=== PATIENT | female | born 1950 | race Caucasian/White ===

== ENCOUNTER → 2018-02-28 10:49 | Outpatient (CLI) | payer MEDICARE, OTHER, SELFPAY ==
--- NOTE | 2018-02-28 10:54 | XR_ITS ---
XR XR knee LT 4V, XR knee RT 4V Comparison: Weightbearing Right knee 2014. Right and left nonweightbearing knee from 2010 History: Bilateral knee pain Technique: Weightbearing AP, lateral and [place] views were performed as well as oblique. Both right and left knee === LEFT KNEE Joint spaces fairly well maintained with medial and lateral compartment. No joint effusion. Borderline to perhaps very slight patella kasi on lateral view. . Bones well mineralized Scant early marginal ossified formation about margin of the tibia again noted and stable. Also slight sharpening at margins of patella. These may reflect some very early degenerative changes . The sunrise view patellofemoral joint which shows some subtle irregularity with possibly some very subtle subchondral cystic just be the cortex at the lateral aspect of the femoral trochlear groove question. IMPRESSION: ======= 1. No prominent findings. Joint space well maintained. Scant degenerative changes 2. Only question subtle subchondral irregularity just beneath the cortex at the lateral aspect of the femoral trochlear groove on sunrise view. 3. Question Borderline to possible minor patella kasi on lateral view === RIGHT KNEE: joint spaces fairly well-maintained at medial and lateral compartment. Only negligible - borderline narrowing at the medial compartment. Equivocal. .Only very slight sharpening the joint margins. Minor hypertrophic changes at the tibial spines no joint effusion.. There is some question of some subchondral cystic area at the dorsal aspect superior patella this is less evident on today's lateral film. . [place] view shows satisfactory patellofemoral relationships. A more prominent lateral process of patella on today's study within the 2014 study is curiously noted. Borderline to possible possibly mild patella kasi IMPRESSION: 1. No prominent findings Medial & lateral compartment joint space fairly well maintained Only Scant sharpening [joint margins. 2. Question Borderline patella kasi on a lateral view right knee as well.
== END ==
PROVIDERS: PCP Family Medicine; Visit Provider Orthopaedic Surgery
DX: M17.0 Bilateral primary osteoarthritis of knee (principal)
CPT/HCPCS: 73564

== ENCOUNTER → 2018-03-13 10:36 | Outpatient (CLI) | payer MEDICARE, OTHER, SELFPAY ==
--- NOTE | 2018-03-13 10:42 | XR_ITS ---
EXAM: XR thoracic spine 3V HISTORY: Back pain ITS.REASON: SOB, BACK PAIN, LUMBAGO WITH SCIATICA COMPARISON: FINDINGS: Normal alignment. No fracture or dislocation. No lytic or blastic change. There is mild decrease in the disc spaces in the midthoracic spine with minimal endplate sclerosis and osteophyte formation. There is degenerative disc disease in the cervical spine from C3 to C7. Not well delineated however. IMPRESSION: 1. Thoracic spondylosis. No acute fracture. 2. Degenerative disc disease of the cervical spine
--- NOTE | 2018-03-13 10:42 | XR_ITS ---
EXAM: XR lumbar spine min 4V HISTORY: ITS.REASON: SOB, BACK PAIN, LUMBAGO WITH SCIATICA ORDERING PHYSICIAN: SELVIN Ordonez PATIENT AGE: 68 years COMPARISON: 04/21/2015 FINDINGS: There are postsurgical changes with interpedicular screws at L2 L3 L4 and L5. Prior laminectomy L4 and L5. Disc spacer device is present at L2-L3. There is straightening of the lumbar lordosis. There is severe degenerative disc disease at L5-S1 with osteosclerosis with decreased disc space and vacuum disc at that level. Facet arthritic changes also noted at L5-S1. No fracture or dislocation. IMPRESSION: 1. Postsurgical changes as described above. Prior posterior fusion. 2. Severe degenerative disc disease L5-S1. 3. Overall no change from 04/21/2015
--- NOTE | 2018-03-13 10:42 | XR_ITS ---
XR chest 2V HISTORY: ITS.REASON: SOB, BACK PAIN, LUMBAGO WITH SCIATICA ORDERING PHYSICIAN: SELVIN Ordonez PATIENT AGE: 68 years COMPARISON: 06/01/2014 FINDINGS: The cardiomediastinal silhouette and pulmonary vascularity are within normal limits. The lungs are clear without infiltrates, suspicious nodules, or pleural effusions. No acute bony abnormalities. IMPRESSION: Negative chest, no acute finding
== END ==
PROVIDERS: PCP Family Medicine; Visit Provider Physician Assistant
DX: R06.02 Shortness of breath (principal); M54.41 Lumbago with sciatica, right side; M54.42 Lumbago with sciatica, left side
CPT/HCPCS: 71046; 72072; 72110

== ENCOUNTER → 2018-04-15 09:42 | Outpatient (CLI) | payer MEDICARE, OTHER, SELFPAY ==
[2018-04-15 10:15] VITALS: PULSE 46; PULSE 47
== END ==
PROVIDERS: Family Provider Family Medicine; PCP Family Medicine; Visit Provider Family Medicine
DX: R06.02 Shortness of breath (principal)
CPT/HCPCS: 94060; 94640

== ENCOUNTER → 2018-08-01 10:44 | Outpatient (CLI) | payer MEDICARE, OTHER, SELFPAY ==
--- NOTE | 2018-08-01 10:55 | XR_ITS ---
EXAM: XR cervical spine 3V HISTORY: ITS.REASON: PARESTHESIA OF ARM ORDERING PHYSICIAN: SELVIN Ordonez PATIENT AGE: 68 years COMPARISON: None FINDINGS: There is multilevel degenerative disc disease at C3-C4, C4-C5, C5-C6, and C6-C7. There is minimal anterolisthesis of C2 on C3 of 3 mm.. There is mild retrolisthesis of C5 on C6 of 2 mm. Mild cervical scoliosis convex right. Multilevel facet arthritic changes from C4 to C7. There are mild osteoarthritic changes of the lateral masses of C1 and C2. No acute fracture or dislocation. No lytic or blastic change. IMPRESSION: 1. Multilevel cervical spondylosis with degenerative disc disease and facet arthritic change
== END ==
PROVIDERS: PCP Family Medicine; Visit Provider Physician Assistant
DX: R20.2 Paresthesia of skin (principal)
CPT/HCPCS: 72040

== ENCOUNTER → 2018-08-13 12:38 | Outpatient (POV) | payer MEDICARE, OTHER, SELFPAY | PROVIDERS: Family Provider Family Medicine; PCP Family Medicine; Visit Provider Internal Medicine | DX: Z00.00 Encounter for general adult medical examination without abnormal findings (principal) ==

== ENCOUNTER → 2018-08-21 06:47 | Outpatient (CLI) | payer MEDICARE, OTHER, SELFPAY ==
--- NOTE | 2018-08-21 07:00 | NM_ITS ---
History and Indications: Hypertension, hyperlipidemia, family history, shortness of breath and fatigue Procedure: Patient received a 0.4 mg of intravenous Lexiscan, resting heart rate was 53 bpm resting blood pressure 174/84, with Lexiscan maximum heart rate achieved was 75 bpm which is less than 85% of the maximum predicted heart rate and a blood pressure was 142/72. With Lexiscan patient chest pressure and shortness of breath Electrocardiogram: Resting electrocardiogram showed sinus bradycardia, with Lexiscan there is less than 1.[address] segment depression noted from the baseline EKG. The EKG portion of the Lexiscan Myoview is nondiagnostic. Cardiac stress and resting SPECT images: Cardiac stress and rest SPECT images were obtained using technetium 99 Myoview 2.1 mCi at stress and 10.4 mCi at rest. Gated SPECT further analysis of segmental wall motion and calculation of the ejection fraction also done. Cardiac stress and rest SPECT images show uniform myocardial activity without segmental perfusion abnormality, computer derived ejection fraction is over 65% with no regional wall motion abnormality, right ventricle is normal size and contractility. Conclusion: 1. The EKG portion of the Lexiscan Myoview is nondiagnostic. 2. No scintigraphic evidence of reversible ischemia seen, computer derived ejection fraction is over 65% with no regional wall motion abnormality, right ventricle is normal size and contractility. 3. Normal Lexiscan Myoview study.
--- NOTE | 2018-08-21 07:48 | HMH.ITSHM ---
B12 VITAMIN C BIOTIN METHOTREXATE PROPRANOLOL FOLIC ACID PREDNISONE PAROXETINE OMEPRAZOLE AMLODIPINE PRAVASTATIN ALLERGY RELIEF
== END ==
PROVIDERS: Family Provider Family Medicine; PCP Family Medicine; Visit Provider Internal Medicine
DX: R06.00 Dyspnea, unspecified (principal)
CPT/HCPCS: 78452; 93017; A9502; J2785

== ENCOUNTER → 2018-08-22 09:40 | Outpatient (CLI) | payer MEDICARE, OTHER, SELFPAY ==
[2018-08-22 11:00] VITALS: PULSE 55
== END ==
PROVIDERS: PCP Family Medicine; Visit Provider Internal Medicine
DX: R06.00 Dyspnea, unspecified (principal)
CPT/HCPCS: 94060; 94618; 94640; 94726; 94729

== ENCOUNTER → 2018-09-03 10:48 | Outpatient (POV) | payer MEDICARE, OTHER, SELFPAY | PROVIDERS: Family Provider Family Medicine; PCP Family Medicine; Visit Provider Dermatology | DX: Z00.00 Encounter for general adult medical examination without abnormal findings (principal) ==

== ENCOUNTER 2018-09-25 10:00 | Outpatient (RCR) | payer MEDICARE, OTHER, SELFPAY ==
--- NOTE | 2018-08-12 14:23 | HMH.PTOPEV ---
PT Outpatient Evaluation Rehab PT Outpatient Evaluation Start: 08/12/18 13:02 Freq: Status: Active Protocol: Document 08/12/18 14:02 PRISCILLA (Rec: 08/12/18 14:20 PHORNE [id number]) Electronically Signed By Gagandeep Golden, PT 08/12/18 14:02 Outpatient Therapy Subjective History Subjective History Pt is 68 yowf who presents with c/o right forearm numbness/tingling and pain x ~ 6 mos with insidious onset of symptoms. She reports intermittent symptoms, often worse at night though. She had X-ray of the C-spine performed which shows DDD throughout, 2 levels of mild listhesis, and cervical scoliosis concave left. She reports hx of lumbar spine fusion. Chief Complaint Pain Paresthesia Symptom Type Burning Numbness Tingling Symptoms Relieved By Nothing Prior Functional Limitations None Current Functional Limitations None Symptom Description Intermittent Level of pain today (0-10) 5 Pain scale - at its worst (0-10) 9 Cervical Eval Posture Head/C-Spine Posture Sitting Position Side Bent Left Head/C-Spine Posture Standing Position Side Bent Left Flexibility Deficits Upper Trapezius Muscle Length (R) Moderate Tightness (L) Moderate Tightness Passive Joint Mobility Cervical PIVM Dec: R OA L OA R AA L AA R C2/3 L C2/3 R C3/4 L C3/4 R C4/5 L C4/5 R C5/6 L C5/6 R C6/7 L C6/7 R C7/T1 L C7/T1 AROM Cervical Spine Extension Active Range of 0-55 Motion (degrees) Cervical Spine Flexion Active Range of 0-35 Motion (degrees) Cervical Spine Right Lateral Flexion 0-35 Active Range of Motion (degrees) Cervical Spine Left Lateral Flexion 0-50 Active Range of Motion (degrees) Cervical Spine Right Rotation Active 0-45
== END 2018-09-25 10:05 | disposition home or self-care (01) ==
LOC: PT 10:00
PROVIDERS: Family Provider Family Medicine; PCP Family Medicine; Visit Provider Family Medicine
DX: R20.2 Paresthesia of skin (principal)
CPT/HCPCS: 97010; 97012; 97014; 97035; 97110; 97140; 97163; G0283

== ENCOUNTER → 2018-11-29 10:37 | Outpatient (CLI) | payer MEDICARE, OTHER, SELFPAY ==
--- NOTE | 2018-11-29 10:43 | XR_ITS ---
XR hip RT 2-3V w/pelvis HISTORY: ITS.REASON: right hip pain ORDERING PHYSICIAN: Henry Ramsey MD PATIENT AGE: 68 years COMPARISON: None FINDINGS: No fracture or dislocation is evident. No significant degenerative change. No lytic or blastic change. Unremarkable soft tissues IMPRESSION: Negative hip
--- NOTE | 2018-11-29 10:43 | XR_ITS ---
XR knee RT 4V HISTORY: Right knee pain ITS.REASON: 4 views weightbearing ORDERING PHYSICIAN: Henry Ramsey MD PATIENT AGE: 68 years COMPARISON: 02/28/2018 FINDINGS: No fracture or dislocation. No lytic or blastic change. Normal mineralization. Minimal spurring is noted involving the tibial spines with only slight decrease in the joint space laterally and at the patellofemoral joint. IMPRESSION: Minimal osteoarthritis, no significant change from 45
--- NOTE | 2018-11-29 10:43 | XR_ITS ---
XR knee LT 4V HISTORY: Left knee pain ITS.REASON: 4 views weightbearing ORDERING PHYSICIAN: Henry Ramsey MD PATIENT AGE: 68 years COMPARISON: 02/28/2018 FINDINGS: No fracture or dislocation. No lytic or blastic change. Normal mineralization. There is mild spurring at the tibial spines and along the intercondylar region of the distal femur as well as the posterior patella with slight decrease in the joint space medially. The previously noted subchondral lucency along the medial aspect of the femoral condyle as seen on the sunrise view previous exam is less apparent on today's exam IMPRESSION: Mild osteoarthritis
--- NOTE | 2018-11-29 10:43 | XR_ITS ---
XR hip LT 2-3V w/pelvis HISTORY: ITS.REASON: left hip pain ORDERING PHYSICIAN: Henry Ramsey MD PATIENT AGE: 68 years COMPARISON: None FINDINGS: No fracture or dislocation is evident. No significant degenerative change. No lytic or blastic change. Unremarkable soft tissues. There are multiple rounded calcific densities in pelvis which could represent bladder stones. There is mild sclerosis of left SI joint and there are postoperative changes of the lumbar spine severe degenerative disc disease at L5-S1. IMPRESSION: Negative left hip Other nonacute findings as described above
== END ==
PROVIDERS: PCP Family Medicine; Visit Provider Orthopaedic Surgery
DX: M25.552 Pain in left hip (principal); M25.551 Pain in right hip; M17.12 Unilateral primary osteoarthritis, left knee; M17.11 Unilateral primary osteoarthritis, right knee
CPT/HCPCS: 73502; 73564

== ENCOUNTER 2018-12-17 13:00 | Outpatient (RCR) | payer MEDICARE, OTHER, SELFPAY ==
--- NOTE | 2018-12-04 10:54 | HMH.PTOPEV ---
PT Outpatient Evaluation Rehab PT Outpatient Evaluation Start: 12/04/18 10:35 Freq: Status: Active Protocol: Document 12/04/18 10:35 PRISCILLA (Rec: 12/04/18 10:48 PHORJANAK [id number]) Electronically Signed By Gagandeep Golden, PT 12/04/18 10:35 Outpatient Therapy Subjective History Subjective History Pt is 68 yowf who presents with c/o pain in left hip x ~ 7 mos with gradually worsening symptoms. She also reports hx of jorge a knee pain for about 20 years due to OA. She reports that her hip was causing pain throughout her left LE, but it has significantly decreased since she received left trochanteric cortisone injection. She has significant hx of chronic neck pain, chronic low back pain with lumbar fusionx 3, HTN, HL , and jorge a knee arthroscopy. Chief Complaint Pain Symptom Type Ache Throb Symptoms Relieved By Rest/Positioning Symptoms Aggravated By Sitting Physical Activity Prior Functional Limitations Driving Current Functional Limitations Driving Sitting Symptom Description Intermittent Level of pain today (0-10) 0 Pain scale - at its worst (0-10) 10 Hip/Knee Eval Gait Observation General Gait Pattern Observation No Deviations/Normal Palpation Tenderness left Hip Palpation Findings Tenderness MMT Hip Flexion Strength Grade 4 Good Hip Abduction Strength Grade 4 Good Hip Adduction Strength Grade 5 Normal Hip Extension Strength Grade 5 Normal Hip External Rotation Strength Grade 5 Normal Hip Internal Rotation Strength Grade 5 Normal Knee Extension Strength Grade 5 Normal Knee Flexion Strength Grade 5 Normal DTR bilateral Rt Patellar 2+ Lt Patellar 2+ Rt Ankle 2+ Lt Ankle 2+ Special Tests Hip Bowstring (Cram) Test Positive Left Positive Right Hip Scouring (Quadrant) Test Negative Left Negative Right Outpatient Therapy Assessment Impairments Problems/Impairmments Palpation Tenderness Impaired Strength Impaired Walking Impaired Sitting
== END 2018-12-17 13:05 | disposition home or self-care (01) ==
LOC: PT 13:00
PROVIDERS: Visit Provider Orthopaedic Surgery
DX: M25.552 Pain in left hip; M17.0 Bilateral primary osteoarthritis of knee
CPT/HCPCS: 97010; 97014; 97035; 97110; 97140; 97163; G0283

== ENCOUNTER → 2019-04-08 08:36 | Outpatient (CLI) | payer MEDICARE, OTHER, SELFPAY ==
--- NOTE | 2019-04-08 08:42 | MR_ITS ---
MR lumbar spine wo con, MR 3-d myelogram/MRCP HISTORY: Prior Lumbar surgery X10yrs. LBP. LT hip and leg pain. XYRS. ITS.REASON: ACUTE LEFT SIDED LOW BACK PAIN ORDERING PHYSICIAN: SELVIN Ordonez PATIENT AGE: 69 years Comparison: X-RAY 03-13-18. TECHNIQUE: Standard multiplanar multiecho sequences are performed without contrast. 3-D MIP and myelographic images are also rendered and reviewed FINDINGS: There has been prior laminectomy with posterior fusion from L2 to L5 with considerable artifact. The spinal cord ends at the L1 level. Straightening of the lumbar lordosis. T11-T12: Mild degenerative disc disease with minimal right paracentral disc protrusion without impingement. T12-L1: Unremarkable. L1-L2: There are interpedicular screws at L2 with moderate degree of artifact obscuring the lateral recess and foramina on the axial images. No disc herniation evident at this level. L2-L3: Considerable artifact is present from the interpedicular screws. There is a small left paracentral and lateral disc protrusion with mild foraminal narrowing. L3-L4: Artifact from the interpedicular screws. Facet and ligamentum flavum hypertrophy is present with mild left-sided foraminal narrowing. L4-L5: Artifact from the interpedicular screws with fusion of L4 and L5. L5-S1: Artifact from the interpedicular screws. Degenerative disc disease with bulging disc and facet hypertrophic change with moderate bilateral foraminal narrowing. IMPRESSION: 1. Postsurgical changes are present from prior laminectomy and posterior fusion from L2 to L5 with associated degenerative changes at the disc spaces. Please see above for detailed description at each level. 2. Small right paracentral disc protrusion T11-T12 3. Small left paracentral lateral disc protrusion at L2-L3 with mild foraminal narrowing 4. Degenerative disc disease with bilateral foraminal narrowing and bulging disc at L5-S1
== END ==
PROVIDERS: PCP Physician Assistant; Visit Provider Physician Assistant
DX: M54.42 Lumbago with sciatica, left side (principal)
CPT/HCPCS: 72148; 76376

== ENCOUNTER → 2019-09-02 09:15 | Outpatient (CLI) | payer MEDICARE, OTHER, SELFPAY ==
--- NOTE | 2019-09-02 09:19 | CA_ITS ---
APPROVED REPORT EXAM: Comprehensive 2D, Doppler, and color-flow Echocardiogram [employer] Engineering: Susana Jimenez RVT Ht: 5 ft 5 in Wt: 178lbs BSA: 1.88 BP: 125/68 mmHg Indications: Shortness of Breath, Hyperlipidemia, Hypertension 2D Dimensions LVOT 1.70 cm (M/F) 1.5-2.5 M-Mode Dimensions RVDd 2.90 cm (0.9-2.6) LA Diam 3.40 cm (1.9-4.0) LVDd 3.70 cm (3.5-5.7) Ao Diam 2.40 cm (2.0-3.7) LVDs 1.50 cm (3.5-5.7) AV Cusp 2.10 cm (1.5-2.6) IVSd 1.70 cm (0.6-1.1) PWd 0.90 cm (0.6-1.1) EF (Teich) 89.60% FS 59.50% EDV (Teich) 58.10 mL ESV (Teich) 6.06 mL LV Diastology E/A Ratio 0.8 MED E' 10.60 (< 7 cm/sec) E'/MED E' Ratio 7.80 (>14) LAT E' 9.85 (<10 cm/sec) E/LAT E' Ratio 8.40 (>14) Aortic Valve AoV Peak Yayo. 105.00 (50-130 cm/s) AO Peak GR. 4.00 mmHg Mitral Valve MV E Max Yayo. 82.40 (40-130 cm/s) MV A Velocity 98.20 (40-130 cm/s) E/A Ratio 0.80 Pulmonary Valve PA Accel Time 106.00 (>120 msec) Left Ventricle Left atrium is mildly enlarged, left ventricle is normal size, mild concentric left ventricular hypertrophy, septum is sigmoid configuration, visually estimated ejection fraction 55% with no regional wall motion abnormality, grade 1 diastolic dysfunction seen without tissue Doppler evidence of raise left atrial pressure. Right Ventricle Right atrium and right ventricular normal size and contractility. Aortic Valve Aortic valve is thickened and calcified leaflet continue to display mobility, there is no aortic stenosis or aortic insufficiency. Mitral Valve Mitral valve leaflets are minimally thickened, there is no mitral stenosis, there is mild mitral regurgitation. Tricuspid Valve Tricuspid valve is normal, there is mild tricuspid regurgitation. Pulmonic Valve Pulmonic valve is poorly visualized. Great Vessels Aortic root is normal size. Pericardium No significant pericardial effusion noted. Conclusion 1. Normal left ventricular size, mild concentric left ventricular hypertrophy, visually estimated ejection fraction 55% with no regional wall motion abnormality, septum is sigmoid configuration, grade 1 diastolic dysfunction seen without tissue Doppler evidence of a left atrial pressure. 2. Thickened and calcified aortic valve without aortic stenosis or aortic insufficiency. 3. Mild mitral and tricuspid regurgitation. 4. No significant pericardial effusion noted. Electronically signed by : Chaitanya Fofana, 09/03/2019 07:01:01
== END ==
PROVIDERS: PCP Family Medicine; Visit Provider Physician Assistant
DX: R06.02 Shortness of breath (principal)
CPT/HCPCS: 93306

== ENCOUNTER → 2021-05-02 14:31 | Outpatient (CLI) | payer MEDICARE, SELFPAY ==
--- NOTE | 2021-05-02 14:37 | MM_ITS ---
PROCEDURE INFORMATION: Exam: MG Screening 3D Mammography Exam date and time: 05/02/2021 2:37 PM Age: 71 years old Clinical indication: screening mammogram TECHNIQUE: Imaging protocol: Screening tomosynthesis and 2D mammography including computer-aided detection (CAD) when performed. COMPARISON: 1. MG DMSB DIG MAMM-SCREEN RICHAR W/CAD 09/28/2017 3:44 PM 2. MG DMSB DIG MAMM-SCREEN RICHAR 11/05/2014 8:39 AM FINDINGS: MAMMOGRAPHY: Breast composition: There are scattered areas of fibroglandular density. Mass: None. Architectural distortion: No new or suspicious architectural distortion. Calcifications: No new or suspicious calcifications are present Asymmetric density: No new or suspicious asymmetric density is present Skin thickening: None. Axillary adenopathy: None. IMPRESSION: No mammographic evidence of malignancy. Recommend annual screening mammography unless otherwise clinically indicated. ASSESSMENT: BI-RADS category 1: Negative
== END ==
PROVIDERS: PCP Family Medicine; Visit Provider Physician Assistant
DX: Z12.31 Encounter for screening mammogram for malignant neoplasm of breast (principal)
CPT/HCPCS: 77063; 77067

== ENCOUNTER → 2021-05-24 14:48 | Outpatient (CLI) | payer MEDICARE, SELFPAY ==
--- NOTE | 2021-05-24 14:53 | XR_ITS ---
PROCEDURE: XR KNEE RT 4V CLINICAL INDICATION: right knee pain COMPARISON: CR [id number] XR knee RT 4V from 02/28/2018 CR [id number] XR knee LT 4V from 02/28/2018 CR [id number] XR knee LT 4V from 11/29/2018 CR [id number] XR knee RT 4V from 11/29/2018 FINDINGS: No fracture or dislocation. No lytic or blastic change. There is normal mineralization. Minimal spurring noted involving the tibial spines slightly more prominent. Other findings:None. IMPRESSION: Minimal osteoarthritic change Dictated by: Edgar Patrick MD 05/24/2021 17:36 Edgar Patrick MD in [place] 05/24/2021 17:36
--- NOTE | 2021-05-24 14:53 | XR_ITS ---
PROCEDURE: XR HIP LT 2-3V W/PELVIS CLINICAL INDICATION: left hip pain COMPARISON: CR [id number] XR hip LT 2-3V w/pelvis from 11/29/2018 FINDINGS: No fracture or dislocation. The joint space is well preserved. Incidental note is made of multiple faint calcifications overlying the left pelvic region suspicious for bladder stones. Postsurgical and degenerative changes are present in lumbosacral spine IMPRESSION: Negative left hip. Multiple bladder stones Dictated by: Edgar Patrick MD 05/24/2021 17:34 Edgar Patrick MD in [place] 05/24/2021 17:34
--- NOTE | 2021-05-24 14:53 | XR_ITS ---
PROCEDURE: XR KNEE LT 4V CLINICAL INDICATION: left knee pain COMPARISON: CR [id number] XR knee RT 4V from 02/28/2018 CR [id number] XR knee LT 4V from 02/28/2018 CR [id number] XR knee LT 4V from 11/29/2018 CR [id number] XR knee RT 4V from 11/29/2018 FINDINGS: No fracture or dislocation. No lytic or blastic change. There is normal mineralization. There are mild osteoarthritic changes of the left knee with mild spurring of the tibial spines in the superior patella Other findings:None. IMPRESSION: Mild osteoarthritis not significantly changed Dictated by: Edgar Patrick MD 05/24/2021 17:37 Edgar Patrick MD in [place] 05/24/2021 17:37
--- NOTE | 2021-05-24 14:53 | XR_ITS ---
PROCEDURE: XR HIP RT 2-3V W/PELVIS CLINICAL INDICATION: right hip pain COMPARISON: CR [id number] XR hip LT 2-3V w/pelvis from 11/29/2018 FINDINGS: No fracture or dislocation is evident. No significant degenerative change. No lytic or blastic change. Unremarkable soft tissues. IMPRESSION: Negative right hip Dictated by: Edgar Patrick MD 05/24/2021 17:36 Edgar Patrick MD in [place] 05/24/2021 17:36
== END ==
PROVIDERS: PCP Family Medicine; Visit Provider Orthopaedic Surgery
DX: M17.12 Unilateral primary osteoarthritis, left knee (principal); M70.61 Trochanteric bursitis, right hip; M17.11 Unilateral primary osteoarthritis, right knee; M70.62 Trochanteric bursitis, left hip
CPT/HCPCS: 73502; 73564

== ENCOUNTER → 2021-08-02 11:44 | Outpatient (CLI) | payer MEDICARE, SELFPAY ==
--- NOTE | 2021-08-02 11:51 | XR_ITS ---
PROCEDURE: XR ANKLE RT MIN 3V CLINICAL INDICATION: Unspecified injury of right ankle, initial encounter COMPARISON: No exams were available for comparison FINDINGS: There is a vague transverse lucency involving the distal shaft of the fibula at the distal diaphyseal region suggesting a nondisplaced fracture. Ankle mortise is preserved. No other significant anomalies are evident. Minimal soft tissue calcification noted anterior to the distal tibia. The joint spaces are well-preserved. No significant degenerative/arthritic changes. No erosive changes evident. Other findings:None. IMPRESSION: Nondisplaced transverse fracture distal shaft of the fibula Dictated by: Edgar Patrick MD 08/02/2021 12:23 Edgar Patrick MD in [place] 08/02/2021 12:23
== END ==
PROVIDERS: PCP Family Medicine; Visit Provider Family Medicine
DX: S99.911A Unspecified injury of right ankle, initial encounter (principal)
CPT/HCPCS: 73610

== ENCOUNTER 2021-08-05 15:48 | Outpatient (RCR) | payer MEDICARE, SELFPAY | END 2021-08-05 16:10 | disposition home or self-care (01) | LOC: PT 15:48 | PROVIDERS: Visit Provider Family Medicine | DX: S82.401A Unspecified fracture of shaft of right fibula, initial encounter for closed fracture (principal) ==

== ENCOUNTER → 2021-08-16 15:49 | Outpatient (CLI) | payer MEDICARE, SELFPAY ==
[2021-08-16 18:03] LABS: Blood Urea Nitrogen 14 mg/dl (7-17); Estimated Glomerular Filt Rate 54 ml/min (>60); GFR (African American) 66 ML/MIN (>60)
== END ==
PROVIDERS: Visit Provider Podiatrist
DX: S82.891A Other fracture of right lower leg, initial encounter for closed fracture (principal)
CPT/HCPCS: 36415; 82565; 84520

== ENCOUNTER → 2021-08-17 09:26 | Outpatient (CLI) | payer MEDICARE, SELFPAY ==
--- NOTE | 2021-08-17 09:27 | MR_ITS ---
PROCEDURE INFORMATION: Exam: MR Right Lower Extremity Joint Without and With Contrast; Ankle Exam date and time: 08/17/2021 9:27 AM Age: 71 years old Clinical indication: Pain; Ankle; Right; Additional info: Right ankle injury and pain TECHNIQUE: Imaging protocol: MR of the Right lower extremity without and with contrast. Exam focused on the ankle. Contrast material: PROHANCE; Contrast volume: 16 ml; Contrast route: IV; COMPARISON: CR XR ANKLE RT MIN 3V 08/02/2021 12:11 PM FINDINGS: Bones and cartilage: Healing fracture involving the metadiaphysis of the distal fibula. Joint spaces: Small to moderate posterior tibiotalar joint effusion and subtalar joint effusion. LIGAMENTS: Distal tibiofibular syndesmosis: Unremarkable. No tear. Anterior talofibular ligament: Unremarkable. No tear. Posterior talofibular ligament: Unremarkable. No tear. Calcaneofibular ligament: Unremarkable. No tear. Deltoid ligament complex: Unremarkable. No tear. TENDONS: Flexor tendons of foot: Unremarkable as visualized. Tibialis posterior tendon: Unremarkable as visualized. Peroneal tendons: Unremarkable as visualized. Extensor tendons of foot: Unremarkable as visualized. Tibialis anterior tendon: Unremarkable as visualized. Achilles tendon: Unremarkable as visualized. Tarsal canal (Sinus tarsi): Sinus tarsi is intact. Tarsal tunnel: Unremarkable. Muscles: Unremarkable. Soft tissues: Unremarkable. Plantar fascia: Plantar fascia is unremarkable. IMPRESSION: 1. Healing fracture involving the metadiaphysis of the distal fibula. 2. Ligaments and tendons of the ankle are intact. 3. No other significant internal derangement.
== END ==
PROVIDERS: PCP Family Medicine; Visit Provider Podiatrist
DX: M25.571 Pain in right ankle and joints of right foot (principal); S82.891A Other fracture of right lower leg, initial encounter for closed fracture; T14.8XXA Other injury of unspecified body region, initial encounter
CPT/HCPCS: 73723; A9576

== ENCOUNTER → 2021-09-05 09:17 | Outpatient (CLI) | payer MEDICARE, SELFPAY ==
--- NOTE | 2021-09-05 09:20 | XR_ITS ---
PROCEDURE: XR ANKLE WT BEARING RT MIN 3V CLINICAL INDICATION: fracture evaluation COMPARISON: CR XR ANKLE RT MIN 3V from 08/02/2021 FINDINGS: Bones: There is a healing fracture which is nondisplaced involving the distal shaft of the fibula with some faint callus formation noted. Joints: The joint spaces are well-preserved. No significant degenerative/arthritic changes. No erosive changes evident. Other findings:None. IMPRESSION: Healing nondisplaced distal fibular fracture Dictated by: Edgar Patrick MD 09/05/2021 10:38 Edgar Patrick MD in [place] 09/05/2021 10:38
== END ==
PROVIDERS: PCP Family Medicine; Visit Provider Podiatrist
DX: M25.571 Pain in right ankle and joints of right foot (principal); S82.831A Other fracture of upper and lower end of right fibula, initial encounter for closed fracture; S82.891A Other fracture of right lower leg, initial encounter for closed fracture
CPT/HCPCS: 73610

== ENCOUNTER 2021-09-27 10:00 | Outpatient (RCR) | payer MEDICARE, SELFPAY ==
--- NOTE | 2021-09-20 10:12 | HMH.PTOPEV ---
PT Outpatient Evaluation Rehab PT Outpatient Evaluation Start: 09/20/21 09:59 Freq: Status: Active Protocol: Document 09/20/21 09:59 YOGESH (Rec: 09/20/21 10:12 YOGESH [id number]) Electronically Signed By Luis Arriaza, PT 09/20/21 09:59 Outpatient Therapy Subjective History Subjective History Pt reports falling in hole ~2 months ago, sustained fx to right distal fibula. Pt reports progress since initial injury with pain and function , 'I really think I'm doing quite well, some pain in the back (achilles area), but it feels pretty good to put weight through it'. Chief Complaint Pain,Stiff,Swelling,Weakness Symptom Type Ache,Dull Symptoms Relieved By Rest/Positioning Symptoms Aggravated By Standing,Physical Activity, Walking Prior Functional Limitations Standing,Walking,Stairs Current Functional Limitations Standing,Walking,Stairs Symptom Description Constant but Variable Level of pain today (0-10) 0 Pain scale - at its best (0-10) 0 Pain scale - at its worst (0-10) 5 Ankle/Foot Eval Gait Observation General Gait Pattern Observation Antalgic Gait,Wide Based Gait Palpation Tenderness right Ankle/Foot Palpation Findings Tenderness Ankle/Foot Palpation Overall Comment distal fib., peroneus brevis mm 2-3/4 ROM Ankle/Foot Dorsiflexion w/Knee Extended 0-8 Active Range Motion (degrees) Ankle/Foot Plantar Flexion Active Range 0-45 of Motion (degrees) Ankle/Foot Eversion Active Range of 0-11 Motion (degrees) Ankle/Foot Inversion Active Range of 0-40 Motion (degrees) MMT Ankle Dorsiflexion Strength Grade 4 Good Ankle Plantarflexion Strength Grade 4 Good Foot Eversion Strength Grade 4- Good- Foot Inversion Strength Grade 4 Good Outpatient Therapy Assessment Impairments Problems/Impairmments Palpation Tenderness,Impaired Range of Motion,Impaired Strength,Impaired Gait Pattern ,Impaired Walking,Impaired Standing,Impaired Household Care,Subjective C/O Pain, Impaired Self Care/Self Management Prognosis Rehab Potential Good Clinical Impression Consistent with Diagnosis Yes Short Term Goals Number of Weeks 4 Decreased Palpation Tenderness Yes: 1-2/4 R ANKLE/FOOT Increase Range
== END 2021-09-27 10:05 | disposition home or self-care (01) ==
LOC: PT 10:00
PROVIDERS: PCP Family Medicine; Visit Provider Podiatrist
DX: S82.891D Other fracture of right lower leg, subsequent encounter for closed fracture with routine healing (principal); M25.571 Pain in right ankle and joints of right foot
CPT/HCPCS: 97014; 97016; 97110; 97112; 97163; G0283

== ENCOUNTER → 2021-12-06 13:53 | Outpatient (POV) | payer MEDICARE, SELFPAY | PROVIDERS: Visit Provider Dermatology | DX: Z00.00 Encounter for general adult medical examination without abnormal findings (principal) ==

== ENCOUNTER → 2022-04-05 12:32 | Outpatient (CLI) | payer MEDICARE, SELFPAY ==
--- NOTE | 2022-04-05 12:36 | XR_ITS ---
FINAL REPORT CLINICAL HISTORY: knee pain COMPARISON: May 24, 2021 FINDINGS: RIGHT KNEE: 4 views of the right knee obtained. There is no acute fracture or dislocation. There is mild degenerative change. There is a small joint effusion. There is no soft tissue abnormality. IMPRESSION: Mild degenerative change with small joint effusion. Reviewed, Interpreted and Dictated by Jay Bowling III, MD Transcribed by Mary Gonsalez Authenticated by Jay Bowling III, MD on 04/05/2022 02:17:[address] [facility]
--- NOTE | 2022-04-05 12:36 | XR_ITS ---
FINAL REPORT CLINICAL HISTORY: knee pain FINDINGS: LEFT KNEE: Four views of the left knee obtained. There is no acute fracture or dislocation. There is mild degenerative change. There is a small joint effusion There is no soft tissue abnormality. IMPRESSION: Mild degenerative change with small joint effusion. Reviewed, Interpreted and Dictated by Jay Bowling III, MD Transcribed by Mary Gonsalez Authenticated by Jay Bowling III, MD on 04/05/2022 02:17:18 PM [facility]
[2022-04-05 14:24] LABS: Basophils # 0.1 K/mm3 (0-0.2); Basophils % 1.5 % (0.1-2.0); Eosinophils # 0.1 K/mm3 (0.0-0.4); Eosinophils % 1.7 % (0.1-12.0); Hematocrit 42.8 % (37.0-47.0); Hemoglobin 14.3 g/dL (12.2-16.2); Lymphocytes # 2.4 K/mm3 (0.7-4.5); Lymphocytes % 31.5 % (10-50); Mean Corpuscular HGB Conc 33.4 g/dL (31.8-35.4); Mean Corpuscular Hemoglobin 35.8 pg (27.0-31.2); Mean Corpuscular Volume 107.2 fl (81-99); Mean Platelet Volume 8.1 fl (7.4-10.4); Monocytes # 0.5 K/mm3 (0.1-1.0); Monocytes % 6.6 % (1.7-9.3); Neutrophils # 4.5 K/mm3 (1.8-7.8); Neutrophils % 58.8 % (37.0-80.0); Platelet Count 337 K/mm3 (142-424); Red Cell Distribution Width 14.1 % (11.5-17.5); White Blood Count 7.6 K/mm3 (4.8-10.8)
[2022-04-05 14:59] LABS: Alanine Aminotransferase 42 U/L (12-78); Albumin Level 4.1 g/dl (3.5-5.0); Albumin/Globulin Ratio 1.6 (1.1-1.8); Alkaline Phosphatase 113 U/L (38-126); Anion Gap 10.4 mEq/L (5-15); Aspartate Amino Transferase 34 U/L (14-36); Bilirubin,Total 0.6 mg/dl (0.2-1.3); Blood Urea Nitrogen 18 mg/dl (7-17); Calcium 9.3 mg/dl (8.4-10.2); Carbon Dioxide 30 mmol/L (22.0-30.0); Chloride 98 mmol/L (98-107); Estimated Glomerular Filt Rate 70 ml/min (>60); GFR (African American) 85 ML/MIN (>60); Globulin 2.6 g/dL (1.3-3.2); Glucose 91 mg/dl (74-100); Potassium 4.4 mmoL/L (3.5-5.1); Sodium 134 mmol/L (136-145); Total Protein,Serum 6.7 g/dl (6.3-8.2)
[2022-04-05 15:05] LABS: C-Reactive Protein 1.8 mg/L (0-4)
[2022-04-05 15:21] LABS: Erythrocyte Sedimentation Rate 16 mm/hr (0-30)
== END ==
PROVIDERS: PCP Family Medicine; Referring Provider Nurse Practitioner Family; Visit Provider Orthopaedic Surgery
DX: M06.9 Rheumatoid arthritis, unspecified; Z79.52 Long term (current) use of systemic steroids; Z79.899 Other long term (current) drug therapy; M17.0 Bilateral primary osteoarthritis of knee
CPT/HCPCS: 36415; 73564; 80053; 85025; 85651; 86140

== ENCOUNTER → 2022-06-13 09:19 | Outpatient (CLI) | payer MEDICARE, SELFPAY ==
[2022-06-13 10:01] LABS: Basophils % 0.5 % (0.1-2.0); Eosinophils # 0.1 K/mm3 (0.0-0.4); Eosinophils % 1.6 % (0.1-12.0); Hematocrit 39.5 % (37.0-47.0); Hemoglobin 13.4 g/dL (12.2-16.2); Lymphocytes # 2.5 K/mm3 (0.7-4.5); Mean Corpuscular HGB Conc 33.9 g/dL (31.8-35.4); Mean Corpuscular Hemoglobin 35.5 pg (27.0-31.2); Mean Corpuscular Volume 104.7 fl (81-99); Mean Platelet Volume 7.2 fl (7.4-10.4); Monocytes # 0.4 K/mm3 (0.1-1.0); Monocytes % 6.4 % (1.7-9.3); Neutrophils # 3.3 K/mm3 (1.8-7.8); Neutrophils % 52.5 % (37.0-80.0); Platelet Count 280 K/mm3 (142-424); Red Blood Count 3.78 M/mm3 (4.20-5.40); White Blood Count 6.3 K/mm3 (4.8-10.8)
[2022-06-13 10:23] LABS: Anion Gap 10.1 mEq/L (5-15); Blood Urea Nitrogen 11 mg/dl (7-17); Carbon Dioxide 30 mmol/L (22.0-30.0); Chloride 98 mmol/L (98-107); Estimated Glomerular Filt Rate 70 ml/min (>60); GFR (African American) 85 ML/MIN (>60); Glucose 95 mg/dl (74-100); Potassium 4.1 mmoL/L (3.5-5.1); Sodium 134 mmol/L (136-145)
== END ==
PROVIDERS: PCP Family Medicine; Visit Provider Nurse Practitioner Obstetrics & Gynecology
DX: Z01.812 Encounter for preprocedural laboratory examination (principal); Z20.822 Contact with and (suspected) exposure to COVID-19; N95.0 Postmenopausal bleeding; N84.0 Polyp of corpus uteri
CPT/HCPCS: 36415; 80048; 85025; C9803; U0003; U0005

== ENCOUNTER 2022-06-14 05:43 | Day surgery (SDC) | payer MEDICARE, SELFPAY ==
[2022-06-12 13:51] VITALS: BMI 28.8
[2022-06-14 06:22] VITALS: BP 169/58; PULSE 54; RESP 18; TEMP 36.2; O2SAT 96
--- NOTE | 2022-06-14 07:06 | HMH.ANESCL ---
[facility] Anesthesia Checklist - Patient Identification Patient Identification: Arm Band - Structural Data Admitted From: Home Planned Operative Procedure/s: Hysteroscopy, D&C, Myosure Ablation Consent for Planned Operative Procedure(s) Verified: Yes Verified Documents: Surgical Consent, History and Physical - NPO Status Verified Time NPO: 00:00 - Additional verifications Anesthesia Reactions: No Hx Blood Transfusions: No Blood Transfusion Reaction: No - Airway Assessment C-Spine Mobility Assessed: Yes (mp2) TMJ Mobility Assessed: Yes Dentition: Good Dentition - Neurological Assessment Level of Consciousness: Awake, Alert - Anesthesia Plan Anesthesia Risk discussed: Yes Anesthesia Plan: Verified ASA Class: II Anesthesia Type: General [facility] History I have reviewed the patient's past medical history: Yes Medical History: Reports:: Gastroesophageal Reflux Disease(GERD), Hyperlipidemia, Hypertension Denies:: Cancer, Diabetes Mellitus Type 1, Diabetes Mellitus Type 2, Internal Pacemaker, MRSA, Seizures *Have you ever received a pneumonia vaccine?: Yes *Have you received a flu vaccine this season?: Yes Other Medical History: Reports: Arthritis. Denies: Blood Transfusion Reaction Anesthesia experience/problems:: nac Laterality Cases: Bilateral: Arthroscopy Knee, Cataract, Other Other Surgeries: Yes: Tubal Ligation, Other. No: Pacemaker Amputation: No Fractures: No - *Social History Last grade of school completed: High school graduate Smoking Status: Never smoker Alcohol Intake: current Alcohol Intake Frequency:: 3 or more drinks per day Substance Use Type: denies use *Occupational Status:: retired Housing: house Household Members: family *Travel in the last 8 weeks: None Family Hx:: Diabetes, Heart Attack
--- NOTE | 2022-06-14 07:59 | P.OP_ITS ---
Date of procedure: 06/14/22 Pre-op Diagnosis:: Postmenopausal bleeding, possible polyp Post-op Diagnosis:: Postmenopausal bleeding Procedure performed:: Hysteroscopy, dilation and curettage Surgeon:: Juanito Solis MD LIFE ENRICHMENT ASSISTANT:: Other (Stiven Juarez) Anesthesia: MAC Estimated blood loss (mL): 25 Clinical Note:: She is a 72-year-old lady who complains of postmenopausal bleeding. I did an endometrial biopsy that showed a possible polyp. On examination in my office when I did a saline infusion sonohysterography the endometrium appeared to be irregular and thickened. As result of that she was offered hysteroscopy, D&C and MyoSure. Operative findings:: The endometrial cavity appeared more lush than normal. There were no evidence of polyps. Both tubal ostia were seen and appeared normal. Operative note:: She was taken the operating room where MAC anesthesia was found be adequate. She was prepped draped normal sterile fashion in the lithotomy position. Weighted speculum was placed in the vagina and the anterior lip of the cervix was grasped with a tenaculum. I then used dilators to dilate the cervix to approximately 6 mm. I then inserted the MyoSure device. We had difficulty with the device and as result of that I elected to just use a normal scope. We used saline as a distending media. The findings were grossly dictated. I then performed a gentle curettage with a medium curette. Photographs were taken after the curettage and it seemed that we scraped the entire endometrial cavity. I then injected 30 cc of 0.25% ropivacaine at the 3:00, 5:00, 7:00, and 9:00 positions of the cervix. She tolerated procedure well and was taken to recovery room in excellent condition. All sponge, instrument counts were correct. The estimated blood loss was approximately 25 cc. Condition: stable Disposition: PACU Specimens:: Endometrial curettings Complications:: None
[2022-06-14 08:06] VITALS: BP 103/67; PULSE 62; RESP 18; TEMP 36.2; O2SAT 92
[2022-06-14 08:15] VITALS: BP 127/66; PULSE 64; RESP 18; O2SAT 93
[2022-06-14 08:30] VITALS: BP 122/74; PULSE 66; RESP 18; O2SAT 95
== END 2022-06-14 08:30 ==
LOC: OR 05:45
PROVIDERS: PCP Family Medicine; Visit Provider Nurse Practitioner Obstetrics & Gynecology
DX: N95.0 Postmenopausal bleeding (principal); I10 Essential (primary) hypertension; K21.9 Gastro-esophageal reflux disease without esophagitis; E78.5 Hyperlipidemia, unspecified; Z79.899 Other long term (current) drug therapy
CPT/HCPCS: 58558; 88305; 96374; J2405

== ENCOUNTER 2022-11-11 14:15 | Emergency (ER) | payer MEDICARE, SELFPAY ==
[2022-11-11] VITALS (9 sets, daily range): BP systolic 145–239; BP diastolic 68–124; PULSE 55–74; RESP 16–20; TEMP 36.6–36.8; O2SAT 87–98; BMI 29.2
--- NOTE | 2022-11-11 15:09 | XR_ITS ---
PROCEDURE INFORMATION: Exam: XR Right Shoulder Exam date and time: 11/11/2022 3:28 PM Age: 72 years old Clinical indication: Injury or trauma; Fall; Blunt trauma (contusions or hematomas); Shoulder and wrist; Patient HX: Fell down steps last night. Low back pain and pain in right shoulder and arm. TECHNIQUE: Imaging protocol: Radiologic exam of the Right shoulder. Views: 2 or more views. COMPARISON: DX [id number] XR cervical spine 3V 08/01/2018 10:58 AM FINDINGS: Bones/joints: There is no evidence of acute fracture. There is no evidence of joint malalignment or dislocation. Degenerative changes of the glenohumeral and acromioclavicular joints. Soft tissues: No focal soft tissue swelling. IMPRESSION: 1. No evidence of acute fracture. 2. No evidence of acute dislocation. 3. Degenerative changes of the glenohumeral and acromioclavicular joints.
--- NOTE | 2022-11-11 15:09 | XR_ITS ---
PROCEDURE INFORMATION: Exam: XR Right Wrist Exam date and time: 11/11/2022 3:28 PM Age: 72 years old Clinical indication: Lower or forearm and shoulder and wrist; Patient HX: Fell down steps last night. Low back pain and pain in right shoulder and arm. ; Additional info: Fall TECHNIQUE: Imaging protocol: Radiologic exam of the Right wrist. Views: 3 or more views. COMPARISON: No relevant prior studies available. FINDINGS: Bones/joints: There is no evidence of acute fracture. There is no evidence of joint malalignment or dislocation. Soft tissues: No focal soft tissue swelling. IMPRESSION: 1. No evidence of acute fracture. 2. No evidence of acute dislocation.
--- NOTE | 2022-11-11 15:09 | XR_ITS ---
PROCEDURE INFORMATION: Exam: XR Right Forearm Exam date and time: 11/11/2022 3:28 PM Age: 72 years old Clinical indication: Injury or trauma; Fall; Blunt trauma (contusions or hematomas); Shoulder and wrist; Patient HX: Fell down steps last night. Low back pain and pain in right shoulder and arm. TECHNIQUE: Imaging protocol: Radiologic exam of the Right forearm. Views: 2 views. COMPARISON: No relevant prior studies available. FINDINGS: Bones/joints: There is no evidence of acute fracture. There is no evidence of joint malalignment or dislocation. Soft tissues: No focal soft tissue swelling. IMPRESSION: 1. No evidence of acute fracture. 2. No evidence of acute dislocation.
--- NOTE | 2022-11-11 15:09 | XR_ITS ---
PROCEDURE INFORMATION: Exam: XR Lumbosacral Spine Exam date and time: 11/11/2022 3:18 PM Age: 72 years old Clinical indication: Pain and injury or trauma; Fall; Blunt trauma (contusions or hematomas); Prior surgery; Patient HX: Fell down steps last night. Low back pain and pain in right shoulder and arm. TECHNIQUE: Imaging protocol: Radiologic exam of the lumbosacral spine. Views: 2 or 3 views. COMPARISON: SPLUMBWO MR lumbar spine wo con 04/08/2019 8:56 AM FINDINGS: Bones/joints: Posterior fusion noted L2-L5 without evidence of complication. The lumbar spine demonstrates mild degenerative changes at multiple levels. Soft tissues: Unremarkable. Vasculature: The vasculature demonstrates diffuse mild atherosclerotic calcification. IMPRESSION: 1. Posterior fusion noted L2-L5 without evidence of complication. 2. The lumbar spine demonstrates mild degenerative changes at multiple levels.
--- NOTE | 2022-11-11 15:17 | PC.NURSE ---
PT TO XR
--- NOTE | 2022-11-11 15:31 | PC.NURSE ---
PT RETURNED FROM XR
--- NOTE | 2022-11-11 15:52 | PC.NURSE ---
ROUNDED ON PT, AWAITING XR RESULTS. NO NEEDS AT THIS TIME
--- NOTE | 2022-11-11 16:03 | HMH.EDGENADL ---
Discharge Plan Disposition Patient Disposition: Home, Self-Care Condition: Good Prescriptions Prescriptions: New oxycodone 5 mg capsule 5 mg PO Q6H PRN (Reason: pain) Qty: 10 0RF No Action amlodipine 5 mg tablet 5 mg PO DAILY methotrexate sodium 2.5 mg tablet 2.5 mg PO DAILY pravastatin 80 mg tablet 80 mg PO DAILY propranolol 40 mg tablet 40 mg PO DAILY paroxetine HCl 10 mg tablet 10 mg PO DAILY prednisone 5 mg tablet 5 mg PO DAILY omeprazole 20 mg capsule,delayed release(DR/EC) 20 mg PO DAILY lisinopril 20 mg tablet 20 mg PO DAILY Referrals Follow up/Referrals: Pillo Humphrey MD [Primary Care Provider] - See instructions Activity Restrictions/Add. Instructions Additional Instructions/Restrictions: Oxycodone as needed for pain. Tramadol as needed for less severe pain. Follow-up with primary care provider, call Sunday for appointment. You should not be administered Dilaudid in the future Clinical Impressions Clinical Impression: Fall, Back contusion, Contusion of arm, right, Adverse drug reaction Instructions Patient Instructions: DI for Low Back Pain Discharge ED Provider: Faina Liao General Adult HPI General Chief complaint: Fall Stated complaint: AO [id number] fell and hurt back Time Seen by Provider: 11/11/22 16:06 Mode of Arrival: Wheelchair Source of Information: Patient Limitations: No Limitations Description of Symptoms (Recalled from ER Triage Doc. by RN): FELL DOWN LAST 2 STEPS AT HOME LAST NIGHT. C/O LOW BACK PAIN ON LEFT SIDE. RIGHT WRIST AND SHOULDER PAIN History of Present Illness HPI narrative: Patient states that she was going down the steps to her basement last night and missed the last 2 steps. She fell down bracing her fall with her right arm first but then falling back onto her back and striking her back on the step. She says she laid there for an hour before her son came home and helped her up. Her primary complaint is pain in her lower back and the lower lumbar area at the belt line level. She has a previous history of back surgery. She says that she took a tramadol which she had from a knee replacement 1 month ago and it did not seem to help much. No numbness or weakness or loss of bowel or bladder control. The pain worsens markedly with any sort of movement and even breathing. She also has some pain in her right shoulder, forearm, and wrist, but can move right upper extremity without any difficulty. Denies head, neck, abdomen, or chest injury. Related Data Home Medications Medication Instructions Recorded Confirmed omeprazole 20 mg capsule,delayed 20 mg PO DAILY Reflux/Acid reflux 09/19/18 06/14/22 release lisinopril 20 mg tablet 20 mg PO DAILY HTN 08/03/21 06/14/22 amlodipine 5 mg tablet 5 mg PO DAILY HTN 08/08/21 06/14/22 methotrexate sodium 2.5 mg tablet 2.5 mg PO DAILY Arthritis 08/08/21 06/14/22 paroxetine HCl 10 mg tablet 10 mg PO DAILY Anxiety 08/08/21 06/14/22 pravastatin 80 mg tablet 80 mg PO DAILY Cholesterol 08/08/21 06/14/22 propranolol 40 mg tablet 40 mg PO DAILY Tremors 08/08/21 06/14/22 prednisone 5 mg tablet 5 mg PO DAILY Arthritis 10/11/21 06/14/22 Previous Rx's Medication Instructions Recorded oxycodone 5 mg capsule 5 mg PO Q6H PRN pain #10 caps 11/11/22 Allergies Allergy/AdvReac Type Severity Reaction Status Date / Time No Known Allergies Allergy Verified 05/10/22 10:38 [facility] Disclaimer: The information contained in this section may have been updated after the patient was seen, as this information can be updated by other users. Medical History (Updated 11/11/22 @ 20:13 by Satanm Hopper MD) GERD (gastroesophageal reflux disease) Hypertension Family History (Updated 11/11/22 @ 17:54 by Aracelis Braun RN) Other No significant family history Social History (Updated 11/11/22 @ 17:54 by Aracelis Braun RN) Smoking Status: Never smok
--- NOTE | 2022-11-11 16:09 | PC.NURSE ---
DR. MATHUR AT BEDSIDE TO EVALUATE PT
--- NOTE | 2022-11-11 16:11 | CT_ITS ---
PROCEDURE INFORMATION: Exam: CT Lumbar Spine Without Contrast Exam date and time: 11/11/2022 4:24 PM Age: 72 years old Clinical indication: Injury or trauma; Fall; Blunt trauma (contusions or hematomas); Prior surgery; Surgery date: 6+ months; Additional info: Back injury from fall TECHNIQUE: Imaging protocol: Computed tomography of the lumbar spine without contrast. Radiation optimization: All CT scans at this facility use at least one of these dose optimization techniques: automated exposure control; mA and/or kV adjustment per patient size (includes targeted exams where dose is matched to clinical indication); or iterative reconstruction. COMPARISON: SPLUMBWO MR lumbar spine wo con 04/08/2019 8:56 AM FINDINGS: Bones/joints: Posterior fusion noted L2-L5 without evidence of complication. The lumbar spine demonstrates mild degenerative changes at multiple levels. Disc space narrowing and bilateral neural foraminal narrowing noted at L2-L3, L3-L4, L4-L5 and L5-S1. There is no evidence of acute fracture. Chronic changes of the left iliac crest. Scoliotic curvature of the lumbar spine. Soft tissues: Unremarkable. IMPRESSION: 1. Posterior fusion noted L2-L5 without evidence of complication. 2. The lumbar spine demonstrates mild degenerative changes at multiple levels. 3. No evidence of acute fracture. 4. Scoliotic curvature of the lumbar spine.
--- NOTE | 2022-11-11 16:22 | PC.NURSE ---
PT TO CT SCAN AT THIS TIME
--- NOTE | 2022-11-11 16:50 | PC.NURSE ---
1650 PT WITH MD Jaun NOTIFIED
--- NOTE | 2022-11-11 17:20 | PC.NURSE ---
1720 PT CONTINUES TO HAVE N/V. MD AT BEDSIDE FOR EVALUATION
--- NOTE | 2022-11-11 17:51 | PC.NURSE ---
ROUNDED ON PT, WARM BLANKET PROVIDED. NO NEEDS AT THIS TIME
--- NOTE | 2022-11-11 18:21 | PC.NURSE ---
NOTIFIED OF HIGH BLOOD PRESSURES, NO NEW ORDERS
--- NOTE | 2022-11-11 18:34 | PC.NURSE ---
MANUAL BLOOD PRESSURE CHECK 190/98. REPORTED TO
[2022-11-11 19:08] LABS: Basophils # 0.1 K/mm3 (0-0.2); Basophils % 1.1 % (0.1-2.0); Eosinophils # 0.2 K/mm3 (0.0-0.4); Eosinophils % 2.2 % (0.1-12.0); Hematocrit 43.3 % (37.0-47.0); Hemoglobin 14.2 g/dL (12.2-16.2); Lymphocytes # 2.8 K/mm3 (0.7-4.5); Lymphocytes % 25.5 % (10-50); Mean Corpuscular HGB Conc 32.8 g/dL (31.8-35.4); Mean Corpuscular Hemoglobin 34.4 pg (27.0-31.2); Mean Corpuscular Volume 104.8 fl (81-99); Mean Platelet Volume 8.5 fl (7.4-10.4); Monocytes # 0.8 K/mm3 (0.1-1.0); Monocytes % 7.5 % (1.7-9.3); Neutrophils # 6.9 K/mm3 (1.8-7.8); Neutrophils % 63.9 % (37.0-80.0); Platelet Count 366 K/mm3 (142-424); Red Blood Count 4.13 M/mm3 (4.20-5.40); Red Cell Distribution Width 14.1 % (11.5-17.5); White Blood Count 10.8 K/mm3 (4.8-10.8)
[2022-11-11 19:11] LABS: Chloride 94 mmol/L (98-107); Sodium 135 mmol/L (136-145)
[2022-11-11 19:14] LABS: Blood Urea Nitrogen 17 mg/dl (7-17); Creatinine Clearance Estimated 60 mL/min (50-200); Estimated Glomerular Filt Rate 70 ml/min (>60); GFR (African American) 85 ML/MIN (>60)
[2022-11-11 19:15] LABS: Calcium 9.6 mg/dl (8.4-10.2); Carbon Dioxide 31 mmol/L (22.0-30.0); Glucose 120 mg/dl (74-100)
== END 2022-11-11 20:19 | disposition home or self-care (01) ==
PROVIDERS: Emergency Medicine; Emergency Provider Nurse Practitioner Family; PCP Family Medicine
DX: S30.0XXA Contusion of lower back and pelvis, initial encounter (principal); S40.021A Contusion of right upper arm, initial encounter; M25.511 Pain in right shoulder; M25.531 Pain in right wrist; M79.631 Pain in right forearm; M25.561 Pain in right knee; R11.2 Nausea with vomiting, unspecified; I10 Essential (primary) hypertension; K21.9 Gastro-esophageal reflux disease without esophagitis; L29.9 Pruritus, unspecified; M41.9 Scoliosis, unspecified; Z79.52 Long term (current) use of systemic steroids; Z79.899 Other long term (current) drug therapy; W19.XXXA Unspecified fall, initial encounter
CPT/HCPCS: 72100; 72131; 73030; 73090; 73110; 80048; 85025; 96361; 96372; 96374; 96375; 99285; J2405

== ENCOUNTER 2022-12-21 11:00 | Outpatient (RCR) | payer MEDICARE, SELFPAY | END 2022-12-21 11:05 | disposition home or self-care (01) | LOC: PT 11:00 | PROVIDERS: PCP Family Medicine; Visit Provider Orthopaedic Surgery | DX: M25.562 Pain in left knee (principal); Z96.652 Presence of left artificial knee joint; M17.11 Unilateral primary osteoarthritis, right knee | CPT/HCPCS: 97016; 97110; 97163; 97164 ==

== ENCOUNTER → 2023-03-08 12:25 | Outpatient (CLI) | payer MEDICARE, SELFPAY ==
[2023-03-08 12:58] LABS: Basophils % 0.1 % (0.1-2.0); Eosinophils % 0.1 % (0.1-12.0); Hematocrit 39.6 % (37.0-47.0); Hemoglobin 12.9 g/dL (12.2-16.2); Lymphocytes # 1.4 K/mm3 (0.7-4.5); Lymphocytes % 14.3 % (10-50); Mean Corpuscular HGB Conc 32.5 g/dL (31.8-35.4); Mean Corpuscular Hemoglobin 34.9 pg (27.0-31.2); Mean Corpuscular Volume 107.4 fl (81-99); Mean Platelet Volume 8.3 fl (7.4-10.4); Monocytes # 0.9 K/mm3 (0.1-1.0); Monocytes % 8.9 % (1.7-9.3); Neutrophils # 7.6 K/mm3 (1.8-7.8); Neutrophils % 76.6 % (37.0-80.0); Platelet Count 289 K/mm3 (142-424); Red Blood Count 3.69 M/mm3 (4.20-5.40); Red Cell Distribution Width 14.2 % (11.5-17.5)
[2023-03-08 13:35] LABS: Erythrocyte Sedimentation Rate 15 mm/hr (0-30)
[2023-03-08 14:39] LABS: Alanine Aminotransferase 42 U/L (12-78); Albumin Level 4.2 g/dl (3.5-5.0); Albumin/Globulin Ratio 1.7 (1.1-1.8); Alkaline Phosphatase 53 U/L (38-126); Anion Gap 8.3 mEq/L (5-15); Aspartate Amino Transferase 35 U/L (14-36); Bilirubin,Total 0.6 mg/dl (0.2-1.3); Blood Urea Nitrogen 23 mg/dl (7-17); Carbon Dioxide 27 mmol/L (22.0-30.0); Chloride 101 mmol/L (98-107); Estimated Glomerular Filt Rate 70 ml/min (>60); GFR (African American) 85 ML/MIN (>60); Globulin 2.5 g/dL (1.3-3.2); Glucose 81 mg/dl (74-100); Potassium 4.3 mmoL/L (3.5-5.1); Sodium 132 mmol/L (136-145); Total Protein,Serum 6.7 g/dl (6.3-8.2)
[2023-03-08 14:44] LABS: C-Reactive Protein 3.1 mg/L (0-4)
== END ==
PROVIDERS: PCP Family Medicine; Visit Provider Internal Medicine
DX: D89.9 Disorder involving the immune mechanism, unspecified (principal); M06.9 Rheumatoid arthritis, unspecified; Z79.52 Long term (current) use of systemic steroids; Z79.899 Other long term (current) drug therapy
CPT/HCPCS: 36415; 80053; 85025; 85651; 86140

== ENCOUNTER → 2023-04-27 10:38 | Outpatient (CLI) | payer MEDICARE, SELFPAY ==
[2023-04-27 10:59] LABS: Influenza A, PCR Not Detected (NotDetected); Influenza B, PCR Not Detected (NotDetected)
[2023-04-27 11:31] LABS: Coronavirus 19, PCR Detected (NotDetected)
== END ==
PROVIDERS: PCP Family Medicine; Visit Provider Physician Assistant
DX: U07.1 COVID-19 (principal)
CPT/HCPCS: 87635; 87636; C9803; U0003; U0005

== ENCOUNTER → 2023-05-31 09:37 | Outpatient (CLI) | payer MEDICARE, SELFPAY ==
[2023-05-31 10:04] LABS: Microscopic, Urine URINE MICROSCOPIC (MICROSCOPIC)
[2023-05-31 10:24] LABS: Basophils % 0.3 % (0.1-2.0); Eosinophils # 0.2 K/mm3 (0.0-0.4); Eosinophils % 2.9 % (0.1-12.0); Hematocrit 40.3 % (37.0-47.0); Hemoglobin 12.9 g/dL (12.2-16.2); Lymphocytes # 2.1 K/mm3 (0.7-4.5); Lymphocytes % 32.8 % (10-50); Mean Corpuscular Hemoglobin 33.6 pg (27.0-31.2); Mean Platelet Volume 7.8 fl (7.4-10.4); Monocytes # 0.4 K/mm3 (0.1-1.0); Monocytes % 6.1 % (1.7-9.3); Neutrophils # 3.7 K/mm3 (1.8-7.8); Neutrophils % 57.9 % (37.0-80.0); Platelet Count 280 K/mm3 (142-424); Red Blood Count 3.84 M/mm3 (4.20-5.40); Red Cell Distribution Width 14.3 % (11.5-17.5); White Blood Count 6.3 K/mm3 (4.8-10.8)
[2023-05-31 10:28] LABS: Appearance,Urine CLEAR (Clear); Bilirubin,Urine Negative (Negative); Blood, Urine Negative (Negative); Color,Urine YELLOW (Yellow); Glucose,Urine (UA) Negative (Negative); Ketones,Urine Negative (Negative); Leukocyte Esterase,Urine TRACE (Negative); Nitrate,Urine Negative (Negative); Protein,Urine 1+ (Negative); Urobilinogen,Urine 0.2 EU/dl (0.2)
[2023-05-31 10:30] LABS: WBC,Urine Occasional #/hpf (0-3)
[2023-05-31 10:31] LABS: Bacteria,Urine Trace /lpf; Squamous Epithelial Cell,Urine Occasional #/hpf (0-5)
[2023-05-31 11:08] LABS: Chol/HDL Ratio 4.2 (1-3.5); Cholesterol 267 mg/dl (140-200); HDL Cholesterol 63 mg/dl (40-60); Triglycerides 280 mg/dl (30-150); VLDL Cholesterol 56 mg/dL (0-40)
[2023-05-31 11:08] LABS: Alanine Aminotransferase 52 U/L (12-78); Albumin Level 4.1 g/dl (3.5-5.0); Albumin/Globulin Ratio 1.7 (1.1-1.8); Alkaline Phosphatase 62 U/L (38-126); Anion Gap 13.3 mEq/L (5-15); Aspartate Amino Transferase 46 U/L (14-36); Bilirubin,Total 0.3 mg/dl (0.2-1.3); Blood Urea Nitrogen 12 mg/dl (7-17); Calcium 8.8 mg/dl (8.4-10.2); Carbon Dioxide 28 mmol/L (22.0-30.0); Chloride 102 mmol/L (98-107); Estimated Glomerular Filt Rate 61 ml/min (>60); GFR (African American) 74 ML/MIN (>60); Globulin 2.4 g/dL (1.3-3.2); Glucose 100 mg/dl (74-100); Potassium 4.3 mmoL/L (3.5-5.1); Sodium 139 mmol/L (136-145); Total Protein,Serum 6.5 g/dl (6.3-8.2)
[2023-05-31 11:15] LABS: C-Reactive Protein 14.5 mg/L (0-4)
[2023-05-31 11:19] LABS: Direct LDL Cholesterol 127.49 mg/dL (100-129)
[2023-05-31 11:47] LABS: Erythrocyte Sedimentation Rate 19 mm/hr (0-30)
== END ==
PROVIDERS: PCP Family Medicine; Visit Provider Nurse Practitioner Family
DX: D84.821 Immunodeficiency due to drugs (principal); E78.5 Hyperlipidemia, unspecified; I10 Essential (primary) hypertension; M06.9 Rheumatoid arthritis, unspecified; G25.0 Essential tremor; Z79.899 Other long term (current) drug therapy
CPT/HCPCS: 36415; 80053; 80061; 81001; 85025; 85651; 86140

== ENCOUNTER → 2023-06-25 15:34 | Outpatient (CLI) | payer MEDICARE, SELFPAY ==
--- NOTE | 2023-06-25 15:37 | MM_ITS ---
PROCEDURE INFORMATION: Exam: MG Bilateral Screening 3D Mammography Exam date and time: 06/25/2023 3:36 PM Age: 73 years old Clinical indication: Screening examination TECHNIQUE: Imaging protocol: Bilateral Screening tomosynthesis and 2D mammography including computer-aided detection (CAD) when performed. COMPARISON: 1. MG MM DIG SCREENING MAMM BI W/CAD 05/02/2021 2:45 PM 2. MG DMSB DIG MAMM-SCREEN RICHAR W/CAD 09/28/2017 3:44 PM FINDINGS: MAMMOGRAPHY: Breast composition: There are scattered areas of fibroglandular density. Mass: None. Architectural distortion: None. Calcifications: No suspicious calcifications. Asymmetric density: None. Skin thickening: None. Axillary adenopathy: None. IMPRESSION: No mammographic evidence of malignancy. Annual screening is recommended unless otherwise clinically indicated. ASSESSMENT: BI-RADS Category 1: Negative
== END ==
PROVIDERS: PCP Family Medicine; Visit Provider Family Medicine
DX: Z12.31 Encounter for screening mammogram for malignant neoplasm of breast (principal)
CPT/HCPCS: 77063; 77067

== ENCOUNTER 2024-03-28 14:25 | Outpatient (CLI) | payer MEDICARE, SELFPAY ==
[2024-03-28] MEDS: ALBUTEROL 0.083% 2.5 MG/3 ML NEB IH (15:11)
--- NOTE | 2024-03-28 15:12 | PC.NURSE ---
PFT completed without incident. Albuterol 0.083% given via HHN, per written protocol, pt tolerated tx well.
== END 2024-03-28 23:59 | disposition home or self-care (01) ==
LOC: RT 14:31
PROVIDERS: PCP Family Medicine; Visit Provider Family Medicine
DX: R06.00 Dyspnea, unspecified (principal)
CPT/HCPCS: 94060; 94726; 94729

== ENCOUNTER 2024-04-15 16:10 | Outpatient (POV) | payer MEDICARE, SELFPAY | END 2024-04-15 23:59 | disposition home or self-care (01) | LOC: SC 16:10 | PROVIDERS: PCP Family Medicine; Visit Provider Dermatology | DX: Z00.00 Encounter for general adult medical examination without abnormal findings (principal) ==

== ENCOUNTER → 2024-04-23 07:33 | Outpatient (CLI) | payer MEDICARE, SELFPAY | LOC: SL 07:35 | PROVIDERS: PCP Family Medicine; Visit Provider Family Medicine | DX: G47.33 Obstructive sleep apnea (adult) (pediatric) (principal); G47.36 Sleep related hypoventilation in conditions classified elsewhere; R06.83 Snoring; I10 Essential (primary) hypertension | CPT/HCPCS: 95806 ==

== ENCOUNTER 2024-07-08 11:02 | Outpatient (POV) | payer MEDICARE, SELFPAY | END 2024-07-08 23:59 | disposition home or self-care (01) | LOC: SC 11:02 | PROVIDERS: PCP Family Medicine; Visit Provider Dermatology | DX: Z00.00 Encounter for general adult medical examination without abnormal findings (principal) ==

== ENCOUNTER 2024-09-24 10:20 | Outpatient (CLI) | payer MEDICARE, SELFPAY ==
--- NOTE | 2024-09-24 | CA_ITS ---
APPROVED REPORT EXAM: Comprehensive 2D, Doppler, and color-flow Echocardiogram Pension Administrator: Sivan Spears, RCS, RVS Ht: 5 ft 4 in Wt: 177lbs BSA: 1.86 BP: 132/68 mmHg Indications: NORRIS, Murmur, HTN, HLD 2D Dimensions LVDs 2.07 cm LA Volume 53.00 mL Left Atrium 3.24 cm LA Volume Index 27.90 mL/m2 (M/F) 16-34 M-Mode Dimensions RVDd 3.72 cm (0.9-2.6) LA Diam 3.68 cm (1.9-4.0) LVDd 3.64 cm (3.5-5.7) LVDs 2.09 cm (3.5-5.7) IVSd 1.44 cm (0.6-1.1) PWd 0.99 cm (0.6-1.1) EF (Teich) 74.60% EPSs 0.23 cm FS 42.60% EDV (Teich) 55.90 mL TAPSE 2.14 (<1.7) ESV (Teich) 14.20 mL LV Diastology E Decel Time 223 (160-240 msec) E/A Ratio 0.83 MED A' 10.30 cm/s LAT A' 11.90 cm/s Aortic Valve BETY Index 1.19 cm2/m2 AoV Peak Yayo. 145.0 (50-130 cm/s) AO Peak GR. 8.40 mmHg AO Mean GR. 4.20 (<5 mmHg) AO VTI 36.3 (18-25 cm) BETY (VTI) 2.27 (2.5-4.5 cm2) Mitral Valve MV A Velocity 106.0 (40-130 cm/s) E/A Ratio 0.83 Pulmonary Valve PV Peak Velocity 79.0 (50-150 cm/s) Tricuspid Valve TR P. Velocity 235.00 cm/s RAP Estimate 10.00 mmHg RVSP 32.10 mmHg Left Ventricle The left ventricle is normal size. The left ventricular systolic function is normal. The left ventricular ejection fraction is within the normal range. There is marked increase in LV wall thickness. IVSD is 1.4 cm. There is no LVOT obstruction at rest. Transmitral Doppler flow pattern suggests impaired LV relaxation. Right Ventricle The right ventricle is normal size. The right ventricular systolic function is normal. Atria The left atrium is mildly dilated. The right atrium is mildly dilated. There is no Doppler evidence of interatrial shunt. Aortic Valve The aortic valve is mildly thickened. There is no aortic valvular stenosis. No aortic regurgitation is present. Mitral Valve The mitral valve leaflets are mildly thickened. No evidence of mitral valve stenosis. Trace mitral regurgitation. Tricuspid Valve The tricuspid valve leaflets are thin and pliable. Mild tricuspid regurgitation. RVSP is 20-25 mmHg. Pulmonic Valve The pulmonary valve is normal in structure. Trace pulmonic regurgitation. Great Vessels The aortic root is normal in size. The ascending aorta is not well-visualized. IVC is normal in size and collapses >50% with inspiration. Pericardium There is no pericardial effusion. Other Information Study Quality: Fair Conclusion Normal biventricular systolic function. Marked increase in LV wall thickness. IVSD 1.4 cm. Biatrial dilation. Mild TR. RVSP is 20-25 mmHg. In the setting of presence of symptoms, marked increase in LV wall thickness, and biatrial dilation, further evaluation for infiltrative cardiomyopathy is suggested with cardiac MRI (amyloidosis protocol), PYP nuclear scan, and amyloidosis lab testing. Electronically signed by : Carissa Holland MD 09/29/2024 02:01:31
== END 2024-09-24 23:59 | disposition home or self-care (01) ==
LOC: RT 10:20
PROVIDERS: PCP Family Medicine; Visit Provider Family Medicine
DX: I51.7 Cardiomegaly (principal); R06.09 Other forms of dyspnea; G47.33 Obstructive sleep apnea (adult) (pediatric)
CPT/HCPCS: 93306

== ENCOUNTER 2024-12-23 09:32 | Outpatient (CLI) | payer MEDICARE, SELFPAY ==
[2024-12-23 10:00] LABS: Basophils # 0.1 K/mm3 (0-0.2); Basophils % 0.9 % (0.1-2.0); Eosinophils # 0.2 K/mm3 (0.0-0.4); Eosinophils % 2.8 % (0.1-12.0); Hematocrit 39.6 % (37.0-47.0); Hemoglobin 13.2 g/dL (12.2-16.2); Lymphocytes # 2.6 K/mm3 (0.7-4.5); Lymphocytes % 30.3 % (10-50); Mean Corpuscular HGB Conc 33.3 g/dL (31.8-35.4); Mean Corpuscular Hemoglobin 33.4 pg (27.0-31.2); Mean Corpuscular Volume 100.3 fl (81-99); Mean Platelet Volume 9.6 fl (7.4-10.4); Monocytes # 0.7 K/mm3 (0.1-1.0); Neutrophils % 57.7 % (37.0-80.0); Platelet Count 307 K/mm3 (142-424); Red Blood Count 3.95 M/mm3 (4.20-5.40); Red Cell Distribution Width 12.5 % (11.5-17.5); White Blood Count 8.6 K/mm3 (4.8-10.8)
[2024-12-23 10:10] LABS: Albumin Level 4.6 g/dl (3.5-5.0); Chloride 100 mmol/L (98-107); Sodium 139 mmol/L (136-145)
[2024-12-23 10:11] LABS: Potassium 4.4 mmoL/L (3.5-5.1)
[2024-12-23 10:13] LABS: Alanine Aminotransferase 49 U/L (12-78); Alkaline Phosphatase 84 U/L (38-126); Anion Gap 15.4 mEq/L (5-15); Aspartate Amino Transferase 41 U/L (14-36); Bilirubin,Indirect 0.3 mg/dL (0.0-0.9); Bilirubin,Total 0.3 mg/dl (0.2-1.3); Bilirubin,Unconjugated 0.3 mg/dL (0.0-1.1); Blood Urea Nitrogen 19 mg/dl (7-17); Calcium 9.5 mg/dl (8.4-10.2); Carbon Dioxide 28 mmol/L (22.0-30.0); Cholesterol 218 mg/dl (140-200); Estimated Glomerular Filt Rate 61 ml/min (>60); GFR (African American) 74 ML/MIN (>60); Glucose 100 mg/dl (74-100); Total Protein,Serum 7.2 g/dl (6.3-8.2); Triglycerides 391 mg/dl (30-150); VLDL Cholesterol 78 mg/dL (0-40)
[2024-12-23 10:14] LABS: Chol/HDL Ratio 3.6 (1-3.5); HDL Cholesterol 60 mg/dl (40-60)
[2024-12-23 10:22] LABS: NT Pro Brain Natriuretic Pep. 196 pg/mL (0-450)
[2024-12-23 10:25] LABS: Direct LDL Cholesterol 94.22 mg/dL (100-129)
[2024-12-23 10:43] LABS: Thyroid Stimulating Hormone 2.15 uIU/mL (0.465-4.68)
[2024-12-23 10:55] LABS: Free T4 (Free Thyroxine) 0.82 ng/dl (0.78-2.19)
[2024-12-23] MEDS: GADOTERIDOL INJ 20ML SYRINGE 19 ML IV (12:36)
[2024-12-23] MEDS: SODIUM CHLORIDE 0.9% 10ML SYR (RAD ONLY) 10 ML IV (12:36)
[2024-12-23] MEDS: SODIUM CHLORIDE 0.9% 50ML BAG 20 ML IV (12:36)
[2024-12-24 14:18] LABS: Albumin 4.1 g/dL (2.9-4.4); Alpha-1-Globulin 0.2 g/dL (0.0-0.4); Gamma Globulin 0.8 g/dL (0.4-1.8); Protein, Total 7.1 g/dL (6.0-8.5)
[2024-12-24 17:17] LABS: Free Kappa Lt Chains 18.3 mg/L (3.3-19.4)
[2024-12-25 16:11] LABS: Immunoglobulin A, Qn 131 mg/dL (64-422); Immunoglobulin G, Qn 925 mg/dL (586-1602); Immunoglobulin M, Qn 80 mg/dL (26-217)
[2024-12-25 17:09] LABS: Albumin, U 37.5 % (.); Alpha-1-Globulin, U 9.5 % (.); Alpha-2-Globulin, U 17.5 % (.); Beta Globulin, U 21.8 % (.); Gamma Globulin, U 13.7 % (.); M-Spike, % Not Observed % (Not Observed); Protein,Total,Urine 8.3 mg/dL (Not Estab.)
== END 2024-12-23 23:59 | disposition home or self-care (01) ==
LOC: RAD 09:34
PROVIDERS: PCP Family Medicine; Visit Provider Internal Medicine
DX: R94.30 Abnormal result of cardiovascular function study, unspecified (principal); R93.1 Abnormal findings on diagnostic imaging of heart and coronary circulation; I10 Essential (primary) hypertension; E78.5 Hyperlipidemia, unspecified; R06.09 Other forms of dyspnea
CPT/HCPCS: 36415; 75561; 80048; 80061; 80076; 82565; 82784; 83880; 83883; 84155; 84156; 84165; 84166; 84439; 84443; 84520; 85025; 86334; 86335; A9576

== ENCOUNTER 2024-12-26 12:37 | Outpatient (CLI) | payer MEDICARE, SELFPAY ==
[2024-12-26 13:07] LABS: Total Protein,Serum 6.8 g/dl (6.3-8.2)
[2024-12-30 16:25] LABS: Albumin, U 28.4 % (.); Alpha-1-Globulin, U 5.5 % (.); Alpha-2-Globulin, U 27.6 % (.); Beta Globulin, U 23.2 % (.); Gamma Globulin, U 15.3 % (.); M-Spike, % Not Observed % (Not Observed); Prot,24hr calculated 59 mg/24 hr (30-150); Protein,Total,Urine 6.2 mg/dL (Not Estab.)
[2024-12-31 14:34] LABS: PDF: SCANNED IMAGE
== END 2024-12-26 23:59 | disposition home or self-care (01) ==
LOC: LAB 12:38
PROVIDERS: PCP Family Medicine; Visit Provider Internal Medicine
DX: R93.1 Abnormal findings on diagnostic imaging of heart and coronary circulation (principal); R06.00 Dyspnea, unspecified; I10 Essential (primary) hypertension; E78.5 Hyperlipidemia, unspecified
CPT/HCPCS: 36415; 84155; 84156; 84166

== ENCOUNTER 2025-01-13 12:05 | Outpatient (CLI) | payer MEDICARE, SELFPAY ==
--- NOTE | 2025-01-13 | CA_ITS ---
APPROVED REPORT Exam: Pharmacologic Technologist: Francine Lynn Ht: 5 ft 4 in Wt: 177 lbs BSA: 1.86 m2 HR: 46 bpm BP: 160/82 mmHg Rhythm: Sinus edouard Medical History Cardiac Risk Factors: HTN, Hyperlipidemia, FHX of CAD Stress Test Details HR Resting HR: 46 bpm Max Heart Rate (APMHR): 144 bpm Target HR (85% APMHR): 122 bpm Recovery HR: 64 bpm BP Resting BP: 160.0/82.0 mmHg Recovery BP: 201.0/92.0 mmHg ECG Resting ECG: Sinus edouard Stress ECG Conclusion During lexiscan pt experinced dyspnea and chest pressure. No arrhythmias noted. Less than 1mm ST depression. EKG unremarkable due to lexiscan infusion. Electronically signed by : Carissa Holland MD 01/14/2025 00:16:07
--- NOTE | 2025-01-13 12:05 | NM_ITS ---
APPROVED REPORT Exam: Nuclear Stress Test Indication: soa..fatigue Patient Location: Outpatient Stress Tech: Francine BRASWELL Tech:MARK Hancock RT(R)(N) Ht: 5 ft 5 in Wt: 175 lbs Bra Size: 40c HR: 50 bpm BP: 160/82 mmHg BSA: 1.87 m2 TID: 1.06 BMI: 29.1 History: soa..fatigue Procedure: Patient received 0.4 mg of intravenous Lexiscan, resting heart rate 50 bpm, resting blood pressure 160/82 mmHg, with Lexiscan maximum heart rate achieved was 67 bpm which is 85 % of the maximum predicted heart rate and blood pressure was 198/89 mmHg. With Lexiscan, patient denied any complaint of chest pain. The patient was not able to lay on her abdomen for prone images. Cardiac Stress and Resting SPECT Images: Cardiac Stress and Resting SPECT images were obtained using technetium 99m Myoview 32.0 mCi stress and 9.90 mCi at rest. The patient could not lie on her abdomen. Therefore, prone stress imaging could not be performed. This may affect diagnostic interpretation of the study findings. Images also demonstrate significant soft tissue overlap with the cardiac borders. This may affect the diagnostic interpretation of the study findings. Resting and stress imaging in supine positions demonstrate a medium sized, moderate, predominantly fixed perfusion defect in the anterior LV wall. There is mild reversibility noted towards the LV anteroapical region. Gated imaging demonstrates normal global and regional LV systolic function. LVEF is calculated at 67%. Conclusion: Medium sized, moderate, predominantly fixed perfusion defect in the anterior LV wall. There is mild reversibility noted towards the LV anteroapical region. Gated imaging demonstrates normal global and regional LV systolic function. LVEF is calculated at 67%. Electronically signed by : Carissa Holland MD 01/14/2025 00:14:25
[2025-01-13] MEDS: REGADENOSON 0.4MG/5ML SYRINGE 0.4 MG IV (13:54)
[2025-01-13] MEDS: SODIUM CHLORIDE 0.9% 10ML SYR (RAD ONLY) 10 ML IV ×2 (13:54)
[2025-01-13] MEDS: ISOTOPE MYOVIEW (PER STUDY) 1 DOSE IV (13:54)
== END 2025-01-13 23:59 | disposition home or self-care (01) ==
LOC: RAD 12:05
PROVIDERS: PCP Family Medicine; Visit Provider Internal Medicine
DX: R06.09 Other forms of dyspnea (principal); R93.1 Abnormal findings on diagnostic imaging of heart and coronary circulation; I10 Essential (primary) hypertension
CPT/HCPCS: 78452; 93017; 93018; A9502; J2785

== ENCOUNTER 2025-02-05 08:50 | Day surgery (SDC) | payer MEDICARE, SELFPAY ==
[2025-02-05] VITALS (11 sets, daily range): BP systolic 102–178; BP diastolic 40–80; PULSE 52–87; RESP 16–20; TEMP 36.7; O2SAT 93–98; BMI 30.4
--- NOTE | 2025-02-05 07:20 | IR_ITS ---
APPROVED REPORT Patient Location: Outpatient PROCEDURES Left heart catheterization Left ventriculogram Selective coronary angiogram Drug-eluting stent deployment to the proximal mid dominant right coronary artery in a contiguous manner Drug-eluting stent deployment to the proximal large first diagonal artery INDICATION Coronary artery disease, Angina pectoris, Abnormal Myoview Informed consent was obtained prior to the procedure. COMPLICATIONS NONE Estimated Blood Loss: LESS THAN 10 ML TECHNIQUE One percent lidocaine used to anesthetize the right anterior aspect of the wrist. The right radial artery was accessed via the Seldinger technique. A 6 Monegasque sheath was placed in the right radial artery. 2.5 mg of Verapamil, 800 mcg of nitroglycerin, 1mg Lidocaine and 5000 U Heparin were given through the arterial sheath. The 6 Monegasque JL 3 guide catheter was also used to perform left heart catheterization, left ventriculogram and selective coronary angiogram. At the end of the diagnostic angiogram therapeutic heparin was administered giving a therapeutic ACT and the guide catheters placed in the right coronary artery followed by Choice PT extra-support wire. A 3.5 x 38 mm [place] frontier stent was deployed at 14 hugo in the mid right coronary artery reducing the stenosis. An additional 3.5 x 26 mm Dav frontier stent was placed proximal to the for stent yet still overlapping and deployed at 20 hugo. The balloon was then reinserted and the proximal to midportion of the 26 mm stent deployed at 24 hugo to post dilate. BLANK-3 flow was present before and after the procedure. Following this the apparatus was then placed in the right coronary artery and a Choice PT extra-support wire placed in the diagonal artery. A 2.5 x 15 mm Dav frontier stent was deployed at 18 hugo reducing the severe stenosis to 0% BLANK-3 flow was present before and after the procedure. At the end the procedure the apparatus was removed the sheath was removed hemostasis was achieved using TR banding patient was transferred to the postop putting in stable condition ANGIOGRAPHIC RESULTS The left main artery Normal The left anterior descending artery Is proximally normal and then has a mid vessel 40% stenosis. A large first diagonal artery has a proximal 70 to 80% tubular stenosis The circumflex artery Large nondominant and has a large first obtuse marginal artery with mild 10% luminal regularities with a second obtuse marginal artery has a proximal 20 to 30% smooth stenosis The right coronary artery Large dominant with long proximal to mid vessel concentric 70% stenosis The RICHARD ventriculogram reveals Normal 65% The left ventricular end-diastolic pressure 10 mmHg IMPRESSION Coronary disease as described above Successful stenting of the proximal to mid dominant right coronary artery severe disease reduced to 0% with 2 contiguous drug-eluting stents Successful stenting of the proximal diagonal artery severe disease reduced to 0% with 1 drug-eluting stent Normal ejection fraction Normal LVEDP PLAN 1. Dual antiplatelet therapy 2. Cardiac rehabilitation 3. Avoidance of tobacco products 4. Risk factor modification 5. LDL less than 55 achieved with high intensity statin Electronically signed by : Ever Arvizu MD 02/05/2025 12:10:12
[2025-02-05 09:16] LABS: Basophils % 0.5 % (0.1-2.0); Eosinophils # 0.2 K/mm3 (0.0-0.4); Eosinophils % 2.7 % (0.1-12.0); Hematocrit 39.1 % (37.0-47.0); Hemoglobin 13.2 g/dL (12.2-16.2); Lymphocytes # 2.6 K/mm3 (0.7-4.5); Lymphocytes % 34.4 % (10-50); Mean Corpuscular HGB Conc 33.8 g/dL (31.8-35.4); Mean Corpuscular Volume 100.8 fl (81-99); Mean Platelet Volume 9.9 fl (7.4-10.4); Monocytes # 0.6 K/mm3 (0.1-1.0); Monocytes % 8.6 % (1.7-9.3); Neutrophils % 53.4 % (37.0-80.0); Platelet Count 262 K/mm3 (142-424); Red Blood Count 3.88 M/mm3 (4.20-5.40); Red Cell Distribution Width 13.7 % (11.5-17.5); White Blood Count 7.5 K/mm3 (4.8-10.8)
[2025-02-05 09:27] LABS: Anion Gap 12.3 mEq/L (5-15); Blood Urea Nitrogen 16 mg/dl (7-17); Carbon Dioxide 27 mmol/L (22.0-30.0); Chloride 103 mmol/L (98-107); Creatinine Clearance Estimated 61 mL/min (50-200); Estimated Glomerular Filt Rate 61 ml/min (>60); GFR (African American) 74 ML/MIN (>60); Glucose 117 mg/dl (74-100); Potassium 4.3 mmoL/L (3.5-5.1); Sodium 138 mmol/L (136-145)
[2025-02-05] MEDS: HEPARIN 1,000 UNITS/ML 10ML VIAL (CATH LAB) 10000 UNIT IV (11:11)
[2025-02-05] MEDS: VERAPAMIL 2.5MG/ML 2ML VIAL 2.5 MG IV (11:11)
[2025-02-05] MEDS: diphenhydrAMINE 50MG/ML VIAL 50 MG IV (11:11)
[2025-02-05] MEDS: LIDOCAINE 1% 10ML MDV 20 ML IJ (11:12)
[2025-02-05] MEDS: NITROGLYCERIN 800MCG/8ML SYR (CATH LAB) 800 MCG IA (11:12)
[2025-02-05] MEDS: MIDAZOLAM HCL 1MG/ML 5ML VIAL 1 MG IV (11:13)
[2025-02-05] MEDS: FENTANYL 100MCG/2ML VIAL 50 MCG IV (11:14)
[2025-02-05] MEDS: HEPARIN 1,000 UNITS/500ML NS (CATH LAB) 3000 UNIT IV (11:14)
[2025-02-05] MEDS: 0.9 % SODIUM CHLORIDE 500 ML 25 ML IV (11:15)
[2025-02-05] MEDS: HYDRALAZINE 20MG/ML VIAL 20 MG IV (12:06)
[2025-02-05] MEDS: CLOPIDOGREL 300MG TABLET 600 MG PO (12:08)
[2025-02-05] MEDS: IOPAMIDOL-370 (76%);100ML BOTTLE 140 ML IV (13:12)
[2025-02-05 13:17] LABS: CATHL Activated Clotting Time 237 SEC (74-125)
== END 2025-02-05 15:21 | disposition home or self-care (01) ==
LOC: CATHLAB 08:51
PROVIDERS: PCP Family Medicine; Visit Provider Internal Medicine
DX: I25.118 Atherosclerotic heart disease of native coronary artery with other forms of angina pectoris (principal); R93.1 Abnormal findings on diagnostic imaging of heart and coronary circulation; Z95.5 Presence of coronary angioplasty implant and graft; Z79.899 Other long term (current) drug therapy; I50.30 Unspecified diastolic (congestive) heart failure; E78.5 Hyperlipidemia, unspecified; Z82.49 Family history of ischemic heart disease and other diseases of the circulatory system; I11.0 Hypertensive heart disease with heart failure
CPT/HCPCS: 80048; 85025; 85347; 92928; 92929; 93458; 99152; 99153; C1725; C1769; C1874; C9600; C9601; J0360; J1200; J1644; J3010; Q9967

== ENCOUNTER 2025-02-12 13:38 | Outpatient (CLI) | payer MEDICARE, SELFPAY ==
[2025-02-12 14:30] LABS: Basophils % 0.6 % (0.1-2.0); Eosinophils # 0.1 K/mm3 (0.0-0.4); Eosinophils % 1.5 % (0.1-12.0); Hematocrit 41.5 % (37.0-47.0); Lymphocytes % 15.6 % (10-50); Mean Corpuscular HGB Conc 33.7 g/dL (31.8-35.4); Mean Corpuscular Hemoglobin 34.1 pg (27.0-31.2); Monocytes # 0.4 K/mm3 (0.1-1.0); Monocytes % 6.6 % (1.7-9.3); Neutrophils % 75.2 % (37.0-80.0); Platelet Count 287 K/mm3 (142-424); Red Blood Count 4.11 M/mm3 (4.20-5.40); Red Cell Distribution Width 13.4 % (11.5-17.5); White Blood Count 6.7 K/mm3 (4.8-10.8)
[2025-02-12 14:41] LABS: Chloride 98 mmol/L (98-107); Sodium 136 mmol/L (136-145)
[2025-02-12 14:42] LABS: Potassium 4.8 mmoL/L (3.5-5.1)
[2025-02-12 14:44] LABS: Blood Urea Nitrogen 12 mg/dl (7-17); Estimated Glomerular Filt Rate 54 ml/min (>60); GFR (African American) 65 ML/MIN (>60)
[2025-02-12 14:45] LABS: Anion Gap 13.8 mEq/L (5-15); Calcium 9.8 mg/dl (8.4-10.2); Carbon Dioxide 29 mmol/L (22.0-30.0); Glucose 134 mg/dl (74-100)
== END 2025-02-12 23:59 | disposition home or self-care (01) ==
LOC: LAB 13:38
PROVIDERS: PCP Family Medicine; Visit Provider Internal Medicine
DX: Z95.5 Presence of coronary angioplasty implant and graft (principal); E78.5 Hyperlipidemia, unspecified; I50.30 Unspecified diastolic (congestive) heart failure
CPT/HCPCS: 36415; 80048; 85025

== ENCOUNTER 2025-03-02 13:51 | Outpatient (CLI) | payer MEDICARE, SELFPAY ==
[2025-03-02 17:07] LABS: Anion Gap 10.7 mEq/L (5-15); Blood Urea Nitrogen 15 mg/dl (7-17); Calcium 9.2 mg/dl (8.4-10.2); Carbon Dioxide 31 mmol/L (22.0-30.0); Chloride 99 mmol/L (98-107); Estimated Glomerular Filt Rate 54 ml/min (>60); GFR (African American) 65 ML/MIN (>60); Glucose 93 mg/dl (74-100); Potassium 4.7 mmoL/L (3.5-5.1); Sodium 136 mmol/L (136-145)
--- OUTSIDE RECORDS SUMMARY | 2025-03-05 20:36 | XMS_ITS ---
Author Organization [facility] , [facility] Address [address] [place] [address] Phone Care Team Providers Care Filler Picker Name Role Phone Wenceslao HANDLEY, Hernán Rinaldi Unavailable [phone] ELIAZAR HANDLEY, JERZY Unavailable [phone] Problems Includes: Active, inactive, and resolved Problems All Visits Onset Date Resolved Date Provider Condition S tatus Joint Pain in the Left Knee 06/06/2022 Reji Webster PA-C Active Last Documented On 2 2:48PM ; [facility], [facility] Joint Pain, Localized in the Knee 06/10/2013 Gr kendy Billy MD Active Last Documented On 3 10:38AM ; [facility] Plan of Treatment Instructions to patient Lose weight Last Documented On 4 10:23AM ; [facility] Lose weight Last Documented On 3 10:44AM ; [facility] Lose weight Last Documented On 3 10:41AM ; [facility] Lose weight Last Documented On 3 9:13AM ; [facility] Lose weight Last Documented On 3 11:03AM ; [facility] No intervention and counseli ng on cessation of tobacco use Last Documented On 3 10:23AM ; [facility] Lose weight Last Documented On 3 10:23AM ; [facility] No intervention and counseli ng on cessation of tobacco use Last Documented On 2 10:00AM ; [facility] Lose weight Last Documented On 2 10:00AM ; [facility] No intervention and counseli ng on cessation of tobacco use Last Documented On 2 9:53AM ; [facility] Lose weight Last Documented On 2 9:53AM ; [facility] No intervention and counseli ng on cessation of tobacco use Last Documented On 2 10:29AM ; [facility] Lose weight Last Documented On 2 10:29AM ; [facility] No intervention and counseli ng on cessation of tobacco use Last Documented On 2 2:49PM ; [facility] Lose weight Last Documented On 2 2:49PM ; [facility] No intervention and counseli ng on cessation of tobacco use Last Documented On 3 1:05PM ; [facility] Assessments Includes: Assessments for all patient encounters Findings Encounter Date Overweight Follow Up with Kashmir Man MD 0 02/12/2024 Last Documented On 4 2:01PM ; [facility] Overweight Follow Up with Kashmir Man MD 1 01/07/2023 Last Documented On 3 9:57AM ; [facility] Overweight Follow Up with Kashmir Man MD 1 Last Documented On 3 1:29PM ; [facility] Overweight Post Op with Reji Webster PA-C 08/17/2023 Last Documented On 3 11:37AM ; [facility] Overweight Follow Up with Kashmir Man MD 0 06/12/2023 Last Documented On 4 8:52AM ; [facility] Instructions Includes: Instructions for all patient encounters Instructions to patient Lose weight Last Documented On 4 10:23AM ; [facility] Lose weight Last Documented On 3 10:44AM ; [facility] Lose weight Last Documented On 3 10:41AM ; [facility] Lose weight Last Documented On 3 9:13AM ; [facility] Lose weight Last Documented On 3 11:03AM ; [facility] No intervention and counseli ng on cessation of tobacco use Last Documented On 3 10:23AM ; [facility] Lose weight Last Documented On 3 10:23AM ; [facility] No intervention and counseli ng on cessation of tobacco use Last Documented On 2 10:00AM ; [facility] Lose weight Last Documented On 2 10:00AM ; [facility] No intervention and counseli ng on cessation of tobacco use Last Documented On 2 9:53AM ; [facility] Lose weight Last Documented On 2 9:53AM ; [facility] No intervention and counseli ng on cessation of tobacco use Last Documented On 2 10:29AM ; [facility] Lose weight Last Documented On 2 10:29AM ; [facility] No intervention and counseli ng on cessation of tobacco use Last Documented On 2 2:49PM ; [facility] Lose weight Last Documented On 2 2:49PM ; [facility] No intervention and counseli ng on cessation of tobacco use Last Documented On 3 1:05PM ; [facility] Medical Equipment - Implanted Devices Includes: Current and historical Devices No Medical Equipment Recorded Medications Includes: Current and historical Medications Current Medications (continue as prescribed) Methotrexate Sodium 2.5 MG Oral Tablet 01/22/2024 Pr ovider: Felix Fernandez DO Diagnosis: Last Documented On 4 10:23AM By Dena Bella ; [facility] Folic Acid 1 MG Oral Tablet 01/22/2024 Provider: Felix Fernandez DO Diagnosis: Last Documented On 4 10:23AM By Dena Bella ; [facility] Omeprazole 20 MG Oral Capsule Delayed Release 01/22/20 Provider: Diagnosis: Last Documented On 4 10:23AM By Dena Bella ; [facility] PARoxetine HCl 10 MG Oral Tablet 01/22/2024 Provider : Diagnosis: Last Documented On 4 10:23AM By Dena Bella ; [facility] Propranolol HCl 40 MG Oral Tablet 01/22/2024 Provide r: Diagnosis: Last Documented On 4 10:23AM By Dena Bella ; [facility] Rosuvastatin Calcium 40 MG Oral Tablet 01/16/2024 Pr ovider: JERZY PEREA MD Diagnosis: Last Documented On 4 10:23AM By Dena Bella ; [facility] Lisinopril 20 MG Oral Tablet 12/27/2023 Provider: JERZY PEREA MD Diagnosis: Last Documented On 4 10:23AM By Dena Bella ; [facility] Lisinopril 20 MG Oral Tablet 07/05/2023 Provider: Diagnosis: Last Documented On 3 7:38AM By Naila Jay ; [facility] Acetaminophen 500 MG Oral Tablet 07/05/2023 Provider : Diagnosis: Last Documented On 3 7:40AM By Naila Jay ; [facility] amLODIPine Besylate 5 MG Oral Tablet 07/05/2023 Prov ider: Diagnosis: Last Documented On 3 7:40AM By Naila Jay ; [facility] Folic Acid 1 MG Oral Tablet 07/05/2023 Provider: Diagnosis: Last Documented On 3 7:41AM By Naila Jay ; [facility] Rosuvastatin Calcium 40 MG Oral Tablet 07/05/2023 Pr ovider: Diagnosis: Last Documented On 3 7:41AM By Naila Jay ; [facility] ZyrTEC Allergy 10 MG Oral Tablet 07/05/2023 Provider : Diagnosis: Last Documented On 3 7:41AM By Naila Jay ; [facility] PARoxetine HCl 10 MG Oral Tablet 08/23/2022 Provider : Diagnosis: Last Documented On 2 2:40PM By Shea Rivera ; [facility] Propranolol HCl 40 MG Oral Tablet 08/23/2022 Provide r: Diagnosis: Last Documented On 2 2:40PM By Shea Rivera ; [facility], [facility] Vascepa 1 GM Oral Capsule 08/23/2022 Provider: Diagnosis: Last Documented On 2 2:40PM By Shea Rivera ; [facility], [facility] Methotrexate 2.5 MG Oral Tablet 08/23/2022 Provider: Diagnosis: Last Documented On 2 2:41PM By Shea Rivera ; [facility], [facility] Orencia 50 MG/0.4ML Subcutaneous Solution Prefil led Syringe 08/23/2022 Provider: Diagnosis: Last Documented On 2 2:41PM By Shea Rivera ; [facility], [facility] Omeprazole 20 MG Oral Ta blet Delayed Release Disintegrating 08/23/2022 Provider: Diagnosis: Last Documented On 2 2:41PM By Shea Rivera ; [facility], [facility] prednisoLONE 5 MG Oral Tablet 08/23/2022 Provider: Diagnosis: Last Documented On 2 2:40PM By Shea Rivera ; [facility], [facility] Past Medications on file traMADol HCl 50 MG Oral Tablet 08/17/2023 - 09/01/2023 Provider: Kashmir Man MD Diagnosis: Take 1 tablet every 8 hrs prn pain Last Documented On 3 4:14PM By Kashmir Man ; [facility] Doxycycline Hyclate 100 MG O ral Capsule 08/03/2023 - 08/10/2023 Provider: Kashmir Man MD Diagnosis: twice a day Last Documented On 3 2:31PM By Dena Bella ; [facility], [facility] Xifaxan 550 MG Oral Tablet 08/03/2023 - 08/10/2023 Pro vider: Kashmir Man MD Diagnosis: twice a day Last Documented On 3 2:31PM By Dena Bella ; [facility], [facility] traMADol HCl 50 MG Oral Tablet 08/02/2023 - 08/17/2023 Provider: Kashmir Man MD Diagnosis: 1-2 p o q 6-8h for breakthrough post op pain Last Documented On 3 8:59AM By Kashmir Man ; [facility], [facility] oxyCODONE HCl 5 MG Oral Tablet 08/02/2023 - 08/07/2023 Provider: Kashmir Man MD Diagnosis: 1-2 p o q 6-8h for post op pain Last Documented On 3 9:14AM By Kashmir Man ; [facility], [facility] Meloxicam 15 MG Oral Tablet 08/02/2023 - 09/01/2023 Pr ovider: Kashmir Man MD Diagnosis: once a day Last Documented On 3 9:14AM By Kashmir Man ; [facility] Ondansetron HCl 4 MG Oral Tablet 08/02/2023 - 08/16/20 Provider: Kashmir Man MD Diagnosis: 1-2 p o q 6-8h as needed for nausea Last Documented On 3 9:14AM By Kashmir Man ; [facility] Cefadroxil 500 MG Oral Capsule 08/02/2023 - 08/05/2023 Provider: Kashmir Man MD Diagnosis: twice a day Last Documented On 3 9:14AM By Kashmir Gonzales [facility] Acetaminophen 500 MG Oral Tablet 08/02/2023 - 09/01/20 Provider: Kashmir Man MD Diagnosis: 2 three times a day , AFTER SURGERY Last Documented On 3 8:58AM By Kashmir Man ; [facility], [facility] Aspirin Adult Low Strength 8 1 MG Oral Tablet Delayed Release 08/02/2023 - 09/16/2023 Provider: Kashmir Man MD Diagnosis: twice a day Last Documented On 3 8:58AM By Kashmir Man ; [facility] Colace 100 MG Oral Capsule 08/02/2023 - 09/01/2023 Pro vider: Kashmir Man MD Diagnosis: 1-2 tabs daily as needed, AFTER SURGERY Last Documented On 3 8:58AM By Marlow Man ; [facility] oxyCODONE HCl 5 MG Oral Tablet 10/02/2022 - 10/07/2022 Provider: Kashmir Man MD Diagnosis: 1-2 p o q 6-8h for post op pain Last Documented On 2 9:56AM By Kashmir Man ; [facility] Ultram 50 MG Oral Tablet 10/02/2022 - 10/17/2022 Provi megan: Kashmir Man MD Diagnosis: 1-2 p o q 6-8h for breakthrough post op pain Last Documented On 2 9:56AM By Kashmir Man ; [facility] Acetaminophen 500 MG Oral Tablet 09/15/2022 - 10/15/20 Provider: Kashmir Man MD Diagnosis: 2 three times a day , AFTER SURGERY Last Documented On 9:57AM By Kashmir Man ; [facility], [facility] oxyCODONE HCl 5 MG Oral Tablet 09/15/2022 - 09/20/2022 Provider: Kashmir Man MD Diagnosis: 1-2 p o q 6-8h for post op pain Last Documented On 2 10:13AM By Kashmir Man ; [facility], [facility] Mobic 15 MG Oral Tablet 09/15/2022 - 10/15/2022 Provid er: Kashmir Man MD Diagnosis: once a day Last Documented On 2 9:57AM By Kashmir Man ; [facility], [facility] Ondansetron HCl 4 MG Oral Tablet 09/15/2022 - 09/29/20 Provider: Kashmir Man MD Diagnosis: 1-2 p o q 6-8h as needed for nausea Last Documented On 2 9:57AM By Kashmir Man ; [facility], [facility] Cefadroxil 500 MG Oral Capsule 09/15/2022 - 09/18/2022 Provider: Kashmir Man MD Diagnosis: twice a day Last Documented On 2 9:57AM By Kashmir Man ; [facility] Ultram 50 MG Oral Tablet 09/15/2022 - 09/30/2022 Provi megan: Kashmir Man MD Diagnosis: 1-2 p o q 6-8h for breakthrough post op pain Last Documented On 2 9:57AM By Kashmir Man ; [facility] Colace 100 MG Oral Capsule 09/15/2022 - 10/15/2022 Pro vider: Kashmir Man MD Diagnosis: 1-2 tabs daily as needed, AFTER SURGERY Last Documented On 2 9:57AM By Kashmir Man ; [facility], [facility] Aspirin Adult Low Strength 8 1 MG Oral Tablet Delayed Release 09/15/2022 - 10/30/2022 Provider: Kashmir Man MD Diagnosis: twice a day Last Documented On 2 9:57AM By Kashmir Man ; [facility] Lisinopril 10 MG Oral Tablet 08/23/2022 - 07/05/2023 P rovider: Diagnosis: Last Documented On 3 7:38AM By Naila Jay ; [facility] Singulair 10 MG Oral Tablet 08/23/2022 - 07/05/2023 Pr ovider: Diagnosis: Last Documented On 3 7:39AM By Naila Jay ; [facility], [facility] Pravastatin Sodium 20 MG Oral Tablet 08/23/2022 - 06/26 Provider: Diagnosis: Last Documented On 3 7:39AM By Naila Jay ; [facility] Lortab 10-500 MG OR TABS 08/22/2013 - 08/17/2023 Provi megan: Hernán Billy MD Diagnosis: jvt Last Documented On 3 9:17AM By Danielle Escalante ; [facility] Lortab 10-500 MG OR TABS 06/27/2013 - 08/17/2023 Provi megan: Hernán Billy MD Diagnosis: jvt Last Documented On 3 9:17AM By Danielle Escalante ; [facility] PriLOSEC 20 MG OR CPDR 06/10/2013 - 06/06/2022 Provide r: Diagnosis: Last Documented On 2 4:29PM By Marianna Persaud ; [facility] Pravastatin Sodium 80 MG OR TABS 06/10/2013 - 06/06/20 Provider: Diagnosis: Last Documented On 2 4:29PM By Marianna Persaud ; [facility] Baclofen POWD 06/10/2013 - 06/06/2022 Provider: Diagnosis: Last Documented On 2 4:29PM By Marianna Persaud ; [facility] Oxaprozin 600 MG OR TABS 06/10/2013 - 06/06/2022 Provi megan: Diagnosis: Last Documented On 2 4:29PM By Marianna Persaud ; [facility] Folic Acid 1 MG OR TABS 06/10/2013 - 06/06/2022 Provid er: Diagnosis: Last Documented On 2 4:29PM By Marianna Persaud ; [facility] hydroCHLOROthiazide 25 MG TABS 06/10/2013 - 06/06/2022 Provider: Diagnosis: Last Documented On 2 4:29PM By Marianna Persaud ; [facility], [facility] Medications Administered Includes: Administered Medications in patient's chart No Administered Medications Recorded Results Includes: Results from 03/05/2024 through 03/05/2025 No Results Recorded For Specified Dates History of Present Illness History of Present Illness not supported for this document type No History of Present Illness Recorded Social History Description Last Updated Tobacco non-user 10/03/2022 Last Documented On 2 10:20AM ; [facility] Alcohol use 06/06/2022 Last Documented On 2 10:09AM ; [facility] Caffeine use 06/06/2022 Last Documented On 2 10:09AM ; [facility] Alcohol use: 2 drinks or less per day Last Documented On 2 10:09AM ; [facility] Never smoked 06/06/2022 Last Documented On 2 10:09AM ; [facility] Never used drugs 06/06/2022 Last Documented On 2 10:09AM ; [facility] Retired from work 06/06/2022 Last Documented On 2 10:09AM ; [facility] Non-smoker 06/06/2022 Last Documented On 2 10:09AM ; [facility] Not a smoker 06/06/2022 Last Documented On 2 10:09AM ; [facility], [facility] No recent change in diet 06/06/2022 Last Documented On 2 10:09AM ; [facility] Not a current smoker. 06/06/2022 Last Documented On 2 10:09AM ; [facility] Not exercising regularly 06/06/2022 Last Documented On 2 10:09AM ; [facility] Not using drugs 06/06/2022 Last Documented On 2 10:09AM ; [facility] No tobacco use 07/14/2014 Last Documented On 4 4:45PM ; [facility] Smoking status : Never smoker 07/14/2014 Last Documented On 4 4:45PM ; [facility] Procedures and Surgical History Surgical History Last Updated History of back surgery 06/06/2022 Last Documented On 2 10:09AM ; [facility] Medical History Includes: Medical History in patient's chart Description Last Updated History of History of Rheumatology 06/12 Last Documented On 4 8:52AM ; [facility] History of Hypertension 06/12/2023 Last Documented On 4 8:52AM ; [facility] History of arthritis 06/06/2022 Last Documented On 2 10:09AM ; [facility] History of Heartburn / Acid Reflux 06/06 Last Documented On 2 10:09AM ; [facility] No recent immunization for flu 2 Last Documented On 2 10:09AM ; [facility] No recent immunization for pneumococcal pneumonia 06/06/2022 Last Documented On 2 10:09AM ; [facility] Family History Includes: Family History in patient's chart Description Last Updated Diabetes mellitus 06/06/2022 Last Documented On 2 10:09AM ; [facility] Family history of heart disease 06/06/20 Last Documented On 2 10:09AM ; [facility] Maternal history of diabetes mellitus Last Documented On 2 10:09AM ; [facility] Maternal history of family history of he art disease 06/06/2022 Last Documented On 2 10:09AM ; [facility] Review of Systems Review of Systems not supported for this document type No Review of Systems Recorded Mental Status Description No anxiety Functional Status No Functional Status Recorded Physical Exam Physical Exam not supported for this document type No Physical Exam Recorded Allergies Includes: Active, inactive, and resolved Allergies No Known Allergies Insurance Includes: Active Insurance Policies Plan Name Member ID Group # Subscriber Relationship Effect rola Dates 1 - [employer] [id number] Alycia Ramsey Self 11/26/2021 - Unknown Clinical Notes Includes: Signed Clinical Notes starting from 11/09/2022 No Clinical Notes Recorded
--- OUTSIDE RECORDS SUMMARY | 2025-03-05 20:37 | XMS_ITS | Clinical Summary ---
Author Organization [facility] , [facility] Address [address] [place] [address] Phone Care Team Providers Care Powerhouse Mechanic Name Role Phone Wenceslao HANDLEY, Hernán Rinaldi Unavailable [phone] ELIAZAR HANDLEY, JERZY Unavailable [phone] Reason for Visit and Chief Complaint Follow Up Problems Includes: Problems addressed during this encounter and other active Problems All Visits Onset Date Resolved Date Provider Condition S tatus Joint Pain in the Left Knee 06/06/2022 Reji Webster PA-C Active Last Documented On 2 2:48PM ; [facility] Joint Pain, Localized in the Knee 06/10/2013 Gr kendy Billy MD Active Last Documented On 3 10:38AM ; [facility] Plan of Treatment No Plan of Treatment Recorded Assessments Includes: Assessments from this encounter No Assessments Recorded Medical Equipment - Implanted Devices Includes: Current Devices No Medical Equipment Recorded Medications Includes: Medications discussed during this encounter and other current Medications Current Medications (continue as prescribed) Methotrexate Sodium 2.5 MG Oral Tablet 01/22/2024 Pr ovider: Felix Fernandez DO Diagnosis: Last Documented On 4 10:23AM By Dena Bella ; [facility] Folic Acid 1 MG Oral Tablet 01/22/2024 Provider: Felix Fernandez DO Diagnosis: Last Documented On 4 10:23AM By Dena Bella ; [facility] Omeprazole 20 MG Oral Capsule Delayed Release 01/22/20 24 Provider: Diagnosis: Last Documented On 4 10:23AM By Dena Bella ; [facility] PARoxetine HCl 10 MG Oral Tablet 01/22/2024 Provider : Diagnosis: Last Documented On 4 10:23AM By Dena Bella ; [facility] Propranolol HCl 40 MG Oral Tablet 01/22/2024 Provide r: Diagnosis: Last Documented On 4 10:23AM By Dena Bella ; [facility] Rosuvastatin Calcium 40 MG Oral Tablet 01/16/2024 Pr ovider: JERZY PEREA MD Diagnosis: Last Documented On 4 10:23AM By Dena Bella ; [facility] Lisinopril 20 MG Oral Tablet 12/27/2023 Provider: JERZY PEREA MD Diagnosis: Last Documented On 4 10:23AM By Dena Bella ; [facility] Lisinopril 20 MG Oral Tablet 07/05/2023 Provider: Diagnosis: Last Documented On 3 7:38AM By Naila Jay ; [facility] Acetaminophen 500 MG Oral Tablet 07/05/2023 Provider : Diagnosis: Last Documented On 3 7:40AM By Naila Jay ; [facility] amLODIPine Besylate 5 MG Oral Tablet 07/05/2023 Prov ider: Diagnosis: Last Documented On 3 7:40AM By Naila Jay ; [facility] Folic Acid 1 MG Oral Tablet 07/05/2023 Provider: Diagnosis: Last Documented On 3 7:41AM By Naila Jay ; [facility] Rosuvastatin Calcium 40 MG Oral Tablet 07/05/2023 Pr ovider: Diagnosis: Last Documented On 3 7:41AM By Naila Jay ; [facility] ZyrTEC Allergy 10 MG Oral Tablet 07/05/2023 Provider : Diagnosis: Last Documented On 3 7:41AM By Naila Jay ; [facility] PARoxetine HCl 10 MG Oral Tablet 08/23/2022 Provider : Diagnosis: Last Documented On 2 2:40PM By Shea Rivera ; [facility] Propranolol HCl 40 MG Oral Tablet 08/23/2022 Provide r: Diagnosis: Last Documented On 2 2:40PM By Shea Rivera ; [facility] Vascepa 1 GM Oral Capsule 08/23/2022 Provider: Diagnosis: Last Documented On 2 2:40PM By Shea Rivera ; [facility], [facility] Methotrexate 2.5 MG Oral Tablet 08/23/2022 Provider: Diagnosis: Last Documented On 2 2:41PM By Shea Rivera ; [facility], [facility] Orencia 50 MG/0.4ML Subcutaneous Solution Prefil led Syringe 08/23/2022 Provider: Diagnosis: Last Documented On 2 2:41PM By Shea Rivera ; [facility], [facility] Omeprazole 20 MG Oral Ta blet Delayed Release Disintegrating 08/23/2022 Provider: Diagnosis: Last Documented On 2 2:41PM By Shea Rivera ; [facility] prednisoLONE 5 MG Oral Tablet 08/23/2022 Provider: Diagnosis: Last Documented On 2 2:40PM By Shea Rivera ; [facility], [facility] Medications Administered Includes: Administered Medications from this encounter No Administered Medications Recorded Results Includes: Results discussed during this encounter No Results Recorded For Specified Dates History of Present Illness Includes: History of Present Illness from this encounter No History of Present Illness Recorded Social History No Social History Recorded - Smoking Status Unknown Medical History Includes: Medical History addressed during this encounter No Medical History Recorded Family History Includes: Family History addressed during this encounter No Family History Recorded Review of Systems Includes: Review of Systems from this encounter No Review of Systems Recorded Mental Status Includes: Mental Status from this encounter No Mental Status Recorded Functional Status Includes: Functional Status from this encounter No Functional Status Recorded Physical Exam Includes: Physical Exam from this encounter No Physical Exam Recorded Allergies Includes: Active Allergies No Known Allergies Encounters Encounter Provider Location Date Check-In Time Check- Out Time Diagnosis Follow Up [place] Man MD [facility] 3 10:43AM 11:59PM Insurance Includes: Active Insurance Policies Plan Name Member ID Group # Subscriber Relationship Effect rola Dates 1 - [employer] [id number] Alycia Ramsey Self 11/26/2021 - Unknown Clinical Notes Includes: Clinical Notes from this encounter No Clinical Notes Recorded
--- OUTSIDE RECORDS SUMMARY | 2025-03-05 20:37 | XMS_ITS | Clinical Summary ---
Author Organization [facility] , [facility] Address [address] [place] [address] Phone Care Team Providers Care Mix Technician Name Role Phone Wenceslao HANDLEY, Hernán Rinaldi Unavailable [phone] ELIAZAR HANDLEY, JERZY Unavailable [phone] Reason for Visit and Chief Complaint referred by - The Chief Complaint is: Right TKA Problems Includes: Problems addressed during this encounter and other active Problems All Visits Onset Date Resolved Date Provider Condition S tatus Joint Pain in the Left Knee 06/06/2022 Reji Webster PA-C Active Last Documented On 2 2:48PM ; [facility] Joint Pain, Localized in the Knee 06/10/2013 Gr kendy Billy MD Active Last Documented On 3 10:38AM ; [facility] Plan of Treatment Fall Risk Assessment: This patient has been identified as a fall risk. Balance/gait along with postural blood pressure, vision and home fall hazards have been assessed. Medications have been reviewed, and recommendations made with regard to contributing factors for future falls. Plan of care: Consideration of vitamin D supplementation along with balance and strength training with consideration for formal physical therapy has been discussed with the patient. - Last Documented On 02/20/2024 2:01PM ; [facility] Patient was seen by myself and Dr. Man. Reji Webster PA-C Patient will follow- up 6 months repeat x-rays of her right knee. She is going to make an appointment to see a concession supervisor in regards to the psoriasis rash - Last Documented On 02/20/2024 2:01PM ; [facility] Instructions to patient Lose weight Last Documented On 4 10:23AM ; [facility] Assessments Includes: Assessments from this encounter Findings - Overweight - Last Documented On 02/20/2024 2:01PM ; [facility] Right total knee replacement July 2023 - Last Documented On 02/20/2024 2:01PM ; [facility] Instructions Includes: Instructions from this encounter Instructions to patient Lose weight Last Documented On 4 10:23AM ; [facility] Medical Equipment - Implanted Devices Includes: Current Devices No Medical Equipment Recorded Medications Includes: Medications discussed during this encounter and other current Medications Current Medications (continue as prescribed) Methotrexate Sodium 2.5 MG Oral Tablet 01/22/2024 Pr ovider: Felix Fernandez DO Diagnosis: Last Documented On 4 10:23AM By Dena Bella ; [facility], [facility] Folic Acid 1 MG Oral Tablet 01/22/2024 Provider: Felix Fernandez DO Diagnosis: Last Documented On 4 10:23AM By Dena Bella ; [facility] Omeprazole 20 MG Oral Capsule Delayed Release 01/22/20 24 Provider: Diagnosis: Last Documented On 4 10:23AM By Dena Bella ; [facility] PARoxetine HCl 10 MG Oral Tablet 01/22/2024 Provider : Diagnosis: Last Documented On 4 10:23AM By Dena Bella ; [facility] Propranolol HCl 40 MG Oral Tablet 01/22/2024 Provide r: Diagnosis: Last Documented On 4 10:23AM By Dena Bella ; [facility] Rosuvastatin Calcium 40 MG Oral Tablet 01/16/2024 Pr ovider: JERZY PEREA MD Diagnosis: Last Documented On 4 10:23AM By Dena Bella ; [facility] Lisinopril 20 MG Oral Tablet 12/27/2023 Provider: JERZY PEREA MD Diagnosis: Last Documented On 4 10:23AM By Dena Bella ; [facility] Lisinopril 20 MG Oral Tablet 07/05/2023 Provider: Diagnosis: Last Documented On 3 7:38AM By Naila Jay ; [facility], [facility] Acetaminophen 500 MG Oral Tablet 07/05/2023 Provider : Diagnosis: Last Documented On 3 7:40AM By Naila Jay ; [facility] amLODIPine Besylate 5 MG Oral Tablet 07/05/2023 Prov ider: Diagnosis: Last Documented On 3 7:40AM By Naila Jay ; [facility] Folic Acid 1 MG Oral Tablet 07/05/2023 Provider: Diagnosis: Last Documented On 3 7:41AM By Naila Jay ; [facility] Rosuvastatin Calcium 40 MG Oral Tablet 07/05/2023 Pr ovider: Diagnosis: Last Documented On 3 7:41AM By Naila aJy ; [facility] ZyrTEC Allergy 10 MG Oral Tablet 07/05/2023 Provider : Diagnosis: Last Documented On 3 7:41AM By Naila Jay ; [facility] PARoxetine HCl 10 MG Oral Tablet 08/23/2022 Provider : Diagnosis: Last Documented On 2 2:40PM By Shea Rivera ; [facility] Propranolol HCl 40 MG Oral Tablet 08/23/2022 Provide r: Diagnosis: Last Documented On 2 2:40PM By Shea Rivera ; [facility] Vascepa 1 GM Oral Capsule 08/23/2022 Provider: Diagnosis: Last Documented On 2 2:40PM By Shea Rivera ; [facility] Methotrexate 2.5 MG Oral Tablet 08/23/2022 Provider: Diagnosis: Last Documented On 2 2:41PM By Shea Rivera ; [facility] Orencia 50 MG/0.4ML Subcutaneous Solution Prefil led Syringe 08/23/2022 Provider: Diagnosis: Last Documented On 2 2:41PM By Shea Rivera ; [facility] Omeprazole 20 MG Oral Ta blet Delayed Release Disintegrating 08/23/2022 Provider: Diagnosis: Last Documented On 2 2:41PM By Shea Rivera ; [facility] prednisoLONE 5 MG Oral Tablet 08/23/2022 Provider: Diagnosis: Last Documented On 2 2:40PM By Shea Rivera ; [facility] Past Medications on file traMADol HCl 50 MG Oral Tablet 08/17/2023 - 09/01/2023 Provider: Kashmir Man MD Diagnosis: Take 1 tablet every 8 hrs prn pain Last Documented On 3 4:14PM By Kashmir Man ; [facility] Doxycycline Hyclate 100 MG O ral Capsule 08/03/2023 - 08/10/2023 Provider: Kashmir Man MD Diagnosis: twice a day Last Documented On 3 2:31PM By Dena Bella ; [facility] Xifaxan 550 MG Oral Tablet 08/03/2023 - 08/10/2023 Pro vider: Kashmir Man MD Diagnosis: twice a day Last Documented On 3 2:31PM By Dena Bella ; [facility] traMADol HCl 50 MG Oral Tablet 08/02/2023 - 08/17/2023 Provider: Kashmir Man MD Diagnosis: 1-2 p o q 6-8h for breakthrough post op pain Last Documented On 3 8:59AM By Kashmir Man ; [facility] oxyCODONE HCl 5 MG Oral Tablet 08/02/2023 - 08/07/2023 Provider: Kashmir Man MD Diagnosis: 1-2 p o q 6-8h for post op pain Last Documented On 3 9:14AM By Kashmir Man ; [facility] Meloxicam 15 MG Oral Tablet 08/02/2023 - 09/01/2023 Pr ovider: Kashmir Man MD Diagnosis: once a day Last Documented On 3 9:14AM By Kashmir Man ; [facility] Ondansetron HCl 4 MG Oral Tablet 08/02/2023 - 08/16/20 Provider: Kashmir Man MD Diagnosis: 1-2 p o q 6-8h as needed for nausea Last Documented On 3 9:14AM By Kashmir Man ; [facility] Cefadroxil 500 MG Oral Capsule 08/02/2023 - 08/05/2023 Provider: Kashmir Man MD Diagnosis: twice a day Last Documented On 3 9:14AM By Kashmir Man ; [facility] Acetaminophen 500 MG Oral Tablet 08/02/2023 - 09/01/20 Provider: Kashmir Man MD Diagnosis: 2 three times a day , AFTER SURGERY Last Documented On 3 8:58AM By Kashmir Man ; [facility] Aspirin Adult Low Strength 8 1 MG Oral Tablet Delayed Release 08/02/2023 - 09/16/2023 Provider: Kashmir Man MD Diagnosis: twice a day Last Documented On 3 8:58AM By Kashmir Man ; [facility] Colace 100 MG Oral Capsule 08/02/2023 - 09/01/2023 Pro vider: Kashmir Man MD Diagnosis: 1-2 tabs daily as needed, AFTER SURGERY Last Documented On 3 8:58AM By Kashmir Man ; [facility] oxyCODONE HCl 5 MG Oral Tablet 10/02/2022 - 10/07/2022 Provider: Kashmir Man MD Diagnosis: 1-2 p o q 6-8h for post op pain Last Documented On 2 9:56AM By Kashmir Man ; [facility] Ultram 50 MG Oral Tablet 10/02/2022 - 10/17/2022 Provi megan: Kashmir Man MD Diagnosis: 1-2 p o q 6-8h for breakthrough post op pain Last Documented On 2 9:56AM By Kashmir Man ; [facility] Acetaminophen 500 MG Oral Tablet 09/15/2022 - 10/15/20 22 Provider: Kashmir Man MD Diagnosis: 2 three times a day , AFTER SURGERY Last Documented On 2 9:57AM By Kashmir Man ; [facility] oxyCODONE HCl 5 MG Oral Tablet 09/15/2022 - 09/20/2022 Provider: Kashmir Man MD Diagnosis: 1-2 p o q 6-8h for post op pain Last Documented On 2 10:13AM By Kashmir Gonzales [facility] Mobic 15 MG Oral Tablet 09/15/2022 - 10/15/2022 Provid er: Kashmir Man MD Diagnosis: once a day Last Documented On 2 9:57AM By Kashmir Man ; [facility] Ondansetron HCl 4 MG Oral Tablet 09/15/2022 - 09/29/20 Provider: Kashmir Man MD Diagnosis: 1-2 p o q 6-8h as needed for nausea Last Documented On 2 9:57AM By Kashmir Gonzales [facility] Cefadroxil 500 MG Oral Capsule 09/15/2022 - 09/18/2022 Provider: Kashmir Man MD Diagnosis: twice a day Last Documented On 2 9:57AM By Kashmir Man ; [facility] Ultram 50 MG Oral Tablet 09/15/2022 - 09/30/2022 Provi megan: Kashmir Man MD Diagnosis: 1-2 p o q 6-8h for breakthrough post op pain Last Documented On 2 9:57AM By Kashmir Gonzales [facility] Colace 100 MG Oral Capsule 09/15/2022 - 10/15/2022 Pro vider: Kashmir Man MD Diagnosis: 1-2 tabs daily as needed, AFTER SURGERY Last Documented On 2 9:57AM By Kashmir Gonzales [facility] Aspirin Adult Low Strength 8 1 MG Oral Tablet Delayed Release 09/15/2022 - 10/30/2022 Provider: Kashmir Man MD Diagnosis: twice a day Last Documented On 2 9:57AM By Kashmir Gonzales [facility] Medications Administered Includes: Administered Medications from this encounter No Administered Medications Recorded Vital Signs Includes: Vital Signs from this encounter Vital Name 02/12/2024 10:29A Height (in) 64 Weight (lb) 174 Body Mass Index 29.9 Body Surface Area 1.8 Pain Level 2 Note: Last Documented: On 02/12/2024 10:30A M ; [facility] Results Includes: Results discussed during this encounter No Results Recorded For Specified Dates History of Present Illness Includes: History of Present Illness from this encounter FELIX Fragosos is a 73 year old female. - Allergy list reviewed - Problem list reviewed - Medication list reviewed - Patient pain level from 1-10: 2 Patient is here today for follow-up of right total knee replacement July 2023 doing well at this point in time she is happy she is done it Social History Description Last Updated Tobacco non-user 10/03/2022 Last Documented On 4 10:23AM ; [facility] Alcohol use 06/06/2022 Last Documented On 4 10:23AM ; [facility] Caffeine use 06/06/2022 Last Documented On 4 10:23AM ; [facility] Alcohol use: 2 drinks or less per day Last Documented On 4 10:23AM ; [facility] Never smoked 06/06/2022 Last Documented On 4 10:23AM ; [facility] Never used drugs 06/06/2022 Last Documented On 4 10:23AM ; [facility] Retired from work 06/06/2022 Last Documented On 4 10:23AM ; [facility] Non-smoker 06/06/2022 Last Documented On 4 10:23AM ; [facility] Not a smoker 06/06/2022 Last Documented On 4 10:23AM ; [facility] No recent change in diet 06/06/2022 Last Documented On 4 10:23AM ; [facility] Not a current smoker. 06/06/2022 Last Documented On 4 10:23AM ; [facility] Not exercising regularly 06/06/2022 Last Documented On 4 10:23AM ; [facility] Not using drugs 06/06/2022 Last Documented On 4 10:23AM ; [facility] No tobacco use 07/14/2014 Last Documented On 4 10:23AM ; [facility] Smoking status : Never smoker 07/14/2014 Last Documented On 4 10:23AM ; [facility] Procedures and Surgical History Includes: Procedures from this encounter Procedures Code Diagnosis Performing Provider Service L ocation Service Date use of tobacco assessment performed 1000F Last Documented On 4 10:23AM ; [facility] no influenza immunization patient refuse d Last Documented On 4 10:23AM ; [facility] patient screened for future fall risk 3288F Last Documented On 4 10:23AM ; [facility] patient screened for future fall risk: documentation of any fall with injury in past year 1100F Last Documented On 4 10:23AM ; [facility] review of medications documented 1160F Last Documented On 4 10:23AM ; [facility] Surgical History Last Updated History of back surgery 06/06/2022 Last Documented On 4 10:23AM ; [facility] Medical History Includes: Medical History addressed during this encounter Description Last Updated History of History of Rheumatology 06/12 Last Documented On 4 10:23AM ; [facility] History of Hypertension 06/12/2023 Last Documented On 4 10:23AM ; [facility] History of arthritis 06/06/2022 Last Documented On 4 10:23AM ; [facility] History of Heartburn / Acid Reflux 06/06 Last Documented On 4 10:23AM ; [facility] No recent immunization for flu 2 Last Documented On 4 10:23AM ; [facility] No recent immunization for pneumococcal pneumonia 06/06/2022 Last Documented On 4 10:23AM ; [facility] Family History Includes: Family History addressed during this encounter Description Last Updated Diabetes mellitus 06/06/2022 Last Documented On 4 10:23AM ; [facility] Family history of heart disease 06/06/20 22 Last Documented On 4 10:23AM ; [facility] Maternal history of diabetes mellitus Last Documented On 4 10:23AM ; [facility] Maternal history of family history of he art disease 06/06/2022 Last Documented On 4 10:23AM ; [facility] Review of Systems Includes: Review of Systems from this encounter Systemic: No symptoms, not feeling tired, no recent weight loss, and no recent weight gain. Head: No headache and no sinus pain. Eyes: No vision problems. Cataracts. No Glasses/Contacts and no Glaucoma. Otolaryngeal: No hearing loss and no tinnitus. Cardiovascular: No chest pain or discomfort, no palpitations, no Hypertension, and no High Cholesterol. Pulmonary: No daytime asthma symptoms and no chronic cough. No wheezing. Gastrointestinal: Heartburn and heartburn. No abdominal pain. No Indigestion. Acid Reflux. No Peptic Ulcer, no GI Stomach Bleed, and no Ulcers. Endocrine: No hot flashes, no muscle weakness, no Diabetes, no Hypothyroid, and no Hyperthyroid. Hematologic: No easy bleeding, no tendency for easy bruising, and no Anemia. Musculoskeletal: Arthritis and lower back pain. No soft tissue swelling. Pain localized to one or more joints. Neurological: No dizziness, no convulsions, and no numbness. Psychological: No anxiety. Anxiety. No emotional lability, no depression, and no insomnia. Not crying for no reason. Skin: No dry skin. No Ulcers, no Scars, and no rash. Allergic and Immunologic: Complaint of seasonal allergic reaction. Mental Status Includes: Mental Status from this encounter Description No anxiety Functional Status Includes: Functional Status from this encounter No Functional Status Recorded Physical Exam Includes: Physical Exam from this encounter Allergies Includes: Active Allergies No Known Allergies Encounters Encounter Provider Location Date Check-In Time Check-Out Time Diagnosis Follow Up Kashmir Man MD [facility] 4 10:20AM 10:59AM Overweight Insurance Includes: Active Insurance Policies Plan Name Member ID Group # Subscriber Relationship Effect rola Dates 1 - [employer] [id number] Alycia Ramsey Self 11/26/2021 - Unknown Clinical Notes Includes: Clinical Notes from this encounter * Progress note Date Encounter Last Documented by 02/12/2024 Follow Up Last documented on 02/20/2024; 2:01 PM, Kashmir Man MD; [facility] Active Problems & Conditions - Joint Pain in the Left Knee - Joint Pain, Localized in the Knee Chief Complaint The Chief Complaint is: Right TKA. Reason For Visit Referred by. Referred Here Referred by Self. History of Present Illness Alycia Ramsey is a 73 year old female. - Allergy list reviewed - Problem list reviewed - Medication list reviewed - Patient pain level from 1-10: 2 Patient is here today for follow-up of right total knee replacement July 2023 doing well at this point in time she is happy she is done it Current Medication - Acetaminophen 500 MG Oral Tablet take as directed 0 days, 0 refills - amLODIPine Besylate 5 MG Oral Tablet three times a day 0 days, 0 refills - [facility] Omeprazole 20 MG Oral Tablet Delayed Release Disintegrating 0 days, 0 refills - Folic Acid 1 MG Oral Tablet take as directed 0 days, 0 refills - Folic Acid 1 MG Oral Tablet 90 days, 0 refills - Lisinopril 20 MG Oral Tablet take as directed 0 days, 0 refills - Lisinopril 20 MG Oral Tablet 60 days, 0 refills - Methotrexate 2.5 MG Oral Tablet 0 days, 0 refills - Methotrexate Sodium 2.5 MG Oral Tablet 90 days, 0 refills - Omeprazole 20 MG Oral Capsule Delayed Release 90 days, 0 refills - Orencia 50 MG/0.4ML Subcutaneous Solution Prefilled Syringe 0 days, 0 refills - PARoxetine HCl 10 MG Oral Tablet 0 days, 0 refills - PARoxetine HCl 10 MG Oral Tablet 90 days, 0 refills - prednisoLONE 5 MG Oral Tablet 0 days, 0 refills - Propranolol HCl 40 MG Oral Tablet 0 days, 0 refills - Propranolol HCl 40 MG Oral Tablet 90 days, 0 refills - Rosuvastatin Calcium 40 MG Oral Tablet take as directed 0 days, 0 refills - Rosuvastatin Calcium 40 MG Oral Tablet 90 days, 0 refills - Vascepa 1 GM Oral Capsule 0 days, 0 refills - ZyrTEC Allergy 10 MG Oral Tablet take as directed 0 days, 0 refills Past Medical/Surgical History Reported: Immunization History: No recent immunization for flu and not for pneumococcal pneumonia. Diagnoses: Heartburn / Acid Reflux Hypertension History of Rheumatology. Arthritis Surgical: - Back surgery Social History Not a current smoker. Current diet: No recent change in diet. Caffeine use: Caffeine use. Tobacco use: No tobacco use. Tobacco non-user. Not a smoker. Non-smoker never smoked. Smoking status: Never smoker. Alcohol: Alcohol use alcohol use: 2 drinks or less per day. Drug Use: Not using drugs. Never used drugs. Habits: Not exercising regularly. Work: Retired from work. Allergies - No Known Allergies Family History Heart disease Diabetes mellitus Maternal: Heart disease Diabetes mellitus Review Of Systems Systemic: No symptoms, not feeling tired, no recent weight loss, and no recent weight gain. Head: No headache and no sinus pain. Eyes: No vision problems. Cataracts. No Glasses/Contacts and no Glaucoma. Otolaryngeal: No hearing loss and no tinnitus. Cardiovascular: No chest pain or discomfort, no palpitations, no Hypertension, and no High Cholesterol. Pulmonary: No daytime asthma symptoms and no chronic cough. No wheezing. Gastrointestinal: Heartburn and heartburn. No abdominal pain. No Indigestion. Acid Reflux. No Peptic Ulcer, no GI Stomach Bleed, and no Ulcers. Endocrine: No hot flashes, no muscle weakness, no Diabetes, no Hypothyroid, and no Hyperthyroid. Hematologic: No easy bleeding, no tendency for easy bruising, and no Anemia. Musculoskeletal: Arthritis and lower back pain. No soft tissue swelling. Pain localized to one or more joints. Neurological: No dizziness, no convulsions, and no numbness. Psychological: No anxiety. Anxiety. No emotional lability, no depression, and no insomnia. Not crying for no reason. Skin: No dry skin. No Ulcers, no Scars, and no rash. Allergic and Immunologic: Complaint of seasonal allergic reaction. Physical Findings - Vitals taken 02/12/2024 10:29 am lc Height 64 in 59 - 78 Weight 174 lbs 95 - 175 Body Mass Index 29.9 kg/m2 Body Surface Area 1.8 m2 Pain Level 2 Standard Measurements: - Patient was overweight. She does have psoriasis rash on the right lower extremity no sign of any infection Her incision with the knee was healed motion 0-120 Stable ligamentous exam Tests Two views right knee show the implant in good position 02/12/2024 Assessment - Overweight Right total knee replacement July 2023 Counseling/Education - Lose weight Plan Fall Risk Assessment: This patient has been identified as a fall risk. Balance/gait along with postural blood pressure, vision and home fall hazards have been assessed. Medications have been reviewed, and recommendations made with regard to contributing factors for future falls. Plan of care: Consideration of vitamin D supplementation along with balance and strength training with consideration for formal physical therapy has been discussed with the patient. Patient was seen by myself and Dr. Man. Reji Webster PA-C Patient will follow- up 6 months repeat x-rays of her right knee. She is going to make an appointment to see a concession supervisor in regards to the psoriasis rash Notes This dictation was done with voice recognition software and may contain errors and omissions. Practice Management Use of tobacco assessment performed and patient screened for future fall risk documentation of any fall with injury in past year Review of medications documented; No influenza immunization patient refused. Care Team - JERZY PEREA MD - FACILITY PLANNER
--- OUTSIDE RECORDS SUMMARY | 2025-03-05 20:37 | XMS_ITS | Clinical Summary ---
Author Organization [facility] , [facility] Address [address] [address] Phone Care Team Providers Care Inspector Quality Assurance Name Role Phone Wenceslao HANDLEY, Hernán Rinaldi Unavailable [phone] ELIAZAR HANDLEY, JERZY Unavailable [phone] Reason for Visit and Chief Complaint referred by - The Chief Complaint is: Right TKA POV Problems Includes: Problems addressed during this encounter and other active Problems All Visits Onset Date Resolved Date Provider Condition S tatus Joint Pain in the Left Knee 06/06/2022 Reji Webster PA-C Active Last Documented On 2 2:48PM ; [facility] Joint Pain, Localized in the Knee 06/10/2013 Gr kendy Billy MD Active Last Documented On 3 10:38AM ; [facility] Plan of Treatment Fall Risk Assessment: [...] with the patient. - Last Documented On 09/03/2023 11:37AM ; [facility] Patient was seen by myself Reji Webster PA-C. Patient will follow up [address] Man. Continue with physical therapy and hopefully she can start to begin to transition to outpatient PT shortly. We went ahead and trimmed up the one suture that was at the base of the incision today. We will call her in some more pain medicine. - Last Documented On 09/03/2023 11:37AM ; [facility], [facility] Instructions to patient Lose weight Last Documented On 3 9:13AM ; [facility], [facility] Assessments Includes: Assessments from this encounter Findings - Overweight - Last Documented On 09/03/2023 11:37AM ; [facility], [facility] Right total knee replacement August 03, 2023 - Last Documented On 09/03/2023 11:37AM ; [facility], [facility] Instructions Includes: Instructions from this encounter Instructions to patient Lose weight Last Documented On 3 9:13AM ; [facility], [facility] Medical Equipment - Implanted Devices Includes: Current Devices No Medical Equipment Recorded Medications Includes: Medications discussed during this encounter and other current Medications Discontinued / Stopped on this date Hernán Billy MD on 08/22/2013 Lortab 10-500 MG OR TABS Provider: Onelia Billy MD Diagnosis: Last Documented On 3 9:17AM By Danielle Escalante ; [facility], [facility] New / Renewed during this visit Kashmir Man MD on 08/17/2023 traMADol HCl 50 MG Oral Tablet Provider: Kashmir Man MD 15 day supply: 45 tablet, 0 refills Diagnosis: Take 1 tablet every 8 hrs prn pain Pharmacy: [facility] [phone], [address] - Last Documented On 3 4:14PM By Kashmir Man ; [facility], [facility] Current Medications (continue as prescribed) Methotrexate Sodium 2.5 MG Oral Tablet 01/22/2024 Pr ovider: Felix Fernandez DO Diagnosis: Last Documented On 4 10:23AM By Dena Bella ; [facility], [facility] Folic Acid 1 MG Oral Tablet 01/22/2024 Provider: Felix Fernandez DO Diagnosis: Last Documented On 4 10:23AM By Dena Bella ; [facility], [facility] Omeprazole 20 MG Oral Capsule Delayed Release 01/22/20 24 Provider: Diagnosis: Last Documented On 4 10:23AM By Dena Bella ; [facility], [facility] PARoxetine HCl 10 MG Oral Tablet 01/22/2024 Provider : Diagnosis: Last Documented On 4 10:23AM By Dena Bella ; [facility] Propranolol HCl 40 MG Oral Tablet 01/22/2024 Provide r: Diagnosis: Last Documented On 4 10:23AM By Dena Bella ; [facility] Rosuvastatin Calcium 40 MG Oral Tablet 01/16/2024 Pr ovider: JERZY PEREA MD Diagnosis: Last Documented On 4 10:23AM By Dena Bella ; [facility] Lisinopril 20 MG Oral Tablet 12/27/2023 Provider: JERZY PEREA MD Diagnosis: Last Documented On 4 10:23AM By Dena Bella ; [facility] Lisinopril 20 MG Oral Tablet 07/05/2023 Provider: Diagnosis: Last Documented On 3 7:38AM By Naila Jay ; [facility] Acetaminophen 500 MG Oral Tablet 07/05/2023 Provider : Diagnosis: Last Documented On 3 7:40AM By Naila Jay ; [facility] amLODIPine Besylate 5 MG Oral Tablet 07/05/2023 Prov ider: Diagnosis: Last Documented On 3 7:40AM By Naila Jay ; [facility] Folic Acid 1 MG Oral Tablet 07/05/2023 Provider: Diagnosis: Last Documented On 3 7:41AM By Naila Jay ; [facility] Rosuvastatin Calcium 40 MG Oral Tablet 07/05/2023 Pr ovider: Diagnosis: Last Documented On 3 7:41AM By Naila Jay ; [facility] ZyrTEC Allergy 10 MG Oral Tablet 07/05/2023 Provider : Diagnosis: Last Documented On 3 7:41AM By Naila Jay ; [facility] PARoxetine HCl 10 MG Oral Tablet 08/23/2022 Provider : Diagnosis: Last Documented On 2 2:40PM By Shea Rivera ; [facility] Propranolol HCl 40 MG Oral Tablet 08/23/2022 Provide r: Diagnosis: Last Documented On 2 2:40PM By Seha Rivera ; [facility], [facility] Vascepa 1 GM Oral Capsule 08/23/2022 Provider: Diagnosis: Last Documented On 2 2:40PM By Shea Rivera ; [facility] Methotrexate 2.5 MG Oral Tablet 08/23/2022 Provider: Diagnosis: Last Documented On 2 2:41PM By Shea Rivera ; [facility], [facility] Orencia 50 MG/0.4ML Subcutaneous Solution Prefil led Syringe 08/23/2022 Provider: Diagnosis: Last Documented On 2 2:41PM By Shea Rivera ; [facility] Omeprazole 20 MG Oral Ta blet Delayed Release Disintegrating 08/23/2022 Provider: Diagnosis: Last Documented On 2 2:41PM By Shea Rivera ; [facility], [facility] prednisoLONE 5 MG Oral Tablet 08/23/2022 Provider: Diagnosis: Last Documented On 2 2:40PM By Shea Rivera ; [facility], [facility] Past Medications on file Doxycycline Hyclate 100 MG O ral Capsule 08/03/2023 - 08/10/2023 Provider: Kashmir Man MD Diagnosis: twice a day Last Documented On 3 2:31PM By Dena Bella ; [facility], [facility] Xifaxan 550 MG Oral Tablet 08/03/2023 - 08/10/2023 Pro vider: Kashmir Man MD Diagnosis: twice a day Last Documented On 3 2:31PM By Dena Bella ; [facility], [facility] traMADol HCl 50 MG Oral Tablet 08/02/2023 - 08/17/2023 Provider: Kashmir Man MD Diagnosis: 1-2 p o q 6-8h for breakthrough post op pain Last Documented On 3 8:59AM By Kashmir Man ; [facility], [facility] oxyCODONE HCl 5 MG Oral Tablet 08/02/2023 - 08/07/2023 Provider: Kashmir Man MD Diagnosis: 1-2 p o q 6-8h for post op pain Last Documented On 3 9:14AM By Kashmir Man ; [facility], [facility] Meloxicam 15 MG Oral Tablet 08/02/2023 - 09/01/2023 Pr ovider: Kashmir Man MD Diagnosis: once a day Last Documented On 3 9:14AM By Kashmir Man ; [facility], [facility] Ondansetron HCl 4 MG Oral Tablet 08/02/2023 - 08/16/20 Provider: Kashmir Man MD Diagnosis: 1-2 p o q 6-8h as needed for nausea Last Documented On 3 9:14AM By Kashmir Man [facility], [facility] Cefadroxil 500 MG Oral Capsule 08/02/2023 - 08/05/2023 Provider: Kashmir Man MD Diagnosis: twice a day Last Documented On 3 9:14AM By Kashmir Man ; [facility], [facility] Acetaminophen 500 MG Oral Tablet 08/02/2023 - 09/01/20 Provider: Kashmir Man MD Diagnosis: 2 three times a day , AFTER SURGERY Last Documented On 3 8:58AM By Kashmir Man ; [facility], [facility] Aspirin Adult Low Strength 8 1 MG Oral Tablet Delayed Release 08/02/2023 - 09/16/2023 Provider: Kashmir Man MD Diagnosis: twice a day Last Documented On 3 8:58AM By Kashmir Mna ; [facility], [facility] Colace 100 MG Oral Capsule 08/02/2023 - 09/01/2023 Pro vider: Kashmir Man MD Diagnosis: 1-2 tabs daily as needed, AFTER SURGERY Last Documented On 3 8:58AM By Kashmir Man [facility] oxyCODONE HCl 5 MG Oral Tablet 10/02/2022 - 10/07/2022 Provider: Kashmir Man MD Diagnosis: 1-2 p o q 6-8h for post op pain Last Documented On 2 9:56AM By Kashmir Man ; [facility], [facility] Ultram 50 MG Oral Tablet 10/02/2022 - 10/17/2022 Provi megan: Kashmir Man MD Diagnosis: 1-2 p o q 6-8h for breakthrough post op pain Last Documented On 2 9:56AM By Kashmir Man ; [facility], [facility] Acetaminophen 500 MG Oral Tablet 09/15/2022 - 10/15/20 Provider: Kashmir Man MD Diagnosis: 2 three times a day , AFTER SURGERY Last Documented On 2 9:57AM By Kashmir Man ; [facility], [facility] oxyCODONE HCl 5 MG Oral Tablet 09/15/2022 - 09/20/2022 Provider: Kashmir Man MD Diagnosis: 1-2 p o q 6-8h for post op pain Last Documented On 2 10:13AM By Kashmir Man ; [facility], [facility] Mobic 15 MG Oral Tablet 09/15/2022 - 10/15/2022 Provid er: Kashmir Man MD Diagnosis: once a day Last Documented On 9:57AM By Kashmir Man ; [facility], [facility] Ondansetron HCl 4 MG Oral Tablet 09/15/2022 - 09/29/20 Provider: Kashmir Man MD Diagnosis: 1-2 p o q 6-8h as needed for nausea Last Documented On 2 9:57AM By Kashmir Man ; [facility], [facility] Cefadroxil 500 MG Oral Capsule 09/15/2022 - 09/18/2022 Provider: Kashmir Man MD Diagnosis: twice a day Last Documented On 2 9:57AM By Kashmir Man ; [facility] Ultram 50 MG Oral Tablet 09/15/2022 - 09/30/2022 Provi megan: Kashmir Man MD Diagnosis: 1-2 p o q 6-8h for breakthrough post op pain Last Documented On 2 9:57AM By Kashmir Man ; [facility], [facility] Colace 100 MG Oral Capsule 09/15/2022 - 10/15/2022 Pro vider: Kashmir Man MD Diagnosis: 1-2 tabs daily as needed, AFTER SURGERY Last Documented On 2 9:57AM By Kashmir Man ; [facility], [facility] Aspirin Adult Low Strength 8 1 MG Oral Tablet Delayed Release 09/15/2022 - 10/30/2022 Provider: Kashmir Man MD Diagnosis: twice a day Last Documented On 2 9:57AM By Kashmir Man ; [facility], [facility] Medications Administered Includes: Administered Medications from this encounter No Administered Medications Recorded Vital Signs Includes: Vital Signs from this encounter Vital Name 08/17/2023 09:16A Height (in) 64 Weight (lb) 172 Body Mass Index 29.5 Body Surface Area 1.8 Note: lc Last Documented: On 08/17/2023 9:16AM ; [facility], [facility] Results Includes: Results discussed during this encounter No Results Recorded For Specified Dates History of Present Illness Includes: History of Present Illness from this encounter FELIX Ramsey is a 73 year old female. - Allergy list reviewed - Problem list reviewed - Medication list reviewed - Medication list reviewed - Previous history of chronic pain - New onset Injury is not work related or an automotive accident - Sharp pain Symptoms - No previous treatment. Patient is here today for follow-up of her right total knee replacement surgery date was August 03, 2023. She says and will bit more pain in the right knee than she did when she had the left 1 done. She is doing home physical therapy. She is requesting some more pain medicine today also. She is using a walker to walk with today. Social History Description Last Updated Tobacco non-user 10/03/2022 Last Documented On 3 9:13AM ; [facility], [facility] Alcohol use 06/06/2022 Last Documented On 3 9:13AM ; [facility], [facility] Caffeine use 06/06/2022 Last Documented On 3 9:13AM ; [facility], [facility] Alcohol use: 2 drinks or less per day Last Documented On 3 9:13AM ; [facility] Never smoked 06/06/2022 Last Documented On 3 9:13AM ; [facility], [facility] Never used drugs 06/06/2022 Last Documented On 3 9:13AM ; [facility], [facility] Retired from work 06/06/2022 Last Documented On 3 9:13AM ; [facility], [facility] Non-smoker 06/06/2022 Last Documented On 3 9:13AM ; [facility] Not a smoker 06/06/2022 Last Documented On 3 9:13AM ; [facility], [facility] No recent change in diet 06/06/2022 Last Documented On 3 9:13AM ; [facility], [facility] Not a current smoker. 06/06/2022 Last Documented On 3 9:13AM ; [facility] Not exercising regularly 06/06/2022 Last Documented On 3 9:13AM ; [facility] Not using drugs 06/06/2022 Last Documented On 3 9:13AM ; [facility] No tobacco use 07/14/2014 Last Documented On 3 9:13AM ; [facility], [facility] Smoking status : Never smoker 07/14/2014 Last Documented On 3 9:13AM ; [facility], [facility] Procedures and Surgical History Includes: Procedures from this encounter Procedures Code Diagnosis Performing Provider Service L ocation Service Date use of tobacco assessment performed 1000F Last Documented On 3 9:13AM ; [facility], [facility] no influenza immunization patient refuse d Last Documented On 3 9:13AM ; [facility], [facility] patient screened for future fall risk 3288F Last Documented On 3 9:13AM ; [facility] patient screened for future fall risk: documentation of any fall with injury in past year 1100F Last Documented On 3 9:13AM ; [facility], [facility] review of medications documented 1160F Last Documented On 3 9:16AM ; [facility] Surgical History Last Updated History of back surgery 06/06/2022 Last Documented On 3 9:13AM ; [facility], [facility] Medical History Includes: Medical History addressed during this encounter Description Last Updated History of History of Rheumatology 06/12 Last Documented On 3 9:13AM ; [facility] History of Hypertension 06/12/2023 Last Documented On 3 9:13AM ; [facility] History of arthritis 06/06/2022 Last Documented On 3 9:13AM ; [facility] History of Heartburn / Acid Reflux 06/06 Last Documented On 3 9:13AM ; [facility] No recent immunization for flu 2 Last Documented On 3 9:13AM ; [facility] No recent immunization for pneumococcal pneumonia 06/06/2022 Last Documented On 3 9:13AM ; [facility] Family History Includes: Family History addressed during this encounter Description Last Updated Diabetes mellitus 06/06/2022 Last Documented On 3 9:13AM ; [facility] Family history of heart disease 06/06/20 22 Last Documented On 3 9:13AM ; [facility] Maternal history of diabetes mellitus Last Documented On 3 9:13AM ; [facility] Maternal history of family history of he art disease 06/06/2022 Last Documented On 3 9:13AM ; [facility] Review of Systems Includes: Review of [...] Location Date Check-In Time Check-Out Time Diagnosis [facility] Op [facility]03[facility] 9:52AM Overweight Insurance Includes: Active Insurance Policies Plan Name Member ID Group # Subscriber Relationship Effect rola Dates 1 - [employer] [id number] Alycia Ramsey Self 11/26/2021 - Unknown Clinical Notes Includes: Clinical Notes from this encounter * Progress note Date Encounter Last Documented by 08/17/2023 Post Op Last documented on 09/03/2023; 11:37 AM, Reji Webster PA-C; [facility], [facility] Active Problems & Conditions - Joint Pain in the Left Knee - Joint Pain, Localized in the Knee Chief Complaint The Chief Complaint is: Right TKA POV. Reason For Visit Referred by. Referred Here Referred by Self. History of Present Illness Alycia Ramsey is a 73 year old female. - Allergy list reviewed - Problem list reviewed - Medication list reviewed - Medication list reviewed - Previous history of chronic pain - New onset Injury is not work related or an automotive accident - Sharp pain Symptoms - No previous treatment. Patient is here today for follow-up of her right total knee replacement surgery date was August 03, 2023. She says and will bit more pain in the right knee than she did when she had the left 1 done. She is doing home physical therapy. She is requesting some more pain medicine today also. She is using a walker to walk with today. Current Medication - Acetaminophen 500 MG Oral Tablet take as directed 0 days, 0 refills - Acetaminophen 500 MG Oral Tablet 2 three times a day , AFTER SURGERY, 10 days, 2 refills - amLODIPine Besylate 5 MG Oral Tablet three times a day 0 days, 0 refills - Aspirin Adult Low Strength 81 MG Oral Tablet Delayed Release twice a day, 45 days, 0 refills - Colace 100 MG Oral Capsule 1-2 tabs daily as needed, AFTER SURGERY, 30 days, 0 refills - [facility] Omeprazole 20 MG Oral Tablet Delayed Release Disintegrating 0 days, 0 refills - Folic Acid 1 MG Oral Tablet take as directed 0 days, 0 refills - Lisinopril 20 MG Oral Tablet take as directed 0 days, 0 refills - Meloxicam 15 MG Oral Tablet once a day, 30 days, 0 refills - Methotrexate 2.5 MG Oral Tablet 0 days, 0 refills - Orencia 50 MG/0.4ML Subcutaneous Solution Prefilled Syringe 0 days, 0 refills - PARoxetine HCl 10 MG Oral Tablet 0 days, 0 refills - prednisoLONE 5 MG Oral Tablet 0 days, 0 refills - Propranolol HCl 40 MG Oral Tablet 0 days, 0 refills - Rosuvastatin Calcium 40 MG Oral Tablet take as directed 0 days, 0 refills - Vascepa 1 GM [...] allergic reaction. Physical Findings - Vitals taken 08/17/2023 09:16 am lc Height 64 in Weight 172 lbs Body Mass Index 29.5 kg/m2 Body Surface Area 1.8 m2 Standard Measurements: - Patient was overweight. Her incision was clean dry intact no significant erythema range of motion 0 to about 105 negative Homans she was a walker to walk with Tests 2 views of the right knee August 17, 2023 show things in good position with the implant Assessment - Overweight Right total knee replacement August 03, 2023 Previous Tests Available previous imaging studies were reviewed Available previous history reviewed Counseling/Education - Lose weight Plan StartCited - Other traMADol HCl 50 MG tablet Take 1 tablet every 8 hrs prn pain, 15 days, 0 refills EndCited Fall Risk Assessment: This patient has been [...] the patient. Patient was seen by myself Reji Webster PA-C. Patient will follow up [address] Man. Continue with physical therapy and hopefully she can start to begin to transition to outpatient PT shortly. We went ahead and trimmed up the one suture that was at the base of the incision today. We will call her in some more pain medicine. Notes This dictation was done with voice recognition software and may contain errors and omissions. Practice Management Use of tobacco assessment performed and patient screened for future fall risk documentation of any fall with injury in past year Review of medications documented; No influenza immunization patient refused. Care Team - JERZY PEREA MD - [facility] [employer] [facility]
--- OUTSIDE RECORDS SUMMARY | 2025-03-05 20:37 | XMS_ITS | Clinical Summary ---
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 - Last Documented On 09/20/2023 1:29PM ; [facility] Patient was seen by myself and Dr. Man. Reji Webster PA-C Patient will follow- up 6 weeks repeat x-rays right knee - Last Documented On 09/20/2023 1:29PM ; [facility] Instructions to patient Lose weight Last Documented On 3 10:41AM ; [facility] Assessments Includes: Assessments from this encounter Findings - Overweight - Last Documented On 09/20/2023 1:29PM ; [facility] Right total knee replacement August 03, 2023 - Last Documented On 09/20/2023 1:29PM ; [facility] Instructions Includes: Instructions from this encounter Instructions to patient Lose weight Last Documented On 3 10:41AM ; [facility] Medical Equipment - Implanted Devices Includes: Current Devices No Medical Equipment Recorded Medications Includes: Medications discussed during this encounter and other current Medications Current Medications (continue as prescribed) Methotrexate Sodium 2.5 MG Oral Tablet 01/22/2024 Pr ovider: Felix Fernandez DO Diagnosis: Last Documented On 4 10:23AM By Dena Bella ; [facility] Folic Acid 1 MG Oral Tablet 01/22/2024 Provider: Felix Fernandez DO Diagnosis: Last Documented On 4 10:23AM By Dena Bella ; [facility] Omeprazole 20 MG Oral Capsule Delayed Release 01/22/20 24 Provider: Diagnosis: Last Documented On 4 10:23AM By Dena Bella ; [facility] PARoxetine HCl 10 MG Oral Tablet 01/22/2024 Provider : Diagnosis: Last Documented On 4 10:23AM By Dena Bella ; [facility] Propranolol HCl 40 MG Oral Tablet 01/22/2024 Provide r: Diagnosis: Last Documented On 4 10:23AM By Dena Bella ; [facility] Rosuvastatin Calcium 40 MG Oral Tablet 01/16/2024 Pr ovider: JERZY PEREA MD Diagnosis: Last Documented On 4 10:23AM By Dena Bella ; [facility] Lisinopril 20 MG Oral Tablet 12/27/2023 Provider: JERZY PEREA MD Diagnosis: Last Documented On 4 10:23AM By Dena Bella ; [facility] Lisinopril 20 MG Oral Tablet 07/05/2023 Provider: Diagnosis: Last Documented On 3 7:38AM By Naila Jay ; [facility] Acetaminophen 500 MG Oral Tablet 07/05/2023 Provider : Diagnosis: Last Documented On 3 7:40AM By Naila Jay ; [facility] amLODIPine Besylate 5 MG Oral Tablet 07/05/2023 Prov ider: Diagnosis: Last Documented On 3 7:40AM By Naila Jay ; [facility] Folic Acid 1 MG Oral Tablet 07/05/2023 Provider: Diagnosis: Last Documented On 3 7:41AM By Naila Jay ; [facility] Rosuvastatin Calcium 40 MG Oral Tablet 07/05/2023 Pr ovider: Diagnosis: Last Documented On 3 7:41AM By Naila Jay ; [facility] ZyrTEC Allergy 10 MG Oral Tablet 07/05/2023 Provider : Diagnosis: Last Documented On 3 7:41AM By Naila Jay ; [facility] PARoxetine HCl 10 MG Oral Tablet 08/23/2022 Provider : Diagnosis: Last Documented On 2 2:40PM By Shea Rivera ; [facility] Propranolol HCl 40 MG Oral Tablet 08/23/2022 Provide r: Diagnosis: Last Documented On 2 2:40PM By Shea Rivera ; [facility] Vascepa 1 GM Oral Capsule 08/23/2022 Provider: Diagnosis: Last Documented On 2 2:40PM By Shea Rivera ; [facility] Methotrexate 2.5 MG Oral Tablet 08/23/2022 Provider: Diagnosis: Last Documented On 2 2:41PM By Shea Rivera ; [facility] Orencia 50 MG/0.4ML Subcutaneous Solution Prefil led Syringe 08/23/2022 Provider: Diagnosis: Last Documented On 2 2:41PM By Shea Rivera ; [facility] Omeprazole 20 MG Oral Ta blet Delayed Release Disintegrating 08/23/2022 Provider: Diagnosis: Last Documented On 2 2:41PM By Shea Rivera ; [facility] prednisoLONE 5 MG Oral Tablet 08/23/2022 Provider: Diagnosis: Last Documented On 2 2:40PM By Shea Rivera ; [facility] Past Medications on file traMADol HCl 50 MG Oral Tablet 08/17/2023 - 09/01/2023 Provider: Kashmir Man MD Diagnosis: Take 1 tablet every 8 hrs prn pain Last Documented On 3 4:14PM By Kashmir Man ; [facility] Doxycycline Hyclate 100 MG O ral Capsule 08/03/2023 - 08/10/2023 Provider: Kashmir Man MD Diagnosis: twice a day Last Documented On 3 2:31PM By Dena Bella ; [facility] Xifaxan 550 MG Oral Tablet 08/03/2023 - 08/10/2023 Pro vider: Kashmir Man MD Diagnosis: twice a day Last Documented On 3 2:31PM By Dena Bella ; [facility] traMADol HCl 50 MG Oral Tablet 08/02/2023 - 08/17/2023 Provider: Kashmir Man MD Diagnosis: 1-2 p o q 6-8h for breakthrough post op pain Last Documented On 3 8:59AM By Kashmir Man ; [facility] oxyCODONE HCl 5 MG Oral Tablet 08/02/2023 - 08/07/2023 Provider: Kashmir Man MD Diagnosis: 1-2 p o q 6-8h for post op pain Last Documented On 3 9:14AM By Kashmir Man ; [facility] Meloxicam 15 MG Oral Tablet 08/02/2023 - 09/01/2023 Pr ovider: Kashmir Man MD Diagnosis: once a day Last Documented On 3 9:14AM By Kashmir Man ; [facility] Ondansetron HCl 4 MG Oral Tablet 08/02/2023 - 08/16/20 Provider: Kashmir Man MD Diagnosis: 1-2 p o q 6-8h as needed for nausea Last Documented On 3 9:14AM By Kashmir Man ; [facility] Cefadroxil 500 MG Oral Capsule 08/02/2023 - 08/05/2023 Provider: Kashmir Man MD Diagnosis: twice a day Last Documented On 3 9:14AM By Kashmir Man ; [facility] Acetaminophen 500 MG Oral Tablet 08/02/2023 - 09/01/20 Provider: Kashmir Man MD Diagnosis: 2 three times a day , AFTER SURGERY Last Documented On 3 8:58AM By Kashmir Man ; [facility] Aspirin Adult Low Strength 8 1 MG Oral Tablet Delayed Release 08/02/2023 - 09/16/2023 Provider: Kashmir Man MD Diagnosis: twice a day Last Documented On 3 8:58AM By Kashmir Man ; [facility] Colace 100 MG Oral Capsule 08/02/2023 - 09/01/2023 Pro vider: Kashmir Man MD Diagnosis: 1-2 tabs daily as needed, AFTER SURGERY Last Documented On 3 8:58AM By Kashmir Man ; [facility] oxyCODONE HCl 5 MG Oral Tablet 10/02/2022 - 10/07/2022 Provider: Kashmir Man MD Diagnosis: 1-2 p o q 6-8h for post op pain Last Documented On 2 9:56AM By Kashmir [facility] Ultram 50 MG Oral Tablet 10/02/2022 - 10/17/2022 Provi megan: Kashmir Man MD Diagnosis: 1-2 p o q 6-8h for breakthrough post op pain Last Documented On 2 9:56AM By Kashmir Man ; [facility] Acetaminophen 500 MG Oral Tablet 09/15/2022 - 10/15/20 22 Provider: Kashmir Man MD Diagnosis: 2 three times a day , AFTER SURGERY Last Documented On 2 9:57AM By Kashmir [facility] oxyCODONE HCl 5 MG Oral Tablet 09/15/2022 - 09/20/2022 Provider: Kashmir Man MD Diagnosis: 1-2 p o q 6-8h for post op pain Last Documented On 2 10:13AM By Kashmir Man ; [facility] Mobic 15 MG Oral Tablet 09/15/2022 - 10/15/2022 Provid er: Kashmir Man MD Diagnosis: once a day Last Documented On 9:57AM By Kashmir Gonzales [facility] Ondansetron HCl 4 MG Oral Tablet 09/15/2022 - 09/29/20 Provider: Kashmir Man MD Diagnosis: 1-2 p o q 6-8h as needed for nausea Last Documented On 2 9:57AM By Kashmir Gonzales [facility] Cefadroxil 500 MG Oral Capsule 09/15/2022 - 09/18/2022 Provider: Kashmir Man MD Diagnosis: twice a day Last Documented On 2 9:57AM By Kashmir Gonzales [facility] Ultram 50 MG Oral Tablet 09/15/2022 - 09/30/2022 Provi megan: Kashmir Man MD Diagnosis: 1-2 p o q 6-8h for breakthrough post op pain Last Documented On 2 9:57AM By Kashmir Gonzales [facility] Colace 100 MG Oral Capsule 09/15/2022 - 10/15/2022 Pro vider: Kashmir Man MD Diagnosis: 1-2 tabs daily as needed, AFTER SURGERY Last Documented On 9:57AM By Kashmir Gonzales [facility] Aspirin Adult Low Strength 8 1 MG Oral Tablet Delayed Release 09/15/2022 - 10/30/2022 Provider: Kashmir Man MD Diagnosis: twice a day Last Documented On 2 9:57AM By Kashmir Gonzales [facility] Medications Administered Includes: Administered Medications from this encounter No Administered Medications Recorded Vital Signs Includes: Vital Signs from this encounter Vital Name 09/18/2023 10:41A Height (in) 64 Weight (lb) 172 Body Mass Index 29.5 Body Surface Area 1.8 Note: lc Last Documented: On 09/18/2023 10:41A M ; [facility] Results Includes: Results discussed during this encounter No Results Recorded For Specified Dates History of Present Illness Includes: History of Present Illness from this encounter FELIX Ramsey is a 73 year old female. - Allergy list reviewed - Problem list reviewed - Medication list reviewed Right total knee replacement August 03, 2023. Still having some pain with the knee that will radiate down the leg at times. She did not do outpatient PT She states about a month ago she fell trying to kill a spider Social History Description Last Updated Tobacco non-user 10/03/2022 Last Documented On 3 10:40AM ; [facility] Alcohol use 06/06/2022 Last Documented On 3 10:40AM ; [facility] Caffeine use 06/06/2022 Last Documented On 3 10:40AM ; [facility] Alcohol use: 2 drinks or less per day Last Documented On 3 10:40AM ; [facility] Never smoked 06/06/2022 Last Documented On 3 10:40AM ; [facility] Never used drugs 06/06/2022 Last Documented On 3 10:40AM ; [facility] Retired from work 06/06/2022 Last Documented On 3 10:40AM ; [facility] Non-smoker 06/06/2022 Last Documented On 3 10:40AM ; [facility] Not a smoker 06/06/2022 Last Documented On 3 10:40AM ; [facility] No recent change in diet 06/06/2022 Last Documented On 3 10:40AM ; [facility] Not a current smoker. 06/06/2022 Last Documented On 3 10:40AM ; [facility] Not exercising regularly 06/06/2022 Last Documented On 3 10:40AM ; [facility] Not using drugs 06/06/2022 Last Documented On 3 10:40AM ; [facility] No tobacco use 07/14/2014 Last Documented On 3 10:40AM ; [facility] Smoking status : Never smoker 07/14/2014 Last Documented On 3 10:40AM ; [facility] Procedures and Surgical History Includes: Procedures from this encounter Procedures Code Diagnosis Performing Provider Service L ocation Service Date use of tobacco assessment performed 1000F Last Documented On 3 10:41AM ; [facility] no influenza immunization patient refuse d Last Documented On 3 10:41AM ; [facility] patient screened for future fall risk 3288F Last Documented On 3 10:41AM ; [facility] patient screened for future fall risk: documentation of any fall with injury in past year 1100F Last Documented On 3 10:41AM ; [facility] review of medications documented 1160F Last Documented On 3 10:41AM ; [facility] Surgical History Last Updated History of back surgery 06/06/2022 Last Documented On 3 10:40AM ; [facility] Medical History Includes: Medical History addressed during this encounter Description Last Updated History of History of Rheumatology 06/12 Last Documented On 3 10:40AM ; [facility] History of Hypertension 06/12/2023 Last Documented On 3 10:40AM ; [facility] History of arthritis 06/06/2022 Last Documented On 3 10:40AM ; [facility] History of Heartburn / Acid Reflux 06/06 Last Documented On 3 10:40AM ; [facility] No recent immunization for flu 2 Last Documented On 3 10:40AM ; [facility] No recent immunization for pneumococcal pneumonia 06/06/2022 Last Documented On 3 10:40AM ; [facility] Family History Includes: Family History addressed during this encounter Description Last Updated Diabetes mellitus 06/06/2022 Last Documented On 3 10:40AM ; [facility] Family history of heart disease 06/06/20 22 Last Documented On 3 10:40AM ; [facility] Maternal history of diabetes mellitus Last Documented On 3 10:40AM ; [facility] Maternal history of family history of he art disease 06/06/2022 Last Documented On 3 10:40AM ; [facility] Review of Systems Includes: Review of [...] Time Diagnosis Follow Up Kashmir Man MD [facility] 3 10:32AM 11:05AM Overweight Insurance Includes: Active Insurance Policies Plan Name Member ID Group # Subscriber Relationship Effect rola Dates 1 - [employer] [id number] Alycia Ramsey Self 11/26/2021 - Unknown Clinical Notes Includes: Clinical Notes from this encounter * Progress note Date Encounter Last Documented by 09/18/2023 Follow Up Last documented on 09/20/2023; 1:29 PM, Kashmir Man MD; [facility] Active Problems & Conditions - Joint Pain in the Left Knee - Joint Pain, Localized in the Knee Chief Complaint The Chief Complaint is: Right TKA POV. Reason For Visit Referred by. Referred Here Referred by Self. History of Present Illness Alycia Ramsey is a 73 year old female. - Allergy list reviewed - Problem list reviewed - Medication list reviewed Right total knee replacement August 03, 2023. Still having some pain with the knee that will radiate down the leg at times. She did not do outpatient PT She states about a month ago she fell trying to kill a spider Current Medication - Acetaminophen 500 MG Oral [...] as directed 0 days, 0 refills - Methotrexate 2.5 MG [...] allergic reaction. Physical Findings - Vitals taken 09/18/2023 10:41 am lc Height 64 in 59 - 78 Weight 172 lbs 95 - 175 Body Mass Index 29.5 kg/m2 Body Surface Area 1.8 m2 Standard Measurements: - Patient was overweight. Her incision was healed her knee was nontender range of motion 0-120 Stable to varus and valgus knee strength 4+ out of 5 Tests 2 views of the right knee show the implant in good position 09/18/2023 Assessment - Overweight Right total knee replacement August 03, 2023 Previous Tests Available previous imaging studies were reviewed Available previous history reviewed Counseling/Education - Lose weight Plan Fall Risk [...] Webster PA-C Patient will follow- up 6 weeks repeat x-rays right knee Notes This dictation was done with voice recognition software and may contain errors and omissions. Practice Management Use of tobacco assessment performed and patient screened for future fall risk documentation of any fall with injury in past year Review of medications documented; No influenza immunization patient refused. Care Team - JERZY PEREA MD - CLIENT PROJECT COORDINATOR
--- OUTSIDE RECORDS SUMMARY | 2025-03-05 20:37 | XMS_ITS | Clinical Summary ---
Author Organization [facility] Address [address] [place] [address] Phone Care Team Providers Care Colorist Dyer Name Role Phone Wenceslao HANDLEY, Hernán Rinaldi [...] Active Last Documented On 2 2:48PM ; [facility] Joint Pain, Localized in the Knee 06/10/2013 Gr kendy Billy MD Active Last Documented On 3 10:38AM ; [facility] Plan of Treatment Fall Risk [...] with the patient. - Last Documented On 11/07/2023 9:57AM ; [facility] Patient was seen by myself Reji Webster PA-C and Dr Man Patient will follow up 3 months repeat x-rays of her right knee - Last Documented On 11/07/2023 9:57AM ; [facility] Instructions to patient Lose weight Last Documented On 3 10:44AM ; [facility] Assessments Includes: Assessments from this encounter Findings - Overweight - Last Documented On 11/07/2023 9:57AM ; [facility] Right total knee replacement August 03, 2023 - Last Documented On 11/07/2023 9:57AM ; [facility] Instructions Includes: Instructions from this encounter Instructions to patient Lose weight Last Documented On 3 10:44AM ; [facility] Medical Equipment - Implanted Devices Includes: Current Devices No Medical Equipment Recorded Medications Includes: Medications discussed during this encounter and other current Medications Current Medications (continue as prescribed) Methotrexate Sodium 2.5 MG Oral Tablet 01/22/2024 Pr ovider: Felix Fernandez DO Diagnosis: Last Documented On 4 10:23AM By Dena Bella ; [facility] Folic Acid 1 MG Oral Tablet 01/22/2024 Provider: Felix Fernandez DO Diagnosis: Last Documented On 4 10:23AM By Dena Bella ; [facility] Omeprazole 20 MG Oral Capsule Delayed Release 01/22/20 24 Provider: Diagnosis: Last Documented On 4 10:23AM By Dena Bella ; [facility] PARoxetine HCl 10 MG Oral Tablet 01/22/2024 Provider : Diagnosis: Last Documented On 4 10:23AM By Dena Bella ; [facility] Propranolol HCl 40 MG Oral Tablet 01/22/2024 Provide r: Diagnosis: Last Documented On 4 10:23AM By Dena Bella ; [facility] Rosuvastatin Calcium 40 MG Oral Tablet 01/16/2024 Pr ovider: JERZY PEREA MD Diagnosis: Last Documented On 4 10:23AM By Dena Bella ; [facility] Lisinopril 20 MG Oral Tablet 12/27/2023 Provider: JERZY PEREA MD Diagnosis: Last Documented On 4 10:23AM By Dena Bella ; [facility] Lisinopril 20 MG Oral Tablet 07/05/2023 Provider: Diagnosis: Last Documented On 3 7:38AM By Naila Jay ; [facility] Acetaminophen 500 MG Oral Tablet 07/05/2023 Provider : Diagnosis: Last Documented On 3 7:40AM By Naila Jay ; [facility] amLODIPine Besylate 5 MG Oral Tablet 07/05/2023 Prov ider: Diagnosis: Last Documented On 3 7:40AM By Naila Jay ; [facility] Folic Acid 1 MG Oral Tablet 07/05/2023 Provider: Diagnosis: Last Documented On 3 7:41AM By Naila Jay ; [facility] Rosuvastatin Calcium 40 MG Oral Tablet 07/05/2023 Pr ovider: Diagnosis: Last Documented On 3 7:41AM By Naila Jay ; [facility] ZyrTEC Allergy 10 MG Oral Tablet 07/05/2023 Provider : Diagnosis: Last Documented On 3 7:41AM By Naila Jay ; [facility] PARoxetine HCl 10 MG Oral Tablet 08/23/2022 Provider : Diagnosis: Last Documented On 2 2:40PM By Shea Rivera ; [facility] Propranolol HCl 40 MG Oral Tablet 08/23/2022 Provide r: Diagnosis: Last Documented On 2 2:40PM By Shea Rivera ; [facility] Vascepa 1 GM Oral Capsule 08/23/2022 Provider: Diagnosis: Last Documented On 2 2:40PM By Shea Rivera ; [facility] Methotrexate 2.5 MG Oral Tablet 08/23/2022 Provider: Diagnosis: Last Documented On 2 2:41PM By Shea Rivera ; [facility] Orencia 50 MG/0.4ML Subcutaneous Solution Prefil led Syringe 08/23/2022 Provider: Diagnosis: Last Documented On 2 2:41PM By Shea Rivera ; [facility] Omeprazole 20 MG Oral Ta blet Delayed Release Disintegrating 08/23/2022 Provider: Diagnosis: Last Documented On 2 2:41PM By Shea Rivera ; [facility] prednisoLONE 5 MG Oral Tablet 08/23/2022 Provider: Diagnosis: Last Documented On 2 2:40PM By Shea Rivera ; [facility] Past Medications on file traMADol HCl 50 MG Oral Tablet 08/17/2023 - 09/01/2023 Provider: Kashmir Man MD Diagnosis: Take 1 tablet every 8 hrs prn pain Last Documented On 3 4:14PM By Kashmir Man ; [facility] Doxycycline Hyclate 100 MG O ral Capsule 08/03/2023 - 08/10/2023 Provider: Kashmir Man MD Diagnosis: twice a day Last Documented On 3 2:31PM By Dena Bella ; [facility] Xifaxan 550 MG Oral Tablet 08/03/2023 - 08/10/2023 Pro vider: Kashmir Man MD Diagnosis: twice a day Last Documented On 3 2:31PM By Dena Bella ; [facility] traMADol HCl 50 MG Oral Tablet 08/02/2023 - 08/17/2023 Provider: Kashmir Man MD Diagnosis: 1-2 p o q 6-8h for breakthrough post op pain Last Documented On 3 8:59AM By Kashmir Man ; [facility] oxyCODONE HCl 5 MG Oral Tablet 08/02/2023 - 08/07/2023 Provider: Kashmir Man MD Diagnosis: 1-2 p o q 6-8h for post op pain Last Documented On 3 9:14AM By Kashmir Man ; [facility] Meloxicam 15 MG Oral Tablet 08/02/2023 - 09/01/2023 Pr ovider: Kashmir Man MD Diagnosis: once a day Last Documented On 3 9:14AM By Kashmir Man ; [facility] Ondansetron HCl 4 MG Oral Tablet 08/02/2023 - 08/16/20 Provider: Kashmir Man MD Diagnosis: 1-2 p o q 6-8h as needed for nausea Last Documented On 3 9:14AM By Kashmir Man ; [facility] Cefadroxil 500 MG Oral Capsule 08/02/2023 - 08/05/2023 Provider: Kashmir Man MD Diagnosis: twice a day Last Documented On 3 9:14AM By Kashmir [facility] Acetaminophen 500 MG Oral Tablet 08/02/2023 - 09/01/20 Provider: Kashmir Man MD Diagnosis: 2 three times a day , AFTER SURGERY Last Documented On 3 8:58AM By Kashmir Man ; [facility] Aspirin Adult Low Strength 8 1 MG Oral Tablet Delayed Release 08/02/2023 - 09/16/2023 Provider: Kashmir Man MD Diagnosis: twice a day Last Documented On 3 8:58AM By Kashmir [facility] Colace 100 MG Oral Capsule 08/02/2023 - 09/01/2023 Pro vider: Kashmir Man MD Diagnosis: 1-2 tabs daily as needed, AFTER SURGERY Last Documented On 3 8:58AM By Kashmir Gonzales [facility] oxyCODONE HCl 5 MG Oral [...] Last Documented On 2 9:56AM By Kashmir [facility] Acetaminophen 500 MG [...] On 2 10:13AM By Kashmir Man ; [facility] Mobic 15 MG Oral Tablet 09/15/2022 - 10/15/2022 Provid er: Kashmir Man MD Diagnosis: once a day Last Documented On 9:57AM By Kashmir [facility] Ondansetron HCl 4 MG Oral Tablet 09/15/2022 - 09/29/20 Provider: Kashmir Man MD Diagnosis: 1-2 p o q 6-8h as needed for nausea Last Documented On 2 9:57AM By Kashmir Gonzales [facility] Cefadroxil 500 MG Oral Capsule 09/15/2022 - 09/18/2022 Provider: Kashmir Man MD Diagnosis: twice a day Last Documented On 9:57AM By Kashmir [facility] Ultram 50 MG Oral Tablet 09/15/2022 - 09/30/2022 Provi megan: Kashmir Man MD Diagnosis: 1-2 p o q 6-8h for breakthrough post op pain Last Documented On 2 9:57AM By Kashmir [facility] Colace 100 MG Oral Capsule 09/15/2022 - 10/15/2022 Pro vider: Kashmir Man MD Diagnosis: 1-2 tabs daily as needed, AFTER SURGERY Last Documented On 9:57AM By Kashmir [facility] Aspirin Adult Low Strength 8 1 MG Oral Tablet Delayed Release 09/15/2022 - 10/30/2022 Provider: Kashmir Man MD Diagnosis: twice a day Last Documented On 9:57AM By Kashmir [facility] Medications Administered Includes: Administered Medications from this encounter No Administered Medications Recorded Vital Signs Includes: Vital Signs from this encounter Vital Name 11/06/2023 11:04A 11/06/2023 10: 43A Height (in) 64 64 Weight (lb) 170 170 Body Mass Index 29.2 29.2 Body Surface Area 1.8 1.8 Note: lc am Last Documented: On 11/06/2023 11:05A M ; [facility] On 11/06/2023 10:44AM ; [facility] Results Includes: Results discussed during this encounter No Results Recorded For Specified Dates History of Present Illness Includes: History of Present Illness from this encounter HPI Alycia Ramsey is a 73 year old female. - Allergy list reviewed - Problem list reviewed - Medication list reviewed Follow-up right total knee replacement 08/03/23 doing well some pain with that at night if she keeps her knee bent but then it goes away when she gets up and walking around Social History Description Last Updated Tobacco non-user 10/03/2022 Last Documented On 3 10:44AM ; [facility] Alcohol use 06/06/2022 Last Documented On 3 10:44AM ; [facility] Caffeine use 06/06/2022 Last Documented On 3 10:44AM ; [facility] Alcohol use: 2 drinks or less per day Last Documented On 3 10:44AM ; [facility] Never smoked 06/06/2022 Last Documented On 3 10:44AM ; [facility] Never used drugs 06/06/2022 Last Documented On 3 10:44AM ; [facility] Retired from work 06/06/2022 Last Documented On 3 10:44AM ; [facility] Non-smoker 06/06/2022 Last Documented On 3 10:44AM ; [facility] Not a smoker 06/06/2022 Last Documented On 3 10:44AM ; [facility] No recent change in diet 06/06/2022 Last Documented On 3 10:44AM ; [facility] Not a current smoker. 06/06/2022 Last Documented On 3 10:44AM ; [facility] Not exercising regularly 06/06/2022 Last Documented On 3 10:44AM ; [facility] Not using drugs 06/06/2022 Last Documented On 3 10:44AM ; [facility] No tobacco use 07/14/2014 Last Documented On 3 10:44AM ; [facility] Smoking status : Never smoker 07/14/2014 Last Documented On 3 10:44AM ; [facility] Procedures and Surgical History Includes: Procedures from this encounter Procedures Code Diagnosis Performing Provider Service L ocation Service Date use of tobacco assessment performed 1000F Last Documented On 3 10:44AM ; [facility] no influenza immunization patient refuse d Last Documented On 3 10:44AM ; [facility] patient screened for future fall risk 3288F Last Documented On 3 10:44AM ; [facility] patient screened for future fall risk: documentation of any fall with injury in past year 1100F Last Documented On 3 10:44AM ; [facility] review of medications documented 1160F Last Documented On 3 10:44AM ; [facility] Surgical History Last Updated History of back surgery 06/06/2022 Last Documented On 3 10:44AM ; [facility] Medical History Includes: Medical History addressed during this encounter Description Last Updated History of History of Rheumatology 06/12 Last Documented On 3 10:44AM ; [facility] History of Hypertension 06/12/2023 Last Documented On 3 10:44AM ; [facility] History of arthritis 06/06/2022 Last Documented On 3 10:44AM ; [facility] History of Heartburn / Acid Reflux 06/06 Last Documented On 3 10:44AM ; [facility] No recent immunization for flu 2 Last Documented On 3 10:44AM ; [facility] No recent immunization for pneumococcal pneumonia 06/06/2022 Last Documented On 3 10:44AM ; [facility] Family History Includes: Family History addressed during this encounter Description Last Updated Diabetes mellitus 06/06/2022 Last Documented On 3 10:44AM ; [facility] Family history of heart disease 06/06/20 Last Documented On 3 10:44AM ; [facility] Maternal history of diabetes mellitus Last Documented On 3 10:44AM ; [facility] Maternal history of family history of he art disease 06/06/2022 Last Documented On 3 10:44AM ; [facility] Review of Systems Includes: Review [...] Time Diagnosis Follow Up Kashmir Man MD [facility] 3 10:43AM 11:25AM Overweight Insurance Includes: Active Insurance Policies Plan Name Member ID Group # Subscriber Relationship Effect rola Dates 1 - [employer] [id number] Alycia Ramsey Self 11/26/2021 - Unknown Clinical Notes Includes: Clinical Notes from this encounter * Progress note Date Encounter Last Documented by 11/06/2023 Follow Up Last documented on 11/07/2023; 10:36 AM, Kashmir Man MD; [facility] Active Problems & Conditions - Joint Pain in the Left Knee - Joint Pain, Localized in the Knee Chief Complaint The Chief Complaint is: Right TKA POV. Reason For Visit Referred by. Referred Here Referred by Self. History of Present Illness Alycia Ramsey is a 73 year old female. - Allergy list reviewed - Problem list reviewed - Medication list reviewed Follow-up right total knee replacement 08/03/23 doing well some pain with that at night if she keeps her knee bent but then it goes away when she gets up and walking around Current Medication - Acetaminophen 500 MG Oral [...] allergic reaction. Physical Findings - Vitals taken 11/06/2023 10:43 am am Height 64 in 59 - 78 Weight 170 lbs 95 - 175 Body Mass Index 29.2 kg/m2 Body Surface Area 1.8 m2 - Vitals taken 11/06/2023 11:04 am lc Height 64 in 59 - 78 Weight 170 lbs 95 - 175 Body Mass Index 29.2 kg/m2 Body Surface Area 1.8 m2 Standard Measurements: - Patient was overweight. Her incision was healed range of motion 0-115 walks without the use of any assistive device stable ligamentous exam Tests 2 views right knee show the implant in good position November 06, 2023 Assessment - Overweight Right total knee replacement August 03, 2023 Counseling/Education - Lose weight Plan Fall [...] Patient was seen by myself Reji Webster PA-C and Dr Man Patient will follow up 3 months repeat x-rays of her right knee Notes This dictation was done with voice recognition software and may contain errors and omissions. Practice Management Use of tobacco assessment performed and patient screened for future fall risk documentation of any fall with injury in past year Review of medications documented; No influenza immunization patient refused. Care Team - JERZY PEREA MD - CHEMICAL LABORATORY ASSISTANT
--- OUTSIDE RECORDS SUMMARY | 2025-03-05 20:37 | XMS_ITS ---
Care Plan - [facility] Created on: March 05, 2025 Roxy Alycia : 1950 Sex: Female Author Organization [facility] Address [address] [place] [address] Phone Care Team Providers Care Wind Up Worker Name Role Phone Wenceslao HANDLEY, Hernán Rinaldi Unavailable [phone] ELIAZAR HANDLEY, JERZY Unavailable [phone]
== END 2025-03-02 23:59 | disposition home or self-care (01) ==
LOC: LAB 13:52
PROVIDERS: PCP Family Medicine; Visit Provider Internal Medicine
DX: I11.0 Hypertensive heart disease with heart failure (principal); I50.30 Unspecified diastolic (congestive) heart failure; E78.5 Hyperlipidemia, unspecified
CPT/HCPCS: 36415; 80048

== ENCOUNTER 2025-04-02 12:43 | Outpatient (RCR) | payer MEDICARE, SELFPAY | END 2025-05-25 11:00 | disposition home or self-care (01) | LOC: CR 12:43 | PROVIDERS: Visit Provider Internal Medicine | DX: I11.0 Hypertensive heart disease with heart failure (principal); I50.30 Unspecified diastolic (congestive) heart failure; E78.5 Hyperlipidemia, unspecified | CPT/HCPCS: 93798 ==

== ENCOUNTER 2025-05-05 15:10 | Outpatient (CLI) | payer MEDICARE, SELFPAY ==
--- OUTSIDE RECORDS SUMMARY | 2025-05-05 15:19 | XMS_ITS | Clinical Summary ---
Author Organization [facility] Address [address] [place] [address] Care Team Providers Care Electrical Tech Name Role Phone Pillo Humphrey MD Primary Care Provider +1- [phone] Family History Medical History Relation Name Comments Diabetes Mother Heart failure Mother Relation Name Status Comments Mother Social History Tobacco Use Types Packs/Day Years Used Date Smoking Tobacco: Never Alcohol Use Standard Drinks/Week Comments Yes 0 (1 standard drink = 0.6 oz pure alcohol) Alcoholic Drinks/day: Social alcohol use Comments Unknown Sex and Gender Information Value Date Recorded Sex Assigned at Not on file Legal Sex Female 6:05 PM EDT Gender Identity Not on file Sexual Orientation Not on file Last Filed Vital Signs Vital Sign Reading Time Taken Comments Blood Pressure 128/72 09/15/2024 2:41 PM EDT Pulse 59 09/15/2024 2:41 PM EDT Temperature 35.6 C (96.1 F) 09/15/2024 2:41 PM EDT Respiratory Rate 16 08/13/2018 1:07 PM EDT Oxygen Saturation 95% 09/15/2024 2:41 PM EDT Inhaled Oxygen Concentration - - Weight 81 kg (178 lb 9.6 oz) 09/15/2024 2:41 PM EDT Height 162.6 cm (5' 4 ) 09/15/2024 2:41 PM EDT Body Mass Index 30.66 09/15/2024 2:41 PM EDT Plan of Treatment Health Maintenance Due Date Last Done Comments Dental Oral Exam 1950 Dental Prophylaxis 1950 Dental X-Ray: Bitewings 1950 Dental X-Ray: Full Mouth 1950 UKY-Bone Density Scan 1948 UKY-Depression Screening 1948 UKY-Hepatitis C Screening 1950 UKY-Medicare Annual Wellness (AWV) 1950 UKY-Infant/Child/Adol SDOH Screenings 1948 UKY- SDOH Screenings 1966 UKY-Adult SDOH Screenings 1966 UKY-Zoster Vaccines (1 of 2) 1998 UKY-RSV Vaccine: 60+ Years or (1 - 1-dose 75+ series) 2023 [id number] Vaccine ( - 2023- season) 2024 10/16/2022, 11/02/2021, 01/19/2021, Additional history exists UKY-Influenza Vaccine (Season Ended) 2025 10/16/2022, 09/14/2021, 08/30/2020, Additional history exists UKY-DTaP,Tdap,and Td Vaccines (2 - Td or Tdap) 05/23/2027 05/23/2017 UKY-Hepatitis A Vaccines Aged Out 11/06/2018 No longer eligible based on patient's age to complete this topic UKY-Pneumococcal Vaccine: 50+ Years Completed 08/30/2023, 08/27/2020, 05/23/2017 UKY-Obesity Intervention Completed 09/15/2024 HPV Vaccines Aged Out No longer eligi ble based on patient's age to complete this topic UKY-HIB Vaccines Aged Out No longer e ligible based on patient's age to complete this topic UKY-IPV Vaccines Aged Out No longer e ligible based on patient's age to complete this topic UKY-Rotavirus Vaccines Aged Out No lo nger eligible based on patient's age to complete this topic Insurance [place] [id number] [facility] MEDICARE Care Teams Electrical Tech Relationship Specialty Start Date End Date Pillo Humphrey MD [address] [place] [address] PCP - General 04/08/21
--- OUTSIDE RECORDS SUMMARY | 2025-05-05 15:19 | XMS_ITS | Clinical Summary ---
Author Organization [facility] Address [address] [place] [address] Care Team Providers Care Federal Appellate Clerk Name Role Phone Unavailable Primary Care Provider Unavailabl e Social History Tobacco Use Types Packs/Day Years Used Date Smoking Tobacco: Never Assessed Interpersonal Safety Answer Date Record ed Family or friends hurt you Not on file 12/14 Family or friends insult you Not on file Family or friends threaten you Not on file 0 12/14/2023 Family or friends scream or curse at you Not on file 12/14/2023 Housing Stability Answer Date Recorded Living situation today Not on file Living situation problems Not on file 2023 Food Insecurity Answer Date Recorded Food run out past 12 months Not on file 11/26 Food did not last past 12 months Not on file 12/14/2023 Employment Answer Date Recorded Help finding and keeping a job Not on file 0 12/14/2023 Family and Community Support Answer Raheel e Recorded Help with Day to Day Activities Not on file 12/14/2023 Feeling Lonely or Isolated Not on file 12/14 Educational Attainment Answer Date Aaron rded Speak language other than Maltese at home Not on file 12/14/2023 Want help with school or training Not on file 12/14/2023 Depression Answer Date Recorded PHQ-2 Risk Not on file 12/14/2023 Disabilities Answer Date Recorded Difficulty concentrating Not on file 024 Difficulty doing errands alone Not on file 0 12/14/2023 Substance Use Answer Date Recorded Used prescription meds for non-medical reasons N ot on file 12/14/2023 Used illegal drugs past 12 months Not on file 12/14/2023 Comments Unknown Sex and Gender Information Value Date Recorded Sex Assigned at Not on file Legal Sex Female 1:11 PM CDT Gender Identity Not on file Sexual Orientation Not on file Plan of Treatment Health Maintenance Due Date Last Done Comments DXA SCAN 1950 Depression Screening (12+) 1960 Tobacco Cessation Counseling and Screening (12+) 1960 Hepatitis C Screening 1966 Shingles Vaccine (Zoster) (1 of 2) 1998 Respiratory Syncytial Virus (RSV) Adult or (1 - 1-dose 75+ series) 2023 COVID-19 VACCINE ( - 2023-2 5 season) 2024 10/16/2022, 11/02/2021, 01/19/2021, Additional history exists Falls Risk Screening 11/26/2024 Influenza Vaccine (Season Ended) 2025 10/16/2022, 09/14/2021, 08/27/2020, Additional history exists DTAP/TDAP/TD VACCINES (2 - T d or Tdap) 05/23/2027 05/23/2017 Pneumococcal 50+ years Completed 08/27/2020, 2016
--- OUTSIDE RECORDS SUMMARY | 2025-05-05 15:19 | XMS_ITS | Encounter Summary ---
Author Organization [facility] Address [address] [place] [address] Care Team Providers Care Sound Installation Worker Name Role Phone Pillo Humphrey MD Primary Care Provider +1- [phone] Reason for Referral * Consultation (Routine) - Closed Specialty Diagnoses / Procedures Referred By Camilo morales Referred To Contact Dentist / Pain Medicine Diagnoses Obstructive sleep apnea Karolyn Salinas MD [address] [place] [address] Phone: tel: fax: Alice Arreola, DDS [address] [place] [address] Phone: tel: fax: Referral ID Status Reason Start Date Expiration Date Visits Re quested Visits Authorized [id number] Closed 09/05/2024 03/07/2026 1 1 Encounter Details Date Type Department Care Team (Late st Contact Info) Description 09/05/2024 Community Orders Community Practice [address] [place] [address] Karolyn Salinas MD [address] [place] [address] [place] [address] Obstructive sleep apnea (Primary Dx) Social History Tobacco Use Types Packs/Day Years Used Date Smoking Tobacco: Never Alcohol Use Standard Drinks/Week Comments Yes 0 (1 standard drink = 0.6 oz pure alcohol) Alcoholic Drinks/day: Social alcohol use Comments Unknown Sex and Gender Information Value Date Recorded Sex Assigned at Not on file Legal Sex Female 6:05 PM EDT Gender Identity Not on file Sexual Orientation Not on file documented as of this encounter Plan of Treatment Scheduled Referrals Name Type Priority Associated Diagnoses Order Schedule Ambulatory Referral to Orofacial Pain Outpatient Referral Routine Obstructive sleep apnea Expected: 09/05/2024 (Approximate), Expires: 03/06/2026 documented as of this encounter Visit Diagnoses Diagnosis Obstructive sleep apnea- Primary Obstructive sleep apnea (adult) (pediatric) documented in this encounter Care Teams Sound Installation Worker Relationship Specialty Start Date End Date Pillo Humphrey MD [address] [place] [address] PCP - General 04/08/21 documented as of this encounter
--- OUTSIDE RECORDS SUMMARY | 2025-05-05 15:19 | XMS_ITS | Referral Summary ---
Author Organization [facility] Address [address] [place] [address] Care Team Providers Care Health Support Specialist Name Role Phone Unavailable Primary Care Provider [...] Date Aaron rded Speak language other than Micronesian at home Not on file 12/14/2023 Want [...] Orientation Not on file Plan of Treatment Not on file
[2025-05-05 16:23] LABS: Basophils % 0.7 % (0.1-2.0); Eosinophils % 0.5 % (0.1-12.0); Hematocrit 32.3 % (37.0-47.0); Hemoglobin 10.5 g/dL (12.2-16.2); Immature Granulocytes # 0.01 10^3uL; Immature Granulocytes % 0.2 %; Lymphocytes # 0.9 K/mm3 (0.7-4.5); Mean Corpuscular HGB Conc 32.5 g/dL (31.8-35.4); Mean Corpuscular Hemoglobin 35.1 pg (27.0-31.2); Mean Platelet Volume 9.8 fl (7.4-10.4); Monocytes # 0.4 K/mm3 (0.1-1.0); Monocytes % 7.7 % (1.7-9.3); Neutrophils # 4.2 K/mm3 (1.8-7.8); Neutrophils % 74.9 % (37.0-80.0); Nucleated Red Blood Cells # 0 10^3/uL; Nucleated Red Blood Cells % 0 %; Platelet Count 269 K/mm3 (142-424); Red Blood Count 2.99 M/mm3 (4.20-5.40); Red Cell Distribution Width-SD 66.6 fL; White Blood Count 5.6 K/mm3 (4.8-10.8)
[2025-05-05 17:11] LABS: Alanine Aminotransferase 47 U/L (12-78); Albumin Level 4.3 g/dl (3.5-5.0); Alkaline Phosphatase 53 U/L (38-126); Anion Gap 11.3 mEq/L (5-15); Aspartate Amino Transferase 49 U/L (14-36); Bilirubin,Direct 0.1 mg/dl (0.0-0.4); Bilirubin,Indirect 0.3 mg/dL (0.0-0.9); Bilirubin,Total 0.4 mg/dl (0.2-1.3); Bilirubin,Unconjugated 0.3 mg/dL (0.0-1.1); Blood Urea Nitrogen 16 mg/dl (7-17); Calcium 9.1 mg/dl (8.4-10.2); Carbon Dioxide 26 mmol/L (22.0-30.0); Chloride 100 mmol/L (98-107); Estimated Glomerular Filt Rate 54 ml/min (>60); GFR (African American) 65 ML/MIN (>60); Glucose 120 mg/dl (74-100); HDL Cholesterol 57 mg/dl (40-60); Magnesium 1.5 mg/dl (1.6-2.3); Potassium 5.3 mmoL/L (3.5-5.1); Sodium 132 mmol/L (136-145); Total Protein,Serum 6.6 g/dl (6.3-8.2)
[2025-05-05 17:13] LABS: Chol/HDL Ratio 3.4 (1-3.5); Cholesterol 195 mg/dl (140-200); Triglycerides 279 mg/dl (30-150); VLDL Cholesterol 56 mg/dL (0-40)
[2025-05-05 17:22] LABS: Direct LDL Cholesterol 70.22 mg/dL (100-129)
[2025-05-05 17:42] LABS: Thyroid Stimulating Hormone 1.23 uIU/mL (0.465-4.68)
== END 2025-05-05 23:59 | disposition home or self-care (01) ==
LOC: LAB 15:11
PROVIDERS: PCP Family Medicine; Visit Provider Internal Medicine
DX: R06.09 Other forms of dyspnea (principal); R93.1 Abnormal findings on diagnostic imaging of heart and coronary circulation
CPT/HCPCS: 36415; 80048; 80061; 80076; 83735; 84439; 84443; 85025

== ENCOUNTER 2025-05-12 07:43 | Day surgery (SDC) | payer MEDICARE, SELFPAY ==
[2025-05-12] VITALS (8 sets, daily range): BP systolic 133–163; BP diastolic 62–84; PULSE 51–66; RESP 16–18; TEMP 36.7; O2SAT 91–97; BMI 31.4
--- NOTE | 2025-05-12 07:14 | IR_ITS ---
APPROVED REPORT Patient Location: Outpatient Farm Management Agent: Reji Talley, RT (R) PROCEDURES Right heart catheterization INDICATION Congestive heart failure, Pulmonary hypertension Informed consent was obtained prior to the procedure. COMPLICATIONS NONE Estimated Blood Loss: LESS THAN 10 ML TECHNIQUE One percent lidocaine was used to anesthetize the right anterior aspect of the neck. A rivet flunky needle was used to identify the right internal jugular vein. Following this a larger cannulation needle was used to cannulate the right internal jugular vein and a wire was passed into the vein. Prior to the 7 Polish sheath being inserted the wire was confirmed under fluoroscopic guidance to be in the inferior vena cava. A 7 Polish sheath was introduced and a Charlotte-Loertta catheter was floated using hemodynamic waveforms in the pulmonary artery, right ventricle , and right atrium. Saturations were obtained in the pulmonary artery and the right atrium. At the end of the procedure the patient was transferred to the postop holding area in stable condition for sheath removal. ANGIOGRAPHIC RESULTS Right atrial pressure 20 mmHg Pulmonary artery pressure 50/30 mmHg Pulmonary artery occlusion pressure 25 mmHg Right atrial saturation 67% Pulmonary artery saturation 64% Aortic saturation 99% Hemoglobin 11.6 Cardiac output 4.2 L/min IMPRESSION Biventricular congestive heart failure with elevated filling pressures PLAN 1. Recommend Cordella device to help manage decompensated heart failure Electronically signed by : Ever Arvizu MD 05/12/2025 11:37:23
[2025-05-12 08:14] LABS: Basophils # 0.1 K/mm3 (0-0.2); Basophils % 0.7 % (0.1-2.0); Eosinophils # 0.1 Kmm3 (0.0-0.4); Eosinophils % 1.7 % (0.1-12.0); Hematocrit 33.9 % (37.0-47.0); Hemoglobin 11.6 g/dL (12.2-16.2); Immature Granulocytes # 0.06 10^3uL; Immature Granulocytes % 0.7 %; Lymphocytes # 2.6 K/mm3 (0.7-4.5); Lymphocytes % 32.3 % (10-50); Mean Corpuscular HGB Conc 34.2 g/dL (31.8-35.4); Mean Corpuscular Hemoglobin 36.5 pg (27.0-31.2); Mean Corpuscular Volume 106.6 fl (81-99); Mean Platelet Volume 9.5 fl (7.4-10.4); Monocytes # 0.6 K/mm3 (0.1-1.0); Monocytes % 7.2 % (1.7-9.3); Neutrophils # 4.6 K/mm3 (1.8-7.8); Neutrophils % 57.4 % (37.0-80.0); Nucleated Red Blood Cells # 0 10^3/uL; Nucleated Red Blood Cells % 0 %; Platelet Count 280 K/mm3 (142-424); Red Blood Count 3.18 M/mm3 (4.20-5.40); Red Cell Distribution Width 16.8 % (11.5-17.5); Red Cell Distribution Width-SD 64.7 fL
[2025-05-12 08:19] LABS: Chloride 99 mmol/L (98-107); Potassium 4.2 mmoL/L (3.5-5.1); Sodium 134 mmol/L (136-145)
[2025-05-12 08:22] LABS: Anion Gap 11.2 mEq/L (5-15); Blood Urea Nitrogen 20 mg/dl (7-17); Calcium 9.4 mg/dl (8.4-10.2); Carbon Dioxide 28 mmol/L (22.0-30.0); Creatinine Clearance Estimated 51 mL/min (50-200); Estimated Glomerular Filt Rate 44 ml/min (>60); GFR (African American) 53 ML/MIN (>60); Glucose 112 mg/dl (74-100)
[2025-05-12] MEDS: HEPARIN 1,000 UNITS/500ML NS (CATH LAB) 3000 UNIT IV (09:39)
[2025-05-12] MEDS: LIDOCAINE 1% 10ML MDV 10 ML IJ (09:40)
[2025-05-12] MEDS: 0.9 % SODIUM CHLORIDE 500 ML 25 ML IV (09:40)
[2025-05-12] MEDS: diphenhydrAMINE 50MG/ML VIAL 50 MG IV (09:40)
[2025-05-12] MEDS: MIDAZOLAM HCL 1MG/ML 5ML VIAL 1 MG IV (09:45)
[2025-05-12] MEDS: FENTANYL 100MCG/2ML VIAL 50 MCG IV (09:46)
== END 2025-05-12 11:27 | disposition home or self-care (01) ==
LOC: CATHLAB 07:46
PROVIDERS: PCP Family Medicine; Visit Provider Internal Medicine
PROC: 4A023N6 Measurement of Cardiac Sampling and Pressure, Right Heart, Percutaneous Approach (ICD-10-PCS; CPT 93451; principal; 2025-05-12 08:45)
DX: I11.0 Hypertensive heart disease with heart failure (principal); I50.30 Unspecified diastolic (congestive) heart failure; I27.20 Pulmonary hypertension, unspecified; R06.09 Other forms of dyspnea; R93.1 Abnormal findings on diagnostic imaging of heart and coronary circulation; E78.5 Hyperlipidemia, unspecified; K21.9 Gastro-esophageal reflux disease without esophagitis; G47.33 Obstructive sleep apnea (adult) (pediatric); M06.9 Rheumatoid arthritis, unspecified; Z82.49 Family history of ischemic heart disease and other diseases of the circulatory system; Z79.82 Long term (current) use of aspirin; Z79.02 Long term (current) use of antithrombotics/antiplatelets; Z79.52 Long term (current) use of systemic steroids; Z79.631 Long term (current) use of antimetabolite agent; Z79.899 Other long term (current) drug therapy; Z95.5 Presence of coronary angioplasty implant and graft
CPT/HCPCS: 93451; 80048; 85025; 99152; C1894; J1200; J1644; J2003; J3010; J7040

== ENCOUNTER 2025-05-21 15:48 | Outpatient (CLI) | payer MEDICARE, SELFPAY ==
--- OUTSIDE RECORDS SUMMARY | 2025-05-21 15:50 | XMS_ITS | Referral Summary ---
Author Organization [facility] Address [address] [place] [address] Care Team Providers Care Bookkeeper Name Role Phone Unavailable Primary Care Provider [...] Date Aaron rded Speak language other than Belizean at home Not on file 12/14/2023 Want [...]
--- OUTSIDE RECORDS SUMMARY | 2025-05-21 15:50 | XMS_ITS | Clinical Summary ---
Author Organization [facility] Address [address] [place] [address] Care Team Providers Care Ccie Name Role Phone Unavailable Primary Care Provider [...] Date Aaron rded Speak language other than Cayman Islander at home Not on file 12/14/2023 Want [...]
--- OUTSIDE RECORDS SUMMARY | 2025-05-21 15:50 | XMS_ITS | Clinical Summary ---
Author Organization [facility] Address [address] [place] [address] Care Team Providers Care Value Stream Leader Name Role Phone Pillo Humphrey MD Primary Care Provider +1- [phone] Family History Medical History Relation Name Comments [...] or (1 - 1-dose 75+ series) 2023 [id number] Vaccine ( - 2023- season) 2024 10/16/2022, [...] to complete this topic Insurance [place] BLAIR [id number] [facility] MEDICARE Care Teams Value Stream Leader Relationship Specialty Start Date End Date Pillo Humphrey MD [address] [place] [address] PCP - General 04/08/21
--- OUTSIDE RECORDS SUMMARY | 2025-05-21 15:50 | XMS_ITS | Encounter Summary ---
Author Organization [facility] Address [address] [place] [address] Care Team Providers Care Component Technician Name Role Phone Pillo Humphrey MD Primary Care Provider +1- [phone] Reason for Referral * Consultation (Routine) - Closed Specialty Diagnoses / Procedures Referred By Camilo morales Referred To Contact Dentist / Pain Medicine Diagnoses Obstructive sleep apnea Karolyn Salinas MD [address] [place] [address] Phone: tel: fax: Alice Arreola, DDS [address] [place] [address] Phone: tel: fax: Referral ID Status Reason Start Date Expiration Date Visits Re quested Visits Authorized [id number] Closed 09/05/2024 03/07/2026 1 1 Encounter Details Date Type Department Care Team (Late st Contact Info) Description 09/05/2024 Community Orders Community Practice [address] [place] [address] Karolyn Salinas MD [address] [place] [address] Obstructive sleep apnea (Primary Dx) Social [...] (pediatric) documented in this encounter Care Teams Component Technician Relationship Specialty Start Date End Date Pillo Humphrey MD [address] [place] [address] PCP - General 04/08/21 documented as of this encounter
[2025-05-21 16:34] LABS: Chloride 96 mmol/L (98-107); Potassium 4.6 mmoL/L (3.5-5.1); Sodium 135 mmol/L (136-145)
[2025-05-21 16:37] LABS: Anion Gap 15.6 mEq/L (5-15); Blood Urea Nitrogen 22 mg/dl (7-17); Calcium 8.7 mg/dl (8.4-10.2); Carbon Dioxide 28 mmol/L (22.0-30.0); Estimated Glomerular Filt Rate 48 ml/min (>60); GFR (African American) 58 ML/MIN (>60); Glucose 109 mg/dl (74-100); Magnesium 1.6 mg/dl (1.6-2.3)
== END 2025-05-21 23:59 | disposition home or self-care (01) ==
LOC: LAB 15:48
PROVIDERS: PCP Family Medicine; Visit Provider Internal Medicine
DX: I10 Essential (primary) hypertension (principal)
CPT/HCPCS: 36415; 80048; 83735

== ENCOUNTER 2025-06-30 09:05 | Outpatient (CLI) | payer MEDICARE, SELFPAY ==
--- OUTSIDE RECORDS SUMMARY | 2025-01-20 07:30 | XMS_ITS ---
Author Organization Moe Address 1210 [facility] 36 [facility] [address] [place] [phone] Care Team Providers Care Paraffin Plant Operator Name Role Phone Jolie Humphrey Primary Care Provider Allergies No Known Allergies Results Component Value Reference Range Notes Bone density Reviewed date:05/14/2025 10:52:24 AM Interpretation:pt declined Performing Lab: Notes/Report: pt declined colonoscopy Reviewed date:05/14/2025 10:52:38 AM Interpretation:pt declined Performing Lab: Notes/Report: pt declined Mammogram Reviewed date:05/14/2025 10:52:55 AM Interpretation:pt declined Performing Lab: Notes/Report: pt declined REASON FOR VISIT checkup and Annual Wellness visit Encounters Encounter Location Date Provider Diagnosis Moe [address] [place] [id number] 01/20/2025 Jolie Humphrey Adult general medica l examination Z00.00 Assessments Encounter Date Diagnosis (ICD Code) Assessment Notes Treatment Notes Treatment Clinical Notes Section Notes 01/20/2025 Adult general medical examination (ICD-10 - Z00.00) Patient instructed to return to office Annually for Annual Wellness Visits to include annual screenings of Pain assessment, Functional Ability assessment, Cognitive Ability assessment, Fall Risk assessment, Depression screening and Bladder control screening. Plan Of Treatment Treatment Notes Assessment Notes Adult general medical examination Patien t instructed to return to office Annually for Annual Wellness Visits to include annual screenings of Pain assessment, Functional Ability assessment, Cognitive Ability assessment, Fall Risk assessment, Depression screening and Bladder control screening. Next Appt Details Follow Up: As directed by , Reason: Provider Name:Jolie Grimm et, 07/02/2025 10:30:00 AM, [address], [address], [place], [phone], Progress Notes * CLIFF CHACON RDOB: [birth year] (75 yo F)Acc No.[id number]:01/20/2025 Annual Wellness Visit Patient: CLIFF FARAH Provider: Jolie Humphrey M.D. :1950 A ge:74 Y S ex:Female Date:01/20/2025 Address:[address] [place] [address] [id number] Subjective: * Chief Complaints: * 1 . checkup and Annual Wellness visit. * HPI: H PI: Patient is here today for a scheduled check up and a Medicare Annual Wellness Visit. * ROS: O PTHALMOLOGY: Negative for d enies vision issues. * Medical History: H [place], High Cholestrol , RA followed by Dr. Portillo, Sciatic nerve pain , Hiatal hernia with GERD, Tremor, Non-union left foot fracture - 2013, Chronic knee pain, TAHIRA. * Surgical History: l umbar fusion X 3 Dr Singh Spine [place] 2002, 2006, 2011, left knee scope X [...] * Allergies: N .K.D.A. Objective: * Vitals: * Physical Examination: G ENERAL: Pain Assessment: P ain level: , on a scale of 0-10 (with 10 being extreme pain). F unctional Status Assessment: P atient response to question of how often physical health interferes with daily activities: . Able to perform ADLs-including meal preparation, grocery shopping, housework, laundry, taking medications or handling finances. Cognitive Status: alert and oriented. Ambulation Status: Fully ambulatory . F all Risk Assessment: I ndependant in ambulation, adequate lighting in home. Patient has NOT fallen or had trouble walking within the past 12 months. D epression Screening: D enies depressed mood or anxiety. Describes emotional health as:. B ladder Control Screening: D enies problems. Assessment: * Assessment: 1. A dult general medical examination - Z00.00 (Primary) Plan: * Treatment: * Imaging: * I maging: Bone density (Performed Date - 05/14/2025) p t declined ?Imaging: colonoscopy (Performed Date - 05/14/2025)?pt declined* ?Imaging: Mammogram (Performed Date - 05/14/2025)?pt declined* * Khalida Cui 05/14/2025 1 0:52:43 AM EDT >pt declined * Procedure Codes: G 0439 ANNUAL WELLNESS VST; PPS SUBSQT VST, Modifiers: 25 , 45506 GLYCATED HEMOGLOBIN TEST, Modifiers: QW , G0444 ANNUAL DEPRESSION SCREENING 15 MIN, 1090F PRES/ABSN URINE INCON ASSESS, 3288F FALL RISK ASSESSMENT DOCD, 1170F FXNL STATUS ASSESSED, 1126F AMNT PAIN NOTED NONE PRSNT, 1159F MED LIST DOCD IN RCRD, 1003F LEVEL OF ACTIVITY ASSESS, 1036F TOBACCO NON-USER * Preventive Medicine: Counseling: E motional health: P atient encouraged to try connecting with family or friends to boost mood. B ladder control: M ethods of controlling or managing leakage of urine discussed. E xercise: P atient advised to start, increase or maintain level of exercise/physical activity. I njury prevention: F all prevention discussed. Discussed need for cane/walker. Potential trip hazards discussed. Immunizations: T etanus u p to date. P neumococcal u p to date. I nfluenza u p to date. Screening / Special Tests: M ammogram R ecent history: 06/25/2023, negative, recommended today. C olonoscopy R ecent history:, recommended. B one mineral Density R ecent history: 05/30/2016, normal, recommended. * Follow Up: A s directed by * Images: Billing Information: * Visit Code: * Procedure Codes: G0439 ANNUAL WELLNESS VST; PPS SUBSQT VST. Modifiers: 25 08144 GLYCATED HEMOGLOBIN TEST. Modifiers: QW G0444 ANNUAL DEPRESSION SCREENING 15 MIN. 1090F PRES/ABSN URINE INCON ASSESS. 3288F FALL RISK ASSESSMENT DOCD. 1170F FXNL STATUS ASSESSED. 1126F AMNT PAIN NOTED NONE PRSNT. 1159F MED LIST DOCD IN RCRD. 1003F LEVEL OF ACTIVITY ASSESS. 1036F TOBACCO NON-USER. * Electronic signature of Jolie Humphrey MD on 06/30/2025 at 09:08 AM EDT Sign off status: Pending * Provider: Jolie Humphrey M.D. Date: 0 01/20/2025 Generated for Tyesha tripathi/Lacie/Samantha on: 0 06/30/2025 09:08 AM EDT History and Physical Notes * HPI (History of Present Illness) Category Sub-Category Detail Notes Category Not es HPI Patient is here today for a [facility] check up and a Medicare Annual Wellness Visit Physical Examination Category Sub-Category Detail Notes Section Note s GENERAL Pain Assessment: Pain level: , o n a scale of 0-10 (with 10 being extreme pain) Functional Status Assessment: Patient response to question of how often physical health interferes with daily activities: . Able to perform ADLs-including meal preparation, grocery shopping, housework, laundry, taking medications or handling finances. Cognitive Status: alert and oriented. Ambulation Status: Fully ambulatory Fall Risk Assessment: Independant in amb ulation, adequate lighting in home. Patient has NOT fallen or had trouble walking within the past 12 months Depression Screening: Denies depressed m ood or anxiety. Describes emotional health as: Bladder Control Screening: Denies proble ms
--- OUTSIDE RECORDS SUMMARY | 2025-02-24 10:00 | XMS_ITS ---
Author Organization [facility] Address [address] [facility] [address] [place] [phone] Care Team Providers Care Film Drying Machine Operator Name Role Phone Jolie Humphrey Primary Care Provider Allergies No Known Allergies REASON FOR VISIT left hand numbness Medications Medication SIG (Take, Route, Frequency, Duration) Notes Start Date End Date Status Propranolol HCl 40 MG 1 tab(s) orally Three times a day; Duration: 90 days Active Omeprazole 20 MG 1 cap(s) orally once a day; Duration: 90 days Active PARoxetine HCl 10 MG 1 tab(s) orally once a day; Duration: 90 days Active Rosuvastatin Calcium 40 MG 1 tablet Orally Once a day; Duration: 30 days Active Lisinopril 20 MG 1 tablet Orally Once a day; Duration: 90 days Active amLODIPine Besylate 10 MG 1 tab(s) Orally Once a day; Duration: 90 days Active CPAP machine and supplies - as directed as directed 05/11 with heated humidifier 04/28/2024 Active Fish Oil 1000 MG 2 cap orally 2 times a day 01/01/2020 Active B-12 1000 MCG 1 tab(s) orally once a day 08/12/2015 Active predniSONE 5 MG 1 tab(s) orally once a day; Duration: 30 days Active Aspirin 81 MG 1 tablet Orally Once a day Active Plavix 75 MG 1 tablet Orally Once a day Active Methotrexate 2.5 MG 5 tabs orally once a week Active Vascepa 1 GM 2 cap(s) orally 2 times a day; Duration: 90 days 01/05/2021 Active Loratadine 10 MG 1 tab(s) orally once a day Active Problems Problem Type SNOMED Code ICD Code Onset Dates Problem Status W/U Status Risk Notes Problem Carpal tunnel syndrome of left wrist (7974746756714 02) Carpal tunnel syndrome of left wrist (G56.02) Active confirmed Problem OA (osteoarthriti s) (M19.90) Active confirmed Vital Signs Weight 181.8 lbs 02/24/2025 Blood pressure systolic 140 mm Hg 02/25/20 25 Blood pressure diastolic 70 mm Hg 025 Heart Rate 58 /min 02/24/2025 Height 64 in 02/24/2025 BMI 31.2 kg/m2 02/24/2025 Encounters Encounter Location Date Provider Diagnosis [facility] 1210 [facility] 36 [facility] [address] [place], [place] [phone] 02/24/2025 Jolie Humphrey Carpal tunnel syndrome of left wrist G56.02 and OA (osteoarthritis) M19.90 Assessments Encounter Date Diagnosis (ICD Code) Assessment Notes Treatment Notes Treatment Clinical Notes Section Notes 02/24/2025 Carpal tunnel syndrome of left wrist (ICD-10 - G56.02) She is provided written prescription for cock-up wrist splint to wear at night. Discussed possible referral for EMG testing if symptoms persist. 02/24/2025 OA (osteoarthriti s) (ICD-10 - M19.90) Plan Of Treatment Treatment Notes Assessment Notes Carpal tunnel syndrome of left wrist She is provided written prescription for cock-up wrist splint to wear at night. Discussed possible referral for EMG testing if symptoms persist. Next Appt Details Follow Up: 4 Weeks,prn, Reas on: Provider Name:Jolie Bojorquez, 07/02/2025 10:30:00 AM, 1210 [facility] 36 [facility], [address], [place], [phone], Medications Administered Medication Instructions Date of Administration Dosage Notes Depo- Medrol 40 mg/ml 02/24/2025 1.5 mL Progress Notes * CLIFF CHACON RDOB: [birth year] (75 yo F)Acc No.[id number]:02/24/2025 Progress Notes Patient: CLIFF FARAH Provider: Jolie Humphrey M.D. :1950 A ge:74 Y S ex:Female Date:02/24/2025 Address:[address] [place] [address] [id number] Subjective: * Chief Complaints: * 1 . Left hand numbness. * HPI: N eurology: She presents with complaints of intermittent numbness in her left hand for several weeks. She notes that it occurs primarily with static activities such as holding her phone or holding a book. She also notes consistent numbness when she wakes in the morning. The numbness resolves with moving her hand. She denies pain or weakness. R heumatology: She continues on methotrexate and low-dose prednisone for her rheumatoid arthritis. * ROS: O PTHALMOLOGY: Negative for d enies vision issues. * Medical History: H [place], High Cholestrol , RA followed by Dr. Portillo, Sciatic nerve pain , Hiatal hernia with GERD, Tremor, Non-union left foot fracture - 2013, Chronic knee pain, TAHIRA. * Surgical History: l umbar fusion X 3 Dr Singh Spine [facility] 2002, 2006, 2011, left knee scope X [...] ,Years: , Determination:. * Medications: T aking Plavix 75 MG Tablet 1 tablet Orally Once a day , Taking Aspirin 81 MG Tablet Chewable 1 tablet Orally Once a day , Taking Vascepa 1 GM Capsule 2 cap(s) orally [...] orally 2 times a day , Taking CPAP machine and supplies - - as directed as directed , Notes to Pharmacist: 05/11 with heated humidifier, Taking amLODIPine Besylate 10 MG Tablet 1 tab(s) Orally Once a day , Taking Propranolol HCl 40 MG Tablet 1 tab(s) orally Three times a day , Taking PARoxetine HCl 10 MG Tablet 1 tab(s) orally once a day , Taking Omeprazole 20 MG Capsule Delayed Release 1 cap(s) orally once a day , Taking Lisinopril 20 MG Tablet 1 tablet Orally Once a day , Taking Rosuvastatin Calcium 40 MG Tablet 1 tablet Orally Once a day , Medication List reviewed and reconciled with the patient * Allergies: N .K.D.A. Objective: * Vitals: W t: 181.8, Temp: 98.6, BP: 140/70, HR: 58, Nurse: delfin, Ht: 64, BMI:31.2. * Examination: G eneral Examination: Extremities: L eft hand shows no swelling or deformity.? Sensation is intact at present. Teacher Education Director strength is normal. Tinel's sign is negative..? Assessment: * Assessment: 1. C arpal tunnel syndrome of left wrist - G56.02 (Primary) 2 . O A (osteoarthritis) - M19.90 Plan: * Treatment: * Therapeutic Injections: Depo- Medrol 40 mg/ml : 1.5 mL (Route: Intramuscular) given by DELFIN Nguyen on right gluteus (OA (osteoarthritis)) * Procedure Codes: G 2211 Complex e/m visit add on, J1010 Inj, methylpred acetate 1 mg, Units: 1.50 , 63790 ADMINISTRATION OF INJECTION, 3077F SYST BP = 140 MM HG6 IT, 3078F DIAST BP < 80 MM HG * Follow Up: 4 Weeks,prn * Images: Billing Information: * Visit Code: 75125 Office Visit, Est Pt., Level 3. Modifiers: 25 * Procedure Codes: G2211 Complex e/m visit add on. J1010 Inj, methylpred acetate 1 mg. Units: 1.50. 07937 ADMINISTRATION OF INJECTION. 3077F SYST BP = 140 MM HG6 IT. 3078F DIAST BP < 80 MM HG. * Electronic signature of Jolie Humphrey MD on 06/30/2025 at 09:08 AM EDT Sign off status: Pending * Provider: Jolie Humphrey M.D. Date: 0 02/24/2025 Generated for Tyesha tripathi/Lacie/Michealitting on: 0 06/30/2025 09:08 AM EDT History and Physical Notes * HPI (History of Present Illness) Category Sub-Category Detail Notes Category Not es Neurology She presents wi th complaints of intermittent numbness in her left hand for several weeks. She notes that it occurs primarily with static activities such as holding her phone or holding a book. She also notes consistent numbness when she wakes in the morning. The numbness resolves with moving her hand. She denies pain or weakness. Rheumatology She continues o n methotrexate and low-dose prednisone for her rheumatoid arthritis. Examination Category Sub-Category Detail Notes Category Not es General Examination Extremities: Left hand sh ows no swelling or deformity. Sensation is intact at present. Teacher Education Director strength is normal. Tinel's sign is negative.
--- OUTSIDE RECORDS SUMMARY | 2025-04-29 14:00 | XMS_ITS | Encounter Summary ---
Author Organization [facility] Address [address] [place] [address] Care Team Providers Care Cotton Dispatcher Name Role Phone Pillo Humphrey MD Primary Care Provider Encounter Details Date Type Department Care Team (Late Contact Info) Description 04/29/2025 2:00 PM EDT Ancillary Procedure [facility] RHEUMATOLOG[facility] [address] [address] Social History Tobacco Use Types Packs/Day Years Used Date Smoking Tobacco: Never Passive Smoke Exposure: Past Smokeless Tobacco: Never Alcohol Use Standard Drinks/Week Comments Never 0 (1 standard drink = 0.6 oz pur e alcohol) Comments Unknown Sex and Gender Information Value Date Recorded Sex Assigned at Female 04/22/2025 10:14 AM EDT Legal Sex Female 10:26 AM EDT Gender Identity Not on file Sexual Orientation Straight 04/22/2025 10 :14 AM EDT documented as of this encounter Plan of Treatment Upcoming Encounters Date Type Department Care Team (Late st Contact Info) Description 09/01/2025 2:15 PM EDT Office Visit [facility] RHEUMATOLOGY [address] [address] Jose Mullen APRN [address] [facility] [address] [place] [address] documented as of this encounter Procedures Procedure Name Priority Date/Time Associated Diagnosis Comments XR CHEST 2 VW Routine 04/29/2025 2:05 PM EDT Shortness of breath documented in this encounter Results * XR Chest 2 View (04/29/2025 2:05 PM EDT) Anatomical Region Laterality Modality Body N/A Radiographic Faith ging 04/30/2025 9:52 AM EDT Impressions 04/30/2025 9:53 AM EDT Impression: No acute findings. Electronically Signed: Clarke Bowen MD 04/30/2025 9:53 AM EDT Workstation ID: [id number] Narrative 04/30/2025 9:53 AM EDT XR CHEST 2 VW Date of Exam: 04/29/2025 2:00 PM EDT Indication: fatigue Comparison: None available. Findings: Borderline enlarged cardiac silhouette. No focal airspace consolidation. No pleural effusion or pneumothorax. Multilevel spondylosis with lumbar spinal fusion hardware partially included within the rintw-kv-djhd. Procedure Note Clarke Bowen MD - 04/30/2025 XR CHEST 2 VW Date of Exam: 04/29/2025 2:00 PM EDT Indication: fatigue Comparison: None available. Findings: Borderline enlarged cardiac silhouette. No focal airspace consolidation.No pleural effusion or pneumothorax. Multilevel spondylosis with lumbarspinal fusion hardware partially included within the jtmfy-xw-twyx. IMPRESSION: Impression: No acute findings. Electronically Signed: Clarke Bowen MD 04/30/2025 9:53 AM EDT Workstation ID: [id number] Jose Mullen APRN IMG DIAGNOSTIC IMAGING ORDERABLES Final Result documented in this encounter Visit Diagnoses Not on filedocumented in this encounter Care Teams Cotton Dispatcher Relationship Specialty Start Date End Date Pillo Humphrey MD [address] [place] [address] PCP - General Family Medicine 02/20/21 documented as of this encounter
--- OUTSIDE RECORDS SUMMARY | 2025-06-23 10:00 | XMS_ITS ---
Author Organization [facility] Address [address] [facility] [address] [facility] [address] [place] [id number] Care Team Providers Care Corporate Director Name Role Phone Jolie Humphrey Primary Care Provider [phone] Allergies No Known Allergies REASON FOR VISIT Annual Wellness visit-Medicare Encounters Encounter Location Date Provider Diagnosis [facility] [address] [facility] [address] [facility] [address] [place] [id number] 06/23/2025 Jolie Humphrey Adult general medica l examination Z00.00 Assessments Encounter Date Diagnosis (ICD Code) Assessment Notes Treatment Notes Treatment Clinical Notes Section Notes 06/23/2025 Adult general medical examination (ICD-10 - Z00.00) [...] assessment, Depression screening and Bladder control screening. Pending Test Test Name Order Date Bone density 06/23/2025 colonoscopy 06/23/2025 Mammogram 06/23/2025 Cologuard 06/23/2025 Next Appt Details Follow Up: As directed by , Reason: Provider Name:Jolie Bojorquez, 07/02/2025 10:30:00 AM, [address] [facility] [address] [facility], [address], [place], [id number], Progress Notes * CLIFF CHACON RDOB: [birth year] (75 yo F)Acc No.[id number]:06/23/2025 Annual Wellness Visit Patient: CLIFF FARAH Provider: Jolie Humphrey M.D. :1950 A ge:75 Y S ex:Female Date:06/23/2025 Address:[address] [place] [address] [place] Subjective: * Chief Complaints: * 1 . Annual Wellness visit-Medicare. * HPI: H PI: Patient is here today for P harley is here today for a Medicare Annual Wellness Visit. * ROS: D ERMATOLOGY: no R vicki. n o H brian. G ASTROENTEROLOGY: no N ausea. n o V omiting. n o D iarrhea.? O PTHALMOLOGY: Negative for d enies vision issues. U ROLOGY: no D ifficulty urinating. n o B lood in urine. * Medical History: H [place], High Cholestrol , RA followed by Dr. Portillo, Sciatic nerve pain , Hiatal hernia with GERD, Tremor, Non-union left foot fracture - 2013, Chronic knee pain, TAHIRA. * Surgical History: l umbar fusion X 3 Dr Singh [facility] [place] 2002, 2006, 2011, left knee scope X 2, right knee scope X 1 Dr Villareal , Breast Reduction May 2016, Left TKA - Dr. Man 09/18/22, Right TKA - Dr. Man 08/03/2023. * Hospitalization/Major Diagno stic Procedure: H ER - Fall/Low Back Pain 11/11/2022. * Family History: F ather: 80 yrs, unknown. M other: 74 yrs, CHF, diagnosed with Hypertension, Diabetes, Heart Disease. 1 brother(s) , 1 sister(s) . 1 daughter(s) . . * Social History: C URRENT TOBACCO USE: No S moking Status: Diana souza does NOT smoke. C affeine: yes, frequency: [...] * Imaging: * I maging: Bone density I maging: colonoscopy I maging: Mammogram * Labs: * L ab: Cologuard * Procedure Codes: G 0439 ANNUAL WELLNESS VST; PPS SUBSQT VST, Modifiers: 25 , G2211 Complex e/m visit add on, 1090F PRES/ABSN URINE INCON ASSESS, 3288F FALL [...] for cane/walker. Potential trip hazards discussed. Immunizations: P neumococcal u p to date. I nfluenza u p to date. Screening / Special Tests: M ammogram R ecent history:06/25/2023, negative, declined in the past, recommended today. C olonoscopy R ecent history:, declined in the past, recommended. B one mineral Density R ecent history:05/30/2016, normal, declined in the past, recommended. * Follow Up: A s directed by * Images: Billing Information: * Visit Code: * Procedure Codes: G0439 ANNUAL WELLNESS VST; PPS SUBSQT VST. Modifiers: 25 G2211 Complex e/m visit add on. 1090F PRES/ABSN URINE INCON ASSESS. 3288F FALL RISK ASSESSMENT DOCD. 1170F FXNL STATUS ASSESSED. 1126F AMNT PAIN NOTED NONE PRSNT. 1159F MED LIST DOCD IN RCRD. 1003F LEVEL OF ACTIVITY ASSESS. 1036F TOBACCO NON-USER. * Electronic signature of Jolie Humphrey MD on 06/30/2025 at 09:07 AM EDT Sign off status: Pending * Provider: Jolie Humphrey M.D. Date: 0 06/23/2025 Generated for Tyesha tripathi/Lacie/eTfloydsmitting on: 0 06/30/2025 09:07 AM EDT History and Physical Notes * HPI (History of Present Illness) Category Sub-Category Detail Notes Category Not es HPI Patient is here today for Patien t is here today for a Medicare Annual Wellness Visit Physical Examination [...]
--- OUTSIDE RECORDS SUMMARY | 2025-06-30 09:08 | XMS_ITS | Encounter Summary ---
Author Organization [facility] Address [address] [place] [address] Care Team Providers Care Children Counselor Name Role Phone Pillo Humphrey MD Primary Care Provider Encounter Details Date Type Department Care Team (Late st Contact Info) Description 04/30/2025 Results Follow-Up [facility] RHEUMATOLOGY [address] [address] Jose Mullen APRN [address] [id number] Social History Tobacco Use Types Packs/Day Years [...] Description 09/01/2025 2:15 PM EDT Office Visit [facility] R[facility]UM[facility] [address] [address] Jose Mullen APRN [address] [phone] documented as of this encounter Visit Diagnoses Not on filedocumented in this encounter Care Teams Children Counselor Relationship Specialty Start Date End Date Pillo Humphrey MD [address] [facility] [address] [facility] [address] [place] [address] PCP - General Family Medicine 02/20/21 documented as of this encounter
--- OUTSIDE RECORDS SUMMARY | 2025-06-30 09:08 | XMS_ITS | Clinical Summary ---
Author Organization [facility] Address [address] [place] [address] Care Team Providers Care Hourly Manager Name Role Phone Pillo Humphrey MD Primary Care Provider +1- [phone] Family History Medical History Relation Name Comments [...] Screening 1950 [facility]Y-Medicare Annual Wellness (AWV) 1950 UKY-/Child/Adol SDOH Screenings 1948 UKY- SDOH Screenings 1966 UKY-Adult SDOH Screenings 1966 UKY-Zoster Vaccines (1 of 2) 1998 UKY-RSV Vaccine: 60+ Years or (1 - 1-dose 75+ series) 2023 [id number] Vaccine (5 - 2023- season) 2024 10/16/2022, 11/02/2021, 01/19/2021, Additional history exists UKY-Influenza Vaccine (#1) 07/27/202510/16, 09/14/2021, 08/30/2020, Additional history exists UKY-DTaP,Tdap,and Td [...] to complete this topic Insurance [place]LA[place] [id number] [facility] MEDICARE Care Teams Hourly Manager Relationship Specialty Start Date End Date Pillo Humphrey MD [address] [place] [address] PCP - General 04/08/21
--- OUTSIDE RECORDS SUMMARY | 2025-06-30 09:08 | XMS_ITS | Encounter Summary ---
Author Organization [facility] Address [address] [place] [address] Care Team Providers Care Six Sigma Black Belt Engineer Name Role Phone Pillo Humphrey MD Primary Care Provider Encounter Details Date Type Department Care Team (Late st Contact Info) Description 04/29/2025 Telephone [facility] RHEUMATOLOGY [address] [address] Jose Mullen APRN 330 [facility] [address] [place] [address] Social History Tobacco Use Types Packs/Day Years [...] AM EDT documented as of this encounter Miscellaneous Notes * Telephone Encounter - Melissa Caro PharmD - 06/19/2025 9:10 AM EDT LVM for patient to call back with any updates * Telephone Encounter - Kip Sanchez PharmD - 06/04/2025 11:14 AM EDT Faxed application to [employer]. * Telephone Encounter - Melissa Caro PharmD - 05/25/2025 12:35 PM EDT Patient stated that she has the paperwork filled out and she will be putting it in the mail this week. * Telephone Encounter - Melissa Caro PharmD - 05/11/2025 11:24 AM EDT Patient said that she received the application and will start filling it out and mail it in * Telephone Encounter - Kip Sanchez PharmD - 05/08/2025 10:23 AM EDT Patient had not received as of this morning but stated she did not check the mail yesterday. Advised we would follow up on Sunday. * Telephone Encounter - Kip Sanchez PharmD - 05/01/2025 1:36 PM EDT Contacted patient and patient wants to apply for PAP. Patient requested application to be mailed. Mailed application today. Follow up in 1 week to verify patient received. * Telephone Encounter - Kip Sanchez PharmD - 04/29/2025 2:29 PM EDT PA request has been approved and pharmacy notified (Filling pharmacy will be notified by phone, fax, or submitted prescription) Authorized Medication: Humira Name of Insurance Approving PA: [facility] PA Number: [id number] SELVIN Effective Dates: 04/29/25-10/29/25 Dispensing Pharmacy: [facility] ~ $1800 LVM for patient to call back to discuss options for medication. * Telephone Encounter - Kip Sanchez PharmD - 04/29/2025 2:09 PM EDT Prior authorization initiated by [facility]. Update will be provided when a determination has been received. Medication: Humira PA Submission Method: CMM Case Number/CMM Hammond: [id number] * Telephone Encounter - Jose Mullen APRN - 04/29/2025 1:31 PM EDT Please PA humira biosimilar. documented in this encounter Plan of Treatment Upcoming Encounters Date Type Department Care Team (Late st Contact Info) Description 09/01/2025 2:15 PM EDT Office Visit [facility] RHEUMATOLOGY [address] [phone] Jose Mullen APRN 330 [facility] [address] [place] [address] documented as of this encounter Visit Diagnoses Not on filedocumented in this encounter Care Teams Six Sigma Black Belt Engineer Relationship Specialty Start Date End Date Pillo Humphrey MD [address] [facility] [address] [place] [address] PCP - General Family Medicine 02/20/21 documented as of this encounter
--- OUTSIDE RECORDS SUMMARY | 2025-06-30 09:08 | XMS_ITS | Clinical Summary ---
Author Organization [facility] ([place], [place], [place], [place]) Address [address] [place] [address] Care Team Providers Care Atm Manager Name Role Phone Unavailable Primary Care Provider Unavailabl e Social History Tobacco Use Types Packs/Day Years Used Date Smoking Tobacco: Never Assessed Food Insecurity Answer Date Recorded Food run [...] Date Aaron rded Speak language other than Kittitian at home Not on file 12/14/2023 Want help with school or training Not on file 12/14/2023 Substance Use Answer Date Recorded Used [...] - 1-dose 75+ series) 2023 COVID-19 VACCINE (2023-2 5 season) 2024 10/16/2022, 11/02/2021, 01/19/2021, Additional history exists Falls Risk Screening 11/26/2024 Influenza Vaccine (#1) 2025 2, 09/14/2021, 08/27/2020, Additional history exists DTAP/TDAP/TD VACCINES (2 - T d or Tdap) 05/23/2027 05/23/2017 Pneumococcal 50+ years Completed 08/27/2020, 2016
--- OUTSIDE RECORDS SUMMARY | 2025-06-30 09:08 | XMS_ITS ---
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
--- OUTSIDE RECORDS SUMMARY | 2025-06-30 09:08 | XMS_ITS | Patient Health Record ---
Author Organization [facility] Address [address] [facility] [address] [place] [id number] Care Team Providers Care Lining Mechanic Name Role Phone Jolie Humphrey Primary Care Provider Allergies No Known Allergies Results Component Value Reference Range Notes Echocardiogram Reviewed date:10/29/2024 04:03:53 PM Interpretation: Performing Lab: Notes/Report: P-Vitamin D, 1, 25 Dihydroxy Reviewed date:09/22/2024 05:55:06 PM Interpretation:Normal Performing Lab: Notes/Report: Test performed by [facility] [address] [place] [address] , [place] [address] Laureano Rod MD, [employer] Sales Consult[employer] CLIA: [id number] Vitamin D, 1, 25 Dihydroxy 60.0 19.9-79.3 pg/m L P-Lipid Panel Reviewed date:09/22/2024 05:55:06 PM Interpretation:trigs 372, non-hdl 138 Performing Lab: Notes/Report: Test performed by [facility] [address] [place], [place] [address] [place] , [address], [place] [address] Laureano Rod MD, [employer] Consultant CLIA: [id number] Cholesterol 190 <200 mg/dL Triglycerides 372 <150 [...] Results: 64 Units: mg/dL % Change: - P-Comprehensive Metabolic Pa liberty (CMP) Reviewed date:09/22/2024 05:55:06 PM Interpretation:gluc 118 Performing Lab: Notes/Report: Test performed by [facility] [address] , [address], [place] [address] Laureano Rod MD, [employer] Consultant CLIA: [id number] Sodium 138 135-145 mmol/L Potassium 4.5 3.5-5.3 [...] 0.4 <0.2-1.2 mg/dL A/G Ratio 2.1 1.1-2.5 P-Vitamin B12 Reviewed date:09/22/2024 05:55:06 PM Interpretation:1849 Performing Lab: Notes/Report: Test performed by [facility] [address] [place] [address] , [facility] [address], [place] [address] Laureano Rod MD, [employer] Consultant CLIA: [id number] Vitamin B12 7667 526-0526 pg/mL Reason For Referral Reason Dr Ferrer for abnormal echo Diagnosis 1 Abnormal echocardiog dennis (R93.1) Referral Organization [facility] Referring Provider First Name Jolie Booth Referring Provider Last Name Milagro Referring Provider Speciality [facility] ctice Referred Provider Carissa Holland Referred Provider Specialty Cardiovascul ar Disease General Notes Karishma Queen 10/30/20 24 3:01:40 PM > faxed to [facility] CardiologyBernice Brynn 11/06/2024 1:48:57 PM > 12/11/2024 at 01:30pm Referral Priority Routine Medications Medication SIG (Take, Route, Frequency, Duration) Notes Start Date End Date Status Rosuvastatin Calcium 40 MG 1 tablet Orally Once a day; Duration: 30 days Active predniSONE 5 MG 1 tab(s) orally once a day; Duration: 30 days Active Lisinopril 20 MG 1 tablet Orally Once a day; Duration: 90 days Active Propranolol HCl 40 MG 1 tab(s) orally Three times a day; Duration: 90 days Active amLODIPine Besylate 10 MG 1 tab(s) Orally Once a day; Duration: 90 days Active Aspirin 81 MG 1 tablet Orally Once a day Active Plavix 75 MG 1 tablet Orally Once a day Active PARoxetine HCl 10 MG 1 tab(s) orally once a day; Duration: 90 days Active CPAP machine and supplies - as directed as directed 05/11 with heated humidifier 04/28/2024 Active Fish Oil 1000 MG 2 cap orally 2 times a day 01/01/2020 Active B-12 1000 MCG 1 tab(s) orally once a day 08/12/2015 Active Omeprazole 20 MG 1 cap(s) orally once a day; Duration: 90 days Active Methotrexate 2.5 MG 5 tabs orally once a week Active Vascepa 1 GM 2 cap(s) orally 2 times a day; Duration: 90 days 01/05/2021 Active Loratadine 10 MG 1 tab(s) orally once a day Active Immunizations Vaccine Route Administration Date Status Comme nts COVID 19 Moderna Unknown 01/19/2021 Administered COVID 19 Moderna Unknown 11/02/2021 Administered Fluzone High Dose (65yr and older) IM Intramuscular 09/03/2015 Administered Fluzone High Dose (65yr and older) IM Intramuscular 08/27/2018 Administered Fluzone High Dose (65yr and older) Unknown 08/27/2020 Administered Fluzone High Dose (65yr and older) Unknown 09/14/2021 Administered Fluzone High Dose (65yr and older) Unknown 09/14/2021 Administered Fluzone High Dose (65yr and older) Unknown 10/16/2022 Administered Fluzone High Dose (65yr and older) IM Intramuscular 08/30/2023 Administered Fluzone High Dose (65yr and older) IM Intramuscular 09/18/2024 Administered Hepatitis A (adult) Unknown 11/06/2018 Administered Hepatitis A (adult) Unknown 11/06/2018 Administered PNEUMOVAX 23 VACCINE IM Intramuscular 05/23/2017 Administe red PNEUMOVAX 23 VACCINE Unknown 05/23/2017 Administered Prevnar (PCV13) IM Intramuscular 12/03/2014 Administered Prevnar (PCV13) Unknown 08/27/2020 Administered Prevnar (PCV20) IM Intramuscular 08/30/2023 Administered Tetanus Tdap-Adacel (over 7yrs) IM Intramuscular 05/23/2017 Administered Tetanus Tdap-Adacel (over 7yrs) Unknown 05/23/2017 Administered Problems Problem Type SNOMED Code ICD Code Onset Dates Problem Status W/U Status Risk Notes Problem Essential hypertension (83474362) Essential hypertension (I10) Active confirmed Problem Paresthesia (01777571) Paresthesia (R20.2) Active confirmed Problem Body mass index 30+ - obesity (581512438) BMI 30.0-30.9,adult (Z68.30) Active confirmed Problem Hot flashes (800666307) Hot flashes (N95.1) Active confirmed Problem Sciatica (53337008) Lumbago with sciatica, right side (M54.41) Active confirmed Problem Mixed hyperlipidemia (464933437) Mixed hyperlipidemia (E78.2) Active confirmed Problem Essential tremor (517572188) Essential tremor (G25.0) Active confirmed Problem Sciatica (07630742) Lumbago with sciatica, left side (M54.42) Active confirmed Problem Gastroesophageal reflux disease (251221519) GERD without esophagitis (K21.9) Active confirmed Problem Gastroesophageal reflux disease without esophagitis (638721164) Gastroesophageal reflux disease without esophagitis (K21.9) Active confirmed Problem Depression (542982951) Depression (F32.9) Active confirmed Problem Gastroesophageal reflux disease (653310916) Gastroesophageal reflux disease, esophagitis presence not specified (K21.9) Active confirmed Problem Carpal tunnel syndrome of left wrist (318172350574290) Carpal tunnel syndrome of left wrist (G56.02) Active confirmed Problem Obstructive sleep apnea syndrome (80177518) Severe obstructive sleep apnea (G47.33) Active confirmed Problem Dyslipidemia (169286653) Dyslipidemia (E78.5) Active confirmed Problem Osteoarthritis (713456354) OA (osteoarthritis) (M19.90) Active confirmed Problem Mood swings (16284200) Mood swings (F39) Active confirmed Problem Rheumatoid arthritis (19311707) Rheumatoid arthritis, involving unspecified site, unspecified rheumatoid factor presence (M06.9) Active confirmed Problem Post menopausal problems (N95.9) Active confirmed Vital Signs Heart Rate 58 /min 02/24/2025 Blood pressure diastolic 70 mm Hg 02/24/2025 Height 64 in 02/24/2025 Blood pressure systolic 140 mm Hg 02/24/2025 Weight 181.8 lbs 02/24/2025 BMI 31.2 kg/m2 02/24/2025 Encounters Encounter Location Date Provider Diagnosis [facility] [address] [place], [place] [id number] 09/18/2024 R Leobardo Milagro NORRIS (dyspnea on exertion) R06.09 ; TAHIRA (obstructive sleep apnea) G47.33 ; Dyslipidemia E78.5 ; Vitamin B 12 deficiency E53.8 ; Rheumatoid arthritis, involving unspecified site, unspecified rheumatoid factor presence M06.9 and Encounter for immunization Z23 [facility] [address] [place], [place] [id number] 02/24/2025 R Leobardo Milagro Carpal tunnel syndro me of left wrist G56.02 and OA (osteoarthritis) M19.90 [facility] [address] [place], [place] [id number] 08/06/2024 R Leobardo Milagro [facility] [address] [place] [id number] 09/22/2024 R Leobardo Milagro [facility] [address] [place], [place] [id number] 10/29/2024 R Leobardo Milagro Abnormal echocardiog dennis R93.1 [facility] [address] [place], [place] [id number] 01/16/2025 R Leobardo Milagro [facility] [address] [place], [place] [id number] 02/20/2025 R Leobardo Milagro [facility] [address] [place], [place] [id number] 03/09/2025 R Leobardo Milagro [facility] [address] [place], [place] [id number] 04/14/2025 R Leobardo Milagro [facility] [address] [place], [place] [id number] 05/18/2025 R Leobardo Milagro [facility] [address] [place] [id number] 06/24/2025 R Leobardo Milagro [facility] [address] [place] [id number] 06/29/2025 Jolie Gordilloeet Assessments Encounter Date Diagnosis (ICD Code) Assessment Notes Treatment Notes Treatment Clinical Notes Section Notes 09/18/2024 NORRIS (dyspnea on exertion) (ICD-10 - R06.09) 10/29/2024 Abnormal echocardiogram (ICD-10 - R93.1) 02/24/2025 Carpal tunnel syndrome of left wrist (ICD-10 - G56.02) She is provided written prescription for cock-up wrist splint to wear at night. Discussed possible referral for EMG testing if symptoms persist. 02/24/2025 OA (osteoarthritis) (ICD-10 - M19.90) 09/18/2024 TAHIRA (obstructive sleep apnea) (ICD-10 - G47.33) 09/18/2024 Dyslipidemia (ICD-10 - E78.5) 09/18/2024 Vitamin B 12 deficiency (ICD-10 - E53.8) 09/18/2024 Rheumatoid arthritis, involving unspecified site, unspecified rheumatoid factor presence (ICD-10 - M06.9) 09/18/2024 Encounter for immunization (ICD-10 - Z23) Plan Of Treatment Pending Test Test Name Order Date H-CBC 04/17/2023 H-MICROALB 04/17/2023 H-Lipid Panel 04/17/2023 H-CMP 04/17/2023 LC-Hep C Virus RNA (detect active infect ion) 09/26/2021 Next Appt Details Provider Name:Jolie Grimm enoc, 07/02/2025 10:30:00 AM, [address] [facility], [address], [place], [id number], Insurance Providers Payer Name Payer Address Payer Phone Subscriber Number Group Number Insured Name Patient Relationship to Insured Coverage Start Date Coverage End Date [employer] [address] [address] [place], [place] [id number] CLIFF CHACON Self - patient is the insured Medications Administered Medication Instructions Date of Administration Dosage Notes Depo- Medrol 40 mg/ml 02/25/2015 1 mL Depo- Medrol 40 mg/ml 09/14/2017 1.5 mL Depo- Medrol 40 mg/ml 04/02/2019 1.5 mL Depo- Medrol 40 mg/ml 06/13/2019 1.5 mL Depo- Medrol 40 mg/ml 03/18/2024 1 mL Depo- Medrol 40 mg/ml 02/24/2025 1.5 mL Medical (General) History Medical History History ICD Code HTN High Cholestrol RA followed by Dr. Portillo Sciatic nerve pain Hiatal hernia with GERD Tremor Non-union left foot fracture - 2013 chronic knee pain TAHIRA Surgical History Surgery Date(Month/Year) lumbar fusion X 3 Dr [facility] 2002, 2006, 2011 left knee scope X 2, right knee scope X 1 Dr Villareal Breast Reduction May 2016 Left TKA - Dr. Man 09/18/22 Right TKA - Dr. Man 08/03/2023 Hospitalization History Reason Date(Month/Year) [facility] ER - Fall/Low Back Pain 11/11/2022
--- OUTSIDE RECORDS SUMMARY | 2025-06-30 09:08 | XMS_ITS | Encounter Summary ---
Author Organization [facility] Address [address] [place] [address] Care Team Providers Care Fuel Conversion Technician Name Role Phone Pillo Humphrey MD Primary Care Provider [phone] Reason for Referral * Consultation (Routine) - Closed Specialty Diagnoses / Procedures Referred By Camilo morales Referred To Contact Dentist / Pain Medicine Diagnoses Obstructive sleep apnea Karolyn Salinas MD [address] [place] [address] Phone: tel: fax: Alice Arreola, DDS [address] [place] [address] Phone: tel: fax: Referral ID Status Reason Start Date Expiration Date Visits Re quested Visits Authorized [id number] Closed 09/05/2024 03/07/2026 1 1 Encounter Details Date Type Department Care Team (Late st Contact Info) Description 09/05/2024 Community Orders [facility] [address] [place] [address] Karolyn Salinas MD [address] [place] [address] Obstructive sleep apnea (Primary Dx) Social [...] (pediatric) documented in this encounter Care Teams Fuel Conversion Technician Relationship Specialty Start Date End Date Pillo Humphrey MD [address] [place] [address] PCP - General 04/08/21 documented as of this encounter
--- OUTSIDE RECORDS SUMMARY | 2025-06-30 09:08 | XMS_ITS | Referral Summary ---
Author Organization [facility] ([place], [place], [place], [place]) Address [address] [place] [address] Care Team Providers Care Principal Technologist Name Role Phone Unavailable Primary Care Provider [...] Date Aaron rded Speak language other than [place] at home Not on file 12/14/2023 Want [...]
--- OUTSIDE RECORDS SUMMARY | 2025-06-30 09:08 | XMS_ITS | Clinical Summary ---
Author Organization [facility] Address [address] [place] [address] Care Team Providers Care Retort Kiln Burner Name Role Phone Pillo Humphrey MD Primary Care Provider Allergies No known active allergies Medications methotrexate 2.5 MG tablet TAKE 5 TABLETS EVERY WEEK 65 tablet 3 4 Active folic acid (FOLVITE) 1 MG tablet TAKE 2 TABLETS EVERY DAY EXCEPT THE DAY YOU TAKE METHOTREXATE 156 tablet 3 4 Active vitamin B-12 (CYANOCOBALAMIN ) 1000 MCG tablet Take 1 tablet by mouth Daily. Active PARoxetine (PAXIL) 10 MG tablet Take 1 tablet by mouth Daily. Active cetirizine (zyrTEC) 10 MG tablet Take 1 tablet by mouth Daily. Active propranolol (INDERAL) 40 MG tablet Take 1 tablet by mouth 2 (Two) Times a Day. Active Budesonide-Form oterol Fumarate (SYMBICORT IN) Inhale 2 puffs Daily. Active omeprazole (priLOSEC) 20 MG capsule Take 1 capsule by mouth Daily. 30 minutes to 1 hour before a meal Active lisinopril (PRINIVIL,ZESTR IL) 10 MG tablet Take 1 tablet by mouth Daily. Active amLODIPine (NORVASC) 5 MG tablet Take 1 tablet by mouth Daily. Active rosuvastatin (CRESTOR) 20 MG tablet Take 1 tablet by mouth Daily. Active predniSONE (DELTASONE) 5 MG tablet Take 1 tablet by mouth Daily. Active aspirin 81 MG chewable tablet Chew 1 tablet Daily. Active brimonidine (ALPHAGAN P) 0.1 % solution ophthalmic solution 5 Active clopidogrel (PLAVIX) 75 MG tablet Take 1 tablet by mouth Daily. Active difluprednate (DUREZOL) 0.05 % ophthalmic emulsion 5 Active ketorolac (ACULAR) 0.4 % solution 5 Active spironolactone (ALDACTONE) 25 MG tablet Take 1 tablet by mouth Daily. 5 Active loratadine (CLARITIN) 10 MG tablet Take 1 tablet by mouth Daily. Active Active Problems Problem Noted Date Diagnosed Date Shortness of breath 04/29/2025 Assessment & Plan (04/29/2025 1:38 PM EDT): No relief with cardiac stents She is easily short of breath with minimal activity Continue to follow up with cardiology Xray chest today. RA and methotrexate both can potentially affect the lungs. Postmenopause 04/29/2025 Assessment & Plan (04/29/2025 1:40 PM EDT): Dexa with next visit. Other fatigue 04/23/2025 Assessment & Plan (04/23/2025 8:18 AM EDT): Update QTB and hepatitis panel Rheumatoid arthritis involving multiple sites Assessment & Plan (04/29/2025 1:32 PM EDT): * Diagnosis made before 2004 * On [...] low, she is having more hand pain. High risk medication use 06/21/2024 Assessment & Plan (04/23/2025 8:17 AM EDT): * MTX 10 mg PO once/week for RA 1. CBC and CMP every 8-12 weeks to monitor for medication toxicity. 2. Take folate supplements daily. 3. No recent serious infections. 4. Refill today Current use of steroid medication 06/21/2024 Assessment & Plan (04/23/2025 8:17 AM EDT): Prednisone 5 mg/day for RA. Prior attempts to taper have failed. Refill today Immunodeficiency due to drug therapy 06/21/2024 Assessment & Plan (04/29/2025 1:33 PM EDT): SELVIN humira biosimilar 04/29/25 Encounters Date Type Department Care Team Description 04/30/2025 Results Follow-Up [facility] [address] [place] [phone] Baldomero Mullen APRN 04/29/2025 2:00 PM EDT Ancillary Procedure [facility] [address] [place] [phone] 04/29/2025 1:30 PM EDT Office Visit [facility] [address] [place] [phone] Baldomero Mullen, AUTOMATIC CIGAR WRAPPER TENDER Rheumatoid arthritis involving multiple sites, unspecified whether rheumatoid factor present (Primary Dx); High risk medication use; Current use of steroid medication; Immunodeficiency due to drug therapy; Other fatigue; Shortness of breath; Postmenopause 04/29/2025 Telephone [facility] [address] [place] [phone] Baldomero Mullen APRN 04/29/2025 Travel from Last 3 Months Immunizations Immunization Administration Dates Next Due COVID-19 (MODERNA) 12YRS+ (SPIKEVAX) 01/19/2021, 12/22/2020 Influenza, Unspecified 08/30/2020 Family History Medical History Relation Name Comments Rheum arthritis Other FAMILY HISTORY Relation Name Status Comments Other FAMILY HISTORY Social History Tobacco Use Types Packs/Day Years [...] Orientation Straight 04/22/2025 10 :14 AM EDT Last Filed Vital Signs Vital Sign Reading [...] Mass Index 30.55 04/29/2025 1:10 PM EDT Plan of Treatment Upcoming Encounters Date Type Department Care Team (Late st Contact Info) Description 09/01/2025 2:15 PM EDT Office Visit [facility] [address] [phone] Jose Mullen APRN [address] [phone] Health Maintenance Due Date Last Done Comments DXA SCAN 1950 ZOSTER VACCINE (1 of 2) 1969 ANNUAL WELLNESS VISIT 02/20/2021 RSV Vaccine - Adults (1 - 1- dose 75+ series) 2023 COVID-19 Vaccine ( - 2023-2 5 season) 2024 10/16/2022, 11/02/2021, 01/19/2021, Additional history exists INFLUENZA VACCINE 08/26/2025 10/16/2022, , 08/30/2020, Additional history exists TDAP/TD VACCINES (2 - Td or Tdap) 05/23/2027 017 Pneumococcal Vaccine 50+ Completed 023, 08/27/2020, 05/23/2017 HEPATITIS C SCREENING Completed 04/29/2025 Procedures Procedure Name Priority Date/Time Associated Diagnosis Comments HEPATITIS C VIRUS INTERPRETATION Routine 04/29/2025 2:18 PM EDT CBC AND DIFFERENTIAL Routine 04/29/2025 2:18 PM EDT Rheumatoid arthritis involving multiple sites, unspecified whether rheumatoid factor present High risk medication use Immunodeficiency due to drug therapy QUANTIFERON-TB GOLD PLUS Routine 04/29/2025 2:18 PM EDT HEPATITIS PANEL, ACUTE Routine 2:18 PM EDT Rheumatoid arthritis involving multiple sites, unspecified whether rheumatoid factor present High risk medication use Immunodeficiency due to drug therapy Other fatigue QUANTIFERON-TB GOLD PLUS (LI-HEP) Routine 04/29/2025 2:18 PM EDT Rheumatoid arthritis involving multiple sites, unspecified whether rheumatoid factor present High risk medication use Immunodeficiency due to drug therapy Other fatigue C-REACTIVE PROTEIN Routine 04/29/2025 2: 18 PM EDT Rheumatoid arthritis involving multiple sites, unspecified whether rheumatoid factor present High risk medication use Immunodeficiency due to drug therapy SEDIMENTATION RATE Routine 04/29/2025 2: 18 PM [...] 04/29/2025 2:05 PM EDT Shortness of breath from Last 3 Months Results * Hepatitis C Virus Interpretation (04/29/2025 2:18 PM EDT) Interpretation Comment [facility] Comment: Not infected with HCV unless early or acute infection is suspected (which may be delayed in an immunocompromised individual), or other evidence exists to indicate HCV infection. 04/29/2025 2:18 PM EDT 04/29/2025 Narrative [facility] ([facility]) - 05/01/2025 7:06 AM EDT Performed at: [address] [place] [id number] Supervisor Typesetting: Leonel Herrera PhD, Phone: [phone] Patient Fasting: Y Jose Mullen AUTOMATIC CIGAR WRAPPER TENDER LAB BLOOD ORDERABLES F inal Result [facility] (AMBULATORY) [address] [place] [phone], [facility] [address] [place] [id number], * QuantiFERON-TB Gold Plus (04/29/2025 2:18 PM EDT) [facility] QuantiFERON Criteria Comment [facility] Comment: QuantiFERON-TB Gold Plus is a [...] [facility] QuantiFERON Mitogen Value >10.00 IU/mL [facility] 04/29/2025 2:18 PM EDT 04/29/2025 Narrative [facility] ([facility]) - 05/01/2025 7:06 AM EDT Performed at: [address] [place] [id number] Supervisor Typesetting: Leonel Herrera PhD, Phone: [phone] Patient Fasting: Y Jose Sebas AUTOMATIC CIGAR WRAPPER TENDER LAB BLOOD ORDERABLES F inal Result Performing Organization Address [facility] Co de Phone Number [facility] [address] [place] [address], [place] [phone] [facility] [address] [place] [address], [place] [phone] * QuantiFERON-TB Gold Plus (Li-Hep) (04/29/2025 2:18 PM EDT) [facility] QuantiFERON Incubation Incubation performed. [facility] [...] 04/29/2025 2:18 PM EDT 04/29/2025 Narrative [facility] (AMBULATORY) - 05/01/2025 7:06 AM EDT Performed at: - [facility] [address] [place] [id number] Supervisor Typesetting: Leonel Herrera PhD, Phone: [phone] Patient Fasting: Y GinaVlad Mullen AUTOMATIC CIGAR WRAPPER TENDER LAB BLOOD ORDERABLES F inal Result Performing Organization Address [facility] Co de Phone Number [facility] [address] [place] [address], [place] [phone] [facility] [address] [place] [address], [place] [phone] * Hepatitis Panel, Acute (04/29/2025 2:18 PM EDT) [facility] Hep A IgM Negative Negative [facility] [...] - 05/01/2025 7:06 AM EDT Performed at: [address] [place] [id number] Supervisor Typesetting: Leonel Herrera PhD, Phone: [phone] Patient Fasting: Y Jose Mullen AUTOMATIC CIGAR WRAPPER TENDER LAB BLOOD ORDERABLES F inal Result Performing Organization Address [facility] de Phone Number [facility] (AMBULATORY) [address] [place] [address], [place] [phone] [facility] [address] [place] [address], [place] [phone] * Sedimentation Rate (04/29/2025 2:18 PM EDT) Pathologist [facility] Sed Rate 19 0 - 40 mm/hr [facility] Blood 04/29/2025 2:18 PM EDT 04/29/2025 Narrative [facility]) - 05/01/2025 7:06 AM EDT Performed at: [address] [id number] Supervisor Typesetting: Leonel Herrera PhD, Phone: [phone] Patient Fasting: Y Jose Mullen APRN LAB BLOOD ORDERABLES F inal Result Performing Organization Address [facility] de Phone Number [facility] [address] [place] [address], [place] [phone] [facility] [address] [place] [address], [place] [phone] * (ABNORMAL) CBC & Differential (04/29/2025 2:18 [...] 04/29/2025 2:18 PM EDT 04/29/2025 Narrative [facility] (AMBULATORY) - 05/01/2025 7:06 AM EDT Performed at: - [facility] [address] [id number] Supervisor Typesetting: Leonel Herrera PhD, Phone: [phone] Patient Fasting: Y us Jose Mullen AUTOMATIC CIGAR WRAPPER TENDER LAB BLOOD ORDERABLES F inal Result [facility] (AMBULATORY) [address] [place] [address], [place] [phone] [facility] [address] [place] [address], * C-reactive Protein (04/29/2025 2:18 PM EDT) Pathologist [facility] C-Reactive Protein 4 0 - 10 mg/L [facility] Blood 04/29/2025 2:18 PM EDT 04/29/2025 Narrative [facility] - 05/01/2025 7:06 AM EDT Performed at: [facility] - [facility] [address] [place], [place] [id number] Supervisor Typesetting: Leonel Herrera PhD, Phone: [phone] Patient Fasting: Y Jose Mullen APRN LAB BLOOD ORDERABLES F inal Result [facility] [address] [place] [address], [facility] [address] [place] [address], * (ABNORMAL) Comprehensive Metabolic Panel (04/29/2025 2:18 PM EDT) Pathologist [facility] Glucose 98 70 - 99 mg/dL [facility] [...] 04/29/2025 2:18 PM EDT 04/29/2025 Narrative [facility] (AMBULATORY) - 05/01/2025 7:06 AM EDT Performed at: - [facility] [id number] Supervisor Typesetting: Leonel Herrera PhD, Phone: [phone] Patient Fasting: Y us Jose Mullen AUTOMATIC CIGAR WRAPPER TENDER LAB BLOOD ORDERABLES F inal Result [facility] [address] [place] [address], [facility] [address] [place] [address], * XR Chest 2 View (04/29/2025 2:05 PM EDT) Anatomical Region Laterality Modality Body N/A Radiographic Faith ging 04/30/2025 9:52 AM EDT Impressions 04/30/2025 9:53 AM EDT Impression: No acute findings. Electronically Signed: Clarke Bowen MD 04/30/2025 9:53 AM EDT Workstation ID: [id number] Narrative 04/30/2025 9:53 AM EDT XR CHEST 2 VW Date of Exam: 04/29/2025 2:00 PM EDT Indication: fatigue Comparison: None available. Findings: Borderline enlarged cardiac silhouette. No focal airspace consolidation. No pleural effusion or pneumothorax. Multilevel spondylosis with lumbar spinal fusion hardware partially included within the [id number]. Procedure Note Clarke Bowen MD - 04/30/2025 XR CHEST 2 VW Date of Exam: 04/29/2025 2:00 PM EDT Indication: fatigue Comparison: None available. Findings: Borderline enlarged cardiac silhouette. No focal airspace consolidation.No pleural effusion or pneumothorax. Multilevel spondylosis with lumbarspinal fusion hardware partially included within the [id number]. IMPRESSION: Impression: No acute findings. Electronically Signed: Clarke Bowen MD 04/30/2025 9:53 AM EDT Workstation ID: [id number] Jose Mullen AUTOMATIC CIGAR WRAPPER TENDER IMG DIAGNOSTIC IMAGING ORDERABLES Final Result from Last 3 Months Insurance [facility] MEDICARE ADVANTAGE PPO MEDICARE A & B [facility] MEDICARE ADVANTAGE PPO Care Teams Retort Kiln Burner Relationship Specialty Start Date End Date Pillo Humphrey MD [address] [place] [address] [facility] [address] [place] [address] PCP - General Family Medicine 02/20/21
--- NOTE | 2025-06-30 09:10 | XR_ITS ---
FINAL REPORT CLINICAL HISTORY: POST MENOPAUSE FINDINGS: Lumbar spine was not evaluated. Using the right forearm, the bone mineral density of 1/3 is 0.604 g/cm2, corresponding to a T-score of-1.5, consistent with osteopenia Using the left hip, the bone mineral density of the femoral neck is 0.748 g/cm2, corresponding to a T-score of -0.9, within normal limits. Using the right hip, the bone mineral density of the femoral neck is 0.695 g/cm2, corresponding to a T-score of -1.4, consistent with osteopenia. FRAX 10 year fracture risk is 3.4% for a hip fracture and 15% for a major osteoporotic fracture. NOTE: T-score: Standard deviation compared with peak bone mass of young adult mean. *Following the recommendations of the International Society of Bone densitometry, classification of hip BMD is based on the lower of two T-scores; total hip or femoral neck. IMPRESSION: Normal bone mineral density of the left hip, with diminished bone mineral density in the right forearm and right hip consistent with osteopenia. Reviewed, Interpreted and Dictated by Neto Bhakta MD Transcribed by Grecia Mcarthur Authenticated and [facility]
== END 2025-06-30 23:59 | disposition home or self-care (01) ==
LOC: RAD 09:05
PROVIDERS: PCP Family Medicine; Visit Provider Nurse Practitioner Family
DX: Z78.0 Asymptomatic menopausal state (principal); M85.831 Other specified disorders of bone density and structure, right forearm; M85.851 Other specified disorders of bone density and structure, right thigh
CPT/HCPCS: 77080

== ENCOUNTER 2025-07-29 16:13 | Outpatient (CLI) | payer MEDICARE, SELFPAY ==
--- OUTSIDE RECORDS SUMMARY | 2025-01-20 07:30 | XMS_ITS ---
Author Organization Moe Address 1210 [facility] 36 [facility] [address] [place] [phone] Care Team Providers Care Block Sealer Name Role Phone Jolie Humphrey Primary Care [...] Encounter Location Date Provider Diagnosis Moe [address] [place] [phone] 01/20/2025 Jolie Humphrey Adult general medica l [...] Follow Up: As directed by , Reason: Progress Notes * CLIFF CHACON RDOB: [birth year] (75 yo F)Acc No.[id number]:01/20/2025 Annual Wellness Visit Patient: CLIFF FARAH Provider: Jolie Humphrey M.D. :1950 A ge:74 Y S ex:Female Date:01/20/2025 Address:[address] [place] [address] [id number] Subjective: * Chief Complaints: * 1 . [...] umbar fusion X 3 Dr Singh Spine [place] 2002, 2006, 2011, left knee scope X [...] enies problems. Assessment: * Assessment: [facility]. [facility] (Primary) Plan: * Treatment: * Imaging: * I maging: Bone density (Performed Date - 05/14/2025) p t declined ?Imaging: colonoscopy (Performed Date - 05/14/2025)?pt declined* ?Imaging: Mammogram (Performed Date - 05/14/2025)?pt declined* * Khalida Cui 05/14/2025 1 0:52:43 AM EDT >pt declined * Procedure Codes: G 0439 ANNUAL WELLNESS VST; PPS SUBSQT VST, Modifiers: 25 , 76223 GLYCATED HEMOGLOBIN TEST, Modifiers: QW , G0444 [...] WELLNESS VST; PPS SUBSQT VST. Modifiers: 25 44291 GLYCATED HEMOGLOBIN TEST. Modifiers: QW G0444 ANNUAL DEPRESSION SCREENING 15 MIN. 1090F PRES/ABSN URINE INCON ASSESS. 3288F FALL RISK ASSESSMENT DOCD. 1170F FXNL STATUS ASSESSED. 1126F AMNT PAIN NOTED NONE PRSNT. 1159F MED LIST DOCD IN RCRD. 1003F LEVEL OF ACTIVITY ASSESS. 1036F TOBACCO NON-USER. * Electronic signature of Jolie Humphrey MD on 07/29/2025 at 04:16 PM EDT Sign off status: Pending * Provider: Jolie Humphrey M.D. Date: 0 01/20/2025 Generated for Tyesha tripathi/Lacie/eTransmitting on: 0 07/29/2025 04:16 PM EDT History and Physical Notes * HPI (History of Present Illness) Category Sub-Category Detail Notes Category Not es HPI Patient is here today for a [facility] duled check up and a Medicare Annual Wellness [...]
--- OUTSIDE RECORDS SUMMARY | 2025-02-24 10:00 | XMS_ITS ---
Author Organization [facility] Address [address] [facility] [address] [place] [phone] Care Team Providers Care Manager Ent Name Role Phone Jolie Humphrey Primary Care Provider [phone] Allergies No Known Allergies REASON FOR VISIT [...] Problem Carpal tunnel syndrome of left wrist ([id number]) Carpal tunnel syndrome of left wrist (G56.02) Active confirmed Problem Osteoarthritis (758287982) OA (osteoarthri tis) (M19.90) Active confirmed Vital Signs Weight 181.8 lbs 02/24/2025 Blood pressure systolic 140 mm Hg 02/25/20 25 Blood pressure diastolic 70 mm Hg 025 Heart Rate 58 /min 02/24/2025 Height 64 in 02/24/2025 BMI 31.2 kg/m2 02/24/2025 Encounters Encounter Location Date Provider Diagnosis [facility]10 [facility] 36 [facility] [address] [place] [phone] 02/24/2025 Jolie Humphrey Carpal tunnel syndrome of [...] CLIFF CHACON RDOB: [birth year] (75 yo F)Acc No.[id number]:02/24/2025 Progress Notes Patient: CLIFF FARAH Provider: Jolie Humphrey M.D. :1950 A ge:74 Y S ex:Female Date:02/24/2025 Address:[address] [place] [address] [id number] Subjective: * Chief Complaints: * 1 . [...] umbar fusion X 3 Dr Singh Spine [place] 2002, 2006, 2011, left knee scope X [...] or deformity.? Sensation is intact at present. Electric Gas Appliances Demonstrator strength is normal. Tinel's sign is negative..? [...] methylpred acetate 1 mg, Units: 1.50 , 66655 ADMINISTRATION OF INJECTION, 3077F SYST BP = 140 MM HG6 IT, 3078F DIAST BP < 80 MM HG * Follow Up: 4 Weeks,prn * Images: Billing Information: * Visit Code: 62495 Office Visit, Est Pt., Level 3. Modifiers: 25 * Procedure Codes: G2211 Complex e/m visit add on. J1010 Inj, methylpred acetate 1 mg. Units: 1.50. 98396 ADMINISTRATION OF INJECTION. 3077F SYST BP = 140 MM HG6 IT. 3078F DIAST BP < 80 MM HG. * Electronic signature of Jolie Humphrey MD on 07/29/2025 at 04:15 PM EDT Sign off status: Pending * Provider: Jolie Humphrey M.D. Date: 0 02/24/2025 Generated for Tyesha tripathi/Lacie/Samantha on: 0 07/29/2025 04:15 PM EDT History and Physical Notes * [...] or deformity. Sensation is intact at present. Electric Gas Appliances Demonstrator strength is normal. Tinel's sign is negative.
--- OUTSIDE RECORDS SUMMARY | 2025-04-29 13:30 | XMS_ITS | Encounter Summary ---
Author Organization [facility] Address [address] [place] [address] Care Team Providers Care Process Consultant Name Role Phone Pillo Humphrey MD Primary Care Provider Reason for Referral * Diagnostic Imaging (Routine) - Closed Specialty Diagnoses / Procedures Referred By Contac t Referred To Contact Diagnoses Postmenopause Procedures DEXA Bone Density Axial Jose Mullen APRN [address] [address] Phone: tel: fax: [facility] - OUTPT PHYSICAL THERAPY [address] [place] [address] Phone: tel: fax: Referral ID Status Reason Start Date Expiration Date Visits Re quested Visits Authorized [id number] Closed 04/29/2025 07/29/2026 1 1 Reason for Visit * Reason Comments Rheumatoid Arthritis Encounter Details Date Type Department Care Team (Late st Contact Info) Description 04/29/2025 1:30 PM EDT Office Visit [facility] RHEUMATOLOGY [address] [address] Jose Mullen APRN [address] [phone] Rheumatoid arthritis involving multiple sites, unspecified whether rheumatoid factor present (Primary Dx); High risk medication use; Current use of steroid medication; Immunodeficiency due to drug therapy; Other fatigue; Shortness of breath; Postmenopause Social History Tobacco Use Types Packs/Day Years Used Date Smoking Tobacco: Never Passive Smoke Exposure: Past Smokeless Tobacco: Never Tobacco Cessation:Counseling Given: Not Answered Alcohol Use Standard Drinks/Week Comments Never 0 (1 standard drink = 0.6 oz pur e alcohol) Comments Unknown Sex and Gender Information Value Date Recorded Sex Assigned at Female 04/22/2025 10:14 AM EDT Legal Sex Female 10:26 AM EDT Gender Identity Not on file Sexual Orientation Straight 04/22/2025 10 :14 AM EDT documented as of this encounter Last Filed Vital Signs Vital Sign Reading Time Taken Comments Blood Pressure 120/78 04/29/2025 1:10 PM EDT Pulse 54 04/29/2025 1:10 PM EDT Temperature 36.3 C (97.3 F) 04/29/2025 1:10 PM EDT Respiratory Rate - - Oxygen Saturation - - Inhaled Oxygen Concentration - - Weight 80.7 kg (178 lb) 04/29/2025 1:10 PM EDT Height 162.6 cm (5' 4 ) 04/29/2025 1:10 PM EDT Body Mass Index 30.55 04/29/2025 1:10 PM EDT documented in this encounter Patient Instructions * Attachments The following attachments cannot be sent through Care Everywhere. * Hand Pain (Liberian) documented in this encounter Progress Notes * Jose Mullen APRN - 04/29/2025 1:40 PM EDTAssociated Problem(s): Postmenopause Dexa with next visit. * Jose Mullen APRN - 04/29/2025 1:38 PM EDTAssociated Problem(s): Shortness of breath No relief with cardiac stents She is easily short of breath with minimal activity Continue to follow up with cardiology Xray chest today. RA and methotrexate both can potentially affect the lungs. * Jose Mullen, FISHING VESSEL CAPTAIN - 04/29/2025 1:30 PM EDT Images from the original note were not included. Office Visit Date: 04/29/2025 Patient Name: Leoncio Ramsey Date of : 1950 Referring Physician: No ref. provider found Chief Complaint: Chief Complaint Patient presents with Rheumatoid Arthritis History of Present Illness: Leoncio Ramsey is a 75 y.o. female who is here today for follow-up of rheumatoid arthritis. She was last seen March 20, 2024. She is prescribed prednisone daily and methotrexate and folic acid. She is no longer taking Orencia. Today she rates her pain 0.5 out of 10, global 6 out of 10 and has 3 hours of morning stiffness. She has been started on Plavix and aspirin since we last saw her. She declines refills today. Subjective Review of Systems: Review of Systems Respiratory: Positive for shortness of breath and wheezing. Musculoskeletal: Positive for arthralgias, back pain, joint swelling, myalgias, neck pain and neck stiffness. Skin: Bruising, dry skin, hair loss Allergic/Immunologic: Positive for environmental allergies. Neurological: Positive for light-headedness. All other systems reviewed and are negative. Past Medical History: Past Medical History: Diagnosis Date Alopecia Bilateral carpal tunnel syndrome Chronic back pain Depression GERD (gastroesophageal reflux disease) Hypertension Osteoarthritis Rheumatoid arthritis Stress fracture of left foot Past Surgical History: Past Surgical History: Procedure Laterality Date BILATERAL BREAST REDUCTION KNEE ARTHROSCOPY LUMBAR SPINE SURGERY REPLACEMENT TOTAL KNEE Family History: Family History Problem Relation Age of Onset Rheum arthritis Other Social History: Social History Socioeconomic History Marital status: Unknown Tobacco Use Smoking status: Never Passive exposure: Past Smokeless tobacco: Never Vaping Use Vaping status: Never Used Substance and Sexual Activity Alcohol use: Never Drug use: Never Sexual activity: Defer Medications: Current Outpatient Medications: amLODIPine (NORVASC) 5 MG tablet, Take 1 tablet by mouth Daily., Disp: , Rfl: aspirin 81 MG chewable tablet, Chew 1 tablet Daily., Disp: , Rfl: brimonidine (ALPHAGAN P) 0.1 % solution ophthalmic solution, , Disp: , Rfl: Budesonide-Formoterol Fumarate (SYMBICORT IN), Inhale 2 puffs Daily., Disp: , Rfl: cetirizine (zyrTEC) 10 MG tablet, Take 1 tablet by mouth Daily., Disp: , Rfl: clopidogrel (PLAVIX) 75 MG tablet, Take 1 tablet by mouth Daily., Disp: , Rfl: difluprednate (DUREZOL) 0.05 % ophthalmic emulsion, , Disp: , Rfl: folic acid (FOLVITE) 1 MG tablet, TAKE 2 TABLETS EVERY DAY EXCEPT THE DAY YOU TAKE METHOTREXATE, Disp: 156 tablet, Rfl: 3 ketorolac (ACULAR) 0.4 % solution, , Disp: , Rfl: lisinopril (PRINIVIL,ZESTRIL) 10 MG tablet, Take 1 tablet by mouth Daily., Disp: , Rfl: loratadine (CLARITIN) 10 MG tablet, Take 1 tablet by mouth Daily., Disp: , Rfl: methotrexate 2.5 MG tablet, TAKE 5 TABLETS EVERY WEEK, Disp: 65 tablet, Rfl: 3 omeprazole (priLOSEC) 20 MG capsule, Take 1 capsule by mouth Daily. 30 minutes to 1 hour before a meal, Disp: , Rfl: PARoxetine (PAXIL) 10 MG tablet, Take 1 tablet by mouth Daily., Disp: , Rfl: predniSONE (DELTASONE) 5 MG tablet, Take 1 tablet by mouth Daily., Disp: , Rfl: propranolol (INDERAL) 40 MG tablet, Take 1 tablet by mouth 2 (Two) Times a Day., Disp: , Rfl: rosuvastatin (CRESTOR) 20 MG tablet, Take 1 tablet by mouth Daily., Disp: , Rfl: spironolactone (ALDACTONE) 25 MG tablet, Take 1 tablet by mouth Daily., Disp: , Rfl: vitamin B-12 (CYANOCOBALAMIN) 1000 MCG tablet, Take 1 tablet by mouth Daily., Disp: , Rfl: Allergies: No Known Allergies I have reviewed and updated the patient's chief complaint, history of present illness, review of systems, past medical history, surgical history, family history, social history, medications and allergy list as appropriate. Objective Vital Signs: Vitals: 04/29/25 1310 BP: 120/78 BP Location: Left arm Patient Position: Sitting Cuff Size: Adult Pulse: 54 Temp: 97.3 ??F (36.3 ??C) Weight: 80.7 kg (178 lb) Height: 162.6 cm (64 ) PainSc: 0-No pain Body mass index is 30.55 kg/m??. Defer to PCP Physical Exam: Physical Exam Vitals reviewed. Constitutional: Appearance: Normal appearance. HENT: Head: Normocephalic and atraumatic. Mouth/Throat: Mouth: Mucous membranes are moist. Eyes: Conjunctiva/sclera: Conjunctivae normal. Cardiovascular: Rate and Rhythm: Normal rate and regular rhythm. Pulses: Normal pulses. Heart sounds: Normal heart sounds. Pulmonary: Effort: Pulmonary effort is normal. Breath sounds: Normal breath sounds. Musculoskeletal: General: Normal range of motion. Cervical back: Normal range of motion and neck supple. Comments: Mild synovitis of the left 2nd PIP and right 3rd PIP. Scarring on the palm of the right hand No active triggering today Bilateral knees have been replaced Skin: General: Skin is warm and dry. Neurological: General: No focal deficit present. Mental Status: She is alert and oriented to person, place, and time. Mental status is at baseline. Psychiatric: Mood and Affect: Mood normal. Behavior: Behavior normal. Thought Content: Thought content normal. Judgment: Judgment normal. Results Review: Imaging Results (Last 24 Hours) No results found for the last 24 hours. Procedures Assessment / Plan Assessment/Plan: Diagnoses and all orders for this visit: 1. Rheumatoid arthritis involving multiple sites, unspecified whether rheumatoid factor present (Primary) Assessment & Plan: * Diagnosis made before 2004 * On methotrexate since * Former patient of Dr. Portillo. 1. Continue/refill prednisone 2. Continue/refill MTX & folic acid 3. Follow up in 3-4 months 4. Check labs every 8-12 weeks to monitor for medication toxicity. We will mail her a new lab order 5. We will mail her a patient education handout to review regarding hand pain. 6. She could not afford Cimzia or Humira 7. She is unsure how much the the methotrexate is working anymore. She does feel better in warmer weather. 8. She has developed a nodule over 4th right MCP. 9. We will PA a humira biosimilar. Even though her pain score is low, she is having more hand pain. Orders: - C-reactive Protein; Standing - Sedimentation Rate; Standing - Comprehensive Metabolic Panel; Standing - CBC & Differential; Standing - CBC & Differential - Comprehensive Metabolic Panel - Sedimentation Rate - C-reactive Protein - QuantiFERON-TB Gold Plus (Li-Hep) - Hepatitis Panel, Acute 2. High risk medication use Assessment & Plan: * MTX 10 mg PO once/week for RA 1. CBC and CMP every 8-12 weeks to monitor for medication toxicity. 2. Take folate supplements daily. 3. No recent serious infections. 4. Refill today Orders: - C-reactive Protein; Standing - Sedimentation Rate; Standing - Comprehensive Metabolic Panel; Standing - CBC & Differential; Standing - CBC & Differential - Comprehensive Metabolic Panel - Sedimentation Rate - C-reactive Protein - QuantiFERON-TB Gold Plus (Li-Hep) - Hepatitis Panel, Acute 3. Current use of steroid medication Assessment & Plan: Prednisone 5 mg/day for RA. Prior attempts to taper have failed. Refill today 4. Immunodeficiency due to drug therapy Assessment & Plan: PA humira biosimilar 04/29/25 Orders: - C-reactive Protein; Standing - Sedimentation Rate; Standing - Comprehensive Metabolic Panel; Standing - CBC & Differential; Standing - CBC & Differential - Comprehensive Metabolic Panel - Sedimentation Rate - C-reactive Protein - QuantiFERON-TB Gold Plus (Li-Hep) - Hepatitis Panel, Acute 5. Other fatigue Assessment & Plan: Update QTB and hepatitis panel Orders: - QuantiFERON-TB Gold Plus (Li-Hep) - Hepatitis Panel, Acute 6. Shortness of breath Assessment & Plan: No relief with cardiac stents She is easily short of breath with minimal activity Continue to follow up with cardiology Xray chest today. RA and methotrexate both can potentially affect the lungs. Orders: - XR Chest 2 View 7. Postmenopause Assessment & Plan: Dexa with next visit. Orders: - DEXA Bone Density Axial; Future Follow Up: Return in about 4 months (around 08/29/2025) for FIELD [employer]YMAN. Jose Mullen APRN [facility] [place] * Jose Mullen APRN - 04/23/2025 8:18 AM EDTAssociated Problem(s): Other fatigue Update QTB and hepatitis panel * Jose Mullen APRN - 04/23/2025 8:18 AM EDTAssociated Problem(s): Immunodeficiency due to drug therapy PA humira biosimilar 04/29/25 * Jose Mullen APRN - 04/23/2025 8:17 AM EDTAssociated Problem(s): Current use of steroid medication Prednisone 5 mg/day for RA. Prior attempts to taper have failed. Refill today * Jose Mullen APRN - 04/23/2025 8:17 AM EDTAssociated Problem(s): High risk medication use * MTX 10 mg PO once/week for RA 1. CBC and CMP every 8-12 weeks to monitor for medication toxicity. 2. Take folate supplements daily. 3. No recent serious infections. 4. Refill today * Jose Mullen APRN - 04/23/2025 8:17 AM EDTAssociated Problem(s): Rheumatoid arthritis involving multiple sites * Diagnosis made before 2004 * On methotrexate since * Former patient of Dr. Portillo. 1. Continue/refill prednisone 2. Continue/refill MTX & folic acid 3. Follow up in 3-4 months 4. Check labs every 8-12 weeks to monitor for medication toxicity. We will mail her a new lab order 5. We will mail her a patient education handout to review regarding hand pain. 6. She could not afford Cimzia or Humira 7. She is unsure how much the the methotrexate is working anymore. She does feel better in warmer weather. 8. She has developed a nodule over 4th right MCP. 9. We will PA a humira biosimilar. Even though her pain score is low, she is having more hand pain. documented in this encounter Plan of Treatment Upcoming Encounters Date Type Department Care Team (Late st Contact Info) Description 09/01/2025 2:15 PM EDT Office Visit [facility] RHEUMATOLOGY [address] [phone] Jose Mullen APRN [address] [address] Scheduled Orders Name Type Priority Associated Diagnoses Orde r Schedule C-reactive Protein Lab Routine Rheumatoid arthritis involving multiple sites, unspecified whether rheumatoid factor present High risk medication use Immunodeficiency due to drug therapy Every 8 Weeks for 4 Occurrences starting 04/29/2025 until 04/29/2026 Sedimentation Rate Lab Routine Rheumatoid arthritis involving multiple sites, unspecified whether rheumatoid factor present High risk medication use Immunodeficiency due to drug therapy Every 8 Weeks for 4 Occurrences starting 04/29/2025 until 04/29/2026 Comprehensive Metabolic Panel Lab Routine Rheumatoid arthritis involving multiple sites, unspecified whether rheumatoid factor present High risk medication use Immunodeficiency due to drug therapy Every 8 Weeks for 4 Occurrences starting 04/29/2025 until 04/29/2026 CBC & Differential Lab Panel Routine Rheumatoid arthritis involving multiple sites, unspecified whether rheumatoid factor present High risk medication use Immunodeficiency due to drug therapy Every 8 Weeks for 4 Occurrences starting 04/29/2025 until 04/29/2026 documented as of this encounter Procedures Procedure Name Priority Date/Time Associated Diagnosis Comments DEXA BONE DENSITY AXIAL Routine 06/30/2025 Postmenopause HEPATITIS C VIRUS INTERPRETATION Routine 04/29/2025 2:18 PM EDT QUANTIFERON-TB GOLD PLUS Routine 04/29/2025 2:18 PM EDT QUANTIFERON-TB GOLD PLUS (LI-HEP) Routine 04/29/2025 2:18 PM EDT Rheumatoid arthritis involving multiple sites, unspecified whether rheumatoid factor present High risk medication use Immunodeficiency due to drug therapy Other fatigue HEPATITIS PANEL, ACUTE Routine 2:18 PM EDT Rheumatoid arthritis involving multiple sites, unspecified whether rheumatoid factor present High risk medication use Immunodeficiency due to drug therapy Other fatigue SEDIMENTATION RATE Routine 04/29/2025 2: 18 PM EDT Rheumatoid arthritis involving multiple sites, unspecified whether rheumatoid factor present High risk medication use Immunodeficiency due to drug therapy CBC AND DIFFERENTIAL Routine 04/29/2025 2:18 PM EDT Rheumatoid arthritis involving multiple sites, unspecified whether rheumatoid factor present High risk medication use Immunodeficiency due to drug therapy C-REACTIVE PROTEIN Routine 04/29/2025 2: 18 PM EDT Rheumatoid arthritis involving multiple sites, unspecified whether rheumatoid factor present High risk medication use Immunodeficiency due to drug therapy COMPREHENSIVE METABOLIC PANEL Routine 04/29/2025 2:18 PM EDT Rheumatoid arthritis involving multiple sites, unspecified whether rheumatoid factor present High risk medication use Immunodeficiency due to drug therapy XR CHEST 2 VW Routine 04/29/2025 2:05 PM EDT Shortness of breath documented in this encounter Results * DEXA Bone Density Axial (06/30/2025) Anatomical Region Laterality Modality Wrist, Hip, L-spine N/A Radiographic Imaging us Jose Mullen FISHING VESSEL CAPTAIN IMG DXA ORDERABLES Fin al Result * QuantiFERON-TB Gold Plus (04/29/2025 2:18 PM EDT) QuantiFERON Criteria Comment [facility] Comment: QuantiFERON-TB Gold Plus is a qualitative indirect test for M tuberculosis infection (including disease) and is intended for use in conjunction with risk assessment, radiography, and other medical and diagnostic evaluations. The QuantiFERON-TB Gold Plus result is determined by subtracting the Nil value from either TB antigen (Ag) value. The Mitogen tube serves as a control for the test. QUANTIFERON TB1 AG VALUE 0.07 IU/mL [facility] QUANTIFERON TB2 AG VALUE 0.07 IU/mL [facility] QuantiFERON Nil Value 0.08 IU/mL [facility] QuantiFERON Mitogen Value >10.00 IU/mL [facility] 04/29/2025 2:18 PM EDT 04/29/2025 Narrative [facility] (AMBULATORY) - 05/01/2025 7:06 AM EDT Performed at: [address] [id number] Heater Engineer Helper: Leonel Herrera PhD, Phone: [phone] Patient Fasting: Y Jose Mullen APRN LAB BLOOD ORDERABLES F inal Result [facility] (AMBULATORY) [address] [place] [address], [facility] [address] [place] [address], * Hepatitis C Virus Interpretation (04/29/2025 2:18 PM EDT) Interpretation Comment [facility] Comment: Not infected with HCV unless early or acute infection is suspected (which may be delayed in an immunocompromised individual), or other evidence exists to indicate HCV infection. 04/29/2025 2:18 PM EDT 04/29/2025 Narrative [facility] (AMBULATORY) - 05/01/2025 7:06 AM EDT Performed at: [address] [place], [place] [address] [address] [place], [place] [id number] Heater Engineer Helper: Leonel Herrera PhD, Phone: [phone] Patient Fasting: Y Jose Mullen FISHING VESSEL CAPTAIN LAB BLOOD ORDERABLES F inal Result Performing Organization Address [facility] Co de Phone Number [facility] (AMBULATORY) [address] [place] [address], [place] [phone] [facility] [address] [place] [address], [place] [phone] * Hepatitis Panel, Acute (04/29/2025 2:18 PM EDT) [facility] Hep A IgM Negative Negative [facility] Comment: A negative anti-HAV IgM result suggests no recent or current HAV infection. Hepatitis B Surface Ag Negative Negative [facility] Hep B Core IgM Negative Negative [facility] Hepatitis C Ab Non Reactive Non Reactive [facility] Blood 04/29/2025 2:18 PM EDT 04/29/2025 Narrative [facility] (AMBULATORY) - 05/01/2025 7:06 AM EDT Performed at: - [facility] [address] [place] [id number] Heater Engineer Helper: Leonel Herrera PhD, Phone: [phone] Patient Fasting: Y Jose Mullen FISHING VESSEL CAPTAIN LAB BLOOD ORDERABLES F inal Result Performing Organization Address [facility]/ZIP Co de Phone Number [facility] [address] [place] [address], [place] [phone] [facility] [address] [place] [address], [place] [phone] * QuantiFERON-TB Gold Plus (Li-Hep) (04/29/2025 2:18 PM EDT) [facility] QuantiFERON Incubation Incubation performed. [facility] QUANTIFERON-TB GOLD PLUS Negative Negative [facility] Comment: No response to M tuberculosis antigens detected. Infection with M tuberculosis is unlikely, but high risk individuals should be considered for additional testing (ATS/IDSA/CDC Clinical Practice Guidelines, 2017). The reference range is an Antigen minus Nil result of <0.35 IU/mL. Chemiluminescence immunoassay methodology Blood 04/29/2025 2:18 PM EDT 04/29/2025 Narrative [facility] (AMBULATORY) - 05/01/2025 7:06 AM EDT Performed at: [address] [place] [id number] Heater Engineer Helper: Leonel Herrera PhD, Phone: [phone] Patient Fasting: Y Jose Mullen FISHING VESSEL CAPTAIN LAB BLOOD ORDERABLES F inal Result Performing Organization Address [facility] Co de Phone Number [facility] [address] [place] [address], [facility] [address] [place] [address], * C-reactive Protein (04/29/2025 2:18 PM EDT) C-Reactive Protein 4 0 - 10 mg/L [facility] Blood 04/29/2025 2:18 PM EDT 04/29/2025 [facility] (AMBULATORY) - 05/01/2025 7:06 AM EDT Performed at: [address] [place] [id number] Heater Engineer Helper: Leonel Herrera PhD, Phone: [phone] Patient Fasting: Y Jose Mullen FISHING VESSEL CAPTAIN LAB BLOOD ORDERABLES F inal Result Performing Organization Address City/[facility]/ZIP Co de Phone Number [facility] ([facility] [address] [place] [address], [place] [phone] [facility] [address] [place] [address], * Sedimentation Rate (04/29/2025 2:18 PM EDT) Sed Rate 19 0 - 40 mm/hr [facility] Blood 04/29/2025 2:18 PM EDT 04/29/2025 Narrative [facility] (AMBULATORY) - 05/01/2025 7:06 AM EDT Performed at: 01 - [facility] [address] [facility] [place], [place] [id number] Heater Engineer Helper: Leonel Herrera PhD, Phone: [phone] Patient Fasting: Y us Jose Mullen APRN LAB BLOOD ORDERABLES F inal Result [facility] ([facility] [address] [place] [address], [facility] [address] [place] [address], * (ABNORMAL) Comprehensive Metabolic Panel (04/29/2025 2:18 PM EDT) Glucose 98 70 - 99 mg/dL [facility] BUN 22 8 - 27 mg/dL [facility] Creatinine 1.20(H) 0.57 - 1.00 mg/dL [facility] EGFR Result 47(L) >59 mL/min/1.7 3 [facility] BUN/Creatinine Ratio 18 12 - 28 [facility] Sodium 135 134 - 144 mmol/L [facility] Potassium 4.7 3.5 - 5.2 mmol/L [facility] Chloride 97 96 - 106 mmol/L [facility] Total CO2 21 20 - 29 mmol/L [facility] Calcium 9.2 8.7 - 10.3 mg/dL [facility] Total Protein 6.6 6.0 - 8.5 g/dL [facility] Albumin 4.5 3.8 - 4.8 g/dL [facility] Globulin 2.1 1.5 - 4.5 g/dL [facility] Total Bilirubin 0.3 0.0 - 1.2 mg/dL [facility] Alkaline Phosphatase 53 44 - 121 IU/L [facility] AST (SGOT) 33 0 - 40 IU/L [facility] ALT (SGPT) 52(H) 0 - 32 IU/L [facility] Blood 04/29/2025 2:18 PM EDT 04/29/2025 Narrative [facility] (AMBULATORY) - 05/01/2025 7:06 AM EDT Performed at: 01 - [facility] [address] [place], [place] [id number] Heater Engineer Helper: Leonel Herrera PhD, Phone: [phone] Patient Fasting: Y Jsoe Mullen APRN LAB BLOOD ORDERABLES F inal Result [facility] [facility] (AMBULATORY) [address] [place] [address], [facility] [address] [place] [address], * (ABNORMAL) CBC & Differential (04/29/2025 2:18 PM EDT) WBC 6.3 3.4 - 10.8 x10E3/uL [facility] RBC 3.17(L) 3.77 - 5.28 x10E6/uL [facility] Hemoglobin 11.4 11.1 - 15.9 g/dL [facility] Hematocrit 34.2 34.0 - 46.6 % [facility] MCV 108(H) 79 - 97 fL [facility] MCH 36.0(H) 26.6 - 33.0 pg [facility] MCHC 33.3 31.5 - 35.7 g/dL [facility] RDW 16.1(H) 11.7 - 15.4 % [facility] Platelets 286 150 - 450 x10E3/uL [facility] Neutrophil Rel % 47 Not Estab. % [facility] Lymphocyte Rel % 40 Not Estab. % [facility] Monocyte Rel % 9 Not Estab. % [facility] Eosinophil Rel % 2 Not Estab. % [facility] Basophil Rel % 1 Not Estab. % [facility] Neutrophils Absolute 3.0 1.4 - 7.0 x10E3/uL [facility] Lymphocytes Absolute 2.5 0.7 - 3.1 x10E3/uL [facility] Monocytes Absolute 0.6 0.1 - 0.9 x10E3/uL [facility] Eosinophils Absolute 0.1 0.0 - 0.4 x10E3/uL [facility] Basophils Absolute 0.1 0.0 - 0.2 x10E3/uL [facility] Immature Granulocyte Rel % 1 Not Estab. % [facility] Immature Grans Absolute 0.0 0.0 - 0.1 x10E3/uL [facility] nRBC 1(H) 0 - 0 % [facility] Blood 04/29/2025 2:18 PM EDT 04/29/2025 Narrative [facility] ([facility]) - 05/01/2025 7:06 AM EDT Performed at: - [facility] [address] [place] [id number] Heater Engineer Helper: Leonel Herrera PhD, Phone: [phone] Patient Fasting: Y Jose Mullen FISHING VESSEL CAPTAIN LAB BLOOD ORDERABLES F inal Result Performing Organization Address City/State/[facility] Co de Phone Number [facility] [employer] [facility] (AMBULATORY) [address] [place] [address], [facility] [address] [place] [address], * XR Chest 2 View (04/29/2025 2:05 PM EDT) Anatomical Region Laterality Modality Body N/A Radiographic Faith ging 04/30/2025 9:52 AM EDT Impressions 04/30/2025 9:53 AM EDT Impression: No acute findings. Electronically Signed: Clarke Bowen MD 04/30/2025 9:53 AM EDT Workstation ID: [id number] Narrative 04/30/2025 9:53 AM EDT XR CHEST 2 VW Date of Exam: 04/29/2025 2:00 PM EDT Indication: fatigue Comparison: None available. Findings: Borderline enlarged cardiac silhouette. No focal airspace consolidation. No pleural effusion or pneumothorax. Multilevel spondylosis with lumbar spinal fusion hardware partially included within the [id number]-wg-[id number]. Procedure Note Clarke Bowen MD - 04/30/2025 XR CHEST 2 VW Date of Exam: 04/29/2025 2:00 PM EDT Indication: fatigue Comparison: None available. Findings: Borderline enlarged cardiac silhouette. No focal airspace consolidation.No pleural effusion or pneumothorax. Multilevel spondylosis with lumbarspinal fusion hardware partially included within the [id number]. IMPRESSION: Impression: No acute findings. Electronically Signed: Clarke Bowen MD 04/30/2025 9:53 AM EDT Workstation ID: [id number] Jose Mullen APRN IMG DIAGNOSTIC IMAGING ORDERABLES Final Result documented in this encounter Visit Diagnoses Diagnosis Rheumatoid arthritis involving multiple sites, unspecified whether rheumatoid factor present- Primary High risk medication use Current use of steroid medication Immunodeficiency due to drug therapy Other fatigue Shortness of breath Postmenopause Asymptomatic postmenopausal status (age-related) (natural) documented in this encounter Care Teams Process Consultant Relationship Specialty Start Date End Date Pillo Humphrey MD [address] [place] [address] [address] [facility] [address] [place] [address] PCP - General Family Medicine 02/20/21 documented as of this encounter
--- OUTSIDE RECORDS SUMMARY | 2025-07-02 06:30 | XMS_ITS ---
Author Organization [facility] Address [address] [facility] [address] [place] [phone] Care Team Providers Care Pickling Operator Name Role Phone Jolie Humphrey Primary Care Provider [phone] Allergies No Known Allergies REASON FOR VISIT [...] W/U Status Risk Notes Problem Macrocytic anemia (44978089) Macrocytic anemia (D53.9) Active confirmed Vital Signs Weight 179.6 lbs 07/02/2025 Blood pressure systolic 130 mm Hg 07/02/20 25 Blood pressure diastolic 60 mm Hg 025 Heart Rate 67 /min 07/02/2025 Height 64 in 07/02/2025 BMI 30.82 kg/m2 07/02/2025 Encounters Encounter Location Date Provider Diagnosis [facility] [address] [place], [place] [id number] 07/02/2025 Jolie Humphrey Adult general medica l [...] CLIFF CHACON RDOB: [birth year] (75 yo F)Acc No.[id number]:07/02/2025 Annual Wellness Visit Patient: CLIFF FARAH Provider: Jolie Humphrey M.D. :1950 A ge:75 Y S ex:Female Date:07/02/2025 Address:[address] [place] [address] [id number] Subjective: * Chief Complaints: * 1 . [...] also brings in recent labs from her melting operator showing a mild macrocytic anemia. She is currently taking a folic acid supplement. Community Service Officer also performed a bone density exam showing [...] umbar fusion X 3 Dr Singh Spine [facility] 2002, 2006, 2011, left knee scope X [...] hypertension - I10 ? 7 . B [place] 30.0-30.9,adult - Z68.30 8 . S evere [...] mineral Density R ecent history: 2024 per melting operator. * Follow Up: 6 Months * Images: Drawing:[facility] Billing Information: * Visit Code: 93738 Office Visit, Est Pt., Level 3. Modifiers: [...] 07/02/2025 Generated for Tyesha tripathi/Lacie/eTransmitting on: 0 07/29/2025 04:15 PM EDT History [...] also brings in recent labs from her melting operator showing a mild macrocytic anemia. She is currently taking a folic acid supplement. Community Service Officer also performed a bone density exam showing [...]
--- OUTSIDE RECORDS SUMMARY | 2025-07-28 09:45 | XMS_ITS ---
Author Organization [facility] Address [facility] [address] [place] [phone] Care Team Providers Care Double Bottom Driver Name Role Phone Jolie Humphrey Primary Care Provider Allergies No Known Allergies REASON FOR VISIT Discuss Prolia Encounters Encounter Location Date Provider Diagnosis [facility] [address] [place] [address] [place] [phone] 07/28/2025 Jolie Humphrey Plan Of Treatment No Information Progress Notes * CLIFF CHACON RDOB: [birth year] (75 yo F)Acc No.[id number]:07/28/2025 Progress Notes Patient: CLIFF FARAH Provider: Jolie Humphrey M.D. :1950 A ge:75 Y S ex:Female Date:07/28/2025 Address:[address] [place] [address] [phone] Subjective: * Chief Complaints: [...] umbar fusion X 3 Dr Singh Spine [place] 2002, 2006, 2011, left knee scope X [...] Humphrey M.D. Date: 07/28/2025 Generated for Tyesha tripathi/Lacie/Samantha on: 07/29/2025 04:16 PM EDT
--- OUTSIDE RECORDS SUMMARY | 2025-07-29 16:15 | XMS_ITS | Referral Summary ---
Author Organization [employer] ([place], [place], [place], [place]) Address [address] [place] [address] Care Team Providers Care Corporate Librarian Name Role Phone Unavailable Primary Care Provider [...] Date Aaron rded Speak language other than Lithuanian at home Not on file 12/14/2023 Want [...]
--- OUTSIDE RECORDS SUMMARY | 2025-07-29 16:15 | XMS_ITS | Clinical Summary ---
Author Organization [facility] Address [address] [place] [address] Care Team Providers Care Supervisor Pigment Making Name Role Phone Pillo Humphrey MD Primary Care Provider [phone] Family History Medical History Relation Name Comments [...] or (1 - 1-dose 75+ series) 2023 [id number] Vaccine (5 - 2023- season) 2024 10/16/2022, [...] to complete this topic Insurance [place] [id number] [facility] MEDICARE Care Teams Supervisor Pigment Making Relationship Specialty Start Date End Date Pillo Humphrey MD [address] [place] [address] PCP - General 04/08/21
--- OUTSIDE RECORDS SUMMARY | 2025-07-29 16:15 | XMS_ITS | Patient Health Record ---
Author Organization [facility] Address [address] [facility] [address] [place] [id number] Care Team Providers Care Boiler Service Technician Name Role Phone Jolie Humphrey Primary Care Provider [phone] MiguelitoWhitney littlejohn Unavailable [phone] Allergies No Known Allergies Results Component Value Reference Range Notes CBC Fingerstick (in house) ( Not yet reviewed by provider) Interpretation: Performing Lab: Notes/Report: wbc 9.5 3.5 - 10 lym 21.1 15 - 50 mid 5.1 2 - 15 gran 73.8 35 - 80 rbc 3.43 3.5 - 5.5 hgb 12.8 11.5 - 16.5 hct 37.6 35 - 55 mcv 109.4 75 - 100 mch 37.3 25 - 35 mchc 34.0 31 - 38 plat 276 100 - 400 Covid test (in house) (Not y et reviewed by provider) Interpretation: Performing Lab: Notes/Report: Result: neg Echocardiogram Reviewed date:10/29/2024 04:03:53 PM Interpretation: Performing Lab: Notes/Report: P-Vitamin D, 1, 25 Dihydroxy Reviewed date:09/22/2024 05:55:06 PM Interpretation:Normal Performing Lab: Notes/Report: Test performed by [facility], [place] [address] [place] [address] , [address], [place] [address] Laureano Rod MD, Extended Insurance Clerk CLIA: [id number] Vitamin D, 1, 25 Dihydroxy 60.0 19.9-79.3 pg/m L P-Lipid Panel Reviewed date:09/22/2024 05:55:06 PM Interpretation:trigs 372, non-hdl 138 Performing Lab: Notes/Report: Test performed by [facility], [address], [place] [address] Laureano Rod MD, Extended Insurance Clerk CLIA: [id number] Cholesterol 190 <200 mg/dL Triglycerides 372 <150 [...] 118 Performing Lab: Notes/Report: Test performed by [facility] [address] [place] [address] , [address], [place] [address] Laureano Rod MD, Extended Insurance Clerk CLIA: [id number] Sodium 138 135-145 mmol/L Potassium 4.5 3.5-5.3 [...] Interpretation:1849 Performing Lab: Notes/Report: Test performed by [facility] [address] [place] [address] , [address], [place] [address] Laureano Rod MD, Extended Insurance Clerk CLIA: [id number] Vitamin B12 4534 348-5306 pg/mL Reason For Referral Reason Dr Ferrer for abnormal echo Diagnosis 1 Abnormal echocardiog dennis (R93.1) Referral Organization [facility] Referring Provider First Name Jolie Booth Referring Provider Last Name Milagro Referring Provider Speciality Family [facility] Referred Provider Carissa Holland Referred Provider Specialty Cardiovascul ar Disease General Notes Karishma Queen 10/30/20 3:01:40 PM > faxed to [facility] CardiologyBernice Brynn 11/06/2024 1:48:57 PM > 12/11/2024 [...] 1 tablet Orally Once a day Active B-12 1000 MCG 1 tab(s) orally once a day 08/12/2015 Active Clopidogrel Bisulfate 75 MG 1 tablet Ora lly Once a day Active Rosuvastatin Calcium 40 MG 1 tablet Oral ly Once a day; Duration: 90 days Active predniSONE 5 MG 1 tab(s) orally once a day; Duration: 30 days Active Omeprazole 20 MG 1 cap(s) orally once a day; Duration: 90 days Active PARoxetine HCl 10 MG 1 tab(s) orally onc e a day; Duration: 90 days Active Immunizations [...] W/U Status Risk Notes Problem Essential hypertension (31804455) Essential hypertension (I10) Active confirmed Problem Paresthesia (40581790) Paresthesia (R20.2) Active confirmed Problem Body mass index 30+ - obesity (074412494) BMI 30.0-30.9,adult (Z68.30) Active confirmed Problem Hot flashes (803118276) Hot flashes (N95.1) Active confirmed Problem Sciatica (60597954) Lumbago with sciatica, right side (M54.41) Active confirmed Problem Mixed hyperlipidemia (910528205) Mixed hyperlipidemia (E78.2) Active confirmed Problem Essential tremor (158058252) Essential tremor (G25.0) Active confirmed Problem Sciatica (14398255) Lumbago with sciatica, left side (M54.42) Active confirmed Problem Gastroesophageal reflux disease (306664000) GERD without esophagitis (K21.9) Active confirmed Problem Gastroesophageal reflux disease without esophagitis (135060862) Gastroesophageal reflux disease without esophagitis (K21.9) Active confirmed Problem Depression (525308482) Depression (F32.9) Active confirmed Problem Gastroesophageal reflux disease (098409212) Gastroesophageal reflux disease, esophagitis presence not specified (K21.9) Active confirmed Problem Macrocytic anemia (74166587) Macrocytic anemia (D53.9) Active confirmed Problem Carpal tunnel syndrome of left wrist (466690061246013) Carpal tunnel syndrome of left wrist (G56.02) Active confirmed Problem Obstructive sleep apnea syndrome (39531738) Severe obstructive sleep apnea (G47.33) Active confirmed Problem Dyslipidemia (487259536) Dyslipidemia (E78.5) Active confirmed Problem Osteoarthritis (993478741) OA (osteoarthritis) (M19.90) Active confirmed Problem Mood swings (42997513) Mood swings (F39) Active confirmed Problem Rheumatoid arthritis (83854099) Rheumatoid arthritis, involving unspecified site, unspecified rheumatoid factor presence (M06.9) Active confirmed Problem Post menopausal problems (N95.9) Active confirmed Vital Signs Heart Rate 76 /min 07/29/2025 Blood pressure diastolic 60 mm Hg 07/29/2025 Height 64 in 07/29/2025 Blood pressure systolic 100 mm Hg 07/29/2025 Weight 176.2 lbs 07/29/2025 BMI 30.24 kg/m2 07/29/2025 Encounters Encounter Location Date Provider Diagnosis [facility] [address] [place] [id number] 09/18/2024 R Leobardo Humphrey NORRIS (dyspnea on exer tion) R06.09 ; TAHIRA (obstructive sleep apnea) G47.33 ; Dyslipidemia E78.5 ; Vitamin B 12 deficiency E53.8 ; Rheumatoid arthritis, involving unspecified site, unspecified rheumatoid factor presence M06.9 and Encounter for immunization Z23 [facility] [address] [place] [id number] 02/24/2025 R Leobardo Humphrey Carpal tunnel syndro me of left wrist G56.02 and OA (osteoarthritis) M19.90 [facility] [address] [place] [id number] 07/02/2025 R Leobardo Humphrey Adult general medica l examination Z00.00 ; Dyslipidemia E78.5 ; Macrocytic anemia D53.9 ; Breast cancer screening Z12.39 ; Rheumatoid arthritis, involving unspecified site, unspecified rheumatoid factor presence M06.9 ; Essential hypertension I10 ; BMI 30.0-30.9,adult Z68.30 ; Severe obstructive sleep apnea G47.33 and Gastroesophageal reflux disease, esophagitis presence not specified K21.9 [facility] [address] [place] [id number] 07/29/2025 Whitney Crowdy Injury of left elbow , initial encounter S59.902A ; Acute URI J06.9 and Hypotension due to drugs I95.2 [facility] [address] [place] [id number] 08/06/2024 R Leobardo Humphrey [facility] [facility] [address] [place] [id number] 09/22/2024 R Leobardo Humphrey [facility] [address] [place] [id number] 10/29/2024 R Leobardo Milagro Abnormal echocardiog dennis R93.1 [facility] [address] [place], [place] [id number] 01/16/2025 R Leobardo Milagro [facility] [address] [place], [place] [id number] 02/20/2025 R Leobardo Milagro [facility] [address] [place], [place] [id number] 03/09/2025 R Leobardo Milagro [facility] [address] [place], [place] [id number] 04/14/2025 R Leobardo Milagro [facility] [address] [place], [place] [id number] 05/18/2025 R Leobardo Milagro [facility] [address] [place], [place] [id number] 06/24/2025 R Leobardo Milagro [facility] [address] [place], [place] [id number] 06/29/2025 R Leobardo Milagro [facility] [address] [place], [place] [id number] 07/15/2025 R Leobardo Milagro [facility] [address] [place], [place] [id number] 07/15/2025 R Leobardo Milagro Assessments Encounter Date Diagnosis (ICD Code) Assessment [...] TAHIRA (obstructive sleep apnea) (ICD-10 - G47.33) 07/02/2025 Dyslipidemia (ICD-10 - E78.5) 07/02/2025 Adult general medical examination (ICD-10 - Z00.00) Patient instructed to return to office Annually for Annual Wellness Visits to include annual screenings of Pain assessment, Functional Ability assessment, Cognitive Ability assessment, Fall Risk assessment, Depression screening and Bladder control screening. 07/29/2025 Acute URI (ICD-10 - J06.9) 07/29/2025 Injury of left elbow, initial encounter (ICD-10 - S59.902A) 09/18/2024 Dyslipidemia (ICD-10 - E78.5) 07/02/2025 Macrocytic anemia (ICD-10 - D53.9) 07/29/2025 Hypotension due to drugs (ICD-10 - I95.2) Will stop BP meds and call tomorrow with BP reading. 09/18/2024 Vitamin B 12 deficiency (ICD-10 - E53.8) 07/02/2025 Breast cancer screening (ICD-10 - Z12.39) 09/18/2024 Rheumatoid arthritis, involving unspecified site, unspecified rheumatoid factor presence (ICD-10 - M06.9) 07/02/2025 Rheumatoid arthritis, involving unspecified site, unspecified rheumatoid factor presence (ICD-10 - M06.9) 09/18/2024 Encounter for immunization (ICD-10 - Z23) 07/02/2025 Essential hypertension (ICD-10 - I10) 07/02/2025 BMI 30.0-30.9,adult (ICD-10 - Z68.30) 07/02/2025 Severe obstructive sleep apnea (ICD-10 - G47.33) 07/02/2025 Gastroesophageal reflux disease, esophagitis presence not specified (ICD-10 - K21.9) Plan Of Treatment Pending Test Test Name Order Date X ray : Elbow, left 07/29/2025 CBC Fingerstick (in house) 07/29/2025 CBC Venipuncture (in house) 07/02/2025 Mammogram 07/02/2025 H-CBC 04/17/2023 H-MICROALB 04/17/2023 H-Lipid Panel 04/17/2023 H-CMP 04/17/2023 LC-Hep C Virus RNA (detect active infect ion) 09/26/2021 P-Vitamin B12 07/02/2025 P-Comprehensive Metabolic Panel (CMP) P-Folate 07/02/2025 P-Lipid Panel 07/02/2025 Covid test (in house) 07/29/2025 Insurance Providers Payer Name Payer Address Payer Phone Subscriber Number Group Number Insured Name Patient Relationship to Insured Coverage Start Date Coverage End Date [employer]ARE [address] [address] [place], [place] [id number] LEONCIO CHACON Self - patient is the insured [...] lumbar fusion X 3 Dr Singh Spine [facility] 2002, 2006, 2011 left knee scope X 2, right knee scope X 1 Dr Villareal Breast Reduction May 2016 Left TKA - Dr. Man 09/18/22 Right TKA - Dr. Man 08/03/2023 Hospitalization History Reason Date(Month/Year) [facility] ER - Fall/Low Back Pain 11/11/2022
--- OUTSIDE RECORDS SUMMARY | 2025-07-29 16:16 | XMS_ITS | Clinical Summary ---
Author Organization [facility] ([place], [place], [place], [place]) Address [address] [place] [address] Care Team Providers Care Head Automatic Sawyer Name Role Phone Unavailable Primary Care Provider [...] Date Aaron rded Speak language other than Libyan at home Not on file 12/14/2023 Want [...]
--- OUTSIDE RECORDS SUMMARY | 2025-07-29 16:17 | XMS_ITS | Encounter Summary ---
Author Organization [facility] Address [address] [place] [address] Care Team Providers Care Social Work Faculty Member Name Role Phone Pillo Humphrey MD Primary Care Provider Encounter Details Date Type Department Care Team (Late st Contact Info) Description 07/01/2025 Telephone [facility] RHEUMATOLOGY [address] [address] Jose Mullen APRN 330 [facility] [address] [place], [place] [id number] Social History Tobacco Use Types Packs/Day Years [...] encounter Miscellaneous Notes * Telephone Encounter - Kenisha Jarquin, RN - 07/09/2025 10:41 AM EDT Pt has requested to go closer to home for Prolia. I spoke with [facility] and faxed order, demographic sheet, and referral note stating NO PA REQUIRED for this J code. They stated they would call and get pt scheduled. I tried to call pt and there was no answer, so I sent her a [employer] message with this information. * Telephone Encounter - Kenisha Jarquin RN - 07/02/2025 2:37 PM EDT Therapy plan in to be reviewed and signed by provider. Referral in for [facility]. Pt on the list to be scheduled at [facility]. * Telephone Encounter - Kip Sanchez PharmD - 07/02/2025 7:26 AM EDT Copay is $573.28 through pharmacy benefit. Please update if patient decides to use pharmacy in house. Thank you. * Telephone Encounter - Kenisha Jarquin RN - 07/01/2025 4:40 PM EDT Could we check in house benefits for Prolia? Thank you all! * Telephone Encounter - Jose Mullen APRN - 07/01/2025 2:44 PM EDT Please PA Prolia for osteopenia with high fracture risk. Avoiding bisphosphonates for abnormal renal function. Thanks. documented in this encounter Plan of Treatment Upcoming Encounters Date Type Department Care Team (Late st Contact Info) Description 09/01/2025 2:15 PM EDT Office Visit [facility] RHEUMATOLOGY [address] [address] Jose Mullen APRN [address] [address] documented as of this encounter Visit Diagnoses Not on filedocumented in this encounter Care Teams Social Work Faculty Member Relationship Specialty Start Date End Date Pillo Humphrey MD [address] [place] [facility] [address] [place] [address] PCP - General Family Medicine 02/20/21 documented as of this encounter
--- OUTSIDE RECORDS SUMMARY | 2025-07-29 16:17 | XMS_ITS | Encounter Summary ---
Author Organization Healthcare Address [address] [place] [address] Care Team Providers Care Glass Products Inspector Name Role Phone Pillo Humphrey MD Primary Care Provider [phone] Reason for Referral * Consultation (Routine) - Closed Specialty Diagnoses / Procedures Referred By Camilo morales Referred To Contact Dentist / Pain Medicine Diagnoses Obstructive sleep apnea Karolyn Salinas MD [address] [place] [address] Phone: tel: fax: Alice Arreola, DDS [address] [place] [address] Phone: tel: fax: Referral ID Status Reason Start Date Expiration Date Visits Re quested Visits Authorized [id number] Closed 09/05/2024 03/07/2026 1 1 Encounter Details Date Type Department Care Team (Late st Contact Info) Description 09/05/2024 Community Orders [facility] [address] [place] [address] Karolyn Salinas MD [address] [place] [address] [place] [address] Obstructive sleep apnea (Primary Dx) Social [...] (pediatric) documented in this encounter Care Teams Glass Products Inspector Relationship Specialty Start Date End Date Pillo Humphrey MD [address] [place] [address] PCP - General 04/08/21 documented as of this encounter
--- OUTSIDE RECORDS SUMMARY | 2025-07-29 16:17 | XMS_ITS | Clinical Summary ---
Author Organization [facility] Address [address] [place] [address] Care Team Providers Care Sales And Service Engineer Name Role Phone Pillo Humphrey MD [...] Active Problems Problem Noted Date Diagnosed Date Osteopenia 07/02/2025 Shortness of breath 04/29/2025 Assessment & Plan [...] Encounters Date Type Department Care Team Description 07/14/2025 Results Follow-Up [facility] RHEUMATOLOGY [address] [place] [phone] Baldomero Mullen, OILER AND GREASER 07/01/2025 Telephone [facility] RHEUMATOLOGY [address] [place] [phone] Baldomero Mullen, OILER AND GREASER 04/30/2025 Results Follow-Up [facility] RHEUMATOLOGY [address] [place] [phone] Baldomero Mullen, OILER AND GREASER 04/29/2025 2:00 PM EDT Ancillary Procedure [facility] RHEUMATOLOGY [address] [place] [phone] 04/29/2025 1:30 PM EDT Office Visit [facility] RHEUMATOLOGY [address] [place] [phone] Baldomero Mullen, OILER AND GREASER Rheumatoid arthritis involving multiple sites, unspecified whether rheumatoid factor present (Primary Dx); High risk medication use; Current use of steroid medication; Immunodeficiency due to drug therapy; Other fatigue; Shortness of breath; Postmenopause 04/29/2025 Telephone [facility] RHEUMATOLOGY [address] [place] [phone] Baldomero Mullen APRN 04/29/2025 Travel from Last [...] Description 09/01/2025 2:15 PM EDT Office Visit [facility] RHEUMATOLOGY [address] [phone] Jose Mullen APRN 330 [facility] [address] [place] [address] Health Maintenance Due Date Last Done Comments ZOSTER VACCINE (1 of 2) 1969 ANNUAL WELLNESS VISIT 02/20/2021 RSV Vaccine - Adults (1 - 1- dose 75+ series) 2023 COVID-19 Vaccine (4 - 2024-2 6 season) 2025 10/16/2022, 11/02/2021, 01/19/2021, Additional history exists INFLUENZA VACCINE 08/26/2025 10/16/2022, , 08/30/2020, Additional history exists TDAP/TD VACCINES (2 - Td or Tdap) 05/23/2027 017 DXA SCAN 06/30/2027 06/30/2025 Pneumococcal Vaccine 50+ Completed 023, 08/27/2020, 05/23/2017 HEPATITIS C SCREENING Completed 04/29/2025 Procedures Procedure Name Priority Date/Time Associated Diagnosis Comments DEXA BONE DENSITY AXIAL Routine 06/30/2025 Postmenopause SCANNED - LABS 05/21/2025 HEPATITIS C VIRUS INTERPRETATION Routine 04/29/2025 2:18 [...] breath from Last 3 Months Results * DEXA Bone Density Axial (06/30/2025) Anatomical Region Laterality Modality Wrist, Hip, L-spine N/A Radiographic Imaging us Jose Mullen APRN IMG DXA ORDERABLES Fin al Result * LABS SCANNED (05/21/2025) Jose Mullen APRN LAB BLOOD ORDERABLES F inal Result * Hepatitis C Virus Interpretation (04/29/2025 2:18 PM EDT) Interpretation Comment [facility] Comment: Not infected with HCV unless early or acute infection is suspected (which may be delayed in an immunocompromised individual), or other evidence exists to indicate HCV infection. 04/29/2025 2:18 PM EDT 04/29/2025 Narrative [facility] (AMBULATORY) - 05/01/2025 7:06 AM EDT Performed at: - [address] [id number] Auto Claims Adjuster: Leonel Herrera PhD, Phone: [phone] Patient Fasting: Y Jose Mullen OILER AND GREASER LAB BLOOD ORDERABLES F inal Result [facility] [address] [place] [address], [place] [phone] [facility] [address] [place] [address], [place] [phone] * QuantiFERON-TB Gold Plus (04/29/2025 2:18 PM EDT) Pathologist [facility] QuantiFERON Criteria Comment [facility] Comment: QuantiFERON-TB [...] LAB 04/29/2025 2:18 PM EDT 04/29/2025 Narrative [facility] (AMBULATORY) - 05/01/2025 7:06 AM EDT Performed at: - [address] [id number] Auto Claims Adjuster: Leonel Herrera PhD, Phone: [phone] Patient Fasting: Y Jose Mullen APRN LAB BLOOD ORDERABLES F inal Result [facility] (AMBULATORY) [address] [place] [address], [facility] [address] [place] [address], * QuantiFERON-TB Gold Plus (Li-Hep) (04/29/2025 2:18 PM EDT) Pathologist [facility] QuantiFERON Incubation Incubation performed. [facility] QUANTIFERON-TB GOLD PLUS Negative Negative [facility] Comment: No response to M tuberculosis antigens detected. Infection with M tuberculosis is unlikely, but high risk individuals should be considered for additional testing (ATS/IDSA/CDC Clinical Practice Guidelines, 2017). The reference range is an Antigen minus Nil result of <0.35 IU/mL. Chemiluminescence immunoassay methodology Blood 04/29/2025 2:18 PM EDT 04/29/2025 Narrative [facility] ([facility]) - 05/01/2025 7:06 AM EDT Performed at: [address] [place] [id number] Auto Claims Adjuster: Leonel Herrera PhD, Phone: [phone] Patient Fasting: Y Jose Mullen OILER AND GREASER LAB BLOOD ORDERABLES F inal Result Performing Organization Address City/[facility]/ZIP Co de Phone Number [facility] (AMBULATORY) [address] [place] [address], [place] [phone] [facility] [address] [place] [address], [place] [phone] * Hepatitis Panel, Acute (04/29/2025 2:18 PM EDT) Hep A IgM Negative Negative [facility] Comment: A negative anti-HAV IgM result suggests no recent or current HAV infection. Hepatitis B Surface Ag Negative Negative [facility] Hep B Core IgM Negative Negative [facility] Hepatitis C Ab Non Reactive Non Reactive [facility] Blood 04/29/2025 2:18 PM EDT 04/29/2025 [facility] ([facility]) - 05/01/2025 7:06 AM EDT Performed at: [facility] [id number] Auto Claims Adjuster: Leonel Herrera PhD, Phone: [phone] Patient Fasting: Y us Jose Mullen OILER AND GREASER LAB BLOOD ORDERABLES F inal Result Performing Organization Address City/[facility]/ZIP Co de Phone Number [facility] (AMBULATORY) [address] [place] [address], [place] [phone] [facility] [address] [place] [address], [place] [phone] * Sedimentation Rate (04/29/2025 2:18 PM EDT) Sed Rate 19 0 - 40 mm/hr [facility] Blood 04/29/2025 2:18 PM EDT 04/29/2025 Narrative [facility] ([facility]) - 05/01/2025 7:06 AM EDT Performed at: 01 - [facility] [address] [place], [place] [id number] Auto Claims Adjuster: Leonel Herrera PhD, Phone: [phone] Patient Fasting: Y Jose Mullen APRN LAB BLOOD ORDERABLES F inal Result [facility] (AMBULATORY) [address] [place] [address], [facility] [address] [place] [address], * (ABNORMAL) CBC & Differential (04/29/2025 2:18 [...] - 05/01/2025 7:06 AM EDT Performed at: [address] [id number] Auto Claims Adjuster: Leonel Herrera PhD, Phone: [phone] Patient Fasting: Y Jose Mullen OILER AND GREASER LAB BLOOD ORDERABLES F inal Result Performing Organization Address [facility]/ZIP Co de Phone Number [facility] [address] [place] [address], [place] [phone] [facility] [address] [place] [address], [place] [phone] * C-reactive Protein (04/29/2025 2:18 PM EDT) [facility] C-Reactive Protein 4 0 - 10 mg/L [facility] Blood 04/29/2025 2:18 PM EDT 04/29/2025 Narrative [facility] ([facility]) - 05/01/2025 7:06 AM EDT Performed at: [address] [id number] Auto Claims Adjuster: Leonel Herrera PhD, Phone: [phone] Patient Fasting: Y Jose Mullen OILER AND GREASER LAB BLOOD ORDERABLES F inal Result Performing Organization Address [facility]/ZIP Co de Phone Number [facility] (AMBULATORY) [address] [place] [address], [place] [phone] [facility] [address] [place] [address], * (ABNORMAL) Comprehensive Metabolic Panel (04/29/2025 2:18 [...] 7:06 AM EDT Performed at: 01 - [facility] [address] [place], [place] [id number] Auto Claims Adjuster: Leonel Herrera PhD, Phone: [phone] Patient Fasting: Y us Jose Mullen OILER AND GREASER LAB BLOOD ORDERABLES F inal Result [facility] (AMBULATORY) [address] [place] [address], [facility] [address] [place] [address], * XR Chest 2 View (04/29/2025 2:05 PM EDT) Anatomical Region Laterality Modality Body N/A Radiographic Faith ging 04/30/2025 9:52 AM EDT Impressions 04/30/2025 9:53 AM EDT Impression: No acute findings. Electronically Signed: Clarke Bowen MD 04/30/2025 9:53 AM EDT Workstation ID: [id number] Narrative 04/30/2025 9:53 AM EDT XR CHEST 2 VW Date of Exam: 04/29/2025 2:00 PM EDT Indication: fatigue Comparison: None available. Findings: Borderline enlarged cardiac silhouette. No focal airspace consolidation. No pleural effusion or pneumothorax. Multilevel spondylosis with lumbar spinal fusion hardware partially included within the [id number]. Procedure Note Clarke Bowen MD - 04/30/2025 XR CHEST 2 VW Date of Exam: 04/29/2025 2:00 PM EDT Indication: fatigue Comparison: None available. Findings: Borderline enlarged cardiac silhouette. No focal airspace consolidation.No pleural effusion or pneumothorax. Multilevel spondylosis with lumbarspinal fusion hardware partially included within the [id number]. IMPRESSION: Impression: No acute findings. Electronically Signed: Clarke Bowen MD 04/30/2025 9:53 AM EDT Workstation ID: [id number] Jose Mullen APRN IMG DIAGNOSTIC IMAGING ORDERABLES Final Result from Last 3 Months Insurance [facility] MEDICARE ADVANTAGE PPO Care Teams Sales And Service Engineer Relationship Specialty Start Date End Date Pillo Humphrey MD [address] [facility] [address] [facility] [address] [place] [address] PCP - General Family Medicine 02/20/21
--- OUTSIDE RECORDS SUMMARY | 2025-07-29 16:17 | XMS_ITS | Encounter Summary ---
Author Organization [facility] Address [address] [place] [address] Care Team Providers Care Drop Wire Builder Name Role Phone Pillo Humphrey MD Primary Care Provider Encounter Details Date Type Department Care Team (Late st Contact Info) Description 04/30/2025 Results Follow-Up [facility] RHEUMATOLOGY [address] [phone] Jose Mullen APRN [address] [phone] Social History Tobacco Use Types Packs/Day Years [...] 09/01/2025 2:15 PM EDT Office Visit [facility] RHEUMATOLOGY [address] [phone] Jose Mullen APRN [address] [phone] documented as of this encounter Visit Diagnoses Not on filedocumented in this encounter Care Teams Drop Wire Builder Relationship Specialty Start Date End Date Pillo Humphrey MD 1210 [facility] [address] [facility] [address] [place] [address] PCP - General Family Medicine 02/20/21 documented as of this encounter
--- OUTSIDE RECORDS SUMMARY | 2025-07-29 16:17 | XMS_ITS | Encounter Summary ---
Author Organization [facility] Address [address] [place] [address] Care Team Providers Care Preschool Special Education Teacher Name Role Phone Pillo Humphrey MD Primary Care Provider Encounter Details Date Type Department Care Team (Late Contact Info) Description 07/14/2025 Results Follow-Up [facility] RHEUMATOLOGY [address] [phone] Jose Mullen APRN [address] [phone] Social History Tobacco Use Types Packs/Day Years [...] Description 09/01/2025 2:15 PM EDT Office Visit [facility] RHEUMATOLOGY [address] [phone] Jose Mullen APRN [address] [phone] documented as of this encounter Visit Diagnoses Not on filedocumented in this encounter Care Teams Preschool Special Education Teacher Relationship Specialty Start Date End Date Pillo Humphrey MD 1210 [facility] [address] [facility] [address] [place] [address] PCP - General Family Medicine 02/20/21 documented as of this encounter
--- OUTSIDE RECORDS SUMMARY | 2025-07-29 16:17 | XMS_ITS | Encounter Summary ---
Author Organization [facility] Address [address] [place] [address] Care Team Providers Care Cutting Department Supervisor Name Role Phone Pillo Humphrey MD Primary Care Provider Encounter Details Date Type Department Care Team (Late st Contact Info) Description 04/29/[address] [facility] RHEUMATOLOGY [address] [phone] Jose Mullen APRN 330 [facility] [address] [place] [address] Social History Tobacco Use Types Packs/Day Years [...] encounter Miscellaneous Notes * Telephone Encounter - Kip Sanchez, PharmD - 07/29/2025 9:42 AM EDT Contacted [employer] and arborist representative stated patient must call [employer] so they can verify benefits with [employer]. [employer] requires patient to be * Telephone Encounter - Melissa Caro PharmD - 07/24/2025 12:10 PM EDT Patient has not heard from [employer] and has not called them, will call [employer] to investigate patientsPAP eligibility * Telephone Encounter - Kip Sanchez PharmD - 07/17/2025 8:35 AM EDT LVM for patient to call back. * Telephone Encounter - Melissa Caro PharmD - 07/03/2025 8:25 AM EDT Spoke with the patient, she has not heard from [employer]. I instructed the patient to call the [employer] company to see if they need anything to complete her application * Telephone Encounter - Melissa Caro PharmD - 06/19/2025 9:10 AM EDT LVM for patient to call back with any updates * Telephone Encounter - Kip Sanchez PharmD - 06/04/2025 11:14 AM EDT Faxed application to [employer]. * Telephone Encounter - Melissa Caro PharmD [...] Medication: Humira Name of Insurance Approving PA: [facility] PA Number: [id number] PA Effective Dates: 04/29/25-10/29/25 Dispensing Pharmacy: [employer] - Copay ~ $1800 LVM for patient to call back to discuss options for medication. * Telephone Encounter - Kip Sanchez, PharmD - 04/29/2025 2:09 PM EDT Prior authorization initiated by [facility]. Update will be provided when a determination has been received. Medication: Humira PA Submission Method: CMM Case Number/CMM Hammond: [id number] * Telephone Encounter - Jose Mullen APRN - 04/29/2025 1:31 PM EDT Please PA humira biosimilar. documented in this encounter Plan of Treatment Upcoming Encounters Date Type Department Care Team (Late st Contact Info) Description 09/01/2025 2:15 PM EDT Office Visit [facility] RHEUMATOLOGY [address] [phone] Jose Mullen APRN 330 [facility] [address] [place] [address] documented as of this encounter Visit Diagnoses Not on filedocumented in this encounter Care Teams Cutting Department Supervisor Relationship Specialty Start Date End Date Pillo Humphrey MD [address] [facility] [address] [place] [address] PCP - General Family Medicine 02/20/21 documented as of this encounter
--- NOTE | 2025-07-29 16:26 | XR_ITS ---
FINAL REPORT CLINICAL HISTORY: INJURY FINDINGS: LEFT ELBOW Three views were obtained. There is a depressed radial head fracture that extends to the radial neck. Large joint effusion is identified. IMPRESSION: Fracture as above. Reviewed, Interpreted and Dictated by Mel Myles MD Transcribed by Mary Gonsalez Authenticated and [facility]
== END 2025-07-29 23:59 | disposition home or self-care (01) ==
LOC: RAD 16:14
PROVIDERS: PCP Family Medicine; Visit Provider Physician Assistant
DX: S52.122A Displaced fracture of head of left radius, initial encounter for closed fracture; X58.XXXA Exposure to other specified factors, initial encounter
CPT/HCPCS: 73080

== ENCOUNTER 2025-08-11 15:49 | Outpatient (CLI) | payer MEDICARE, SELFPAY ==
--- OUTSIDE RECORDS SUMMARY | 2025-02-24 10:00 | XMS_ITS ---
[facility] Organization [facility] Address [address] [facility] [address] [place] [phone] Care Team Providers Care Refining Still Operator Name Role Phone Jolie Humphrey Primary Care Provider [phone] Allergies No Known Allergies REASON FOR VISIT [...] Problem Carpal tunnel syndrome of left wrist ([id number]) Carpal tunnel syndrome of left wrist (G56.02) Active confirmed Problem Osteoarthritis (691775632) OA (osteoarthri tis) (M19.90) Active confirmed Vital Signs Weight 181.8 lbs 02/24/2025 Blood pressure systolic 140 mm Hg 02/25/20 25 Blood pressure diastolic 70 mm Hg 025 Heart Rate 58 /min 02/24/2025 Height 64 in 02/24/2025 BMI 31.2 kg/m2 02/24/2025 Encounters Encounter Location Date Provider Diagnosis [facility] [address] [place] [address] 36 [facility] [address] [place], [place] [phone] 02/24/2025 Jolie Leobardo Milagro Carpal tunnel syndrome of left wrist G56.02 [...] 4 Weeks,prn, Reas on: Provider Name:Jolie Bojorquez, 08/11/2025 03:15:00 PM, 1210 [facility] 36 [facility], [address], [place], [place], [id number], Medications Administered Medication Instructions Date of Administration Dosage Notes Depo- Medrol 40 mg/ml 02/24/2025 1.5 mL Progress Notes * CLIFF CHACON RDOB: [birth year] (75 yo F)Acc No.[id number]:02/24/2025 Progress Notes Patient: CLIFF FARAH Provider: Jolie Humphrey M.D. :1950 A ge:74 Y S ex:Female Date:02/24/2025 Address:[address] [place] [address] [place] M[id number] Subjective: * Chief Complaints: * 1 . [...] umbar fusion X 3 Dr Singh Spine [place] 2002, 2006, 2011, left knee scope X [...] or deformity.? Sensation is intact at present. Steel Die Printer strength is normal. Tinel's sign is negative..? [...] methylpred acetate 1 mg, Units: 1.50 , 44952 ADMINISTRATION OF INJECTION, 3077F SYST BP = 140 MM HG6 IT, 3078F DIAST BP < 80 MM HG * Follow Up: 4 Weeks,prn * Images: Billing Information: * Visit Code: 18106 Office Visit, Est Pt., Level 3. Modifiers: 25 * Procedure Codes: G2211 Complex e/m visit add on. J1010 Inj, methylpred acetate 1 mg. Units: 1.50. 30981 ADMINISTRATION OF INJECTION. 3077F SYST BP = 140 MM HG6 IT. 3078F DIAST BP < 80 MM HG. * Electronic signature of Jolie Humphrey MD on 08/11/2025 at 03:52 PM EDT Sign off status: Pending * Provider: Jolie Humphrey M.D. Date: 0 02/24/2025 Generated for Tyesha tripathi/Lacie/Michealitting on: 0 08/11/2025 03:52 PM EDT History and Physical Notes * [...] or deformity. Sensation is intact at present. Steel Die Printer strength is normal. Tinel's sign is negative.
--- OUTSIDE RECORDS SUMMARY | 2025-04-29 13:30 | XMS_ITS | Encounter Summary ---
Author Organization [facility] Address [address] [place] [address] Care Team Providers Care Farmer [employer] Name Role Phone Pillo Humphrey MD Primary Care Provider Reason for Referral * Diagnostic Imaging (Routine) - Closed Specialty Diagnoses / Procedures Referred By Contac t Referred To Contact Diagnoses Postmenopause Procedures DEXA Bone Density Axial Jose Mullen APRN [address] [address] Phone: tel: fax: [facility] - OUTPT PHYSICAL THERAPY [address] [place] [address] Phone: tel: fax: Referral ID Status Reason Start Date Expiration Date Visits Re quested Visits Authorized [id number] Closed 04/29/2025 07/29/2026 1 1 Reason for Visit * Reason Comments Rheumatoid Arthritis Encounter Details Date Type Department Care Team (Late st Contact Info) Description 04/29/2025 1:30 PM EDT Office Visit [facility] RHEUMATOLOGY [address] [address] Jose Mullen APRN [address] [id number] Rheumatoid arthritis involving multiple sites, unspecified whether [...] sent through Care Everywhere. * Hand Pain (French) documented in this encounter Progress Notes * [...] potentially affect the lungs. * Jose Mullen, SHOE REPAIRER HELPER - 04/29/2025 1:30 PM EDT Images from [...] in about 4 months (around 08/29/2025) for [employer]. Jose Mullen APRN [facility] [place] * Jose Mullen APRN - 04/23/2025 8:18 [...] Description 09/01/2025 2:15 PM EDT Office Visit [facility] RHEUMAT[facility] [address] [address] Jose Mullen APRN [address] [address] Scheduled Orders Name Type Priority Associated Diagnoses [...] L-spine N/A Radiographic Imaging us Jose Mullen SHOE REPAIRER HELPER IMG DXA ORDERABLES Fin al Result * [...] [facility] QuantiFERON Mitogen Value >10.00 IU/mL [facility] 04/29/2025 2:18 PM EDT 04/29/2025 Narrative [facility] [email or web address] [facility] (AMBULATORY) - 05/01/2025 7:06 AM EDT Performed at: [address] [id number] Geophysical Manager: Leonel Herrera PhD, Phone: [phone] Patient Fasting: Y Jose Mullen APRN LAB BLOOD ORDERABLES F inal Result [facility] (AMBULATORY) [address] [place] [address], [facility] [address] [place] [address], * Hepatitis C Virus Interpretation (04/29/2025 2:18 PM EDT) Interpretation Comment [facility] Comment: Not infected with HCV unless early or acute infection is suspected (which may be delayed in an immunocompromised individual), or other evidence exists to indicate HCV infection. 04/29/2025 2:18 PM EDT 04/29/[address] [facility] (AMBULATORY) - 05/01/2025 7:06 AM EDT Performed at: [address] [place], [place] [address] [address] [place], [place] [id number] Geophysical Manager: Leonel Herrera PhD, Phone: [phone] Patient Fasting: Y Jose Mullen SHOE REPAIRER HELPER LAB BLOOD ORDERABLES F inal Result Performing Organization Address [facility] Co de Phone Number [facility] (AMBULATORY) [address] [place] [address], [place] [phone] [facility] [address] [place] [address], [place] [phone] * Hepatitis Panel, Acute (04/29/2025 2:18 PM EDT) [facility] Hep A IgM Negative Negative [facility] [...] 05/01/2025 7:06 AM EDT Performed at: - [facility] [address] [place] [id number] Geophysical Manager: Leonel Herrera PhD, Phone: [phone] Patient Fasting: Y Jsoe Mullen SHOE REPAIRER HELPER LAB BLOOD ORDERABLES F inal Result Performing Organization Address [facility]/ZIP Co de Phone Number [facility] [address] [place] [address], [place] [phone] [facility] [address] [place] [address], [place] [phone] * QuantiFERON-TB Gold Plus (Li-Hep) (04/29/2025 2:18 PM EDT) [facility] QuantiFERON Incubation Incubation performed. [facility] [...] 04/29/2025 2:18 PM EDT 04/29/[address] [facility] [facility] (AMBULATORY) - 05/01/2025 7:06 AM EDT Performed at: [address] [place] [id number] Geophysical Manager: Leonel Herrera PhD, Phone: [phone] Patient Fasting: Y Jose Mullen SHOE REPAIRER HELPER LAB BLOOD ORDERABLES F inal Result Performing Organization Address [facility] Co de Phone Number [facility] [address] [place] [address], [facility] [address] [place] [address], * C-reactive Protein (04/29/2025 2:18 PM EDT) C-Reactive Protein 4 0 - 10 mg/L [facility] Blood 04/29/2025 2:18 PM EDT 04/29/[address] [facility] (AMBULATORY) - 05/01/2025 7:06 AM EDT Performed at: [address] [place] [id number] Geophysical Manager: Leonel Herrera PhD, Phone: [phone] Patient Fasting: Y Jose Mullen SHOE REPAIRER HELPER LAB BLOOD ORDERABLES F inal Result Performing Organization Address City/[facility]/ZIP Co de Phone Number [facility] [address] [place] [address], [place] [phone] [facility] [address] [place] [address], * Sedimentation Rate (04/29/2025 2:18 PM EDT) Sed Rate 19 0 - 40 mm/hr [facility] Blood 04/29/2025 2:18 PM EDT 04/29/[address] [facility] (AMBULATORY) - 05/01/2025 7:06 AM EDT Performed at: 01 - [facility] [address] [facility], [place], [place] [id number] Geophysical Manager: Leonel Herrera PhD, Phone: [phone] Patient Fasting: Y us Jose Mullen APRN LAB BLOOD ORDERABLES F inal Result [facility] [address] [place] [address], [facility] [address] [place] [address], * (ABNORMAL) Comprehensive Metabolic Panel (04/29/2025 2:18 [...] 04/29/2025 2:18 PM EDT 04/29/[address] [facility] [facility] (AMBULATORY) - 05/01/2025 7:06 AM EDT Performed at: 01 - [facility] [address] [place], [place] [id number] Geophysical Manager: Leonel Herrera PhD, Phone: [phone] Patient Fasting: Y Jose Mullen APRN LAB BLOOD ORDERABLES F inal Result [facility] [email or web address] [facility] (AMBULATORY) [address] [place] [address], [facility] [address] [place] [address], * (ABNORMAL) CBC & Differential (04/29/2025 2:18 [...] 05/01/2025 7:06 AM EDT Performed at: - [facility] [address] [place] [id number] Geophysical Manager: Leonel Herrera PhD, Phone: [phone] Patient Fasting: Y Jose Mullen SHOE REPAIRER HELPER LAB BLOOD ORDERABLES F inal Result Performing Organization Address City/State/[facility] Co de Phone Number [facility] [email or web address] [facility] (AMBULATORY) [address] [place] [address], [facility] [address] [place] [address], * XR Chest 2 View (04/29/2025 2:05 PM EDT) Anatomical Region Laterality Modality Body N/A Radiographic Faith ging 04/30/2025 9:52 AM EDT Impressions 04/30/2025 9:53 AM EDT Impression: No acute findings. Electronically Signed: Clarke Bowen MD 04/30/2025 9:53 AM EDT Workstation ID: [id number] Narrative 04/30/2025 9:53 AM EDT XR CHEST 2 VW Date of Exam: 04/29/2025 2:00 PM EDT Indication: fatigue Comparison: None available. Findings: Borderline enlarged cardiac silhouette. No focal airspace consolidation. No pleural effusion or pneumothorax. Multilevel spondylosis with lumbar spinal fusion hardware partially included within the wyabd-oz-prxk. Procedure Note Clarke Bowen MD - 04/30/2025 XR CHEST 2 VW Date of Exam: 04/29/2025 2:00 PM EDT Indication: fatigue Comparison: None available. Findings: Borderline enlarged cardiac silhouette. No focal airspace consolidation.No pleural effusion or pneumothorax. Multilevel spondylosis with lumbarspinal fusion hardware partially included within the xpzhl-nq-vzzn. IMPRESSION: Impression: No acute findings. Electronically Signed: Clarke Bowen MD 04/30/2025 9:53 AM EDT Workstation ID: [id number] Jose Mullen APRN IMG DIAGNOSTIC IMAGING ORDERABLES Final Result documented in this encounter Visit Diagnoses Diagnosis Rheumatoid arthritis involving multiple sites, unspecified whether rheumatoid factor present- Primary High risk medication use Current use of steroid medication Immunodeficiency due to drug therapy Other fatigue Shortness of breath Postmenopause Asymptomatic postmenopausal status (age-related) (natural) documented in this encounter Care Teams Farmer [employer] Relationship Specialty Start Date End Date Pillo Humphrey MD [address] [place] [address] [address] [facility] [address] [place] [address] PCP - General Family Medicine 02/20/21 documented as of this encounter
--- OUTSIDE RECORDS SUMMARY | 2025-07-02 06:30 | XMS_ITS ---
Author Organization [facility] Address [address] [facility] [address] [place] [id number] Care Team Providers Care Skip Pitman Name Role Phone Jolie Humphrey Primary Care Provider [phone] Allergies No Known Allergies REASON FOR VISIT Annual Wellness visit-Medicare Medications Medication SIG (Take, Route, Frequency, Duration) Notes Start Date End Date Status Loratadine 10 MG 1 tab(s) orally once a day Active B-12 1000 MCG 1 tab(s) orally once a day 08/12/2015 Active Fish Oil 1000 MG 2 cap orally 2 times a day 01/01/2020 Active CPAP machine and supplies - as directed as directed 05/11 with heated humidifier 04/28/2024 Active Methotrexate 2.5 MG 5 tabs orally once a week Active Plavix 75 MG 1 tablet Orally Once a day Active Omeprazole 20 MG 1 cap(s) orally once a day; Duration: 90 days Active predniSONE 5 MG 1 tab(s) orally once a day; Duration: 30 days Active Aspirin 81 MG 1 tablet Orally Once a day Active Vascepa 1 GM 2 cap(s) orally 2 times a day; Duration: 90 days 01/05/2021 Active Rosuvastatin Calcium 40 MG 1 tablet [...] once a day; Duration: 90 days Active Problems Problem Type SNOMED Code ICD Code Onset Dates Problem Status W/U Status Risk Notes Problem Macrocytic anemia (11917677) Macrocytic anemia (D53.9) Active confirmed Vital Signs Weight 179.6 lbs 07/02/2025 Blood pressure systolic 130 mm Hg 07/02/20 25 Blood pressure diastolic 60 mm Hg 025 Heart Rate 67 /min 07/02/2025 Height 64 in 07/02/2025 BMI 30.82 kg/m2 07/02/2025 Encounters Encounter Location Date Provider Diagnosis [facility] [address] [place], [place] [phone] 07/02/2025 Jolie Humphrey Adult general medica l examination Z00.00 ; Dyslipidemia E78.5 ; Macrocytic anemia D53.9 ; Breast cancer screening Z12.39 ; Rheumatoid arthritis, involving unspecified site, unspecified rheumatoid factor presence M06.9 ; Essential hypertension I10 ; BMI 30.0-30.9,adult Z68.30 ; Severe obstructive sleep apnea G47.33 and Gastroesophageal reflux disease, esophagitis presence not specified K21.9 Assessments Encounter Date Diagnosis (ICD Code) Assessment Notes Treatment Notes Treatment Clinical Notes Section Notes 07/02/2025 Adult general medical examination (ICD-10 - Z00.00) Patient instructed to return to office Annually for Annual Wellness Visits to include annual screenings of Pain assessment, Functional Ability assessment, Cognitive Ability assessment, Fall Risk assessment, Depression screening and Bladder control screening. 07/02/2025 Dyslipidemia (ICD-10 - E78.5) 07/02/2025 Macrocytic anemia (ICD-10 - D53.9) 07/02/2025 Breast cancer screening (ICD-10 - Z12.39) 07/02/2025 Rheumatoid arthritis, involving unspecified site, unspecified rheumatoid factor presence (ICD-10 - M06.9) 07/02/2025 Essential hypertension (ICD-10 - I10) 07/02/2025 BMI 30.0-30.9,adult (ICD-10 - Z68.30) 07/02/2025 Severe obstructive sleep apnea (ICD-10 - G47.33) 07/02/2025 Gastroesophageal reflux disease, esophagitis presence not specified (ICD-10 - K21.9) Plan Of Treatment Treatment Notes Assessment Notes Adult general medical examination Patien t instructed to return to office Annually for Annual Wellness Visits to include annual screenings of Pain assessment, Functional Ability assessment, Cognitive Ability assessment, Fall Risk assessment, Depression screening and Bladder control screening. Pending Test Test Name Order Date CBC Venipuncture (in house) 07/02/2025 Mammogram 07/02/2025 P-Vitamin B12 07/02/2025 P-Comprehensive Metabolic Panel (CMP) P-Folate 07/02/2025 P-Lipid Panel 07/02/2025 Next Appt Details Follow Up: 6 Months, Reason: Provider Name:Jolie Bojorquez, 08/11/2025 03:15:00 PM, [address], [place], [phone], Progress Notes * CLIFF CHACON RDOB: [birth year] (75 yo F)Acc No.[id number]:07/02/2025 Annual Wellness Visit Patient: Aashish CLIFF WETZEL Provider: Jolie Humphrey M.D. :1950 A ge:75 Y S ex:Female Date:07/02/2025 Address:[address] [place] [address] [id number] Subjective: * Chief Complaints: * 1 . Annual Wellness visit-Medicare. * HPI: H PI: 75 year old female presents with c/o Patient is here today for?Patient is here today for a Medicare Annual Wellness Visit. C ardiology: She continues to follow with cardiology for her dyspnea. She underwent heart cath a couple months ago requiring 3 stents. She is now on aspirin and Plavix along with spironolactone and Bumex. Despite these treatments, she has not seen much improvement in her dyspnea. She also underwent cardiac MRI to rule out amyloidosis which was apparently normal. According to cardiology consultation notes, they are trying to approve her for the Eleanor device. R heumatology: She also brings in recent labs from her councilperson showing a mild macrocytic anemia. She is currently taking a folic acid supplement. Prize Fighter also performed a bone density exam showing osteopenia. They are trying to approve Prolia injections. * ROS: D ERMATOLOGY: no R vicki. [...] Surgical History: l umbar fusion X 3 Ophelia Spine [facility] 2002, 2006, 2011, left knee scope X [...] tab(s) orally once a day , Taking Rosuvastatin Calcium 40 MG Tablet 1 tablet Orally Once a day , Taking Lisinopril 20 MG Tablet 1 tablet Orally Once a day , Taking Omeprazole 20 MG Capsule Delayed Release 1 cap(s) orally once a day , Taking predniSONE 5 MG Tablet 1 tab(s) orally once a day , Medication List reviewed and reconciled with the patient * Allergies: N .K.D.A. Objective: * Vitals: W t: 179.6, Temp: 98.7, BP: 130/60, HR: 67, O2 Sat: 98% on RA, Nurse: delfin, Ht: 64, BMI:30.82. * Examination: C ardiology: General Appearance: p leasant, NAD. C arotid upstroke:?normal, no bruits. H eart sounds: R RR, normal S1, S2. M urmur, click , gallop:?none. L ungs: S lightly diminished breath sounds but otherwise clear. E xtremities: no leg edema.. * Physical Examination: G ENERAL: Pain Assessment: P ain level: 1, on a scale of 0-10 (with 10 being extreme pain). F unctional Status Assessment: P atient response to question of how often physical health interferes with daily activities: almost never. Able to perform ADLs-including meal preparation, grocery shopping, housework, laundry, taking medications or handling finances. Cognitive Status: alert and oriented. Ambulation Status: Fully ambulatory. F all Risk Assessment: I ndependant in ambulation, adequate lighting in home. Patient has NOT fallen or had trouble walking within the past 12 months. D epression Screening: D endavide depressed mood or anxiety. Describes emotional health as: calm. B ladder Control Screening: D enies problems. Assessment: * Assessment: 1. A dult general medical examination - Z00.00 (Primary) 2 . D yslipidemia - E78.5 3 . M acrocytic anemia - D53.9 4 . B reast cancer screening - Z12.39 5 . R heumatoid arthritis, involving unspecified site, unspecified rheumatoid factor presence - M06.9 6 . E ssential hypertension - I10 ? 7 . B [place] 30.0-30.9,adult - Z68.30 8 . S evere obstructive sleep apnea - G47.33 9 . G astroesophageal reflux disease, esophagitis presence not specified - K21.9 Plan: * Treatment: 2. D yslipidemia L AB: P-Comprehensive Metabolic Panel (CMP) L AB: P-Lipid Panel 3. M acrocytic anemia L AB: CBC Venipuncture (in house) L AB: P-Vitamin B12 L AB: P-Folate 4. B reast cancer screening I maging: Mammogram * Procedure Codes: G 0439 ANNUAL WELLNESS VST; PPS SUBSQT VST, G2211 Complex e/m visit add on, 1090F PRES/ABSN URINE INCON ASSESS, 3288F FALL RISK ASSESSMENT DOCD, 1170F FXNL STATUS ASSESSED, 1159F MED LIST DOCD IN RCRD, 1003F LEVEL OF ACTIVITY ASSESS, 1036F TOBACCO NON-USER, G8510 NEG SCR Depression PT NOT ELIG F/U/PLN DOC, 1125F AMNT PAIN NOTED PAIN PRSNT, G8950 PREHTN/HTN BP DOC INDCD F/U DOC, G8752 MOST RECENT SYSTOLIC BP < 140MM HG, G8754 MOST RECENT DIASTOLIC BP < 90MM HG, G8399 PT W/DXA DOCUMENT OR ORDER * Preventive Medicine: Counseling: E motional health: [...] B one mineral Density R ecent history: 2024 per councilperson. * Follow Up: 6 Months * Images: Drawing:[facility] Billing Information: * Visit Code: 81916 Office Visit, Est Pt., Level 3. Modifiers: 25 * Procedure Codes: G0439 ANNUAL WELLNESS VST; PPS SUBSQT VST. G2211 Complex e/m visit add on. 1090F PRES/ABSN URINE INCON ASSESS. 3288F FALL RISK ASSESSMENT DOCD. 1170F FXNL STATUS ASSESSED. 1159F MED LIST DOCD IN RCRD. 1003F LEVEL OF ACTIVITY ASSESS. 1036F TOBACCO NON-USER. G8510 NEG SCR Depression PT NOT ELIG F/U/PLN DOC. 1125F AMNT PAIN NOTED PAIN PRSNT. G8950 PREHTN/HTN BP DOC INDCD F/U DOC. G8752 MOST RECENT SYSTOLIC BP < 140MM HG. G8754 MOST RECENT DIASTOLIC BP < 90MM HG. G8399 PT W/DXA DOCUMENT OR ORDER. * Electronic signature of Jolie Humphrey MD on 08/11/2025 at 03:52 PM EDT Sign off status: Pending * Provider: Jolie Humphrey M.D. Date: 0 07/02/2025 Generated for Tyesha tripathi/Lacie/eTransmitting on: 0 08/11/2025 03:52 PM EDT History and Physical Notes * HPI (History of Present Illness) Category Sub-Category Detail Notes Category Not es Cardiology She continues to follow with cardiology for her dyspnea. She underwent heart cath a couple months ago requiring 3 stents. She is now on aspirin and Plavix along with spironolactone and Bumex. Despite these treatments, she has not seen much improvement in her dyspnea. She also underwent cardiac MRI to rule out amyloidosis which was apparently normal. According to cardiology consultation notes, they are trying to approve her for the Eleanor device. Rheumatology She also brings in recent labs from her councilperson showing a mild macrocytic anemia. She is currently taking a folic acid supplement. Prize Fighter also performed a bone density exam showing osteopenia. They are trying to approve Prolia injections. HPI Patient is here today for Patient is here today for a Medicare Annual Wellness Visit Physical Examination Category Sub-Category Detail Notes Section Note s GENERAL Pain Assessment: Pain level: 1, on a scale of 0-10 (with 10 being extreme pain) Functional Status Assessment: Patient re sponse to question of how often physical health interferes with daily activities: almost never. Able to perform ADLs-including meal preparation, grocery shopping, housework, laundry, taking medications or handling finances.Cognitive Status: alert and oriented.Ambulation Status: Fully ambulatory Fall Risk Assessment: Independant in amb ulation, adequate lighting in home. Patient has NOT fallen or had trouble walking within the past 12 months Depression Screening: Denies depressed m ood or anxiety. Describes emotional health as: calm Bladder Control Screening: Denies proble ms Examination Category Sub-Category Detail Notes Category Not es Cardiology Lungs: Slightly diminis hed breath sounds but otherwise clear Heart sounds: RRR, normal S1, S2 Carotid upstroke: normal, no bruits Extremities: no leg edema. Murmur, click , gallop: none General Appearance: pleasant, NAD
--- OUTSIDE RECORDS SUMMARY | 2025-07-28 09:45 | XMS_ITS ---
Author Organization [facility] Address [address] [facility] [address] [facility] [address] [place] [phone] Care Team Providers Care Software Licensing Executive Name Role Phone Jolie Humphrey Primary Care Provider Allergies No Known Allergies REASON FOR VISIT Discuss Prolia Encounters Encounter Location Date Provider Diagnosis [facility] [address] [facility] [address] [facility] [address] [place] [phone] 07/28/2025 Jolie Humphrey Plan Of Treatment Next Appt Details Provider Name:Jolie Bojorquez, 08/11/2025 03:15:00 PM, [address] [facility] [address] [facility], [address], [place], [phone], Progress Notes * CLIFF CHACON RDOB: [birth year] (75 yo F)Acc No.[id number]:07/28/2025 Progress Notes Patient: CLIFF FARAH Jolie Provider: Jolie Humphrey M.D. :1950 A ge:75 Y S ex:Female Date:07/28/2025 Address:[address] [place] [address] [id number] Subjective: * Chief Complaints: [...] umbar fusion X 3 Dr Singh Spine [facility] 2002, 2006, 2011, left knee scope [...] Date: 07/28/2025 Generated for Tyesha tripathi/Lacie/Michealitting on: 08/11/2025 03:52 PM EDT
--- OUTSIDE RECORDS SUMMARY | 2025-07-29 11:15 | XMS_ITS ---
[facility] Organization [facility] Address [address] [place] [id number] Care Team Providers Care Supervisor Screen Making Name Role Phone Jolie Humphrey Primary Care Provider [phone] Whitney Morillo Unavailable [phone] Allergies No Known Allergies Results Component Value [...] lly Once a day Active Vital Signs Weight 176.2 lbs 07/29/2025 Blood pressure systolic 100 mm Hg 07/29/20 25 Blood pressure diastolic 60 mm Hg 025 Heart Rate 76 /min 07/29/2025 Height 64 in 07/29/2025 BMI 30.24 kg/m2 07/29/2025 Encounters Encounter Location Date Provider Diagnosis [facility] [address] [facility] [address] [place], [place] [id number] 07/29/2025 Whitney Morillo Injury of left elbow [...] phone to repo rt test results, Reason: Provider Name:Jolie Bojorquez, 08/11/2025 03:15:00 PM, [address], [place], [place], [id number], Progress Notes * LEONCIO CHACON RDOB: [birth year] (75 yo F)Acc No.[id number]:07/29/2025 Progress Notes Patient: LEONCIO FARAH Provider: SELVIN Dobbs :1950 A ge:75 Y S ex:Female Date:07/29/2025 Address:[address] [place] [address] [id number] Pcp:Jolie Humphrey Subjective: * Chief Complaints: * [...] umbar fusion X 3 Dr [facility] 2002, 2006, 2011, left knee scope X [...] Temp: 98.0, BP: 100/60, HR: 76, Nurse: pe, Ht: 64, Repeat BP: 90/60, BMI:30.24. * [...] njury of left elbow, initial encounter - S59.150J (Primary) 2 . A cute URI - [...] G 2211 Complex e/[place], [address] CAPILLARY BLOOD DRAW, 21287 CBC WITH AUTO DIFF, 66703 COVID TEST IN HOUSE, Modifiers: QW * Follow Up: v ia phone to report test results * Images: Billing Information: * Visit Code: 61015 Office Visit, Est Pt., Level 4. * Procedure Codes: G2211 Complex e/[place]. [address] CAPILLARY BLOOD DRAW. 39003 CBC WITH AUTO DIFF. 43770 COVID TEST IN HOUSE. Modifiers: QW * Electronic signature of SELVIN Sellers on 08/11/2025 at 03:52 PM EDT Sign off status: Pending * Provider: SELVIN Dobbs Date: 07/29/2025 Generated for Tyesha tripathi/Elysiag/eTransmitting on: 08/11/2025 03:52 PM EDT History and Physical [...]
--- NOTE | 2025-08-11 15:52 | XR_ITS ---
FINAL REPORT CLINICAL HISTORY: COUGH FINDINGS: 2 views of the chest were obtained . The heart is normal in size. The mediastinum is within normal limits. The lungs are clear. There is no pneumothorax. Osseous structures are unremarkable. IMPRESSION: No acute cardiopulmonary process. Reviewed, Interpreted and Dictated by Aldo Moya MD Transcribed by Lety Woo Authenticated and [facility]
--- OUTSIDE RECORDS SUMMARY | 2025-08-11 15:52 | XMS_ITS | Patient Health Record ---
Author Organization [facility] Address [address] [facility] [address] [place] [id number] Care Team Providers Care Ore Crusher Name Role Phone Jolie Humphrey Primary Care Provider MiguelitoWhitney littlejohn Unavailable [phone] Allergies No Known Allergies Results Component Value Reference Range Notes X ray : Elbow, left Reviewed date:08/07/2025 12:12:48 AM Interpretation: Performing Lab: Notes/Report: Covid test (in house) Reviewed date:07/30/2025 12:47:01 PM Interpretation: Performing Lab: Notes/Report: Result: neg CBC Fingerstick (in house) Reviewed date:07/30/2025 12:47:01 [...] - 38 plat 276 100 - 400 P-Vitamin B12 Reviewed date:09/22/2024 05:55:06 PM Interpretation:1849 Performing Lab: Notes/Report: Test performed by [facility], [facility] , [address], [place] [address] Laureano Rod MD, International Exchange Coordinator CLIA: [id number] Vitamin B12 1135 913-6223 pg/mL P-Comprehensive Metabolic Pa liberty (CMP) Reviewed date:09/22/2024 05:55:06 PM Interpretation:gluc 118 Performing Lab: Notes/Report: Test performed by [facility] [address] [place] [address] Tawny Rao C, [place] [address] Laureano Rod MD, International Exchange Coordinator CLIA: [id number] Sodium 138 135-145 mmol/L Potassium 4.5 3.5-5.3 [...] 138 Performing Lab: Notes/Report: Test performed by [facility] [address] [place] [address] Tawny Rao C, [place] [address] Laureano Rod MD, International Exchange Coordinator CLIA: [id number] Cholesterol 190 <200 mg/dL Triglycerides 372 <150 [...] Interpretation:Normal Performing Lab: Notes/Report: Test performed by [facility], [address] , [place] [address] Laureano Rod MD, International Exchange Coordinator CLIA: [id number] Vitamin D, 1, 25 Dihydroxy 60.0 19.9-79.3 pg/m L Echocardiogram Reviewed date:10/29/2024 04:03:53 PM Interpretation: Performing Lab: Notes/Report: Reason For Referral Reason Dr Ferrer for abnormal echo Diagnosis 1 Abnormal echocardiog dennis (R93.1) [facility] Referring Provider First Name Jolie Booth Referring Provider Last Name Milagro Referring Provider Speciality Family Pra ctice Referred Provider Carissa Holland Referred Provider Specialty Cardiovascul ar Disease General Notes Karishma Queen 10/30/20 3:01:40 PM > faxed to [facility] Cardiology, Karishma Queen 11/06/2024 1:48:57 PM > 12/11/2024 at 01:30pm Referral Priority Routine Medications Medication SIG (Take, Route, Frequency, Duration) Notes Start Date End Date Status Clopidogrel Bisulfate 75 MG 1 tablet Ora lly Once a day Active amLODIPine Besylate 10 MG 1/2 tab(s) Ora lly Once a day Active Lisinopril 20 MG 1 tablet Orally Once a day in the morning Active Aspirin 81 MG 1 tablet Orally Once a day Active Plavix 75 MG 1 tablet Orally Once a day Active Loratadine 10 MG 1 tab(s) orally once a day Active Methotrexate 2.5 MG 5 tabs orally once a week Active PARoxetine HCl 10 MG 1 tab(s) orally onc e a day; Duration: 90 days Active B-12 1000 MCG 1 tab(s) orally once a day 08/12/2015 Active predniSONE 5 MG 1 tab(s) orally once a day; Duration: 30 days Active Rosuvastatin Calcium 40 MG 1 tablet Oral ly Once a day; Duration: 90 days Active Omeprazole 20 MG 1 cap(s) orally once a day; Duration: 90 days Active Benzonatate 200 MG 1 capsule as needed Orally Three times a day 08/11/2025 Active levoFLOXacin 500 MG 1 tablet Orally Once a day 08/11/2025 Active Immunizations Vaccine Route Administration Date Status [...] W/U Status Risk Notes Problem Essential hypertension (98067175) Essential hypertension (I10) Active confirmed Problem Paresthesia (38234992) Paresthesia (R20.2) Active confirmed Problem Body mass index 30+ - obesity (373629450) BMI 30.0-30.9,adult (Z68.30) Active confirmed Problem Hot flashes (033624110) Hot flashes (N95.1) Active confirmed Problem Sciatica (15497426) Lumbago with sciatica, right side (M54.41) Active confirmed Problem Mixed hyperlipidemia (838326256) Mixed hyperlipidemia (E78.2) Active confirmed Problem Essential tremor (667943097) Essential tremor (G25.0) Active confirmed Problem Sciatica (86720756) Lumbago with sciatica, left side (M54.42) Active confirmed Problem Gastroesophageal reflux disease (090886974) GERD without esophagitis (K21.9) Active confirmed Problem Gastroesophageal reflux disease without esophagitis (179331672) Gastroesophageal reflux disease without esophagitis (K21.9) Active confirmed Problem Depression (030600861) Depression (F32.9) Active confirmed Problem Gastroesophageal reflux disease (316431394) Gastroesophageal reflux disease, esophagitis presence not specified (K21.9) Active confirmed Problem Macrocytic anemia (07157748) Macrocytic anemia (D53.9) Active confirmed Problem Carpal tunnel syndrome of left wrist (334616926845604) Carpal tunnel syndrome of left wrist (G56.02) Active confirmed Problem Obstructive sleep apnea syndrome (86012416) Severe obstructive sleep apnea (G47.33) Active confirmed Problem Dyslipidemia (015203987) Dyslipidemia (E78.5) Active confirmed Problem Osteoarthritis (248311910) OA (osteoarthritis) (M19.90) Active confirmed Problem Mood swings (76057324) Mood swings (F39) Active confirmed Problem Rheumatoid arthritis (95390619) Rheumatoid arthritis, involving unspecified site, unspecified rheumatoid factor presence (M06.9) Active confirmed Problem Post menopausal problems (N95.9) Active confirmed Vital Signs Heart Rate 62 /min 08/11/2025 Blood pressure diastolic 70 mm Hg 08/11/2025 Height 64 in 08/11/2025 Blood pressure systolic 114 mm Hg 08/11/2025 Weight 173.8 lbs 08/11/2025 BMI 29.83 kg/m2 08/11/2025 Encounters Encounter Location Date Provider Diagnosis [facility] [address] [place] [id number] 09/18/2024 Jolie Humphrey NORRIS (dyspnea on exer tion) R06.09 ; TAHIRA (obstructive sleep apnea) G47.33 ; Dyslipidemia E78.5 ; Vitamin B 12 deficiency E53.8 ; Rheumatoid arthritis, involving unspecified site, unspecified rheumatoid factor presence M06.9 and Encounter for immunization Z23 [facility] [address] [place] [id number] 02/24/2025 Jolie Humphrey Carpal tunnel syndro me of left wrist G56.02 and OA (osteoarthritis) M19.90 [facility] 120[facility] [address] [place] [id number] 07/02/2025 Jolie Humphrey Adult general medica l examination Z00.00 ; Dyslipidemia E78.5 ; Macrocytic anemia D53.9 ; Breast cancer screening Z12.39 ; Rheumatoid arthritis, involving unspecified site, unspecified rheumatoid factor presence M06.9 ; Essential hypertension I10 ; BMI 30.0-30.9,adult Z68.30 ; Severe obstructive sleep apnea G47.33 and Gastroesophageal reflux disease, esophagitis presence not specified K21.9 [facility] 121 [facility] [address] [place] [id number] 07/29/2025 Whitney Crowdy Injury of left elbow , initial encounter S59.902A ; Acute URI J06.9 and Hypotension due to drugs I95.2 [facility] [address] [place], [place] [id number] 08/11/2025 R Leobardo Milagro Acute bronchitis J20 .9 [facility] [address] [place], [place] [id number] 09/22/2024 R Leobardo Milagro [facility] [address] [place], [place] [id number] 10/29/2024 R Leobardo Milagro Abnormal echocardiog dennis R93.1 [facility] [address] [place], [place] [id number] 01/16/2025 R Leobardo Milagro [facility] [address] [place], [place] [id number] 02/20/2025 R Leobardo Milagro [facility] [address] [place], [place] [id number] 03/09/2025 R Leobardo Milagro [facility] [address] [place], [place] [id number] 04/14/2025 R Leobardo Milagro [facility] [address] [place], [place] [id number] 05/18/2025 R Leobardo Milagro [facility] [address] [place], [place] [id number] 06/24/2025 R Leobardo Milagro [facility] [address] [place], [place] [id number] 06/29/2025 R Leobardo Milagro [facility] [address] [place], [place] [id number] 07/15/2025 R Leobardo Milagro [facility] [address] [place], [place] [id number] 07/15/2025 R Leobardo Milagro [facility] [address] [place], [place] [id number] 07/30/2025 Whitney Morillo Hypotension due to d rugs I95.2 [facility] [address] [place] [id number] 07/30/2025 Jolie [facility] [address] [place] [id number] 08/06/2025 Jolie Roldanfleet Assessments Encounter Date Diagnosis (ICD Code) Assessment [...] TAHIRA (obstructive sleep apnea) (ICD-10 - G47.33) 07/29/2025 Acute URI (ICD-10 - J06.9) 07/29/2025 Injury of left elbow, initial encounter (ICD-10 - S59.902A) 07/30/2025 Hypotension due to drugs (ICD-10 - I95.2) 08/11/2025 Acute bronchitis (ICD-10 - J20.9) 07/02/2025 Dyslipidemia (ICD-10 - E78.5) 07/02/2025 Adult general medical examination (ICD-10 - Z00.00) Patient instructed to return to office Annually for Annual Wellness Visits to include annual screenings of Pain assessment, Functional Ability assessment, Cognitive Ability assessment, Fall Risk assessment, Depression screening and Bladder control screening. 07/29/2025 Hypotension due to drugs (ICD-10 - I95.2) Will stop BP meds and call tomorrow with BP reading. 09/18/2024 Dyslipidemia (ICD-10 - E78.5) 07/02/2025 Macrocytic anemia (ICD-10 - D53.9) 09/18/2024 Vitamin B 12 deficiency (ICD-10 - [...] Treatment Pending Test Test Name Order Date CBC Venipuncture (in house) 07/02/2025 Mammogram 07/02/2025 H-CBC 04/17/2023 H-MICROALB 04/17/2023 H-Lipid Panel 04/17/2023 H-CMP 04/17/2023 LC-Hep C Virus RNA (detect active infect ion) 09/26/2021 P-Vitamin B12 07/02/2025 P-Comprehensive Metabolic Panel (CMP) P-Folate 07/02/2025 P-Lipid Panel 07/02/2025 Next Appt Details Provider Name:Jolie Gordillowalt enoc, 08/11/2025 03:15:00 PM, [address] [facility] 36 [facility], [address], [place], [place], [id number], Insurance Providers Payer Name Payer Address Payer Phone Subscriber Number Group Number Insured Name Patient Relationship to Insured Coverage Start Date Coverage End Date [employer]ARE [address] [address] [place], [place] [id number] LEONCIO CHACON Self - patient is the [...] fusion X 3 Dr [facility] 2002, 2006, 2011 left knee scope X 2, right knee scope X 1 Dr Villareal Breast Reduction May 2016 Left TKA - Dr. Man 09/18/22 Right TKA - Dr. Man 08/03/2023 Hospitalization History Reason Date(Month/Year) [facility] ER - Fall/Low Back Pain 11/11/2022
--- OUTSIDE RECORDS SUMMARY | 2025-08-11 15:52 | XMS_ITS | Clinical Summary ---
Author Organization [facility] Address [address] [place] [address] Care Team Providers Care Flight Service Agent Name Role Phone Pillo Humphrey MD Primary Care Provider +1- [phone] Family History Medical History Relation Name Comments [...] or (1 - 1-dose 75+ series) 2023 [id number] Vaccine (5 - 2024- season) 2025 10/16/2022, 11/02/2021, 01/19/2021, Additional history exists UKY-Influenza [...] to complete this topic Insurance [place] [id number] [facility] MEDICARE Care Teams Flight Service Agent Relationship Specialty Start Date End Date Pillo Humphrey MD [address] [place] [address] PCP - General 04/08/21
--- OUTSIDE RECORDS SUMMARY | 2025-08-11 15:53 | XMS_ITS | Encounter Summary ---
Author Organization [facility] Address [address] [place] [address] Care Team Providers Care Plant Sciences Professor Name Role Phone Pillo Humphrey MD Primary Care Provider Encounter Details Date Type Department Care Team (Late Contact Info) Description 07/14/2025 Results Follow-Up [facility] RHEUMATOLOGY [address] [address] Jose Mullen APRN [address] [id number] Social History Tobacco Use Types Packs/Day Years [...] Visit [facility] RHEUMATOLOGY [address] [address] Jose Mullen APRN [address] [id number] documented as of this encounter Visit Diagnoses Not on filedocumented in this encounter Care Teams Plant Sciences Professor Relationship Specialty Start Date End Date Pillo Humphrey MD 1210 [facility] 36 [address] [facility] [address] [place] [address] PCP - General Family Medicine 02/20/21 documented as of this encounter
--- OUTSIDE RECORDS SUMMARY | 2025-08-11 15:53 | XMS_ITS | Encounter Summary ---
Author Organization [facility] Address [address] [place] [address] Care Team Providers Care Donation Specialist Name Role Phone Pillo Humphrey MD Primary Care Provider Encounter Details Date Type Department Care Team (Late st Contact Info) Description 07/01/2025 Telephone [facility] RHE[facility] [address] [address] Jose Mullen APRN 330 [facility] 100 [place], [place] [id number] Social History Tobacco Use Types Packs/Day Years [...] home for Prolia. I spoke with Dharmesh [facility] and faxed order, demographic sheet, and referral note stating NO PA REQUIRED for this J code. They stated they would call and get pt scheduled. I tried to call pt and there was no answer, so I sent her a [email or web address] message with this information. * Telephone Encounter - Kenisha Jarquin RN - 07/02/2025 2:37 PM EDT Therapy plan in to be reviewed and signed by provider. Referral in for [facility]. Pt on the list to be scheduled at [facility]. * Telephone Encounter - Kip Sanchez [...] Description 09/01/2025 2:15 PM EDT Office Visit [facility] RHEUMATOLOGY [address] [address] Jose Mullen APRN [address] [address] documented as of this encounter Visit Diagnoses Not on filedocumented in this encounter Care Teams Donation Specialist Relationship Specialty Start Date End Date Pillo Humphrey MD [address] [facility] [address] [place] [address] PCP - General Family Medicine 02/20/21 documented as of this encounter
--- OUTSIDE RECORDS SUMMARY | 2025-08-11 15:53 | XMS_ITS | Encounter Summary ---
[facility] Address [address] [place] [address] Care Team Providers Care Tank Inspector Name Role Phone Pillo Humphrey MD Primary Care Provider Encounter Details Date Type Department Care Team (Late st Contact Info) Description 07/31/2025 Telephone [facility] RHEUM[facility]OLOG[facility] 330 [facility] 100 [place] [address] Kip Sanchez, PharmD [address] [place] [address] Social History Tobacco Use Types Packs/Day Years [...] Miscellaneous Notes * Telephone Encounter - Kenisha Jarquin RN - 08/03/2025 1:50 PM EDT Changed properties to state Jubbonti instead of Prolia and added okay to use Jubbonti. We do not have order sets for Jubbonti yet. Faxed to [facility]. * Telephone Encounter - Kenisha Jarquin RN - 08/03/2025 1:35 PM EDT Would it be okay to send a new order for Jubbonti? A few different places are switching to this, yohan will likely see it more. Would you all prefer we ask you on a patient to patient basis or just go ahead and switch if the infusion centers request it? Thank you so much! * Telephone Encounter - Kip Sanchez, AnthonyD - 07/31/2025 2:55 PM EDT Dharmesh [facility] called requesting an order for Jubbonti since her insurance prefers biosimilar instead of Prolia. documented in this encounter Plan of Treatment Upcoming Encounters Date Type Department Care Team (Late st Contact Info) Description 09/01/2025 2:15 PM EDT Office Visit [facility] RHEUMATOLOGY [address] [address] Jose Mullen APRN [address] [address] documented as of this encounter Visit Diagnoses Not on filedocumented in this encounter Care Teams Tank Inspector Relationship Specialty Start Date End Date Pillo Humphrey MD 1210 [facility] [address] [place] [address] PCP - General Family Medicine 02/20/21 documented as of this encounter
--- OUTSIDE RECORDS SUMMARY | 2025-08-11 15:53 | XMS_ITS | Encounter Summary ---
Author Organization [facility] Address [address] [place] [address] Care Team Providers Care Sample Dye Mixer Name Role Phone Pillo Humphrey MD Primary Care Provider +1- [phone] Reason for Referral * Consultation (Routine) - Closed Specialty Diagnoses / Procedures Referred By Camilo morales Referred To Contact Dentist / Pain Medicine Diagnoses Obstructive sleep apnea Karolyn Salinas MD [address] [place] [address] Phone: tel: fax: Alice Arreola, DDS [address] [place] [address] Phone: tel: fax: Referral ID Status Reason Start Date Expiration Date Visits Re quested Visits Authorized [id number] Closed 09/05/2024 03/07/2026 1 1 Encounter Details Date Type Department Care Team (Late st Contact Info) Description 09/05/2024 Community Orders [facility] [address] [place] [address] Karolyn Salinas MD [address] [place] [address] [place] [address] Obstructive sleep apnea (Primary Dx) Social [...] (pediatric) documented in this encounter Care Teams Sample Dye Mixer Relationship Specialty Start Date End Date Pillo Humphrey MD [address] [place] [address] PCP - General 04/08/21 documented as of this encounter
--- OUTSIDE RECORDS SUMMARY | 2025-08-11 15:53 | XMS_ITS | Encounter Summary ---
[facility] Address [address] [place] [address] Care Team Providers Care Tank Driver Name Role Phone Pillo Humphrey MD Primary Care Provider Encounter Details Date Type Department Care Team (Late st Contact Info) Description 04/29/2025 Telephone [facility] RHEUMATOLOGY [address] [address] Jose Mullen APRN 330 [facility] 100 [place] [address] Social History Tobacco Use Types Packs/Day Years [...] Miscellaneous Notes * Telephone Encounter - Kip Sanchez PharmD - 08/07/2025 1:02 PM EDT Unable to lvm, phone continues to hang up. * Telephone Encounter - Kip Sanchez PharmD - 07/29/2025 9:42 AM EDT Contacted [employer] and automotive sales representative stated patient must call [email or web address] so they can verify benefits with [employer]. [employer] requires patient to be on the phone for verification with [email or web address]. * Telephone Encounter - Melissa Caro PharmD - 07/24/2025 12:10 PM EDT Patient has not heard from [employer] and has not called them, will call [employer] to investigate patientsPAP eligibility * Telephone Encounter - Kip Sanchez PharmD - 07/17/2025 8:35 AM EDT LVM for patient to call back. * Telephone Encounter - Melissa Caro PharmD - 07/03/2025 8:25 AM EDT Spoke with the patient, she has not heard from [employer]. I instructed the patient to call the [email or web address] company to see if they need anything to complete her application * Telephone Encounter - Melissa Caro PharmD - 06/19/2025 9:10 AM EDT LVM for patient to call back with any updates * Telephone Encounter - Kip Sanchez PharmD - 06/04/2025 11:14 AM EDT Faxed application to [email or web address]. * Telephone Encounter - Melissa Caro PharmD [...] Insurance Approving PA: [facility] PA Number: [id number] PA Effective Dates: 04/29/25-10/29/25 Dispensing Pharmacy: [facility] ~ $1800 LVM for patient to call back to discuss options for medication. * Telephone Encounter - Kip Sanchez PharmD - 04/29/2025 2:09 PM EDT Prior authorization initiated by [facility]. Update will be provided when a determination has been received. Medication: Humira PA Submission Method: CMM Case Number/CMM Hammond: [id number] * Telephone Encounter - Jose Mullen APRN - 04/29/2025 1:31 PM EDT Please PA humira biosimilar. documented in this encounter Plan of Treatment Upcoming Encounters Date Type Department Care Team (Late st Contact Info) Description 09/01/2025 2:15 PM EDT Office Visit [facility] RHEUMATOLOGY [address] [address] Jose Mullen APRN [address] [address] documented as of this encounter Visit Diagnoses Not on filedocumented in this encounter Care Teams Tank Driver Relationship Specialty Start Date End Date Pillo Humphrey MD 1210 [facility] [address] [place] [address] PCP - General Family Medicine 02/20/21 documented as of this encounter
--- OUTSIDE RECORDS SUMMARY | 2025-08-11 15:53 | XMS_ITS | Encounter Summary ---
Author Organization [facility] Address [address] [place] [address] Care Team Providers Care Skein Inspector Name Role Phone Pillo Humphrey MD Primary Care Provider Encounter Details Date Type Department Care Team (Late Contact Info) Description 04/30/2025 Results Follow-Up [facility] RHEUMATOLOGY [address] [address] Jose Mullen APRN [address] [phone] Social History Tobacco Use Types Packs/Day Years [...] Description 09/01/2025 2:15 PM EDT Office Visit [facility] RHEUMATOLOGY [address] [address] Jose Mullen APRN [address] [id number] documented as of this encounter Visit Diagnoses Not on filedocumented in this encounter Care Teams Skein Inspector Relationship Specialty Start Date End Date Pillo Humphrey MD 1210 [facility] [address] [facility] [address] [place] [address] PCP - General Family Medicine 02/20/21 documented as of this encounter
--- OUTSIDE RECORDS SUMMARY | 2025-08-11 15:53 | XMS_ITS | Clinical Summary ---
Author Organization [facility] Address [address] [place] [address] Care Team Providers Care Matrix Plater Name Role Phone Pillo Humhprey MD Primary Care Provider Allergies No known [...] Encounters Date Type Department Care Team Description 07/31/2025 Telephone [facility] RHEUMATOLOGY [address] [place] [phone] Kip Sanchez, PharmD 07/14/2025 Results Follow-Up [facility] RHEUMATOLOGY [address] [place] [phone] Jose Mullen APRN 07/01/2025 Telephone [facility] RHEUMATOLOGY [address] [place] [phone] Jose Mullen, LANA from Last 3 Months Immunizations Immunization Administration [...] Visit [facility] RHEUMATOLOGY [address] [address] Jose Mullen APRN [address] [address] Health Maintenance Due Date Last Done Comments ZOSTER VACCINE (1 of 2) 1969 ANNUAL WELLNESS VISIT 02/20/2021 RSV Vaccine - Adults (1 - 1- dose 75+ series) 2023 INFLUENZA VACCINE 06/26/2025 10/16/2022, , 08/30/2020, Additional history exists COVID-19 Vaccine (4 - 2024-2 6 season) 2025 10/16/2022, 11/02/2021, 01/19/2021, Additional history exists TDAP/TD VACCINES (2 - Td or Tdap) 05/23/2027 017 DXA SCAN 06/30/2027 06/30/2025 Pneumococcal Vaccine 50+ Completed 023, 08/27/2020, 05/23/2017 HEPATITIS C SCREENING Completed 04/29/2025 Procedures Procedure Name Priority Date/Time Associated Diagnosis Comments DEXA BONE DENSITY AXIAL Routine 06/30/2025 Postmenopause SCANNED - LABS 05/21/2025 HEPATITIS PANEL, ACUTE Routine 04/29/2025 2:18 PM EDT Rheumatoid arthritis involving multiple sites, unspecified whether rheumatoid factor present High risk medication use Immunodeficiency due to drug therapy Other fatigue from Last 3 Months or Most Recently Relevant to Health Maintenance Results * DEXA Bone Density Axial (06/30/2025) Anatomical Region Laterality Modality Wrist, Hip, L-spine N/A Radiographic Imaging Jose Mullen AUTOMATIC GRINDING MACHINE OPERATOR IMG DXA ORDERABLES Fin al Result * LABS SCANNED (05/21/2025) Jose Mullen AUTOMATIC GRINDING MACHINE OPERATOR LAB BLOOD ORDERABLES F inal Result * Hepatitis Panel, Acute (04/29/2025 2:18 PM EDT) Hep A IgM Negative Negative [facility] Comment: A negative anti-HAV IgM result suggests no recent or current HAV infection. Hepatitis B Surface Ag Negative Negative [facility] Hep B Core IgM Negative Negative [facility] Hepatitis C Ab Non Reactive Non Reactive [facility] Blood 04/29/2025 2:18 PM EDT 04/29/2025 Narrative [facility] (AMBULATORY) - 05/01/2025 7:06 AM EDT Performed at: - [address] [id number] Fur Liner: Leonel Herrera PhD, Phone: [phone] Patient Fasting: Y [employer] AUTOMATIC GRINDING MACHINE OPERATOR LAB BLOOD ORDERABLES F inal Result [facility] [employer] [facility] (AMBULATORY) [address] [place] [address], [place] [phone] [facility] [address] [place] [address], [place] [phone] from Last 3 Months or Most Recently Relevant to Health Maintenance Insurance [facility] MEDICARE ADVANTAGE PPO Care Teams Matrix Plater Relationship Specialty Start Date End Date Pillo Humphrey MD [address] [place] [address] PCP - General Family Medicine 02/20/21
== END 2025-08-11 23:59 | disposition home or self-care (01) ==
LOC: RAD 15:50
PROVIDERS: PCP Family Medicine; Visit Provider Family Medicine
DX: J20.9 Acute bronchitis, unspecified (principal)
CPT/HCPCS: 71046

== ENCOUNTER 2025-08-24 09:36 | Outpatient (CLI) | payer MEDICARE, SELFPAY ==
--- OUTSIDE RECORDS SUMMARY | 2025-02-24 10:00 | XMS_ITS ---
Author Organization [facility] Address [address] [facility] [address] [place] [phone] Care Team Providers Care Chief Console Operator Name Role Phone Jolie Humphrey Primary Care Provider [phone] Allergies No Known Allergies REASON FOR VISIT [...] Problem Carpal tunnel syndrome of left wrist ([id number]) Carpal tunnel syndrome of left wrist (G56.02) Active confirmed Problem Osteoarthritis (402371561) OA (osteoarthri tis) (M19.90) Active confirmed Vital Signs Blood pressure systolic 140 mm Hg 02/25/20 25 Blood pressure diastolic 70 mm Hg 025 Heart Rate 58 /min 02/24/2025 Height 64 in 02/24/2025 Weight 181.8 lbs 02/24/2025 BMI 31.2 kg/m2 02/24/2025 Encounters Encounter Location Date Provider Diagnosis [facility] 1210 [facility] [address] [place] [phone] 02/24/2025 Jolie Humphrey Carpal tunnel syndrome of [...] CLIFF CHACON RDOB: [birth year] (75 yo F)Acc No.[id number]:02/24/2025 Progress Notes Patient: CLIFF FARAH Provider: Jolie Humphrey M.D. :1950 A ge:74 Y S ex:Female Date:02/24/2025 Address:[address] [place] [address] [id number] Subjective: * Chief Complaints: * 1 . [...] umbar fusion X 3 Dr Singh Spine [place] 2002, 2006, 2011, left knee scope X [...] or deformity.? Sensation is intact at present. Primer Inserting Machine Adjuster strength is normal. Tinel's sign is negative..? [...] methylpred acetate 1 mg, Units: 1.50 , 13317 ADMINISTRATION OF INJECTION, 3077F SYST BP = 140 MM HG6 IT, 3078F DIAST BP < 80 MM HG * Follow Up: 4 Weeks,prn * Images: Billing Information: * Visit Code: 34948 Office Visit, Est Pt., Level 3. Modifiers: 25 * Procedure Codes: G2211 Complex e/m visit add on. J1010 Inj, methylpred acetate 1 mg. Units: 1.50. 88149 ADMINISTRATION OF INJECTION. 3077F SYST BP = 140 MM HG6 IT. 3078F DIAST BP < 80 MM HG. * Electronic signature of Jolie Humphrey MD on 08/24/2025 at 09:39 AM EDT Sign off status: Pending * Provider: Jolie Humphrey M.D. Date: 0 02/24/2025 Generated for Tyesha tripathi/Lacie/Samantha on: 0 08/24/2025 09:39 AM EDT History and Physical Notes * [...] or deformity. Sensation is intact at present. Primer Inserting Machine Adjuster strength is normal. Tinel's sign is negative.
--- OUTSIDE RECORDS SUMMARY | 2025-04-29 13:30 | XMS_ITS | Encounter Summary ---
Author Organization [facility] Address [address] [place] [address] Care Team Providers Care Personal Banking Assistant Name Role Phone Pillo Humphrey MD Primary Care Provider Reason for Referral * Diagnostic Imaging (Routine) - Closed Specialty Diagnoses / Procedures Referred By Contac t Referred To Contact Diagnoses Postmenopause Procedures DEXA Bone Density Axial Jose Mullen APRN [address] [address] Phone: tel: fax: [facility] - OUTPT PHYSICAL THERAPY [address] [place] [address] Phone: tel: fax: Referral ID Status Reason Start Date Expiration Date Visits Re quested Visits Authorized [id number] Closed 04/29/2025 07/29/2026 1 1 Reason for Visit * Reason Comments Rheumatoid Arthritis Encounter Details Date Type Department Care Team (Late st Contact Info) Description 04/29/2025 1:30 PM EDT Office Visit [facility] [address] [address] Jose Mullen APRN [address] [id number] Rheumatoid arthritis involving multiple sites, unspecified whether [...] sent through Care Everywhere. * Hand Pain (Afghan) documented in this encounter Progress Notes * [...] potentially affect the lungs. * Jose Mullen, ROLLER SKATER - 04/29/2025 1:30 PM EDT Images from [...] in about 4 months (around 08/29/2025) for [employer]. Jose Mullen APRN [facility] [place] * Jose Mullen APRN - 04/23/2025 8:18 [...] Description 09/01/2025 2:15 PM EDT Office Visit [facility] [address] [address] Jose Mullen APRN [address] [address] Scheduled Orders Name Type Priority Associated Diagnoses [...] L-spine N/A Radiographic Imaging us Jose Mullen ROLLER SKATER IMG DXA ORDERABLES Fin al Result * [...] [facility] QuantiFERON Mitogen Value >10.00 IU/mL [facility] 04/29/2025 2:18 PM EDT 04/29/2025 Narrative [facility] [employer] [facility] (AMBULATORY) - 05/01/2025 7:06 AM EDT Performed at: [address] [id number] Research Engineer: Leonel Herrera PhD, Phone: [phone] Patient Fasting: Y Jose Mullen APRN LAB BLOOD ORDERABLES F inal Result [facility] (AMBULATORY) [address] [place] [address], [facility] [address] [place] [address], * Hepatitis C Virus Interpretation (04/29/2025 2:18 PM EDT) Interpretation Comment [facility] Comment: Not infected with HCV unless early or acute infection is suspected (which may be delayed in an immunocompromised individual), or other evidence exists to indicate HCV infection. 04/29/2025 2:18 PM EDT 04/29/2025 Narrative [facility] (AMBULATORY) - 05/01/2025 7:06 AM EDT Performed at: [address] [place], [place] [address]lin [address] [place], [place] [id number] Research Engineer: Leonel Herrera PhD, Phone: [phone] Patient Fasting: Y Jose Mullen ROLLER SKATER LAB BLOOD ORDERABLES F inal Result Performing Organization Address [facility] Co de Phone Number [facility] (AMBULATORY) [address] [place] [address], [place] [phone] [facility] [address] [place] [address], [place] [phone] * Hepatitis Panel, Acute (04/29/2025 2:18 PM EDT) [facility] Hep A IgM Negative Negative [facility] [...] 05/01/2025 7:06 AM EDT Performed at: - [facility] [address] [place] [id number] Research Engineer: Leonel Herrera PhD, Phone: [phone] Patient Fasting: Y Jose Mullen ROLLER SKATER LAB BLOOD ORDERABLES F inal Result Performing Organization Address [facility]/ZIP Co de Phone Number [facility] [address] [place] [address], [place] [phone] [facility] [address] [place] [address], [place] [phone] * QuantiFERON-TB Gold Plus (Li-Hep) (04/29/2025 2:18 PM EDT) [facility] QuantiFERON Incubation Incubation performed. [facility] [...] 04/29/2025 2:18 PM EDT 04/29/2025 Narrative [facility] (AMBULATORY) - 05/01/2025 7:06 AM EDT Performed at: [address] [place] [id number] Research Engineer: Leonel Herrera PhD, Phone: [phone] Patient Fasting: Y Jose Mullen ROLLER SKATER LAB BLOOD ORDERABLES F inal Result Performing Organization Address [facility] Co de Phone Number [facility] [address] [place] [address], [facility] [address] [place] [address], * C-reactive Protein (04/29/2025 2:18 PM EDT) C-Reactive Protein 4 0 - 10 mg/L [facility] Blood 04/29/2025 2:18 PM EDT 04/29/[address] [facility] (AMBULATORY) - 05/01/2025 7:06 AM EDT Performed at: [address] [place] [id number] Research Engineer: Leonel Herrera PhD, Phone: [phone] Patient Fasting: Y Jose Mullen ROLLER SKATER LAB BLOOD ORDERABLES F inal Result Performing Organization Address City/[facility]/ZIP Co de Phone Number [facility] [address] [place] [address], [place] [phone] [facility] [address] [place] [address], * Sedimentation Rate (04/29/2025 2:18 PM EDT) Sed Rate 19 0 - 40 mm/hr [facility] Blood 04/29/2025 2:18 PM EDT 04/29/2025 Narrative [facility] (AMBULATORY) - 05/01/2025 7:06 AM EDT Performed at: 01 - [facility] [address] [facility] [place], [place] [id number] Research Engineer: Leonel Herrera PhD, Phone: [phone] Patient Fasting: Y us Jose Mullen APRN LAB BLOOD ORDERABLES F inal Result [facility] [address] [place] [address], [facility] [address] [place] [address], * (ABNORMAL) Comprehensive Metabolic Panel (04/29/2025 2:18 [...] 04/29/2025 2:18 PM EDT 04/29/2025 Narrative [facility] (AMBULATORY) - 05/01/2025 7:06 AM EDT Performed at: 01 - [facility] [address] [place], [place] [id number] Research Engineer: Leonel Herrera PhD, Phone: [phone] Patient Fasting: Y Jose Mullen APRN LAB BLOOD ORDERABLES F inal Result [facility] [employer] [facility] (AMBULATORY) [address] [place] [address], [facility] [address] [place] [address], * (ABNORMAL) CBC & Differential (04/29/2025 2:18 [...] 05/01/2025 7:06 AM EDT Performed at: - [facility] [address] [place] [id number] Research Engineer: Leonel Herrera PhD, Phone: [phone] Patient Fasting: Y Jose Mullen ROLLER SKATER LAB BLOOD ORDERABLES F inal Result Performing Organization Address City/State/[facility] Co de Phone Number [facility] [employer] [facility] (AMBULATORY) [address] [place] [address], [facility] [address] [place] [address], * XR Chest 2 View (04/29/2025 2:05 PM EDT) Anatomical Region Laterality Modality Body N/A Radiographic Faith ging 04/30/2025 9:52 AM EDT Impressions 04/30/2025 9:53 AM EDT Impression: No acute findings. Electronically Signed: Clarke Bowen MD 04/30/2025 9:53 AM EDT Workstation ID: [id number] Narrative 04/30/2025 9:53 AM EDT XR CHEST 2 VW Date of Exam: 04/29/2025 2:00 PM EDT Indication: fatigue Comparison: None available. Findings: Borderline enlarged cardiac silhouette. No focal airspace consolidation. No pleural effusion or pneumothorax. Multilevel spondylosis with lumbar spinal fusion hardware partially included within the vulxh-ff-nzhy. Procedure Note Clarke Bowen MD - 04/30/2025 XR CHEST 2 VW Date of Exam: 04/29/2025 2:00 PM EDT Indication: fatigue Comparison: None available. Findings: Borderline enlarged cardiac silhouette. No focal airspace consolidation.No pleural effusion or pneumothorax. Multilevel spondylosis with lumbarspinal fusion hardware partially included within the [id number]-[id number]. IMPRESSION: Impression: No acute findings. Electronically Signed: Clarke Bowen MD 04/30/2025 9:53 AM EDT Workstation ID: [id number] Jose Mullen APRN IMG DIAGNOSTIC IMAGING ORDERABLES Final Result documented in this encounter Visit Diagnoses Diagnosis Rheumatoid arthritis involving multiple sites, unspecified whether rheumatoid factor present- Primary High risk medication use Current use of steroid medication Immunodeficiency due to drug therapy Other fatigue Shortness of breath Postmenopause Asymptomatic postmenopausal status (age-related) (natural) documented in this encounter Care Teams Personal Banking Assistant Relationship Specialty Start Date End Date Pillo Humphrey MD [address] [place] [address] [facility] [address] [place] [address] PCP - General Family Medicine 02/20/21 documented as of this encounter
--- OUTSIDE RECORDS SUMMARY | 2025-07-02 06:30 | XMS_ITS ---
Author Organization [facility] Address [address] [facility] [address] [place] [phone] Care Team Providers Care Corset Fitter Name Role Phone Jolie Humphrey Primary Care [...] W/U Status Risk Notes Problem Macrocytic anemia (50385040) Macrocytic anemia (D53.9) Active confirmed Vital Signs Blood pressure systolic 130 mm Hg 07/02/20 25 Blood pressure diastolic 60 mm Hg 025 Heart Rate 67 /min 07/02/2025 Height 64 in 07/02/2025 Weight 179.6 lbs 07/02/2025 BMI 30.82 kg/m2 07/02/2025 Encounters Encounter Location Date Provider Diagnosis [facility] [address] [facility] [address] [place], [place] [phone] 07/02/2025 Jolie Humphrey Adult general medica l [...] CLIFF CHACON RDOB: [birth year] (75 yo F)Acc No.[id number]:07/02/2025 Annual Wellness Visit Patient: LCIFF FARAH Provider: Jolie Humphrey M.D. :1950 A ge:75 Y S ex:Female Date:07/02/2025 Address:[address] [place] [address] [id number] Subjective: * Chief Complaints: * 1 . [...] also brings in recent labs from her scientific linguist showing a mild macrocytic anemia. She is currently taking a folic acid supplement. Casting Tester also performed a bone density exam showing [...] umbar fusion X 3 Dr Singh Spine [facility] 2002, 2006, 2011, left knee scope [...] hypertension - I10 ? 7 . B [place] 30.0-30.9,adult - Z68.30 8 . S evere [...] mineral Density R ecent history: 2024 per scientific linguist. * Follow Up: 6 Months * Images: Drawing:[facility] Billing Information: * Visit Code: 55745 Office Visit, Est Pt., Level 3. Modifiers: [...] M.D. Date: 0 07/02/2025 Generated for Tyesha tripathi/Elysiag/eTransmitting on: 0 08/24/2025 09:39 AM EDT History [...] also brings in recent labs from her scientific linguist showing a mild macrocytic anemia. She is currently taking a folic acid supplement. Casting Tester also performed a bone density exam showing [...]
--- OUTSIDE RECORDS SUMMARY | 2025-07-28 09:45 | XMS_ITS ---
Author Organization [place] Address [facility] [address] [place] [phone] Care Team Providers Care Campus Safety Officer Name Role Phone Jolie Humphrey Primary Care Provider Allergies No Known Allergies REASON FOR VISIT Discuss Prolia Encounters Encounter Location Date Provider Diagnosis [facility] [address] [place] [address] [place] [phone] 07/28/2025 Jolie Humphrey Plan Of Treatment No Information Progress Notes * CLIFF CHACON RDOB: [birth year] (75 yo F)Acc No.[id number]:07/28/2025 Progress Notes Patient: CLIFF FARAH Provider: Jolie Humphrey M.D. :1950 A ge:75 Y S ex:Female Date:07/28/2025 Address:[address] [place] [address] [phone] Subjective: * Chief Complaints: [...] umbar fusion X 3 Dr Singh Spine [place] 2002, 2006, 2011, left knee scope X [...] Pending * Provider: Jolie Humphrey M.D. Date: 07/28/2025 Generated for Tyesha tripathi/Lacie/Michealitting on: 08/24/2025 09:39 AM EDT
--- OUTSIDE RECORDS SUMMARY | 2025-07-29 11:15 | XMS_ITS ---
Author Organization [facility] Address [address] [place] [id number] Care Team Providers Care Painting Technician Name Role Phone Jolie Humphrey Primary Care Provider [phone] Whitney Morillo Unavailable [phone] Allergies No Known Allergies Results Component Value [...] Provider Diagnosis [facility] [address] [facility] [address] [place], [place] [id number] 07/29/2025 Whitney Morillo Injury of left elbow [...] CLIFF CHACON RDOB: [birth year] (75 yo F)Acc No.[id number]:07/29/2025 Progress Notes Patient: CLIFF FARAH Provider: SELVIN Dobbs :1950 A ge:75 Y S ex:Female Date:07/29/2025 Address:[address] [place] [address] [id number] Pcp:Jolie Humphrey Subjective: * Chief Complaints: * [...] l umbar fusion X 3 [facility] 2002, 2006, 2011, left knee scope X 2, right knee scope X 1 Dr Villareal , Breast Reduction May 2016, Left TKA - Dr. Man 09/18/22, Right TKA - Dr. aMn 08/03/2023. * Hospitalization/Major Diagno stic Procedure: H [...] njury of left elbow, initial encounter - M97.103A (Primary) 2 . A cute URI - [...] G 2211 Complex e/[place], [address] CAPILLARY BLOOD DRAW, 01526 CBC WITH AUTO DIFF, 01232 COVID TEST IN HOUSE, Modifiers: QW * Follow Up: v ia phone to report test results * Images: Billing Information: * Visit Code: 55477 Office Visit, Est Pt., Level 4. * Procedure Codes: G2211 Complex e/[place]. [address] CAPILLARY BLOOD DRAW. 92363 CBC WITH AUTO DIFF. 40979 COVID TEST IN HOUSE. Modifiers: QW * Electronic signature of SELVIN Sellers on 08/24/2025 at 09:39 AM EDT Sign off status: Pending * Provider: SELVIN Dobbs Date: 07/29/2025 Generated for Printi ng/Faxing/eTransmitting on: 08/24/2025 09:39 AM EDT History and Physical [...]
--- OUTSIDE RECORDS SUMMARY | 2025-08-11 11:15 | XMS_ITS ---
[facility] Address [address] [facility] [address] [place] [id number] Care Team Providers Care Cut And Cover Line Worker Name Role Phone Jolie Humphrey Primary Care Provider Results Component Value Reference Range Notes CXR Reviewed date:08/13/2025 12:46:50 PM Interpretation:no active disease Performing Lab: Notes/Report: no active disease REASON FOR VISIT cough Medications Medication SIG (Take, Route, Frequency, Duration) Notes Start Date End Date Status amLODIPine Besylate 10 MG 1/2 tab(s) Ora lly Once a day Active Lisinopril 20 MG 1 tablet Orally Once a day in the morning Active Benzonatate 200 MG 1 capsule as needed Orally Three times a day 08/11/2025 Active levoFLOXacin 500 MG 1 tablet Orally Once a day 08/11/2025 Active predniSONE 5 MG 1 tab(s) orally once a day; Duration: 30 days Active Loratadine 10 MG 1 tab(s) orally once a day Active PARoxetine HCl 10 MG 1 tab(s) orally onc e a day; Duration: 90 days Active B-12 1000 MCG 1 tab(s) orally once a day 08/12/2015 Active Rosuvastatin Calcium 40 MG 1 tablet Oral ly Once a day; Duration: 90 days Active Omeprazole 20 MG 1 cap(s) orally once a day; Duration: 90 days Active Clopidogrel Bisulfate 75 MG 1 tablet Ora lly Once a day Active Aspirin 81 MG 1 tablet Orally Once a day Active Plavix 75 MG 1 tablet Orally Once a day Active Methotrexate 2.5 MG 5 tabs orally once a week Active Vital Signs Blood pressure systolic 114 mm Hg 08/11/20 25 Blood pressure diastolic 70 mm Hg 025 Heart Rate 62 /min 08/11/2025 Height 64 in 08/11/2025 Weight 173.8 lbs 08/11/2025 BMI 29.83 kg/m2 08/11/2025 Encounters Encounter Location Date Provider Diagnosis [facility] [address] [place] [id number] 08/11/2025 Jolie Humphrey Acute bronchitis J20 .9 and Closed fracture of left elbow, initial encounter S42.402A Assessments Encounter Date Diagnosis (ICD Code) Assessment Notes Treatment Notes Treatment Clinical Notes Section Notes 08/11/2025 Acute bronchitis (ICD-10 - J20.9) 08/11/2025 Closed fracture of left elbow, initial encounter (ICD-10 - S42.402A) Left arm is placed in sling. Referral has been made to Dr. Astudillo and she will call to reschedule her appointment. Plan Of Treatment Medication Medication Name Sig Start Date Stop Date Notes Benzonatate 200 MG 1 capsule as needed Orally Three times a day 08/11/2025 levoFLOXacin 500 MG 1 tablet Orally Once a day 08/11/2025 Treatment Notes Assessment Notes Closed fracture of left elbo w, initial encounter Left arm is placed in sling. Referral aaron s been made to Dr. Astudillo and she will call to reschedule her appointment. Next Appt Details Follow Up: prn, Reason: Progress Notes * CLIFF CHACON RDOB: [birth year] (75 yo F)Acc No.[id number]:08/11/2025 Progress Notes Patient: CLIFF FARAH Provider: Jolie Humphrey M.D. :1950 A ge:75 Y S ex:Female Date:08/11/2025 Address:[address] [place] [address] [id number] Subjective: * Chief Complaints: * 1 . Cough. * HPI: E NT/respiratory: 75 year old female presents with c/o cough P t complains of ongoing cough for 3 weeks. Pt states sometimes the sputum is clear and others it's yellow. Pt states she went to [facility] on 08/08. Pt states she was given Cefdinir and is still taking it with no improvement. Pt states she is u nable to sleep at night due to cough. . Denies : sore throat. D enies : nasal congestion. D enies : Fever. D enies : ear pain. D enies : Chest Pain. D enies : Short of Breath. D enies : headache. D enies : chest congestion. D enies : dizziness. D enies : body aches.? Chest x-ray was ordered but she did not follow through with this. E lbow/Arm: Her previous office visit and phone encounter, she continues to complain of left elbow pain. X-ray per SELVIN Chávez confirmed an elbow fracture and she was referred to Dr. Astudillo however she missed her appointment yesterday stating she was unaware she had an appointment. * Medical History: H [place], High Cholestrol , RA followed by Dr. Portillo, Sciatic nerve pain , Hiatal hernia with GERD, Tremor, Non-union left foot fracture - 2013, Chronic knee pain, TAHIRA. * Surgical History: l umbar fusion X 3 [facility] 2002, 2006, 2011, left knee scope [...] tab(s) orally once a day , Taking PARoxetine HCl 10 MG Tablet 1 tab(s) orally once a day , Taking Omeprazole 20 MG Capsule Delayed Release 1 cap(s) orally once a day , Taking Rosuvastatin Calcium 40 MG Tablet 1 tablet Orally Once a day , Taking predniSONE 5 MG Tablet 1 tab(s) orally once a day , Taking Lisinopril 20 MG Tablet 1 tablet Orally Once a day in the morning , Taking amLODIPine Besylate 10 MG Tablet 1/2 tab(s) Orally Once a day , Medication List reviewed and reconciled with the patient Objective: * Vitals: W t: 173.8, Temp: 98.4, BP: 114/70, HR: 62, Nurse: PRISCILLA, Ht: 64, BMI:29.83. * Examination: E NT/Respiratory: General Appearance: N AD. O ral cavity : m ild erythema of throat. H eart : R RR, normal S1 S2, no murmurs. L ungs: O ccasional rhonchi otherwise clear. E xtremities : L eft elbow with mild swelling and decreased range of motion secondary to pain. Assessment: * Assessment: 1. A cute bronchitis - J20.9 (Primary) 2 . C losed fracture of left elbow, initial encounter - S42.402A Plan: * Treatment: 2. C losed fracture of left elbow, initial encounter Notes: Left arm is placed in sling. Referral has been made to Dr. Astudillo and she will call to reschedule her appointment. * Procedure Codes: G 2211 Complex e/m visit add on, 1036F TOBACCO NON-USER, G8783 BP SCR PRFRM RCMDD DEFIND SCR INTVL, 3074F SYST BP LT 130 MM HG, 3078F DIAST BP < 80 MM HG * Follow Up: p rn * Images: Billing Information: * Visit Code: 35814 Office Visit, Est Pt., Level 3. * Procedure Codes: G2211 Complex e/m visit add on. 1036F TOBACCO NON-USER. G8783 BP SCR PRFRM RCMDD DEFIND SCR INTVL. 3074F SYST BP LT 130 MM HG. 3078F DIAST BP < 80 MM HG. * Electronic signature of Jolie Humphrey MD on 08/24/2025 at 09:40 AM EDT Sign off status: Pending * Provider: Jolie Humphrey M.D. Date: 0 08/11/2025 Generated for Printi ng/Faxing/eTransmitting on: 0 08/24/2025 09:40 AM EDT History and Physical Notes * HPI (History of Present Illness) Category Sub-Category Detail Notes Category Not es ENT/respiratory sore throat Chest x-ray was ordered but she did not follow through with this. ear pain Short of Breath Chest Pain cough Pt complains of ongo ing cough for 3 weeks. Pt states sometimes the sputum is clear and others it's yellow. Pt states she went to [facility] on 08/08. Pt states she was given Cefdinir and is still taking it with no improvement. Pt states she is unable to sleep at night due to cough. Fever headache chest congestion nasal congestion dizziness body aches Elbow/Arm Her previous of fice visit and phone encounter, she continues to complain of left elbow pain. X-ray per SELVIN Chávez confirmed an elbow fracture and she was referred to Dr. Astudillo however she missed her appointment yesterday stating she was unaware she had an appointment. Examination Category Sub-Category Detail Notes Category Not es ENT/Respiratory Oral cavity : mild erythema of throat Heart : RRR, normal S1 S2, n o murmurs Lungs: Occasional rhonchi o therwise clear Extremities : Left elbow with mild swelling and decreased range of motion secondary to pain General Appearance: NAD
--- NOTE | 2025-08-24 09:38 | XR_ITS ---
FINAL REPORT CLINICAL HISTORY: left elbow fx fall 4 wks ago COMPARISON: 07/29/2025 FINDINGS: LEFT ELBOW Three views demonstrate an oblique intra-articular fracture of the lateral radial head which is minimally displaced. The fracture line is better visualized. IMPRESSION: Bony resorption along the fracture line since previous exam. Reviewed, Interpreted and Dictated by Neto Bhakta MD Transcribed by Cher Fernandez Authenticated and [facility]
--- OUTSIDE RECORDS SUMMARY | 2025-08-24 09:39 | XMS_ITS | Encounter Summary ---
Author Organization [facility] Address [address] [place] [address] Care Team Providers Care Photo Mask Processor Name Role Phone Pillo Humphrey MD Primary Care Provider Encounter Details Date Type Department Care Team (Late Contact Info) Description 07/14/2025 Results Follow-Up [facility] RHEUMATOLOGY [address] [address] Jose Mullen APRN [address] [phone] Social History Tobacco Use Types Packs/Day Years [...] Description 09/01/2025 2:15 PM EDT Office Visit [facility] RHEUMATOLOGY [address] [address] Jose Mullen APRN [address] [phone] documented as of this encounter Visit Diagnoses Not on filedocumented in this encounter Care Teams Photo Mask Processor Relationship Specialty Start Date End Date Pillo Humphrey MD [address] [facility] [address] [email or web address] [address] [place] [address] PCP - General Family Medicine 02/20/21 documented as of this encounter
--- OUTSIDE RECORDS SUMMARY | 2025-08-24 09:39 | XMS_ITS | Encounter Summary ---
Author Organization [facility] Address [address] [place] [address] Care Team Providers Care Seed Potato Cutter Name Role Phone Pillo Humphrey MD Primary Care Provider Encounter Details Date Type Department Care Team (Late st Contact Info) Description 07/01/2025 Telephone [facility] RHE[facility] [address] [address] Jose Mullen APRN 330 [facility] [address] [place], [place] [id number] Social History Tobacco Use Types Packs/Day Years [...] home for Prolia. I spoke with [facility] and faxed order, demographic sheet, and referral note stating NO PA REQUIRED for this J code. They stated they would call and get pt scheduled. I tried to call pt and there was no answer, so I sent her a [employer] message with this information. * Telephone Encounter - Kenisha Jarquin RN - 07/02/2025 2:37 PM EDT Therapy plan in to be reviewed and signed by provider. Referral in for [facility]. Pt on the list to be scheduled at [facility]. * Telephone Encounter - Kip Sanchez [...] Description 09/01/2025 2:15 PM EDT Office Visit [facility] RHEUMATOLOGY [address] [address] Jose Mullen APRN [address] [address] documented as of this encounter Visit Diagnoses Not on filedocumented in this encounter Care Teams Seed Potato Cutter Relationship Specialty Start Date End Date Pillo Humphrey MD [address] [facility] [address] [place] [address] PCP - General Family Medicine 02/20/21 documented as of this encounter
--- OUTSIDE RECORDS SUMMARY | 2025-08-24 09:39 | XMS_ITS | Patient Health Record ---
Author Organization [facility] Address [address] [facility] [address] [place] [id number] Care Team Providers Care Plastic Molder Name Role Phone Jolie Humphrey Primary Care Provider MiguelitoDoe littlejohna Unavailable [phone] Allergies No Known Allergies Results Component Value Reference Range Notes P-Vitamin B12 Reviewed date:09/22/2024 05:55:06 PM Interpretation:1849 Performing Lab: Notes/Report: Test performed by [facility] [address] [place] [address] , [address], [place] [address] Laureano Rod MD, Tool Grinder Operator CLIA: [id number] Vitamin B12 6575 213-5708 pg/mL P-Comprehensive Metabolic Pa liberty (CMP) Reviewed date:09/22/2024 05:55:06 PM Interpretation:gluc 118 Performing Lab: Notes/Report: Test performed by [facility] [address] [place] [address] , [address], [place] [id number] Laureano Rod MD, Tool Grinder Operator CLIA: [id number] Sodium 138 135-145 mmol/L Potassium 4.5 3.5-5.3 [...] 138 Performing Lab: Notes/Report: Test performed by [facility] [address] [place] [address] , [address], [place] [address] Laureano Rod MD, Tool Grinder Operator CLIA: [id number] Cholesterol 190 <200 mg/dL Triglycerides 372 <150 [...] Interpretation:Normal Performing Lab: Notes/Report: Test performed by [facility] [address] [place] [address] , [address], [place] [address] Laureano Rod MD, Tool Grinder Operator CLIA: [id number] Vitamin D, 1, 25 Dihydroxy 60.0 19.9-79.3 pg/m L Echocardiogram Reviewed date:10/29/2024 04:03:53 PM Interpretation: Performing Lab: Notes/Report: CBC Fingerstick (in house) Reviewed date:07/30/2025 12:47:01 [...] date:08/07/2025 12:12:48 AM Interpretation: Performing Lab: Notes/Report: CXR Reviewed date:08/13/2025 12:46:50 PM Interpretation:no active disease Performing Lab: Notes/Report: no active disease Reason For Referral Reason Dr Ferrer for abnormal echo Diagnosis 1 Abnormal echocardiog dennis (R93.1) Referral Organization [facility] Referring Provider First Name Jolie Booth Referring Provider Last Name Mialgro Referring Provider Speciality Family Maria Teresa cunningham Referred Provider Carissa Holland Referred Provider Specialty Cardiovascul ar Disease General Notes Karishma Queen 10/30/20 3:01:40 PM > faxed to [facility] CardiologyBernice Brynn 11/06/2024 1:48:57 PM > [...] W/U Status Risk Notes Problem Essential hypertension (06324829) Essential hypertension (I10) Active confirmed Problem Paresthesia (05267337) Paresthesia (R20.2) Active confirmed Problem Body mass index 30+ - obesity (934441490) BMI 30.0-30.9,adult (Z68.30) Active confirmed Problem Hot flashes (195405765) Hot flashes (N95.1) Active confirmed Problem Sciatica (78076271) Lumbago with sciatica, right side (M54.41) Active confirmed Problem Mixed hyperlipidemia (350877829) Mixed hyperlipidemia (E78.2) Active confirmed Problem Essential tremor (082309433) Essential tremor (G25.0) Active confirmed Problem Sciatica (73586139) Lumbago with sciatica, left side (M54.42) Active confirmed Problem Gastroesophageal reflux disease (718874506) GERD without esophagitis (K21.9) Active confirmed Problem Gastroesophageal reflux disease without esophagitis (392453421) Gastroesophageal reflux disease without esophagitis (K21.9) Active confirmed Problem Depression (607042094) Depression (F32.9) Active confirmed Problem Gastroesophageal reflux disease (317447494) Gastroesophageal reflux disease, esophagitis presence not specified (K21.9) Active confirmed Problem Macrocytic anemia (98549001) Macrocytic anemia (D53.9) Active confirmed Problem Carpal tunnel syndrome of left wrist (647679589577810) Carpal tunnel syndrome of left wrist (G56.02) Active confirmed Problem Obstructive sleep apnea syndrome (28767404) Severe obstructive sleep apnea (G47.33) Active confirmed Problem Dyslipidemia (641557699) Dyslipidemia (E78.5) Active confirmed Problem Osteoarthritis (998073063) OA (osteoarthritis) (M19.90) Active confirmed Problem Mood swings (61268477) Mood swings (F39) Active confirmed Problem Rheumatoid arthritis (36695993) Rheumatoid arthritis, involving unspecified site, unspecified rheumatoid factor presence (M06.9) Active confirmed Problem Post menopausal problems (N95.9) Active confirmed Vital Signs Heart Rate 62 /min 08/11/2025 Blood pressure diastolic 70 mm Hg 08/11/2025 Height 64 in 08/11/2025 Blood pressure systolic 114 mm Hg 08/11/2025 Weight 173.8 lbs 08/11/2025 BMI 29.83 kg/m2 08/11/2025 Encounters Encounter Location Date Provider [facility] [id number] 09/18/2024 R Leobardo Humphrey NORRIS (dyspnea on exer tion) R06.09 ; TAHIRA (obstructive sleep apnea) G47.33 ; Dyslipidemia E78.5 ; Vitamin B 12 deficiency E53.8 ; Rheumatoid arthritis, involving unspecified site, unspecified rheumatoid factor presence M06.9 and Encounter for immunization Z23 [facility] [address] [place] [address] [address] [place] [id number] 02/24/2025 R Leobardo Humphrey Carpal tunnel syndro me of left wrist G56.02 and OA (osteoarthritis) M19.90 [facility] [address] [place] [address] [id number] 07/02/2025 R Leobardo Humphrey Adult general medica l examination Z00.00 ; Dyslipidemia E78.5 ; Macrocytic anemia D53.9 ; Breast cancer screening Z12.39 ; Rheumatoid arthritis, involving unspecified site, unspecified rheumatoid factor presence M06.9 ; Essential hypertension I10 ; BMI 30.0-30.9,adult Z68.30 ; Severe obstructive sleep apnea G47.33 and Gastroesophageal reflux disease, esophagitis presence not specified K21.9 [facility] [address] [place], [place] [id number] 07/29/2025 Whitney Crowdy Injury of left elbow , initial encounter S59.902A ; Acute URI J06.9 and Hypotension due to drugs I95.2 [facility] [address] [place], [place] [id number] 08/11/2025 R Leobardo Milagro Acute bronchitis J20 .9 and Closed fracture of left elbow, initial encounter S42.402A [facility] [address] [place], [place] [id number] 09/22/2024 R Leobardo Milagro [facility] [address] [place], [place] [id number] 10/29/2024 R Leobardo Milagro Abnormal echocardiog dennis R93.1 [facility] [address] [place], [place] [id number] 01/16/2025 R Leobardo Milagro [facility] [address] [place], [place] [id number] 02/20/2025 R Leobardo Milagro [facility] [address] [place], [place] [id number] 03/09/2025 R Leobardo Milagro [facility] [address] [place], [place] [id number] 04/14/2025 R Leobardo Milagro [facility] [address] [place], [place] [id number] 05/18/2025 R Leobardo Milagro [facility] [address] [place], [place] [id number] 06/24/2025 R Leobardo Milagro [facility] [address] [place], [place] [id number] 06/29/2025 R Leobardo Milagro [facility] [address] [place], [place] [id number] 07/15/2025 R Leobardo Milagro [facility] [address] [place], [place] [id number] 07/15/2025 Jolie Humphrey [facility] [address] [facility] [address] [place] [id number] 07/30/2025 Whitney Morillo Hypotension due to d rugs I95.2 [facility] [address] [facility] [address] [place] [id number] 07/30/2025 R Leobardo Humphrey [facility] [address] [facility] [address] [place] [id number] 08/06/2025 R Leobardo Humphrey [facility] [address] [facility] [address] [place] [id number] 08/13/2025 R Leobardo Humphrey Assessments Encounter Date Diagnosis (ICD Code) Assessment Notes Treatment Notes Treatment Clinical Notes Section Notes 02/24/2025 Carpal tunnel syndrome of left wrist (ICD-10 - G56.02) She is provided written prescription for cock-up wrist splint to wear at night. Discussed possible referral for EMG testing if symptoms persist. 02/24/2025 OA (osteoarthritis) (ICD-10 - M19.90) 07/29/2025 Acute URI (ICD-10 - J06.9) 07/29/2025 Injury of left elbow, initial encounter (ICD-10 - S59.902A) 07/30/2025 Hypotension due to drugs (ICD-10 - I95.2) 08/11/2025 Acute bronchitis (ICD-10 - J20.9) 08/11/2025 Closed fracture of left elbow, initial encounter (ICD-10 - S42.402A) Left arm is placed in sling. Referral has been made to Dr. Astudillo and she will call to reschedule her appointment. 07/02/2025 Dyslipidemia (ICD-10 - E78.5) 07/02/2025 Adult general medical examination (ICD-10 - Z00.00) Patient instructed to return to office Annually for Annual Wellness Visits to include annual screenings of Pain assessment, Functional Ability assessment, Cognitive Ability assessment, Fall Risk assessment, Depression screening and Bladder control screening. 10/29/2024 Abnormal echocardiogram (ICD-10 - R93.1) 09/18/2024 TAHIRA (obstructive sleep apnea) (ICD-10 - G47.33) 09/18/2024 NORRIS (dyspnea on exertion) (ICD-10 - R06.09) 09/18/2024 Dyslipidemia (ICD-10 - E78.5) 07/29/2025 Hypotension due to drugs (ICD-10 - I95.2) Will stop BP meds and call tomorrow with BP reading. 07/02/2025 Macrocytic anemia (ICD-10 - D53.9) 07/02/2025 Breast cancer screening (ICD-10 - Z12.39) 09/18/2024 Vitamin B 12 deficiency (ICD-10 - E53.8) 09/18/2024 Rheumatoid arthritis, involving unspecified site, unspecified rheumatoid factor presence (ICD-10 - M06.9) 07/02/2025 Rheumatoid arthritis, involving unspecified site, unspecified rheumatoid factor presence (ICD-10 - M06.9) 07/02/2025 Essential hypertension (ICD-10 - I10) 09/18/2024 Encounter for immunization (ICD-10 - Z23) 07/02/2025 BMI 30.0-30.9,adult (ICD-10 - Z68.30) 07/02/2025 [...] Panel (CMP) P-Folate 07/02/2025 P-Lipid Panel 07/02/2025 Insurance Providers Payer Name Payer Address Payer Phone Subscriber Number Group Number Insured Name Patient Relationship to Insured Coverage Start Date Coverage End Date [employer] MEDICARE [address] [address] [place], [place] [id number] LEWIS Self - patient is the insured Medications [...] lumbar fusion X 3 Dr Singh Spine [facility] 2002, 2006, 2011 left knee scope X 2, right knee scope X 1 Dr Villareal Breast Reduction May 2016 Left TKA - Dr. Man 09/18/22 Right TKA - Dr. Man 08/03/2023 Hospitalization History Reason Date(Month/Year) [facility] - Fall/Low Back Pain 11/11/2022
--- OUTSIDE RECORDS SUMMARY | 2025-08-24 09:39 | XMS_ITS | Clinical Summary ---
Author Organization [employer] ([place], [place], [place], [place]) Address [address] [place] [address] Care Team Providers Care Boot Lace Cutter Machine Name Role Phone Unavailable Primary Care Provider [...] Date Aaron rded Speak language other than Malaysian at home Not on file 12/14/2023 Want [...] or (1 - 1-dose 75+ series) 2023 Falls Risk Screening 11/26/2024 COVID-19 VACCINE (2024-2 6 season) 2025 10/16/2022, 11/02/2021, 01/19/2021, Additional history exists Influenza Vaccine (#1) 2025 2, 09/14/2021, 08/27/2020, Additional history exists DTAP/TDAP/TD VACCINES (2 - T d or Tdap) 05/23/2027 05/23/2017 Pneumococcal 50+ years Completed 08/27/2020, 2016
--- OUTSIDE RECORDS SUMMARY | 2025-08-24 09:39 | XMS_ITS | Referral Summary ---
Author Organization [employer] ([place], [place], [place], [place]) Address [address] [place] [address] Care Team Providers Care Purchasing And Fiscal Clerk Name Role Phone Unavailable Primary Care [...] Date Aaron rded Speak language other than Maldivian at home Not on file 12/14/2023 Want [...]
--- OUTSIDE RECORDS SUMMARY | 2025-08-24 09:39 | XMS_ITS | Clinical Summary ---
Author Organization [facility] Address [address] [place] [address] Care Team Providers Care Technical Support 1 Software Engineer Name Role Phone Pillo Humphrey MD Primary Care Provider [phone]- [phone] Family History Medical History Relation Name Comments [...] or (1 - 1-dose 75+ series) 2023 [id number] Vaccine (5 - 2024- season) 2025 10/16/2022, [...] to complete this topic Insurance [place] [id number] [facility] MEDICARE Care Teams Technical Support 1 Software Engineer Relationship Specialty Start Date End Date Pillo Humphrey MD [address] [place] [address] PCP - General 04/08/21
--- OUTSIDE RECORDS SUMMARY | 2025-08-24 09:40 | XMS_ITS | Encounter Summary ---
Author Organization [facility] Address [address] [place] [address] Care Team Providers Care Clock Smith Name Role Phone Pillo Humphrey MD Primary Care Provider [phone]- [phone] Reason for Referral * Consultation (Routine) - Closed Specialty Diagnoses / Procedures Referred By Camilo morales Referred To Contact Dentist / Pain Medicine Diagnoses Obstructive sleep apnea Karolyn Salinas MD [email or web address] [place] [address] Phone: tel: fax: Alice Arreola, DDS [address] [place] [address] Phone: tel: fax: Referral ID Status Reason Start Date Expiration Date Visits Re quested Visits Authorized [id number] Closed 09/05/2024 03/07/2026 1 1 Encounter Details Date Type Department Care Team (Late st Contact Info) Description 09/05/2024 Community Orders Community Practice [address] [place] [address] Karolyn Salinas MD [address] [place] [email or web address] [place] [address] Obstructive sleep apnea (Primary Dx) Social [...] (pediatric) documented in this encounter Care Teams Clock Smith Relationship Specialty Start Date End Date Pillo Humphrey MD [address] [place] [address] PCP - General 04/08/21 documented as of this encounter
--- OUTSIDE RECORDS SUMMARY | 2025-08-24 09:40 | XMS_ITS | Encounter Summary ---
Author Organization [facility] Address [address] [place] [address] Care Team Providers Care Heavy Equipment Technician Name Role Phone Pillo Humphrey MD Primary Care Provider Encounter Details Date Type Department Care Team (Late Contact Info) Description 04/30/2025 Results Follow-Up [facility] RHEUMATOLOGY [address] [address] Jose Mullen APRN [address] [phone] Social History Tobacco Use Types Packs/Day Years [...] Description 09/01/2025 2:15 PM EDT Office Visit [facility] RHE[facility] [address] [address] Jose Mullen APRN [address] [id number] documented as of this encounter Visit Diagnoses Not on filedocumented in this encounter Care Teams Heavy Equipment Technician Relationship Specialty Start Date End Date Pillo Humphrey MD [address] [facility] [address] [facility] [address] [place] [address] PCP - General Family Medicine 02/20/21 documented as of this encounter
--- OUTSIDE RECORDS SUMMARY | 2025-08-24 09:40 | XMS_ITS | Encounter Summary ---
[facility] Address [address] [place] [address] Care Team Providers Care Field Rep Name Role Phone Pillo Humphrey MD Primary Care Provider Encounter Details Date Type Department Care Team (Late st Contact Info) Description 04/29/2025 Telephone [facility] RHEUMATOLOGY [address] [phone] Jose Mullen APRN 330 [facility] [address] [place] [address] Social History Tobacco Use Types Packs/Day Years [...] PharmD - 07/29/2025 9:42 AM EDT Contacted [employer] and communications representative stated patient must call [employer] so they can verify benefits with [employer]. [employer] requires patient to be on the phone for verification with [employer]. * Telephone Encounter - Melissa Caro PharmD - 07/24/2025 12:10 PM EDT Patient has not heard from [employer] and has not called them, will call [employer] to investigate patientsPAP eligibility * Telephone Encounter - Kip Sanchez PharmD - 07/17/2025 8:35 AM EDT LVM for patient to call back. * Telephone Encounter - Melissa Caro PharmD - 07/03/2025 8:25 AM EDT Spoke with the patient, she has not heard from [employer]. I instructed the patient to call the [employer] company to see if they need anything to complete her application * Telephone Encounter - Melissa Caro PharmD - 06/19/2025 9:10 AM EDT LVM for patient to call back with any updates * Telephone Encounter - Kip Sanchez PharmD - 06/04/2025 11:14 AM EDT Faxed application to [employer]. * Telephone Encounter - Melissa Caro PharmD [...] Insurance Approving PA: [facility] PA Number: [id number] PA Effective Dates: 04/29/25-10/29/25 Dispensing Pharmacy: [facility] ~ $1800 LVM for patient to call back to discuss options for medication. * Telephone Encounter - Kip Sanchez PharmD - 04/29/2025 2:09 PM EDT Prior authorization initiated by [facility]. Update will be provided when a determination has been received. Medication: Humira PA Submission Method: CMM Case Number/CMM Hammond: [id number] * Telephone Encounter - Jose Mullen APRN - 04/29/2025 1:31 PM EDT Please PA humira biosimilar. documented in this encounter Plan of Treatment Upcoming Encounters Date Type Department Care Team (Late st Contact Info) Description 09/01/2025 2:15 PM EDT Office Visit [facility] RHEUMATOLOGY [address] [phone] Jose Mullen APRN [address] [address] documented as of this encounter Visit Diagnoses Not on filedocumented in this encounter Care Teams Field Rep Relationship Specialty Start Date End Date Pillo Humphrey MD 1210 [facility] [address] [place] [address] PCP - General Family Medicine 02/20/21 documented as of this encounter
--- OUTSIDE RECORDS SUMMARY | 2025-08-24 09:40 | XMS_ITS | Clinical Summary ---
Author Organization [facility] Address [address] [place] [address] Care Team Providers Care Brake Press Operator Name Role Phone Pillo Humphrey MD Primary [...] Type Department Care Team Description 07/31/2025 Telephone [facility] RHEUMATOLOGY [address] [place] [phone] Kip Sanchez, PharmD 07/14/2025 Results Follow-Up [facility] RHEUMATOLOGY [address] [place] [phone] Jose Mullen APRN 07/01/2025 Telephone [facility] RHEUMATOLOGY [address] [place] [phone] Jose Mullen, LANA from Last 3 [...] Description 09/01/2025 2:15 PM EDT Office Visit [facility] RHEUMATOLOGY [address] [phone] Jose Mullen APRN [address] [address] Health Maintenance Due Date Last [...] BONE DENSITY AXIAL Routine 06/30/2025 Postmenopause HEPATITIS PANEL, ACUTE Routine 04/29/2025 2:18 PM EDT Rheumatoid arthritis involving multiple sites, unspecified whether rheumatoid factor present High risk medication use Immunodeficiency due to drug therapy Other fatigue from Last 3 Months or Most Recently Relevant to Health Maintenance Results * DEXA Bone Density Axial (06/30/2025) Anatomical Region Laterality Modality Wrist, Hip, L-spine N/A Radiographic Imaging Jose Mullen BALLISTICS PROFESSOR IMG DXA ORDERABLES Fin al Result * Hepatitis Panel, Acute (04/29/2025 2:18 [...] 7:06 AM EDT Performed at: 01 - [address] [id number] Jack Setter: Leonel Herrera PhD, Phone: [phone] Patient Fasting: Y Jose Mullen BALLISTICS PROFESSOR LAB BLOOD ORDERABLES F inal Result [facility] (AMBULATORY) [address] [place] [address], [place] [phone] [facility] [address] [place] [address], [place] [phone] from Last 3 Months or Most Recently Relevant to Health Maintenance Insurance [facility] MEDICARE ADVANTAGE PPO Care Teams Brake Press Operator Relationship Specialty Start Date End Date Pillo Humphrey MD [address] [facility] [address] [facility] [address] [place] [address] PCP - General Family Medicine 02/20/21
--- OUTSIDE RECORDS SUMMARY | 2025-08-24 09:40 | XMS_ITS | Encounter Summary ---
[facility] Organization [facility] Address [address] [place] [address] Care Team Providers Care Turning Lathe Tender Name Role Phone Pillo Humphrey MD Primary Care Provider Encounter Details Date Type Department Care Team (Late st Contact Info) Description 07/31/2025 Telephone [facility] RHEUMATOLOGY 330 [facility] 100 [place] [address] Kip Sanchez, PharmD [address] [place] [address] Social History Tobacco Use Types Packs/Day Years [...] sets for Jubbonti yet. Faxed to [facility]. * Telephone Encounter - Kenisha Jarquin RN [...] AnthonyD - 07/31/2025 2:55 PM EDT Dharmesh [facility] called requesting an order for Jubbonti since her insurance prefers biosimilar instead of Prolia. documented in this encounter Plan of Treatment Upcoming Encounters Date Type Department Care Team (Late st Contact Info) Description 09/01/2025 2:15 PM EDT Office Visit [facility] RHEUMATOLOGY [address] [phone] Jose Mullen APRN [address] [address] documented as of this encounter Visit Diagnoses Not on filedocumented in this encounter Care Teams Turning Lathe Tender Relationship Specialty Start Date End Date Pillo Humphrey MD 1210 [facility] [address] [place] [address] PCP - General Family Medicine 02/20/21 documented as of this encounter
--- NOTE | 2025-08-24 10:58 | XR_ITS ---
FINAL REPORT CLINICAL HISTORY: right shoulder pain COMPARISON: None FINDINGS: RIGHT SHOULDER Two views demonstrate no acute fracture or dislocation. There is some sclerosis in the inferior bony glenoid, probably degenerative. There is calcific or ossific density inferior to the humeral head measuring 9 mm. This is probably related to an intra-articular loose body. The acromioclavicular joint is intact. IMPRESSION: Degenerative changes without acute bony abnormality. Reviewed, Interpreted and Dictated by Neto Bhakta MD Transcribed by Cher Fernandez Authenticated and [facility]
--- NOTE | 2025-08-24 10:58 | XR_ITS ---
FINAL REPORT CLINICAL HISTORY: right elbow pain COMPARISON: None FINDINGS: RIGHT ELBOW Three views demonstrate no acute fracture or dislocation. The joint spaces appear normal. No acute soft tissue abnormality is seen. IMPRESSION: No acute bony abnormality. Reviewed, Interpreted and Dictated by Neto Bhakta MD Transcribed by Cher Fernandez Authenticated and [facility]
== END 2025-08-24 23:59 | disposition home or self-care (01) ==
LOC: RAD 09:36
PROVIDERS: PCP Family Medicine; Visit Provider Physician Assistant
DX: M19.011 Primary osteoarthritis, right shoulder (principal); S52.122A Displaced fracture of head of left radius, initial encounter for closed fracture; M25.521 Pain in right elbow; W19.XXXA Unspecified fall, initial encounter
CPT/HCPCS: 73030; 73070; 73080

== ENCOUNTER 2025-09-24 11:18 | Outpatient (CLI) | payer MEDICARE, SELFPAY ==
--- OUTSIDE RECORDS SUMMARY | 2024-08-21 07:15 | XMS_ITS ---
Author Organization [facility] Address [address] [facility] [address] [facility] [address] [place] [phone] Care Team Providers Care [employer] Name Role Phone Jolie Humphrey Primary Care Provider [phone] Allergies No Known Allergies REASON FOR VISIT neck pain and dizzy then passes out Encounters Encounter Location Date Provider Diagnosis [facility] [address] [place] [phone] 08/21/2024 Jolie Humphrey Plan Of Treatment No Information Progress Notes * CLIFF CHACON RDOB: [birth year] (75 yo F)Acc No.[id number]:08/21/2024 Progress Notes Patient: CLIFF FARAH Provider: Jolie Humphrey M.D. :1950 A ge:74 Y S ex:Female Date:08/21/2024 Address:[address] [place] [address] [id number] Subjective: * Chief Complaints: * 1 . Neck pain and dizzy then passes out. * HPI: N yony: 74 year old female presents with c/o pain. * ROS: G ASTROENTEROLOGY: no V omiting. n o D iarrhea. N EUROLOGY: no H eadache. n o D izziness. U ROLOGY: no D ifficulty urinating. n o B lood in urine. * Medical History: H [place], High Cholestrol , RA followed by Dr. Portillo, Sciatic nerve pain , Hiatal hernia with GERD, Tremor, Non-union left foot fracture - 2013, Chronic knee pain. * Surgical History: l umbar fusion X 3 Dr [facility] [place] 2002, 2006, 2011, left knee scope X 2, right knee scope X 1 Dr Villareal , Breast Reduction May 2016, Left TKA - Dr. Man 09/18/22, Right TKA - Dr. Man 08/03/2023. * Hospitalization/Major Diagno stic Procedure: [facility] - Fall/Low Back Pain 11/11/2022. * Family History: F ather: 80 yrs, unknown. M other: 74 yrs, CHF, diagnosed with Hypertension, Heart Disease, Diabetes. 1 brother(s) , 1 sister(s) . 1 daughter(s) . . * Social History: C URRENT TOBACCO USE: No S moking Status: P atient does NOT smoke. C affeine: yes, frequency: coffee, soda. Home smoke detector use: yes. Alcohol: Yes, Type: wine once or twice a week , Frequency: ,Years: , Determination:. * Allergies: N .K.D.A. Objective: * Vitals: Assessment: Plan: * Treatment: * Images: Billing Information: * Visit Code: * Procedure Codes: * Electronic signature of Jolie Humphrey MD on 09/24/2025 at 11:22 AM EDT Sign off status: Pending * Provider: Jolie Humphrey M.D. Date: 0 08/21/2024 Generated for Tyesha tripathi/Lacie/Michealitting on: 11:22 AM EDT History and Physical Notes * HPI (History of Present Illness) Category Sub-Category Detail Notes Category Not es Neck pain
--- OUTSIDE RECORDS SUMMARY | 2024-09-18 10:30 | XMS_ITS ---
Author Organization [facility] Address [address] [facility] [address] [place] [id number] Care Team Providers Care Search Engine Optimization Consultant Name Role Phone Jolie Humphrey Primary Care Provider Allergies No Known Allergies Results Component Value Reference Range Notes P-Vitamin B12 Reviewed date:09/22/2024 05:55:06 PM Interpretation:1849 Performing Lab: Notes/Report: Test performed by [email or web address] [address] [place] [address] , [address], [place] [address] Laureano Rod MD, Digital Print Operator CLIA: [id number] Vitamin B12 8193 861-0741 pg/mL P-Comprehensive Metabolic Pa liberty (CMP) Reviewed date:09/22/2024 05:55:06 PM Interpretation:gluc 118 Performing Lab: Notes/Report: Test performed by [email or web address] [address] [place] [address] , [address], [place] [address] Laureano Rod MD, Digital Print Operator CLIA: [id number] Sodium 138 135-145 mmol/L Potassium 4.5 3.5-5.3 mmol/L Chloride 100 97-108 mmol/L CO2 25 22-32 mmol/L Glucose 118 65-99 mg/dL BUN 13 8-23 mg/dL Creatinine 0.95 0.50-1.00 mg/dL Calcium 9.3 8.6-10.4 mg/dL eGFR by Creatinine 62 >59 mL/min/1.73m2 Protein 6.6 6.0-8.3 g/dL Albumin 4.5 3.5-5.3 g/dL Alkaline Phosphatase 62 35-121 IU/L ALT (SGPT) 44 <5-47 IU/L AST (SGOT) 34 <5-40 IU/L Bilirubin, Total 0.4 <0.2-1.2 mg/dL A/G Ratio 2.1 1.1-2.5 P-Lipid Panel Reviewed date:09/22/2024 05:55:06 PM Interpretation:trigs 372, non-hdl 138 Performing Lab: Notes/Report: Test performed by [facility], [address] , [address] , [place] [address] Laureano Rod MD, Digital Print Operator CLIA: [id number] Cholesterol 190 <200 mg/dL Triglycerides 372 <150 mg/dL HDL Cholesterol 52 >39 mg/dL Cholesterol / HDL Ratio 3.65 0.00-4.44 Ratio Non-HDL Cholesterol 138 <130 mg/dL LDL Cholesterol (Calculation) 64 <130 mg/dL LDL Cholesterol Levels* Less than 100 mg/dL Optimal 100 to 129 mg/dL Near Optimal/ Above Optimal 130 to 159 mg/dL Borderline High 160 to 189 mg/dL High 190 mg/dL and above Very High * Categories as recommended by the 2004 ATPIII guidelines LDL/HDL Ratio 1.2 <3.3 Ratio LDL Cholesterol Patient History Test Date: 03/18/2024 LDL Results: SEE COMMENT Units: mg/dL % Change: - Test Date: 09/18/2024 LDL Results: 64 Units: mg/dL % Change: - P-Vitamin D, 1, 25 Dihydroxy Reviewed date:09/22/2024 05:55:06 PM Interpretation:Normal Performing Lab: Notes/Report: Test performed by [facility] [address] , [place] [address] Laureano Rod MD, Digital Print Operator CLIA: [id number] Vitamin D, 1, 25 Dihydroxy 60.0 19.9-79.3 pg/m L Echocardiogram Reviewed date:10/29/2024 04:03:53 PM Interpretation: Performing Lab: Notes/Report: REASON FOR VISIT discuss blood work Medications Medication SIG (Take, Route, Frequency, Duration) Notes Start Date End Date Status B-12 1000 MCG 1 tab(s) orally once a day 08/12/2015 Active predniSONE 5 MG 1 tab(s) orally once a day; Duration: 30 days Active Loratadine 10 MG 1 tab(s) orally once a day Active Omeprazole 20 MG 1 cap(s) orally once a day; Duration: 90 days Active Fish Oil 1000 MG 2 cap orally 2 times a day 01/01/2020 Active Methotrexate 2.5 MG 5 tabs orally once a week Active Vascepa 1 GM 2 cap(s) orally 2 times a day; Duration: 90 days 01/05/2021 Active Lisinopril 20 MG TAKE 1 TABLET ONE TIME DAILY; Duration: 90 days Active amLODIPine Besylate 10 MG 1 tab(s) Orally Once a day; Duration: 90 days Active Rosuvastatin Calcium 40 MG 1 tablet Orally Once a day 06/25/2023 Active CPAP machine and supplies - as directed as directed 05/11 with heated humidifier 04/28/2024 Active Propranolol HCl 40 MG 1 tab(s) orally Three times a day; Duration: 90 days Active PARoxetine HCl 10 MG 1 tab(s) orally once a day; Duration: 90 days Active Immunizations Vaccine Route Administration Date Status Comme nts Fluzone High Dose (65yr and older) IM Intramuscular 09/18/2024 Administered Vital Signs Blood pressure systolic 142 mm Hg 09/18/20 Blood pressure diastolic 78 mm Hg 024 Heart Rate 65 /min 09/18/2024 Height 64 in 09/18/2024 Weight 179.8 lbs 09/18/2024 BMI 30.86 kg/m2 09/18/2024 Encounters Encounter Location Date Provider Diagnosis [facility] [address] [place], [place] [id number] 09/18/2024 Jolie Humphrey NORRIS (dyspnea on exertion) R06.09 ; TAHIRA (obstructive sleep apnea) G47.33 ; Dyslipidemia E78.5 ; Vitamin B 12 deficiency E53.8 ; Rheumatoid arthritis, involving unspecified site, unspecified rheumatoid factor presence M06.9 and Encounter for immunization Z23 Assessments Encounter Date Diagnosis (ICD Code) Assessment Notes Treatment Notes Treatment Clinical Notes Section Notes 09/18/2024 NORRIS (dyspnea on exertion) (ICD-10 - R06.09) 09/18/2024 TAHIRA (obstructive sleep apnea) (ICD-10 - G47.33) 09/18/2024 Dyslipidemia (ICD-10 - E78.5) 09/18/2024 Vitamin B 12 deficiency (ICD-10 - E53.8) 09/18/2024 Rheumatoid arthritis, involving unspecified site, unspecified rheumatoid factor presence (ICD-10 - M06.9) 09/18/2024 Encounter for immunization (ICD-10 - Z23) Plan Of Treatment Next Appt Details Follow Up: via phone to repo rt test results, Reason: Progress Notes * CLIFF CHACON RDOB: [birth year] (75 yo F)Acc No.[id number]:09/18/2024 Progress Notes Patient: CLIFF FARAH Provider: Jolie Humphrey M.D. :1950 A ge:74 Y S ex:Female Date:09/18/2024 Address:[address] [place] [address] [place] M[place] [id number] Subjective: * Chief Complaints: * 1 . Discuss blood work. * HPI: C ardiology: She presents with ongoing complaints of shortness of breath and dyspnea on exertion. She is easily fatigued. She has been following with Dr. Obrien and he has suggested a cardiac workup as she has not no apparent pulmonary etiology of her symptoms. 74 year old female presents with c/o Short of Breath. c/o Hyperlipidemia P t would like to have cholesterol checked today, states that she last ate/ drank around 8:30 this morning. She has known obstructive sleep apnea but has not been able to tolerate any of the masks. She has been referred to by Dr. Salinas and is being fitted for a custom oral appliance. N yony: c/o radiation of pain P t complains of neck pain for about a month. States that the pain radiates in to her shoulders and up the back of her head at times. Pt is not sure if she is sleeping on it wrong or if pain is from her RA. * ROS: G ASTROENTEROLOGY: no V omiting. n o D iarrhea. N EUROLOGY: no H eadache. n o D izziness. U ROLOGY: no D ifficulty urinating. n o B lood in urine. * Medical History: H [place], High Cholestrol , RA followed by Dr. Portillo, Sciatic nerve pain , Hiatal hernia with GERD, Tremor, Non-union left foot fracture - 2013, Chronic knee pain, TAHIRA. * Surgical History: l umbar fusion X 3 Dr Singh Spine Vance Hanahan 2002, 2006, 2011, left knee scope X 2, right knee scope X 1 Dr Villareal , Breast Reduction May 2016, Left TKA - Dr. Man 09/18/22, Right TKA - Dr. Man 08/03/2023. * Hospitalization/Major Diagno stic Procedure: H ER - Fall/Low Back Pain 11/11/2022. * Family History: F ather: 80 yrs, unknown. M other: 74 yrs, CHF, diagnosed with Diabetes, Hypertension, Heart Disease. 1 brother(s) , 1 sister(s) . 1 daughter(s) . . * Social History: C URRENT TOBACCO USE: No S moking Status: P harley does NOT smoke. C affeine: yes, frequency: coffee, soda. Home smoke detector use: yes. Alcohol: Yes, Type: wine once or twice a week , Frequency: ,Years: , Determination:. * Medications: T aking Vascepa 1 GM Capsule 2 cap(s) orally 2 times a day , Taking Methotrexate 2.5 MG Tablet 5 tabs orally once a week , Taking Loratadine 10 MG Tablet 1 tab(s) orally once a day , Taking predniSONE 5 MG Tablet 1 tab(s) orally once a day , Taking B-12 1000 MCG Tablet 1 tab(s) orally once a day , Taking Fish Oil 1000 MG Capsule 2 cap orally 2 times a day , Taking Omeprazole 20 MG Capsule Delayed Release 1 cap(s) orally once a day , Taking PARoxetine HCl 10 MG Tablet 1 tab(s) orally once a day , Taking Propranolol HCl 40 MG Tablet 1 tab(s) orally Three times a day , Taking CPAP machine and supplies - - as directed as directed , Notes to Pharmacist: 05/11 with heated humidifier, Taking Rosuvastatin Calcium 40 MG Tablet 1 tablet Orally Once a day , Taking amLODIPine Besylate 10 MG Tablet 1 tab(s) Orally Once a day , Taking Lisinopril 20 MG Tablet TAKE 1 TABLET ONE TIME DAILY , Discontinued Orencia 250 MG Solution Reconstituted as directed intravenously every 4 weeks , Discontinued Cyclobenzaprine HCl 10 MG Tablet 1 tab(s) orally 3 times a day , Discontinued oxyCODONE HCl 5 MG Capsule 1 cap(s) orally every 6 hours , Discontinued traMADol HCl 50 MG Tablet 1 tab(s) orally every 6 hours , Discontinued Vitamin D3 10 MCG (400 UNIT) Tablet 2 tab(s) orally once a day , Discontinued Vitamin C 500 MG Tablet 1 tab(s) orally once a day , Discontinued predniSONE 20 MG Tablet 1 tab(s) orally bid , Medication List reviewed and reconciled with the patient * Allergies: N .K.D.A. Objective: * Vitals: W t:179.8, Temp:97.8, BP:142/78, HR:65, O2 Sat:94% on RA, Nurse:LIZ, Ht: 64, BMI:30.86. * Examination: C ardiology: General Appearance: p leasant, NAD. C arotid upstroke:?normal, no bruits. H eart sounds: R RR, normal S1, S2. M urmur, click , gallop:?none. L ungs: c lear, no rales or wheezes. E xtremities: n o leg edema. . Assessment: * Assessment: 1. D OE (dyspnea on exertion) - R06.09 (Primary) 2 . O SA (obstructive sleep apnea) - G47.33 3 . D yslipidemia - E78.5 4 . V itamin B 12 deficiency - E53.8 5 . R heumatoid arthritis, involving unspecified site, unspecified rheumatoid factor presence - M06.9 6 . E ncounter for immunization - Z23? Plan: * Treatment: Value Reference Range A /G Ratio 2.1 1.1-2.5 - * A lbumin 4.5 3.5-5.3 - g/dL * A lkaline Phosphatase 62 35-121 - IU/L * A LT (SGPT) 44 <5-47 - IU/L * A ST (SGOT) 34 <5-40 - IU/L * B ilirubin, Total 0.4 <0.2-1.2 - mg/dL * B UN 13 8-23 - mg/dL * C alcium 9.3 8.6-10.4 - mg/dL * C hloride 100 97-108 - mmol/L * C O2 25 22-32 - mmol/L * C reatinine 0.95 0.50-1.00 - mg/dL * G lucose 118 H 65-99 - mg/dL * P otassium 4.5 3.5-5.3 - mmol/L * S odium 138 135-145 - mmol/L * P rotein 6.6 6.0-8.3 - g/dL * e GFR by Creatinine 62 >59 - mL/min/1.73m2 * Jolie Humphrey 09/22/2024 5:54:59 PM >See phone encounter ?LAB: P-Vitamin D, 1, 25 Dihydroxy (Collection Date & Time - 09/18/2024 02:10 PM)?Normal* Value Reference Range V itamin D, 1, 25 Dihydroxy 60.0 19.9-79.3 - pg /mL * Jolie Humphrey 09/22/2024 5:54:59 PM >See phone encounter ?Imaging: Echocardiogram (Performed Date - 09/24/2024)* Karishma Queen 09/18/2024 3:13 :18 PM > auth#[id number]; valid 09/18/2024 through 11/25/2024; CPT code 24798; faxed to [facility] Jolie Bernard 10/29/2024 4:03:31 PM > Just recieved report today. See phone encounter 2.?TAHIRA (obstructive sleep apnea)?Imaging: Echocardiogram (Performed Date - 09/24/2024)* Karishma Queen 09/18/2024 3:13 :18 PM > auth#[id number]; valid 09/18/2024 through 11/25/2024; CPT code 18136; faxed to [facility] Jolie Bernard 10/29/2024 4:03:31 PM > Just recieved report today. See phone encounter 3.?Dyslipidemia?LAB: P-Lipid Panel (Collection Date & Time - 09/18/2024 02:10 PM)?trigs 372, non-hdl 138* Value Reference Range C holesterol / HDL Ratio 3.65 0.00-4.44 - Ratio * C holesterol 190 <200 - mg/dL * H DL Cholesterol 52 >39 - mg/dL * L DL Cholesterol (Calculation) 64 <130 - mg/d L * L DL/HDL Ratio 1.2 <3.3 - Ratio * N on-HDL Cholesterol 138 H <130 - mg/dL * T riglycerides 372 H <150 - mg/dL * Jolie Humphrey 09/22/2024 5:54:59 PM >See phone encounter 4.?Vitamin B 12 deficiency?LAB: P-Vitamin B12 (Collection Date & Time - 09/18/2024 02:10 PM)?1849* Value Reference Range V itamin B12 1849 H 232-1245 - pg/mL * Jolie Humphrey 09/22/2024 5:54:59 PM >See phone encounter * Immunizations: Fluzone High Dose (65yr and older) : 0.5 mL (Route: Intramuscular) given by Inna Johnson on Left Deltoid (Encounter for immunization) * Procedure Codes: 9 4760 PULSE OX * Follow Up: v ia phone to report test results * Images: Billing Information: * Visit Code: 49033 Office Visit, Est Pt., Level 4. * Procedure Codes: 53705 PULSE OX. * Electronic signature of Jolie Humphrey MD on 09/24/2025 at 11:23 AM EDT Sign off status: Pending * Provider: Jolie Humphrey M.D. Date: Generated for Glendyi bhumi/Lacie/eTransmitting on: 11:23 AM EDT History and Physical Notes * HPI (History of Present Illness) Category Sub-Category Detail Notes Category Not es Cardiology Short of Breath She has know n obstructive sleep apnea but has not been able to tolerate any of the masks. She has been referred to by Dr. Salinas and is being fitted for a custom oral appliance Hyperlipidemia Pt would like to hav e cholesterol checked today, states that she last ate/ drank around 8:30 this morning Neck radiation of pain Pt complains o f neck pain for about a month. States that the pain radiates in to her shoulders and up the back of her head at times. Pt is not sure if she is sleeping on it wrong or if pain is from her RA Examination Category Sub-Category Detail Notes Category Not es Cardiology Lungs: clear, no rales or wheezes Heart sounds: RRR, normal S1, S2 Carotid upstroke: normal, no bruits Extremities: no leg edema. Murmur, click , gallop: none General Appearance: pleasant, NAD
--- OUTSIDE RECORDS SUMMARY | 2025-01-20 07:30 | XMS_ITS ---
Author Organization Moe Address 1210 [facility] 36 [facility] [address] [place] [phone] Care Team Providers Care Improvement Lead Name Role Phone Jolie Humphrey Primary Care Provider [phone] Allergies No Known Allergies Results Component Value Reference Range Notes Bone density Reviewed date:05/14/2025 10:52:24 AM Interpretation:pt declined Performing Lab: Notes/Report: pt declined colonoscopy Reviewed date:05/14/2025 10:52:38 AM Interpretation:pt declined Performing Lab: Notes/Report: pt declined Mammogram Reviewed date:05/14/2025 10:52:55 AM Interpretation:pt declined Performing Lab: Notes/Report: pt declined REASON FOR VISIT checkup and Annual Wellness visit Encounters Encounter Location Date Provider Diagnosis Moe [address] [place] [phone] 01/20/2025 Jolie Humphrey Adult general medica l [...] CLIFF CHACON RDOB: [birth year] (75 yo F)Acc No.[id number]:01/20/2025 Annual Wellness Visit Patient: CLIFF FARAH Provider: Jolie Humphrey M.D. :1950 A ge:74 Y S ex:Female Date:01/20/2025 Address:[address] [place] [address] [id number] Subjective: * Chief Complaints: * 1 . [...] umbar fusion X 3 Dr Singh Spine [place] 2002, 2006, 2011, left knee scope X [...] enies problems. Assessment: * Assessment: 1. A [facility] general medical examination - Z00.00 (Primary) Plan: * Treatment: * Imaging: * I maging: Bone density (Performed Date - 05/14/2025) p t declined ?Imaging: colonoscopy (Performed Date - 05/14/2025)?pt declined* ?Imaging: Mammogram (Performed Date - 05/14/2025)?pt declined* * Khalida Cui 05/14/2025 1 0:52:43 AM EDT >pt declined * Procedure Codes: G 0439 ANNUAL WELLNESS VST; PPS SUBSQT VST, Modifiers: 25 , 27238 GLYCATED HEMOGLOBIN TEST, Modifiers: QW , G0444 [...] WELLNESS VST; PPS SUBSQT VST. Modifiers: 25 14752 GLYCATED HEMOGLOBIN TEST. Modifiers: QW G0444 ANNUAL [...] 0 01/20/2025 Generated for Tyesha tripathi/Lacie/eTransmitting on: 1 11:23 AM EDT History and Physical Notes * HPI (History of Present Illness) Category Sub-Category Detail Notes Category Not es HPI Patient is here today for a [facility] duled check up and a Medicare [...]
--- OUTSIDE RECORDS SUMMARY | 2025-02-24 10:00 | XMS_ITS ---
[facility] Address [address] [facility] [address] [place] [id number] Care Team Providers Care Mining Professionals Name Role Phone Jolie Humphrey Primary Care [...] Problem Carpal tunnel syndrome of left wrist (799506637809141) Carpal tunnel syndrome of left wrist (G56.02) Active confirmed Problem Osteoarthritis (364263732) OA (osteoarthri tis) (M19.90) Active confirmed Vital Signs Blood pressure systolic 140 mm Hg 02/25/20 25 Blood pressure diastolic 70 mm Hg 025 Heart Rate 58 /min 02/24/2025 Height 64 in 02/24/2025 Weight 181.8 lbs 02/24/2025 BMI 31.2 kg/m2 02/24/2025 Encounters Encounter Location Date Provider Diagnosis [facility] [address] [facility] [address] [place] [phone] 02/24/2025 Jolie Humphrey Carpal tunnel syndrome of [...] Details Follow Up: 4 Weeks,prn, Reas on: Medications Administered Medication Instructions Date of Administration Dosage Notes Depo- Medrol 40 mg/ml 02/24/2025 1.5 mL Progress Notes * CLIFF CHACON RDOB: [birth year] (75 yo F)Acc No.[id number]:02/24/2025 Progress Notes Patient: CLIFF FARAH Provider: Jolie Humphrey M.D. :1950 A ge:74 Y S ex:Female Date:02/24/2025 Address:[address] [place] [address] [place] [id number] Subjective: * Chief Complaints: * 1 . [...] umbar fusion X 3 Dr Singh Spine [place] 2002, 2006, 2011, left knee scope X [...] or deformity.? Sensation is intact at present. Animal Rehabilitator strength is normal. Tinel's sign is negative..? [...] methylpred acetate 1 mg, Units: 1.50 , 90477 ADMINISTRATION OF INJECTION, 3077F SYST BP = 140 MM HG6 IT, 3078F DIAST BP < 80 MM HG * Follow Up: 4 Weeks,prn * Images: Billing Information: * Visit Code: 80589 Office Visit, Est Pt., Level 3. Modifiers: 25 * Procedure Codes: G2211 Complex e/m visit add on. J1010 Inj, methylpred acetate 1 mg. Units: 1.50. 34793 ADMINISTRATION OF INJECTION. 3077F SYST BP = 140 MM HG6 IT. 3078F DIAST BP < 80 MM HG. * Electronic signature of Jolie Humphrey MD on 09/24/2025 at 11:23 AM EDT Sign off status: Pending * Provider: Jolie Humphrey M.D. Date: 0 02/24/2025 Generated for Tyesha tripathi/Lacie/Samantha on: 1 11:23 AM EDT History and [...] or deformity. Sensation is intact at present. Animal Rehabilitator strength is normal. Tinel's sign is negative.
--- OUTSIDE RECORDS SUMMARY | 2025-07-02 06:30 | XMS_ITS ---
Author Organization [facility] Address [address] [facility] [address] [place] [phone] Care Team Providers Care Agricultural Adviser Name Role Phone Jolie Humphrey Primary Care [...] W/U Status Risk Notes Problem Macrocytic anemia (28226580) Macrocytic anemia (D53.9) Active confirmed Vital Signs Blood pressure systolic 130 mm Hg 07/02/20 25 Blood pressure diastolic 60 mm Hg 025 Heart Rate 67 /min 07/02/2025 Height 64 in 07/02/2025 Weight 179.6 lbs 07/02/2025 BMI 30.82 kg/m2 07/02/2025 Encounters Encounter Location Date Provider Diagnosis [facility] [address] [facility] [address] [place], [place] [phone] 07/02/2025 Jolie Humphrey Adult general medica l [...] Appt Details Follow Up: 6 Months, Reason: Progress Notes * CLIFF CHACON RDOB: [birth year] (75 yo F)Acc No.[id number]:07/02/2025 Annual Wellness Visit Patient: CLIFF FARAH Provider: Jolie Humphrey M.D. :1950 A ge:75 Y S ex:Female Date:07/02/2025 Address:[address] [place] [address] [phone] Subjective: * Chief Complaints: * 1 . [...] also brings in recent labs from her information security showing a mild macrocytic anemia. She is currently taking a folic acid supplement. Boss Dyer also performed a bone density exam showing [...] umbar fusion X 3 Dr Singh Spine [facility] 2002, 2006, 2011, left knee scope [...] hypertension - I10 ? 7 . B DE 30.0-30.9,adult - Z68.30 8 . S evere [...] mineral Density R ecent history: 2024 per information security. * Follow Up: 6 Months * Images: Drawing:[facility] Billing Information: * Visit Code: 94209 Office Visit, Est Pt., Level 3. Modifiers: [...] 0 07/02/2025 Generated for Tyesha tripathi/Lacie/eTransmitting on: 1 11:23 [...] also brings in recent labs from her information security showing a mild macrocytic anemia. She is currently taking a folic acid supplement. Boss Dyer also performed a bone density exam showing [...]
--- OUTSIDE RECORDS SUMMARY | 2025-07-28 09:45 | XMS_ITS ---
Author Organization [facility] Address [facility] [address] [place] [phone] Care Team Providers Care Director Industrial Nursing Name Role Phone Jolie Humphrey Primary Care Provider Allergies No Known Allergies REASON FOR VISIT Discuss Prolia Encounters Encounter Location Date Provider Diagnosis [facility] [address] [place] [address] [place] [phone] 07/28/2025 Jolie Humphrey Plan Of Treatment No Information Progress Notes * CLIFF CHACON RDOB: [birth year] (75 yo F)Acc No.[id number]:07/28/2025 Progress Notes Patient: CLIFF FARAH Provider: Jolie Humphrey M.D. :1950 A ge:75 Y S ex:Female Date:07/28/2025 Address:[address] [place] [address] [phone] Subjective: * Chief Complaints: * 1 . Discuss Prolia. * ROS: D ERMATOLOGY: no R vicki. n o H brian. G ASTROENTEROLOGY: no N ausea. n o V omiting. n o D iarrhea.? U ROLOGY: no B lood in urine. n o F requent urination. ? * Medical History: H [place], High Cholestrol , RA followed by Dr. Portillo, Sciatic nerve pain , Hiatal hernia with GERD, Tremor, Non-union left foot fracture - 2013, Chronic knee pain, TAHIRA. * Surgical History: l umbar fusion X 3 Dr Singh Spine [place] 2002, 2006, 2011, left knee scope X 2, right knee scope X 1 Dr Villareal , Breast Reduction May 2016, Left TKA - Dr. Man 09/18/22, Right TKA - Dr. Man 08/03/2023. * Hospitalization/Major Diagno stic Procedure: H ER - Fall/Low Back Pain 11/11/2022. * Family History: F ather: 80 yrs, unknown. M other: 74 yrs, CHF, diagnosed with Heart Disease, Hypertension, Diabetes. 1 brother(s) , 1 sister(s) . [...] of Jolie Humphrey MD on 09/24/2025 at 11:24 AM EDT Sign off status: Pending * Provider: Jolie Humphrey M.D. Date: 0 07/28/2025 Generated for Tyesha tripathi/Lacie/Michealitting on: 11:24 AM EDT
--- OUTSIDE RECORDS SUMMARY | 2025-07-29 11:15 | XMS_ITS ---
Author Organization [facility] Address [address] [place] [id number] Care Team Providers Care Refurbish Technician Name Role Phone Jolie Humphrey Primary Care Provider Whitney Morillo Unavailable [phone] Allergies No Known Allergies Results Component Value Reference Range Notes CBC Fingerstick (in house) Reviewed date:07/30/2025 12:47:01 PM Interpretation: Performing Lab: Notes/Report: wbc 9.5 3.5 - 10 lym 21.1 15 - 50 mid 5.1 2 - 15 gran 73.8 35 - 80 rbc 3.43 3.5 - 5.5 hgb 12.8 11.5 - 16.5 hct 37.6 35 - 55 mcv 109.4 75 - 100 mch 37.3 25 - 35 mchc 34.0 31 - 38 plat 276 100 - 400 Covid test (in house) Reviewed date:07/30/2025 12:47:01 PM Interpretation: Performing Lab: Notes/Report: Result: neg X ray : Elbow, left Reviewed date:08/07/2025 12:12:48 AM Interpretation: Performing Lab: Notes/Report: REASON FOR VISIT elbow injury from fall Medications Medication SIG (Take, Route, Frequency, Duration) Notes Start Date End Date Status B-12 1000 MCG 1 tab(s) orally once a day 08/12/2015 Active Rosuvastatin Calcium 40 MG 1 tablet Oral ly Once a day; Duration: 90 days Active predniSONE 5 MG 1 tab(s) orally once a day; Duration: 30 days Active Omeprazole 20 MG 1 cap(s) orally once a day; Duration: 90 days Active PARoxetine HCl 10 MG 1 tab(s) orally onc e a day; Duration: 90 days Active Loratadine 10 MG 1 tab(s) orally once a day Active Methotrexate 2.5 MG 5 tabs orally once a week Active Aspirin 81 MG 1 tablet Orally Once a day Active Plavix 75 MG 1 tablet Orally Once a day Active Clopidogrel Bisulfate 75 MG 1 tablet Ora lly Once a day Active Vital Signs Blood pressure systolic 100 mm Hg 07/29/20 25 Blood pressure diastolic 60 mm Hg 025 Heart Rate 76 /min 07/29/2025 Height 64 in 07/29/2025 Weight 176.2 lbs 07/29/2025 BMI 30.24 kg/m2 07/29/2025 Encounters Encounter Location Date Provider Diagnosis [facility] [address] [facility] [address] [place], [place] [id number] 07/29/2025 Whitney Morillo Injury of left elbow , initial encounter S59.902A ; Acute URI J06.9 and Hypotension due to drugs I95.2 Assessments Encounter Date Diagnosis (ICD Code) Assessment Notes Treatment Notes Treatment Clinical Notes Section Notes 07/29/2025 Injury of left elbow, initial encounter (ICD-10 - S59.902A) 07/29/2025 Acute URI (ICD-10 - J06.9) 07/29/2025 Hypotension due to drugs (ICD-10 - I95.2) Will stop BP meds and call tomorrow with BP reading. Plan Of Treatment Medication Medication Name Sig Start Date Stop Date Notes Propranolol HCl 40 MG 1 tab(s) orally Twice a day amLODIPine Besylate 10 MG 1 tab(s) Orally Once a day Lisinopril 20 MG 1 tablet Orally Once a day Treatment Notes Assessment Notes Hypotension due to drugs Will stop BP me ds and call tomorrow with BP reading. Next Appt Details Follow Up: via phone to repo rt test results, Reason: Progress Notes * CLIFF CHACON RDOB: [birth year] (75 yo F)Acc No.[id number]:07/29/2025 Progress Notes Patient: CLIFF FARAH Provider: SELVIN Dobbs :1950 A ge:75 Y S ex:Female Date:07/29/2025 Address:[address] [place] [address] [id number] Pcp:Jolie Humphrey Subjective: * Chief Complaints: * 1 . Elbow injury from fall. * HPI: E lbow/Arm: 75 year old female presents with c/o pain P t states she fell Sunday, and she has been having left arm pain since then. Pt states she was just walking down the [place] and she fell down. Pt states she been light headed a lot in the past few weeks?. * ROS: D ERMATOLOGY: no R vicki. n o H brian. G ASTROENTEROLOGY: no N ausea. n o V omiting. n o D iarrhea.? U ROLOGY: no D ifficulty urinating. n o B lood in urine. * Medical History: H [place], High Cholestrol , RA followed by Dr. Portillo, Sciatic nerve pain , Hiatal hernia with GERD, Tremor, Non-union left foot fracture - 2013, Chronic knee pain, TAHIRA. * Surgical History: l umbar fusion X 3 [facility] 2002, 2006, 2011, left knee scope [...] ,Years: , Determination:. * Medications: T aking Clopidogrel Bisulfate 75 MG Tablet 1 tablet Orally Once a day , Taking Plavix 75 MG Tablet 1 tablet Orally Once a day , Taking Aspirin 81 MG Tablet Chewable 1 tablet Orally Once a day , Taking Methotrexate 2.5 MG Tablet 5 tabs orally once a week , Taking Loratadine 10 MG Tablet 1 tab(s) orally once a day , Taking B-12 1000 MCG Tablet 1 tab(s) orally once a day , Taking amLODIPine Besylate 10 MG Tablet 1 tab(s) Orally Once a day , Taking Propranolol HCl 40 MG Tablet 1 tab(s) orally Twice a day , Taking PARoxetine HCl 10 [...] 1 tablet Orally Once a day , Discontinued Vascepa 1 GM Capsule 2 cap(s) orally 2 times a day , Discontinued Fish Oil 1000 MG Capsule 2 cap orally 2 times a day , Discontinued CPAP machine and supplies - - as directed as directed , Notes to Pharmacist: 05/11 with heated humidifier, Medication List reviewed and reconciled with the patient * Allergies: N .K.D.A. Objective: * Vitals: W t: 176.2, Temp: 98.0, BP: 100/60, HR: 76, Nurse: haven, Ht: 64, Repeat BP: 90/60, BMI:30.24. * Examination: G eneral Examination: General Appearance: N AD. H EENT: s clera and conjunctiva clear, PERRLA, TM's normal, translucent, EOM's with normal ROM, no nystagmus. O ral cavity: n o lesions, mucosa moist and WNL, no erythema. N yony: s upple, no lymphadenopathy. Chest: n ormal shape and expansion. H eart: R SR. L ungs: c lear to auscultation. A bdomen: b owel sounds present, soft and nontender, no organomegaly or masses. N eurologic Exam: I ntact, gait normal. S kin: n ormal, no rash. P eripheral pulses: normal (2+) bilaterally. E xtremities: n o leg edema. E lbow/Arm: Elbow: l eft. F orearm/upperarm: p ain with movement against resistance, pain with flexion and extension. I nspection: s ome edema along the olecranon. P alpation: t enderness over olecranon process. R vladimir of motion: p ainful restricted movements. c irculation: i ntact. Assessment: * Assessment: 1. I njury of left elbow, initial encounter - L96.241U (Primary) 2 . A cute URI - J06.9 3 . H ypotension due to drugs - I95.2 Plan: * Treatment: 2.?Acute URI?LAB: CBC Fingerstick (in house) (Collection Date & Time - 07/29/2025)* Value Reference Range w bc 9.5 3.5 - 10 * l ym 21.1 15 - 50 * m id 5.1 2 - 15 * g ran 73.8 35 - 80 * r bc 3.43 3.5 - 5.5 * h gb 12.8 11.5 - 16.5 * h ct 37.6 35 - 55 * m cv 109.4 75 - 100 * m ch 37.3 25 - 35 * m chc 34.0 31 - 38 * p lat 276 100 - 400 * Bertha Meade 07/29/2025 03 :48:54 PM EDT > Provider reviewed results while patient in office. ?LAB: Covid test (in house) (Collection Date & Time - 07/29/2025)* Value Reference Range R esult: neg * Bertha Meade 07/29/2025 03 :48:25 PM EDT > Provider reviewed results while patient in office. 3.?Hypotension due to drugs? Stop amLODIPine Besylate Tablet, 10 MG, 1 tab(s), Orally, Once a day;?Stop Propranolol HCl Tablet, 40 MG, 1 tab(s), orally, Twice a day;?Stop Lisinopril Tablet, 20 MG, 1 tablet, Orally, Once a day.?? Notes: Will stop BP meds and call tomorrow with BP reading.?? * Procedure Codes: G 2211 Complex e/[place], [address] CAPILLARY BLOOD DRAW, 85384 CBC WITH AUTO DIFF, 62132 COVID TEST IN HOUSE, Modifiers: QW * Follow Up: v ia phone to report test results * Images: Billing Information: * Visit Code: 05659 Office Visit, Est Pt., Level 4. * Procedure Codes: G2211 Complex e/[place]. [address] CAPILLARY BLOOD DRAW. 60772 CBC WITH AUTO DIFF. 68353 COVID TEST IN HOUSE. Modifiers: QW * Electronic signature of SELVIN Sellers on 09/24/2025 at 11:23 AM EDT Sign off status: Pending * Provider: SELVIN Dobbs Date: 0 07/29/2025 Generated for Printi ng/Faxing/eTransmitting on: 1 11:23 AM EDT History and Physical Notes * HPI (History of Present Illness) Category Sub-Category Detail Notes Category Not es Elbow/Arm pain Pt states she fe ll Sunday, and she has been having left arm pain since then. Pt states she was [place] and she fell down. Pt states she been light headed a lot in the past few weeks Examination Category Sub-Category Detail Notes Category Not es General Examination HEENT: sclera and c onjunctiva clear, PERRLA, TM's normal, translucent, EOM's with normal ROM, no nystagmus Heart: RSR Lungs: clear to auscultatio n Abdomen: bowel sounds present , soft and nontender, no organomegaly or masses Extremities: no leg edema General Appearance: NAD Skin: normal, no rash Neurologic Exam: Intact, gait normal Neck: supple, no lymphaden opathy Oral cavity: no lesions, mucosa m oist and WNL, no erythema Peripheral pulses: normal (2+) bilatera lly Chest: normal shape and exp ansion Elbow/Arm Palpation: tenderness over olecranon pr ocess Elbow: left Inspection: some edema along the olecranon Range of motion: painful restricted m ovements Forearm/upperarm: pain with movement a gainst resistance, pain with flexion and extension circulation: intact
--- OUTSIDE RECORDS SUMMARY | 2025-08-11 11:15 | XMS_ITS ---
Author Organization [facility] Address [address] [facility] [address] [place] [id number] Care Team Providers Care Supervisor Microbiology Technologists Name Role Phone Jolie Humphrey Primary Care Provider [phone] Results Component Value Reference Range Notes CXR [...] [address] [place] [id number] 08/11/2025 Jolie Humphrey Acute bronchitis J20 .9 [...] CLIFF CHACON RDOB: [birth year] (75 yo F)Acc No.[id number]:08/11/2025 Progress Notes Patient: CLIFF FARAH Provider: Jolie Humphrey M.D. :1950 A ge:75 Y S ex:Female Date:08/11/2025 Address:[address] [place] [address] [id number] Subjective: * Chief Complaints: * 1 . Cough. * HPI: E NT/respiratory: 75 year old female presents with c/o cough P t complains of ongoing cough for 3 weeks. Pt states sometimes the sputum is clear and others it's yellow. Pt states she went to [facility] on 08/08. Pt states she was given [...] Surgical History: l umbar fusion X 3 [facility] Sp[facility] 2002, 2006, 2011, left knee scope X [...] * Images: Billing Information: * Visit Code: 90998 Office Visit, Est Pt., Level 3. * [...] 0 08/11/2025 Generated for Printi ng/Faxing/eTransmitting on: 1 11:23 [...] it's yellow. Pt states she went to [facility] on 08/08. Pt states she was given [...]
--- OUTSIDE RECORDS SUMMARY | 2025-09-24 11:24 | XMS_ITS | Patient Health Record ---
Author [facility] Address [address] [place] [id number] Care Team Providers Care Tax Manager Name Role Phone Jolie Humphrey Primary Care Provider Whitney Morillo Unavailable [phone] Allergies No Known Allergies Results Component Value Reference Range Notes CXR Reviewed date:08/13/2025 12:46:50 PM Interpretation:no active disease Performing Lab: Notes/Report: no active disease X ray : Elbow, left Reviewed date:08/07/2025 [...] - 38 plat 276 100 - 400 Reason For Referral Reason Dr Ferrer for abnormal echo Diagnosis 1 Abnormal echocardiog dennis (R93.1) [facility] Referring Provider First Name Jolie Booth Referring Provider Last Name Milagro Referring Provider Speciality Family [facility] ctice Referred Provider Carissa Holland Referred Provider Specialty Cardiovascul ar Disease General Notes Karishma Queen 10/30/20 3:01:40 PM > faxed to [facility] Cardiology, Karishma Queen 11/06/2024 1:48:57 PM [...] Orally Three times a day 08/11/2025 Active predniSONE 5 MG 1 tab(s) orally once a day; Duration: 30 days Active levoFLOXacin 500 MG 1 tablet Orally Once a day 08/11/2025 Active Immunizations Vaccine Route Administration Date Status Comme nts Tetanus Tdap-Adacel (over 7yrs) IM Intramuscular 05/23/2017 Administered Tetanus Tdap-Adacel (over 7yrs) Unknown 05/23/2017 Administered Prevnar (PCV20) IM Intramuscular 08/30/2023 Administered Prevnar (PCV13) IM Intramuscular 12/03/2014 Administered Prevnar (PCV13) Unknown 08/27/2020 Administered PNEUMOVAX 23 VACCINE IM Intramuscular 05/23/2017 Administe red PNEUMOVAX 23 VACCINE Unknown 05/23/2017 Administered Hepatitis A (adult) Unknown 11/06/2018 Administered Hepatitis A (adult) Unknown 11/06/2018 Administered Fluzone High Dose (65yr and older) [...] (65yr and older) IM Intramuscular 09/18/2024 Administered COVID 19 Moderna Unknown 01/19/2021 Administered COVID 19 Moderna Unknown 11/02/2021 Administered Problems Problem Type SNOMED Code ICD Code Onset Dates Problem Status W/U Status Risk Notes Problem Essential hypertension (35935457) Essential hypertension (I10) Active confirmed Problem Paresthesia (67111387) Paresthesia (R20.2) Active confirmed Problem Body mass index 30+ - obesity (023156793) BMI 30.0-30.9,adult (Z68.30) Active confirmed Problem Menopause (364775358) Hot flashes (N95.1) Active confirmed Problem Sciatica (45189917) Lumbago with sciatica, right side (M54.41) Active confirmed Problem Mixed hyperlipidemia (532915042) Mixed hyperlipidemia (E78.2) Active confirmed Problem Essential tremor (937926311) Essential tremor (G25.0) Active confirmed Problem Sciatica (85142746) Lumbago with sciatica, left side (M54.42) Active confirmed Problem Gastroesophageal reflux disease (872941308) GERD without esophagitis (K21.9) Active confirmed Problem Gastroesophageal reflux disease without esophagitis (108776887) Gastroesophageal reflux disease without esophagitis (K21.9) Active confirmed Problem Depression (375683845) Depression (F32.9) Active confirmed Problem Gastroesophageal reflux disease (831497131) Gastroesophageal reflux disease, esophagitis presence not specified (K21.9) Active confirmed Problem Macrocytic anemia (27035869) Macrocytic anemia (D53.9) Active confirmed Problem Carpal tunnel syndrome of left wrist (613466170882975) Carpal tunnel syndrome of left wrist (G56.02) Active confirmed Problem Obstructive sleep apnea syndrome (14096224) Severe obstructive sleep apnea (G47.33) Active confirmed Problem Dyslipidemia (120020375) Dyslipidemia (E78.5) Active confirmed Problem Osteoarthritis (066844095) OA (osteoarthritis) (M19.90) Active confirmed Problem Mood swings (64507316) Mood swings (F39) Active confirmed Problem Rheumatoid arthritis (82369304) Rheumatoid arthritis, involving unspecified site, unspecified rheumatoid factor presence (M06.9) Active confirmed Problem Post menopausal problems (N95.9) Active confirmed Vital Signs Heart Rate 62 /min 08/11/2025 Blood pressure diastolic 70 mm Hg 08/11/2025 Height 64 in 08/11/2025 Blood pressure systolic 114 mm Hg 08/11/2025 Weight 173.8 lbs 08/11/2025 BMI 29.83 kg/m2 08/11/2025 Encounters Encounter Location Date Provider Diagnosis [facility] [address] [place] [id number] 02/24/2025 R Leobardo Humphrey Carpal tunnel syndro me of left wrist G56.02 and OA (osteoarthritis) M19.90 [facility] [address] [place] [id number] 07/02/2025 R Leobardo Humphrey Adult general medica l examination Z00.00 ; Dyslipidemia E78.5 ; Macrocytic anemia D53.9 ; Breast cancer screening Z12.39 ; Rheumatoid arthritis, involving unspecified site, unspecified rheumatoid factor presence M06.9 ; Essential hypertension I10 ; BMI 30.0-30.9,adult Z68.30 ; Severe obstructive sleep apnea G47.33 and Gastroesophageal reflux disease, esophagitis presence not specified K21.9 [facility] [address] [place] [id number] 07/29/2025 Whitney Crowdy Injury of left elbow , initial encounter S59.902A ; Acute URI J06.9 and Hypotension due to drugs I95.2 [facility] [address] [place] [id number] 08/11/2025 R Leobardo Humphrey Acute bronchitis J20 .9 and Closed fracture of left elbow, initial encounter S42.402A [facility] [address] [place], [place] [id number] 10/29/2024 R Leobardo Milagro Abnormal echocardiog dennis R93.1 [facility] [address] [place], [place] [id number] 01/16/2025 R Leobardo Milagro [facility] [address] [place], [place] [id number] 02/20/2025 R Leobardo Milagro [facility] [address] [place], [place] [id number] 03/09/2025 R Leobardo Milagro [facility] [address] [place], [place] [id number] 04/14/2025 R Leobardo Milagro [facility] [address] [place], [place] [id number] 05/18/2025 R Leobardo Milagro [facility] [address] [place], [place] [id number] 06/24/2025 R Leobardo Milagro [facility] [address] [place], [place] [id number] 06/29/2025 R Leobardo Milagro [facility] [address] [place], [place] [id number] 07/15/2025 R Leobardo Milagro [facility] [address] [place], [place] [id number] 07/15/2025 R Leobardo Milagro [facility] [address] [place], [place] [id number] 07/30/2025 Whitney Crowdy Hypotension due to d rugs I95.2 [facility] [address] [place], [place] [id number] 07/30/2025 R Leobardo Milagro [facility] [address] [place], [place] [id number] 08/06/2025 R Leobardo Milagro [facility] [address] [place], [place] [id number] 08/13/2025 R Leobardo Milagro [facility] [address] [facility] [address] [place] [id number] 09/07/2025 Jolie Humphrey Assessments Encounter Date Diagnosis (ICD Code) Assessment Notes Treatment Notes Treatment Clinical Notes Section Notes 10/29/2024 Abnormal echocardiogram (ICD-10 - R93.1) 02/24/2025 Carpal tunnel syndrome of left wrist (ICD-10 - G56.02) She is provided written prescription for cock-up wrist splint to wear at night. Discussed possible referral for EMG testing if symptoms persist. 02/24/2025 OA (osteoarthritis) (ICD-10 - M19.90) 07/02/2025 Dyslipidemia (ICD-10 - E78.5) 07/02/2025 Adult [...] she will call to reschedule her appointment. 07/29/2025 Hypotension due to drugs (ICD-10 - [...] Date [employer] [address] [address] [place], [place] [phone] [id number] CLIFF [place]ACON Self - patient is the [...] lumbar fusion X 3 Dr Singh Spine [facility] 2002, 2006, 2011 left knee scope X 2, right knee scope X 1 Dr Villareal Breast Reduction May 2016 Left TKA - Dr. Man 09/18/22 Right TKA - Dr. Man 08/03/2023 Hospitalization History Reason Date(Month/Year) [facility] ER - Fall/Low Back Pain 11/11/2022
[2025-09-24 11:25] VITALS: BP 162/55; PULSE 54; RESP 20; TEMP 36.3; O2SAT 99
[2025-09-24] MEDS: DENOSUMAB 60 MG/ML SYRINGE SUBCUT (11:25)
== END 2025-09-24 23:59 | disposition home or self-care (01) ==
LOC: INF 11:20
PROVIDERS: PCP Family Medicine; Visit Provider Nurse Practitioner Family
DX: M85.80 Other specified disorders of bone density and structure, unspecified site (principal)
CPT/HCPCS: 96372; J0897